=== PATIENT | male | born 1955 | race Caucasian/White ===

== ENCOUNTER 2016-03-07 12:13 | Inpatient (IN) | payer MEDICARE, OTHER, MEDICAID ==
[~2016-03-07] VITALS: Ht 182.9 cm; Wt 67.2 kg
[~2016-03-07 12:13] MED LIST: AMBI10TA PO; ANDR2DIS TOP; ATEN50TA2 PO; AVON1KIT3 IM; BACT400T PO; DRIS50002 PO; LYRI200C PO; METF1000 PO; NAPR500T2 PO; PROV100T4 PO; REGL10TA6 PO; SKEL-29 PO; XANA0.5T PO; ZOLO25TA PO
[2016-03-07 14:07] LABS: BASO # 0.1 K/mm3 (0.0-0.2); BASO % 0.6 % (0.0-1.0); EOS % 0.4 % (0.0-3.0); LARGE UNSTAINED CELL # 0.1 K/mm3 (0.0-0.4); LARGE UNSTAINED CELL % 0.8 % (0.0-4.0); LYMPH # 0.9 K/mm3 (1.5-4.5); LYMPH % 7.3 % (24.0-44.0); MEAN CORPUSCULAR HEMOGLOBIN 27.7 pg (27.0-33.0); MEAN CORPUSCULAR HGB CONC 32.8 g/dl (32.0-36.5); MEAN CORPUSCULAR VOLUME 84.2 fl (80.0-96.0); MONO # 0.5 K/mm3 (0.0-0.8); MONO % 4.2 % (0.0-5.0); NEUTROPHILS % 86.7 % (36.0-66.0); PLATELET COUNT, AUTOMATED 184 k/mm3 (150-450); RED CELL DISTRIBUTION WIDTH 14.6 % (11.5-14.5); WHITE BLOOD COUNT 11.6 K/mm3 (4.0-10.0)
[2016-03-07 14:26] LABS: ALBUMIN 3.6 GM/DL (3.2-5.2); ALBUMIN/GLOBULIN RATIO 0.92 (1.00-1.93); ALKALINE PHOSPHATASE 74 U/L (45-117); ALT/SGPT 41 U/L (12-78); ANION GAP 8 MEQ/L (8-16); AST/SGOT 18 U/L (15-37); BILIRUBIN,DIRECT 0.2 MG/DL (0.0-0.2); BILIRUBIN,TOTAL 0.6 MG/DL (0.2-1.0); BLOOD UREA NITROGEN 16 MG/DL (7-18); CALCIUM LEVEL 8.4 MG/DL (8.5-10.1); CARBON DIOXIDE LEVEL 29 MEQ/L (21-32); CHLORIDE LEVEL 94 MEQ/L (98-107); CREATININE FOR GFR 0.69 MG/DL (0.70-1.30); GLOMERULAR FILTRATION RATE > 60.0 (>56); GLUCOSE, FASTING 159 MG/DL (70-105); POTASSIUM SERUM 4.1 MEQ/L (3.5-5.1); SODIUM LEVEL 131 MEQ/L (136-145); TOTAL PROTEIN 7.5 GM/DL (6.4-8.2)
--- NOTE | 2016-03-07 15:05 | REP ---
CT HEAD WITHOUT CONTRAST: HISTORY: Altered mental status. COMPARISON: 05/31/2005 Areas of decreased attenuation are present in the periventricular and subcortical white matter. This represents small vessel ischemic disease. There is no intraparenchymal hemorrhage, mass or midline shift. The ventricular system and cortical sulci are dilated consistent with minimal volume loss. The degree of ventricular dilatation is out of proportion to that seen in the cortical sulci. There is no extracerebral collection. Mucosal thickening is present in the right maxillary sinus. IMPRESSION: 1. Small vessel ischemic disease. 2. Minimal volume loss. 3. The degree of ventricular dilatation is out of proportion to that seen in the overlying cortical sulci. This can be seen with normal pressure hydrocephalus. Signed by Paulino Trujillo MD 03/07/2016 03:09 P
--- NOTE | 2016-03-07 16:21 | REP ---
Portable chest x-ray: Single view: History: Cough. 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 The lungs are exposed at a low inspiratory level as on prior study 01/18/2016. The aorta is tortuous. Heart size is not felt to be enlarged. The lungs are well inflated and free of infiltrate. Pleural angles are sharp. Impression: No acute disease. Signed by Cesar Berkowitz MD 03/07/2016 04:33 P
[2016-03-07] MEDS ORDERED: ALPRAZolam 0.25 MG TAB As Ordered ONE ×2 (18:11)
--- NOTE | 2016-03-07 18:21 | REP ---
CT ABDOMEN AND PELVIS WITHOUT CONTRAST: CT abdomen and pelvis performed without oral or IV contrast with sagittal and coronal reconstruction images. There is bibasilar fibroatelectatic change. Liver, spleen, adrenals, pancreas and kidneys are grossly unremarkable. No renal, ureteral, or bladder calculus is seen. There is no hydroureteronephrosis. There is no abdominal aortic aneurysm. There is no adenopathy. There is no free air or free fluid. There appear to be central fibrotic changes in the mesentery, stable compared to the prior ct of 12/10/2012 at [facility]. There is no bowel wall thickening. There is no pelvic mass. Urinary bladder is grossly unremarkable. There is a small left inguinal hernia containing fat. There is scoliosis with diffuse degenerative changes of the spine. IMPRESSION: No acute abnormalities as discussed in detail above. Small left inguinal hernia contains fat. No free air or free fluid. No renal or ureteral calculus and no hydroureteronephrosis. Signed by Jason Escamilla MD 03/07/2016 07:59 P
[2016-03-07] MEDS ORDERED: TEST1GEL5 TOP (18:58)
[2016-03-07] MEDS ORDERED: ZOLP12.515 PO (18:58)
[2016-03-07] MEDS ORDERED: LYRI100C10 PO (18:58)
[2016-03-07] MEDS ORDERED: ONDANSETRON 4MG/2ML VIAL (J2405) IV PRN (19:00)
[2016-03-07] MEDS ORDERED: DULO1CAP PO (19:04)
[2016-03-07] MEDS ORDERED: SERT-138 PO (19:05)
[2016-03-07] MEDS ORDERED: KEPP500T6 PO (19:07)
[2016-03-07] MEDS ORDERED: META800T82 PO (19:10)
[2016-03-07] MEDS ORDERED: zolPIDEM CR 6.25MG TABLET (AMBIEN CR) PO PRN (19:15)
[2016-03-07 20:00] VITALS: BP 172/102
[2016-03-07] MEDS ORDERED: GLUCAGON FOR INJ 1 MG VIAL (J1610) SC PRN (20:00)
[2016-03-07] MEDS ORDERED: DEXTROSE 50% 50 ML SYRINGE IV PRN (20:00)
[2016-03-07] MEDS ORDERED: GLUCOSE 4 GM CHEW TABLET PO PRN (20:00)
--- NOTE | 2016-03-07 20:27 | ECGEPIP ---
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
--- NOTE | 2016-03-07 21:11 | HPE ---
DATE OF ADMISSION: 03/07/2016 PRIMARY CARE PROVIDER: [facility] CHIEF COMPLAINT: Bladder spasms and lethargy. HISTORY OF THE PRESENT ILLNESS: The patient is a 60-year-old man who tells me he "does not want to have to deal with this shit." The patient also tells me that he "doesn't want to answer any questions." As such, much of the history is obtained from the emergency room (ER) provider via the patient's sister. The patient reportedly for the last 1 month has had worsening bladder spasms and worsening urinary incontinence associated with increasing lethargy, fatigue. The patient himself admits to worsening bladder spasms and complains of worsening pain. He does not answer questions about orientation or cooperate with much of the exam or further questioning. the patient did have a baclofen pump which had been extruding from his right lower quadrant of his abdomen removed on 01/27/[address] Gray did have concerns following removal that the site of the procedure was infected. The patient did complete a course of Bactrim and was seen in followup by his primary care provider. The patient reportedly refused to have the intrathecal catheter removed and as such, it was capped. The patient has missed numerous appointments with Dr. Gray. The patient's sister, Carmelita, is his family garbage person; phone number [phone]. PAST MEDICAL HISTORY: Multiple sclerosis. Depression. Dyslipidemia. Medication noncompliance. Hypertension. Obstructive sleep apnea. Gastroesophageal reflux disease. HOME MEDICATIONS: - metformin 1 gram twice a day - Interferon Beta/Avonex 30 mcg kit once a week - Testim 1% gel packet topically every 2 days - Testim 1% gel two packs topically every 2 days - Xanax 0.5 mg four times a day as needed muscle spasms and anxiety - atenolol 50 mg daily - duloxetine 20 mg daily - Keppra 500 mg by mouth twice a day - metaxalone 800 mg three times a day as needed spasms - Reglan 10 mg four times a day - modafinil 200 mg twice a day - Lyrica 100 mg three times a day - sertraline 100 mg daily - Ambien 12.5 mg by mouth nightly as needed for insomnia ALLERGIES: BONIVA, VIOXX, MORPHINE, PENICILLIN, CYMBALTA, FOSAMAX, METHADONE. PAST SURGICAL HISTORY: Back surgery. SOCIAL HISTORY: The patient is documented to be a never smoker or illicit substance abuser. FAMILY HISTORY: Noncontributory. REVIEW OF SYSTEMS: Negative other than in the history of the present illness (HPI). PHYSICAL EXAMINATION: Blood pressure 154/76, pulse 98, respiratory rate 20, temperature 99.9, oxygen saturation 93% on room air. In general, he is an obese man laying on the stretcher at a 60-degree angle. He appears irritated but not acutely uncomfortable. HEENT: He has dry mucous membranes. Cranial nerves appear to be intact; however, he does not cooperate with specific nerve testing. CARDIOVASCULAR EXAM: S1, S2. He is not tachycardic on my exam. RESPIRATORY EXAM: Clear. ABDOMINAL EXAM: Benign. Obese. Bowel sounds are present. The abdomen is soft and nontender. He is wearing a diaper which is urine stained. His right lower quadrant infusion pump site appears to be well healed without any erythema, tenderness or swelling. EXTREMITIES: No clubbing, cyanosis or edema. He has contractures of his bilateral lower extremities and his left upper extremity. LABORATORY STUDIES: WBC 11.6, hemoglobin 16.4, hematocrit 50, platelet count 184. Chemistry panel: Sodium 131, potassium 4.1, chloride 94, bicarbonate 29, BUN 16, creatinine 0.6. Lipase is within normal limits. TSH is within normal limits. Toxicology: Keppra level is pending. Urinalysis reveals too numerous to count RBCs as well as 2+ protein. Urine culture is pending. IMAGING: CT scan of the abdomen and pelvis revealed no acute abnormalities. Small left inguinal hernia containing fat. No free air or fluid. No renal or ureteral calculi. No hydronephrosis. The patient also did have a chest x-ray that revealed no acute disease and a CT scan of the head, which revealed small vessel ischemic disease, minimal volume loss and the degree of ventricular dilation is out of proportion to that seen in the overlying cortical sulci, which could be seen with normal pressure hydrocephalus. ASSESSMENT AND PLAN: This is a 60-year-old man with advanced multiple sclerosis who has 24/7 care at home, who was brought in for changes in mentation and worsening bladder spasms. Problems: 1. Change in mentation and worsening bladder spasms. These are concerning symptoms in the setting of CT findings which are suggestive of normal pressure hydrocephalus. Given that there is a concern for normal pressure hydrocephalus, I have ordered the patient to have a lumbar puncture to be completed tomorrow morning. Will hold any deep vein thrombosis (DVT) prophylaxis until this is completed. I have also spoken both with Dr. Gray and Dr. Rubin, both who have agreed to see the patient in consultation. The patient does not appear to be overtly septic, and I do not think that he needs antibiotics at the present time. I will obtain a lumbar puncture and continue to monitor. Should he become febrile or appear to become more septic, would reconsider the need for antibiotics. I will check a lactic acid level as well as erythrocyte sedimentation rate (ESR) and C-reactive protein (CRP). 2. Hyponatremia. The patient does appear to be somewhat dehydrated. I will provide him with gentle normal saline overnight. 3. Multiple sclerosis. Fairly advanced. The patient will be continued on his home medication. A number of these medications could cause him to be more sedated, and as such, I will place hold parameters to be held for sedation on his Xanax, Ambien, pain medication, Skelaxin. The patient will also be continued on his Keppra. 4. Depression. The patient will be continued on Zoloft and Cymbalta. 5. Hypertension. The patient continued on atenolol. 6. Medication non-adherence. The patient is a DO NOT RESUSCITATE/DO NOT INTUBATE (DNR/DNI) with limited medical interventions. At the time of my visiting him, he is not cooperative with much of the physical exam or history taking. This does not appear to be significantly different from his baseline from speaking with his other providers. They wish to outline further with the patient and family their goals of care and how much further workup they do wish to pursue. DISPOSITION: The patient is admitted to the progressive care unit for frequent neurological (neuro) check and will be followed by Dr. Castro on the [facility]. I have spoken to her regarding the patient at this time. COMPA
[2016-03-07] MEDS ORDERED: METOCLOPRAMIDE 10 MG TAB As Ordered ONE (21:21)
[2016-03-07] MEDS ORDERED: levETIRAcetam 250MG TABLET (KEPPRA) As Ordered ONE (21:21)
[2016-03-07] MEDS ORDERED: NORCO, ANEXSIA 5/325MG TABLET (HYDROcodone/ACETAMINOPHEN) As Ordered ONE (21:22)
[2016-03-07] MEDS ORDERED: PREGABALIN 100 MG CAP (LYRICA) As Ordered ONE (21:22)
[2016-03-07] MEDS: NORCO, ANEXSIA 5/325MG TABLET (HYDROcodone/ACETAMINOPHEN) PO PRN (22:03)
[2016-03-07] MEDS: levETIRAcetam 250MG TABLET (KEPPRA) PO SCH (22:04)
[2016-03-07] MEDS: PREGABALIN 100 MG CAP (LYRICA) PO SCH (22:04)
[2016-03-07] MEDS: METOCLOPRAMIDE 10 MG TAB PO SCH (22:04)
[2016-03-07 22:23] VITALS: BP 172/102
[2016-03-07 22:30] VITALS: BP 200/110
[2016-03-07] MEDS ORDERED: hydrALAZINE INJ 20 MG/ML VIAL IV PRN (22:45)
[2016-03-07 23:00] VITALS: BP 157/88
[2016-03-07] MEDS: HumaLOG INSULIN (NovoLOG) PER UNIT SC SCH (23:03)
[2016-03-07] MEDS: NS 1,000 ML IV SCH (23:30)
[2016-03-08] VITALS (8 sets, daily range): BP systolic 135–177; BP diastolic 74–102
[2016-03-08] MEDS ORDERED: ALPRAZolam 0.25 MG TAB As Ordered ONE (00:45)
[2016-03-08] MEDS: ALPRAZolam 0.5 MG TAB PO PRN (00:48)
--- NOTE | 2016-03-08 05:39 | EDDOCDS ---
Nurse's Notes [facility] Name: Alvino Wayne Age: 60 yrs Sex: Male : 1955 Arrival Date: 03/07/2016 Time: 12:13 Bed Admit Hold Private MD: Diagnosis: Altered mental status, unspecified Presentation: 03/07 12:19 Presenting complaint: EMS states: Worsening confusion over the past couple of weeks. ck1 Adult Sepsis Screening: Patient has new or worsening altered mentation (1 point). Patient's respiratory rate is less than 22. Systolic blood pressure is greater than 100. Patient has a qSOFA score of 1- Negative Sepsis Screen. Suicide/Homicide risk assessment- the patient denies having any suicidal and/or homicidal ideations and does not present with any other emotional, behavioral or mental health complaints. Status: Patient is not a social services specialist or dependent. Transition of care: patient was not received from another setting of care. 12:19 Acuity: SHANNAN Level 3 ck1 12:19 Method Of Arrival: Ambulance ck1 Triage Assessment: 12:28 General: Appears in no apparent distress, Behavior is agitated. Pain: Location: right ck1 leg and left leg Pain currently is 9 out of 10 on a pain scale. HIV screening NA for this visit Offered previously. Neurological: Level of Consciousness is awake, alert, obeys commands, Oriented to person, place, time. Cardiovascular: Rhythm is sinus rhythm. Respiratory: Respiratory effort is unlabored, Respiratory pattern is regular, symmetrical. GI: No deficits noted. Derm: Skin is normal. Historical: - Allergies: Boniva; Vioxx; Morphine; PCN; Cymbalta; Fosamax; Methadone; - Home Meds: 1. alprazolam 0.5 mg Oral tab 1 tab 3 times per day 2. metoclopramide HCl 10 mg Oral tab 4 times per day 3. zolpidem 12.5 mg Oral TbMP 1 tab nightly PRN 4. metformin 500 mg Oral tab 1 tab 2 times per day 5. sulfamethoxazole-trimethoprim 800-160 mg Oral tab 1 tab every 12 hours 6. [place] 5-325 mg Oral tab 1 tab every 6 hours PRN 7. duloxetine 20 mg Oral cpDR daily 8. pregabalin 200 mg Oral cap 1 cap 3 times per day 9. Sertraline 100 mg daily 10. levetiracetam 500 mg oral tab 1 tab 2 times per day 11. modafinil 200 mg oral tab 1 tab twice a day 12. fiber 2 caps twice a day 13. bisacodyl 5 mg Oral tab twice a day PRN 14. Drisdol 50,000 unit Oral cap 1 cap once wkly - PMHx: Multiple Sclerosis; Depression; hyperlipidemia; Hypertension; sleep apnea; GERD; - PSHx: back surgery; - Social history: Smoking status: Patient states was never smoker of tobacco. No barriers to communication noted, The patient speaks fluent Kazakh, Speaks appropriately for age. - Family history: Not pertinent. - : The pt / caregiver states he / she is not on anticoagulants. Home medication list is obtained from a discharge med list. - Exposure Risk Screening:: None identified. Screenin:30 Screening information is obtained from prior medical records. Fall risk: At risk due to ck1 gait disturbance, The following interventions are performed due to a positive Fall Risk Screen: Fall Risk is added to Special Handling on the patient Summary Screen. A Fall Risk Bracelet was applied to the patient. Side Rails are placed in the up position. A Call Lynne is given with instruction to call for help when getting out of bed. Fall Alert bracelet is placed on the patient. Assistance ADL's: Requires assistance with meal preparation, this assistance is provided by family members, bathing, assistance is provided by family members, dressing, assistance is provided by family members, toileting, assistance is provided by family members, ambulation, assistance is provided by wheelchair. housework, assistance is provided by family members, medication administration, assistance is provided by family members. Abuse/DV Screen: The patient / caregiver reports he/she is: not in a situation that causes fear, pain or injury. Nutritional screening: No deficits noted. Advance Directives: There is an active DNR order and the pt has a copy here at this time. home support is adequate. Assessment: 12:31 General: see triage note. ck1 13:30 General: Appears in no apparent distress, Behavior is agitated. Pain: Location: right ck1 leg and left leg. Neurological: Level of Consciousness is awake, alert, Oriented to person, place, time. Cardiovascular: Rhythm is regular. Respiratory: Respiratory effort is unlabored, Respiratory pattern is regular, symmetrical. GI: No deficits noted. Derm: Skin is pink, warm & dry. 14:24 Reassessment: Patient appears in no apparent distress at this time. sister at bedside. ck1 Vaseline to lips per patient family request. Family requesting to speak with provider. Will make provider aware. 15:20 General: Appears in no apparent distress, Behavior is agitated. Pain: Noted to be ck1 agitated. Neurological: Level of Consciousness is awake, alert. Cardiovascular: Rhythm is regular. Respiratory: Respiratory effort is unlabored, Respiratory pattern is regular, symmetrical. GI: No deficits noted. Derm: Skin is pink, warm & dry. 16:02 General: Patient and sister informed of need for urine specimen. Patient refusing to ck1 attempt urinal, informed of need for straight cath. Patients sister refusing catheterization at this time. Provider aware. 17:08 General: Appears in no apparent distress, Behavior is agitated, cooperative. Pain: ck1 Location: right leg and left leg Noted to be agitated. Neurological: Level of Consciousness is awake, alert, Oriented to person, place, time. Cardiovascular: Rhythm is regular. Respiratory: Respiratory effort is unlabored, Respiratory pattern is regular, symmetrical. GI: No deficits noted. Derm: Skin is pink, warm & dry. 18:17 General: RN in to reassess patient. Monitor and leads off patient. Patient refusing to ck1 put leads back on, sister at bedside states "that's just a waste of time, he wont keep them on". 20:18 Adult Sepsis Screening: The patient does not have new or worsening altered mentation. cf2 Patient's respiratory rate is less than 22. Systolic blood pressure is greater than 100. Patient has a qSOFA score of 0- Negative Sepsis Screen. General: While attempting the MRI screening, sister states "I was told he can't have an MRI, he had an infusion pump placed 15 years ago. The pump was removed but the catheter is still in there". Called poured concrete wall technician to inquire, per poured concrete wall technician, test should be reschedule until catheter can be investigated. Hospitalist paged. . 20:49 General: Smells of Spoke with Dr Castro, he is aware of MRI and patient can go to [facility] tomorrow after cleared to go. He is also ordering patient. 22:06 General: Report ot admission hold nurse. Patient was moved in to a hospital bed . cf2 Vital Signs: 12:17 BP 154 / 76 (auto/); ck1 12:17 Pulse 98 MON; Pulse Ox 93% ; ck1 12:22 BP 154 / 76; Pulse 97; Resp 20; Temp 99.9(O); Pulse Ox 96% on R/A; Pain 10/10; dem1 12:23 BP 147 / 72 (auto/); ck1 12:23 Pulse 98 MON; Pulse Ox 96% ; ck1 12:38 BP 165 / 70 (auto/); ck1 12:38 Pulse 98 MON; Pulse Ox 93% ; ck1 13:08 BP 148 / 82 (auto/); ck1 13:08 Pulse 100 MON; Pulse Ox 98% ; ck1 13:23 BP 162 / 94 (auto/); ck1 13:23 Pulse 100 MON; Pulse Ox 97% ; ck1 13:38 BP 152 / 98 (auto/); ck1 13:38 Pulse 100 MON; Pulse Ox 97% ; ck1 13:53 BP 170 / 90 (auto/); ck1 13:54 Pulse 104 MON; Pulse Ox 90% ; ck1 14:07 Pulse 102 MON; Pulse Ox 97% ; ck1 14:08 BP 192 / 104 (auto/); ck1 14:21 BP 164 / 97 (auto/); ck1 14:22 Pulse 102 MON; Pulse Ox 97% ; ck1 14:23 BP 155 / 86 (auto/); ck1 14:23 Pulse 100 MON; Pulse Ox 98% ; ck1 14:38 BP 156 / 88 (auto/); ck1 14:38 Pulse 102 MON; Pulse Ox 96% ; ck1 14:53 BP 156 / 95 (auto/); ck1 14:53 Pulse 102 MON; Pulse Ox 96% ; ck1 15:08 BP 164 / 93 (auto/); ck1 15:08 Pulse 100 MON; Pulse Ox 96% ; ck1 15:17 Pulse 100 MON; Pulse Ox 95% ; cf2 15:21 Pulse 102 MON; Pulse Ox 93% ; ck1 15:23 BP 196 / 93 (auto/); ck1 15:38 BP 179 / 76 (auto/); ck1 15:53 BP 168 / 78 (auto/); ck1 15:59 Pulse 104 MON; Pulse Ox 96% ; ck1 16:01 Pulse 104 MON; Pulse Ox 97% ; cf2 16:03 Pulse 104 MON; Pulse Ox 94% ; ck1 16:08 BP 175 / 81 (auto/); ck1 16:18 Pulse 104 MON; ck1 16:23 BP 214 / 100 (auto/); ck1 16:46 BP 118 / 57 (auto/); ck1 16:49 Pulse 104 MON; Pulse Ox 90% ; ck1 16:52 Pulse 102 MON; Pulse Ox 94% ; cf2 17:01 Pulse 102 MON; Pulse Ox 93% ; ck1 17:01 BP 118 / 57 (auto/); ck1 17:02 Pulse 104 MON; Pulse Ox 87% ; cf2 17:05 Pulse 102 MON; Pulse Ox 93% ; cf2 17:07 Resp 18; Temp 98.0(O); ck1 17:13 Pulse 106 MON; Pulse Ox 94% ; cf2 17:15 Pulse 102 MON; Pulse Ox 91% ; cf2 17:16 BP 136 / 59 (auto/); ck1 17:16 Pulse 102 MON; Pulse Ox 93% ; ck1 17:17 Pulse 102 MON; Pulse Ox 92% ; ck1 17:22 Pulse 102 MON; cf2 17:31 BP 132 / 60 (auto/); ck1 19:50 BP 161 / 82; Pulse 96; Resp 18; Temp 98.5; Pulse Ox 97% ; Pain 4/10; cf2 21:56 BP 178 / 105 (auto/); cf2 22:42 BP 183 / 98 (auto/); cf2 22:43 Pulse 102 MON; cf2 Vitals: 12:22 Log In Time N/A - ambulance arrival. [facility] ED Course: 12:19 Patient visited by Cielo Soto. cmb 12:19 Aura Donato,RN is Primary Nurse. cmb 12:19 Patient moved to Waiting cmb 12:19 Patient moved to 13 cmb 12:20 Triage Initiated ck1 12:22 Patient visited by Britta Molina. dem1 12:24 Saima Kim DO is PHCP. jo4 12:24 Cheryl Perez MD is Attending Physician. jo4 12:24 Pt greeted and oriented to ED. Patient advised of names of staff involved in care, dem1 location of call lynne, wait times and NPO status. Patient has correct armband on for positive identification. Placed in gown. Bed in low position. Call light in reach. Side rails up X2. alarm security or surveillance monitor on. Pulse ox on. NIBP on. 12:26 Patient visited by Britta Molina. dem1 12:30 The patient / caregiver is instructed regarding the plan of care and ED course. ck1 12:55 Patient visited by Saima Kim DO. jo4 12:55 Patient visited by Saima Kim DO. jo4 13:32 Patient visited by Aura Donato RN. ck1 13:48 EKG done. (by ED staff). Reviewed by Saima Kim DO. dem1 13:50 Patient visited by Britta Molina. dem1 14:05 Patient visited by Aura Donato RN. ck1 14:05 Inserted saline lock: 20 gauge in right antecubital area and blood collected. The ck1 patient tolerated the procedure well. 14:23 Patient visited by Aura Donato RN. ck1 14:26 Patient visited by Aura Donato RN. ck1 15:07 Patient visited by Aura Donato RN. ck1 15:38 [facility] Payment Agreement was scanned into [employer] and attached to record. jp5 15:39 Patient visited by Aura Donato RN. ck1 15:52 CT Head Without Contrast Returned. EDMS 16:01 Patient visited by Aura Donato RN. ck1 16:01 Keppra (short red top tube): Serum level please Sent. ck1 16:35 Patient visited by Aura Donato RN. ck1 16:35 Urine Culture Sent. ck1 16:35 Urinalysis Sent. ck1 16:44 Chest, 1 View Returned. EDMS 17:07 Patient visited by Aura Donato RN. ck1 17:27 Patient visited by Aura Donato RN. ck1 17:48 Patient visited by Aura Donato RN. ck1 17:53 Teja Mustafa is Hospitalizing Provider. jo4 18:14 Patient moved to Admit Hold tmm1 18:31 CT ABD & PELVIS: No Contrast Returned. EDMS 18:55 Primary Nurse role handed off by Aura Donato,GUI ck1 19:04 Patient visited by Brandon Winchester PCA. kb5 19:05 Asuncion Mendoza,GUI is Primary Nurse. cf2 19:05 Patient visited by Asuncion Mendoza RN. cf2 20:18 Patient visited by Asuncion Mendoza RN. cf2 20:18 No procedures done that require assistance. Wound care to decubitus located on buttocks.cf2 20:45 Patient visited by Asuncion Mendoza RN. cf2 20:45 Patient visited by Asuncion Mendoza RN. cf2 20:46 Patient visited by Asuncion Mendoza RN. cf2 20:46 Patient visited by Asuncion Mendoza RN. cf2 20:49 Patient visited by Asuncion Mendoza RN. cf2 21:17 EKG-ADULT Returned. EDMS 21:46 Patient visited by Asuncion Mendoza RN. cf2 21:46 Patient visited by Asuncion Mendoza RN. cf2 21:47 Patient visited by Asuncion Mendoza RN. cf2 22:04 Patient visited by Asuncion Mendoza RN. cf2 22:06 Patient visited by Asuncion Mendoza RN. cf2 22:10 Patient visited by Asuncion Mendoza RN. cf2 22:31 Patient visited by Asuncion Mendoza RN. cf2 23:27 Patient moved to 13 tmm1 03/08 00:12 Patient moved to Admit Hold sls1 Administered Medications: 03/07 18:17 Drug: ALPRAZolam 0.5 mg [alprazolam 0.25 mg tablet (2 tabs)] Route: PO; ck1 22:09 Follow up: Response: No significant change. cf2 Order Results: Lab Order: CBC with Diff; SPEC'M 03/07/16 13:59 Test: WHITE BLOOD COUNT; Value: 11.6; Range: 4.0-10.0; Abnormal: Above high normal; Units: K/mm3; Status: F Test: RED BLOOD COUNT; Value: 5.93; Range: 4.30-6.10; Units: M/mm3; Status: F Test: HEMOGLOBIN; Value: 16.4; Range: 14.0-18.0; Units: g/dl; Status: F Test: HEMATOCRIT; Value: 50.0; Range: 42.0-52.0; Units: %; Status: F Test: MEAN CORPUSCULAR VOLUME; Value: 84.2; Range: 80.0-96.0; Units: fl; Status: F Test: MEAN CORPUSCULAR HEMOGLOBIN; Value: 27.7; Range: 27.0-33.0; Units: pg; Status: F Test: MEAN CORPUSCULAR HGB CONC; Value: 32.8; Range: 32.0-36.5; Units: g/dl; Status: F Test: RED CELL DISTRIBUTION WIDTH; Value: 14.6; Range: 11.5-14.5; Abnormal: Above high normal; Units: %; Status: F Test: PLATELET COUNT, AUTOMATED; Value: 184; Range: 150-450; Units: k/mm3; Status: F Test: NEUTROPHILS %; Value: 86.7; Range: 36.0-66.0; Abnormal: Above high normal; Units: %; Status: F Test: LYMPH %; Value: 7.3; Range: 24.0-44.0; Abnormal: Below low normal; Units: %; Status: F Test: MONO %; Value: 4.2; Range: 0.0-5.0; Units: %; Status: F Test: EOS %; Value: 0.4; Range: 0.0-3.0; Units: %; Status: F Test: BASO %; Value: 0.6; Range: 0.0-1.0; Units: %; Status: F Test: LARGE UNSTAINED CELL %; Value: 0.8; Range: 0.0-4.0; Units: %; Status: F Test: NEUTROPHILS #; Value: 10.0; Range: 1.8-7.7; Abnormal: Above high normal; Units: K/mm3; Status: F Test: LYMPH #; Value: 0.9; Range: 1.5-4.5; Abnormal: Below low normal; Units: K/mm3; Status: F Test: MONO #; Value: 0.5; Range: 0.0-0.8; Units: K/mm3; Status: F Test: EOS #; Value: 0.0; Range: 0.0-0.50; Units: K/mm3; Status: F Test: BASO #; Value: 0.1; Range: 0.0-0.2; Units: K/mm3; Status: F Test: LARGE UNSTAINED CELL #; Value: 0.1; Range: 0.0-0.4; Units: K/mm3; Status: F Lab Order: Cardiac Injury Profile; SPEC'M 03/07/16 13:59 Test: CPK CREATINE PHOSPHOKINASE; Value: 56; Range: 39-308; Units: U/L; Status: F Test: CK-MB VALUE MASS; Value: 1.0; Range: 0.0-3.6; Units: NG/ML; Status: F Test: MB/CK RELATIVE INDEX; Value: 1.78; Range: < OR =4; Status: F Test Note: ; DIAGNOSIS CRITERIA MMB ng/ml Relative Index (RI) NON-AMI < or = 5 N/A [place]AM[place]A ZONE > 5 < or = 4 AMI > 5 > 4 Lab Order: Liver Profile; SPEC'M 03/07/16 13:59 Test: AST/SGOT; Value: 18; Range: 15-37; Units: U/L; Status: F Test: ALT/SGPT; Value: 41; Range: 12-78; Units: U/L; Status: F Test: ALKALINE PHOSPHATASE; Value: 74; Range: 45-117; Units: U/L; Status: F Test: BILIRUBIN,TOTAL; Value: 0.6; Range: 0.2-1.0; Units: MG/DL; Status: F Test: BILIRUBIN,DIRECT; Value: 0.2; Range: 0.0-0.2; Units: MG/DL; Status: F Test: TOTAL PROTEIN; Value: 7.5; Range: 6.4-8.2; Units: GM/DL; Status: F Test: ALBUMIN; Value: 3.6; Range: 3.2-5.2; Units: GM/DL; Status: F Test: ALBUMIN/GLOBULIN RATIO; Value: 0.92; Range: 1.00-1.93; Abnormal: Below low normal; Status: F Lab Order: MED Profile; 03/07/16 13:59 Test: GLUCOSE, FASTING; Value: 159; Range: 70-105; Abnormal: Above high normal; Units: MG/DL; Status: F Test: BLOOD UREA NITROGEN; Value: 16; Range: 7-18; Units: MG/DL; Status: F Test: CREATININE FOR GFR; Value: 0.69; Range: 0.70-1.30; Abnormal: Below low normal; Units: MG/DL; Status: F Test: GLOMERULAR FILTRATION RATE; Value: > 60.0; Range: >56; Status: F Test: SODIUM LEVEL; Value: 131; Range: 136-145; Abnormal: Below low normal; Units: MEQ/L; Status: F Test: POTASSIUM SERUM; Value: 4.1; Range: 3.5-5.1; Units: MEQ/L; Status: F Test: CHLORIDE LEVEL; Value: 94; Range: 98-107; Abnormal: Below low normal; Units: MEQ/L; Status: F Test: CARBON DIOXIDE LEVEL; Value: 29; Range: 21-32; Units: MEQ/L; Status: F Test: ANION GAP; Value: 8; Range: 8-16; Units: MEQ/L; Status: F Test: CALCIUM LEVEL; Value: 8.4; Range: 8.5-10.1; Abnormal: Below low normal; Units: MG/DL; Status: F Test Note: ; Units are mL/min/1.73 m2 Chronic Kidney Disease Staging per NKF: Stage I & II GFR >=60 Normal to Mildly Decreased Stage III GFR 30-59 Moderately Decreased Stage IV GFR 15-29 Severely Decreased Stage V GFR <15 Very Little GFR Left ESRD GFR <15 on DUST PULLER Lab Order: Thyroid Stimulating Hormone; 03/07/16 13:59 Test: THYROID STIMULATING HORMONE; Value: 1.740; Range: 0.358-3.740; Units: uIU/ML; Status: F Lab Order: Troponin; SPEC03/07/16 13:59 Test: TROPONIN I; Value: < 0.02; Range: < 0.10; Units: NG/ML; Status: F Test Note: ; Troponin I Reference Interval for Siemens [place] LOCI: 99th Percentile= 0.00-0.045 ng/ml Risk Stratification: <= 0.10 ng/ml Decreased Risk for Adverse Clinical Events. 0.10-1.50 ng/ml Increased Risk for Adverse Clinical Events. Evaluation of additional criterion and/or repeat testing in 2-6 hours is suggested to rule out myocardial damage. >= 1.50 ng/ml Indicative of Myocardial Injury. Lab Order: Urinalysis; SPEC'M 03/07/16 16:33 Test: APPEARANCE, URINE; Value: CLOUDY; Range: CLEAR; Abnormal: Above high normal; Status: F Test: COLOR, URINE; Value: YELLOW; Range: YELLOW; Status: F Test: PH,URINE; Value: 6.0; Range: 5.0-9.0; Units: UNITS; Status: F Test: SPECIFIC GRAVITY URINE AUTO; Value: 1.029; Range: 1.002-1.035; Status: F Test: PROTEIN, URINE AUTO; Value: 2+; Range: NEGATIVE; Abnormal: Above high normal; Units: mg/dL; Status: F Test: GLUCOSE, URINE (UA) AUTO; Value: 1+; Range: NEGATIVE; Abnormal: Above high normal; Units: mg/dL; Status: F Test: KETONE, URINE AUTO; Value: 1+; Range: NEGATIVE; Abnormal: Above high normal; Units: mg/dL; Status: F Test: UROBILINOGEN, URINE AUTO; Value: 0.2; Range: 0.0-2.0; Units: mg/dL; Status: F Test: BILIRUBIN, URINE AUTO; Value: NEGATIVE; Range: NEGATIVE; Status: F Test: NITRITE, URINE AUTO; Value: NEGATIVE; Range: NEGATIVE; Status: F Test: LEUKOCYTE ESTERASE, URINE AUTO; Value: NEGATIVE; Range: NEGATIVE; Status: F Test: BLOOD, URINE BLOOD; Value: 3+; Range: NEGATIVE; Abnormal: Above high normal; Status: F Test: WBC, URINE AUTO; Value: 1; Range: 0-3; Units: /HPF; Status: F Test: RBC, URINE AUTO; Value: TNTC; Range: 0-3; Abnormal: Above high normal; Units: /HPF; Status: F Test: BACTERIA, URINE AUTO; Value: NEGATIVE; Range: NEGATIVE; Status: F Test: SQUAMOUS EPITHELIAL CELL UR AU; Value: 0; Range: 0-6; Units: /HPF; Status: F Test: MUCUS, URINE; Value: SMALL; Range: NEGATIVE; Status: F Test: HYALINE CAST, URINE AUTO; Value: 0; Range: 0-1; Units: /LPF; Status: F Lab Order: LIPASE; [facility] 03/07/16 13:59 Test: LIPASE; Value: 152; Range: 73-393; Units: U/L; Status: F Lab Order: LACTIC ACID LEVEL, LACTATE; SPEC 03/07/16 19:23 Test: LACTIC ACID LEVEL, LACTATE; Value: 1.0; Range: 0.4-2.0; Units: MMOL/L; Status: F Lab Order: ERYTHROCYTE SEDIMENTATION RATE; [facility] 03/07/16 19:23 Test: ERYTHROCYTE SEDIMENTATION RATE; Value: 4; Range: 0-20; Units: mm/hr; Status: F Lab Order: C REACTIVE PROTEIN QUANTITATIV; 03/07/16 19:23 Test: C REACTIVE PROTEIN QUANTITATIV; Value: 0.84; Range: 0.00-0.30; Abnormal: Above high normal; Units: MG/DL; Status: F Lab Order: Fingerstick Blood Sugar; [facility] 03/07/16 22:51 Test: BEDSIDE GLUCOSE; Value: 154; Range: 70-105; Abnormal: Above high normal; Units: MG/DL; Status: F Radiology Order: EKG-ADULT Test: EKG-ADULT REASON FOR EXAMINATION: altered mentals tatus; Stationary ECG Study; [facility] - ED; ; Test Date: 2016-03-07; Pat Name: ALVINO WAYNE Department:; Room: -; Gender: M Victim Witness Administrator: dm; : 1955 Requested By: Cheryl Perez; Order Number: [id number] Reading MD: Cheryl Perez; Measurements; Intervals [place]; Rate: 104 P: -2; MA: 117 QRS: -9; QRSD: 86 T: 42; QT: 320; QTc: 422; Interpretive Statements; SINUS TACHYCARDIA WITH SHORT MA INTERVAL; ABNORMAL RHYTHM ECG; NO PRIOR FOR COMPARISON; Electronically Signed On 03-07-2016 20:27:11 EST by Cheryl Perez; Radiology Order: CT Head Without Contrast Test: CT Head Without Contrast REASON FOR EXAMINATION: altered mental status; CT HEAD WITHOUT CONTRAST:; ; HISTORY: Altered mental status.; ; COMPARISON: 05/31/2005; ; Areas of decreased attenuation are present in the periventricular and subcortical; white matter. This represents small vessel ischemic disease. There is no; intraparenchymal hemorrhage, mass or midline shift. The ventricular system and; cortical sulci are dilated consistent with minimal volume loss. The degree of; ventricular dilatation is out of proportion to that seen in the cortical sulci.; There is no extracerebral collection. Mucosal thickening is present in the right; maxillary sinus.; ; IMPRESSION:; ; 1. Small vessel ischemic disease.; ; 2. Minimal volume loss.; ; 3. The degree of ventricular dilatation is out of proportion to that seen in; the overlying cortical sulci. 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 The; lungs are exposed at a low inspiratory level as on prior study 01/18/2016. The; aorta is tortuous. Heart size is not felt to be enlarged. The lungs are well; inflated and free of infiltrate. Pleural angles are sharp.; ; Impression:; ; No acute disease.; ; ; Signed by; Cesar Berkowitz MD 03/07/2016 04:33 P; Radiology Order: CT ABD & PELVIS: No Contrast Test: CT ABD & PELVIS: No Contrast REASON FOR EXAMINATION: back pain; CT ABDOMEN AND PELVIS WITHOUT CONTRAST:; ; CT abdomen and pelvis performed without oral or IV contrast with sagittal and; coronal reconstruction images.; ; There is bibasilar fibroatelectatic change. Liver, spleen, adrenals, pancreas and; kidneys are grossly unremarkable. No renal, ureteral, or bladder calculus is; seen. There is no hydroureteronephrosis. There is no abdominal aortic aneurysm.; There is no adenopathy. There is no free air or free fluid. There appear to be; central fibrotic changes in the mesentery, stable compared to the prior ct of; 12/10/2012 at [facility]. There is no bowel wall thickening.; There is no pelvic mass. Urinary bladder is grossly unremarkable. There is a; small left inguinal hernia containing fat. There is scoliosis with diffuse; degenerative changes of the spine.; ; IMPRESSION:; ; No acute abnormalities as discussed in detail above. Small left inguinal hernia; contains fat. No free air or free fluid. No renal or ureteral calculus and no; hydroureteronephrosis.; ; ; Signed by; Jason Escamilla MD 03/07/2016 07:59 P; Outcome: 14:23 CT Study completed. ck1 15:17 Discharge Assessment: Patient awake, alert and oriented x 3. No cognitive and/or cf2 functional deficits noted. Patient verbalized understanding of disposition instructions. Patient awake, alert, obeys commands, Oriented to person, patient administered narcotics - yes. Patient was admitted to the hospital or transferred to another facility. The following High Risk Discharge criteria are identified: Yes, Admitted Report to ER admission hold nurse, accompanied by nurse. Condition: good Condition: stable. Property :Personal belongings accompany Pt. 17:54 Decision to Hospitalize by Provider. jo4 03/08 05:37 Patient left the ED. [facility] Signatures: Dispatcher [employer] EDMS Aura Donato,RN RN ck1 Brandon Winchester, OB/GYN OB/GYN kb5 Cheryl Camacho RN RN sls1 Britta Molina dem1 Cielo Soto cmb Kenya Quinones, OB/GYN OB/GYN tmm1 Nestor Marin jp5 Saima Kim DO DO jo4 Asuncion Mendoza,GUI RN cf2 Corrections: (The following items were deleted from the chart) 03/07 17:21 17:17 LIPASE+LAB sent. [facility] EDMA MTDD
--- NOTE | 2016-03-08 05:39 | EDDOCDS ---
Physician Documentation [facility] Name: Alvino Vanessa Age: 60 yrs Sex: Male : 1955 Arrival Date: 03/07/2016 Time: 12:13 Bed Admit Hold Private MD: Disposition: 03/07/16 17:54 Hospitalization ordered by Teja Mustafa for Inpatient Admission. Preliminary diagnosis is Altered mental status, unspecified. - Bed requested for M ICU. - Status is Inpatient Admission. sls1 - Condition is Stable. - Problem is new. - Symptoms are unchanged. Historical: - Allergies: Boniva; Vioxx; Morphine; PCN; Cymbalta; Fosamax; Methadone; - Home Meds: 1. alprazolam 0.5 mg Oral tab 1 tab 3 times per day 2. metoclopramide HCl 10 mg Oral tab 4 times per day 3. zolpidem 12.5 mg Oral TbMP 1 tab nightly PRN 4. metformin 500 mg Oral tab 1 tab 2 times per day 5. sulfamethoxazole-trimethoprim 800-160 mg Oral tab 1 tab every 12 hours 6. [place] 5-325 mg Oral tab 1 tab every 6 hours PRN 7. duloxetine 20 mg Oral cpDR daily 8. pregabalin 200 mg Oral cap 1 cap 3 times per day 9. Sertraline 100 mg daily 10. levetiracetam 500 mg oral tab 1 tab 2 times per day 11. modafinil 200 mg oral tab 1 tab twice a day 12. fiber 2 caps twice a day 13. bisacodyl 5 mg Oral tab twice a day PRN 14. Drisdol 50,000 unit Oral cap 1 cap once wkly - PMHx: Multiple Sclerosis; Depression; hyperlipidemia; Hypertension; sleep apnea; GERD; - PSHx: back surgery; - Social history: Smoking status: Patient states was never smoker of tobacco. No barriers to communication noted, The patient speaks fluent Gambian, Speaks appropriately for age. - Family history: Not pertinent. - : The pt / caregiver states he / she is not on anticoagulants. Home medication list is obtained from a discharge med list. - Exposure Risk Screening:: None identified. Vital Signs: 03/07 12:17 BP 154 / 76 (auto/); ck1 12:17 Pulse 98 MON; Pulse Ox 93% ; ck1 12:22 BP 154 / 76; Pulse 97; Resp 20; Temp 99.9(O); Pulse Ox 96% on R/A; Pain 10/10; dem1 12:23 BP 147 / 72 (auto/); ck1 12:23 Pulse 98 MON; Pulse Ox 96% ; ck1 12:38 BP 165 / 70 (auto/); ck1 12:38 Pulse 98 MON; Pulse Ox 93% ; ck1 13:08 BP 148 / 82 (auto/); ck1 13:08 Pulse 100 MON; Pulse Ox 98% ; ck1 13:23 BP 162 / 94 (auto/); ck1 13:23 Pulse 100 MON; Pulse Ox 97% ; ck1 13:38 BP 152 / 98 (auto/); ck1 13:38 Pulse 100 MON; Pulse Ox 97% ; ck1 13:53 BP 170 / 90 (auto/); ck1 13:54 Pulse 104 MON; Pulse Ox 90% ; ck1 14:07 Pulse 102 MON; Pulse Ox 97% ; ck1 14:08 BP 192 / 104 (auto/); ck1 14:21 BP 164 / 97 (auto/); ck1 14:22 Pulse 102 MON; Pulse Ox 97% ; ck1 14:23 BP 155 / 86 (auto/); ck1 14:23 Pulse 100 MON; Pulse Ox 98% ; ck1 14:38 BP 156 / 88 (auto/); ck1 14:38 Pulse 102 MON; Pulse Ox 96% ; ck1 14:53 BP 156 / 95 (auto/); ck1 14:53 Pulse 102 MON; Pulse Ox 96% ; ck1 15:08 BP 164 / 93 (auto/); ck1 15:08 Pulse 100 MON; Pulse Ox 96% ; ck1 15:17 Pulse 100 MON; Pulse Ox 95% ; cf2 15:21 Pulse 102 MON; Pulse Ox 93% ; ck1 15:23 BP 196 / 93 (auto/); ck1 15:38 BP 179 / 76 (auto/); ck1 15:53 BP 168 / 78 (auto/); ck1 15:59 Pulse 104 MON; Pulse Ox 96% ; ck1 16:01 Pulse 104 MON; Pulse Ox 97% ; cf2 16:03 Pulse 104 MON; Pulse Ox 94% ; ck1 16:08 BP 175 / 81 (auto/); ck1 16:18 Pulse 104 MON; ck1 16:23 BP 214 / 100 (auto/); ck1 16:46 BP 118 / 57 (auto/); ck1 16:49 Pulse 104 MON; Pulse Ox 90% ; ck1 16:52 Pulse 102 MON; Pulse Ox 94% ; cf2 17:01 Pulse 102 MON; Pulse Ox 93% ; ck1 17:01 BP 118 / 57 (auto/); ck1 17:02 Pulse 104 MON; Pulse Ox 87% ; cf2 17:05 Pulse 102 MON; Pulse Ox 93% ; cf2 17:07 Resp 18; Temp 98.0(O); ck1 17:13 Pulse 106 MON; Pulse Ox 94% ; cf2 17:15 Pulse 102 MON; Pulse Ox 91% ; cf2 17:16 BP 136 / 59 (auto/); ck1 17:16 Pulse 102 MON; Pulse Ox 93% ; ck1 17:17 Pulse 102 MON; Pulse Ox 92% ; ck1 17:22 Pulse 102 MON; cf2 17:31 BP 132 / 60 (auto/); ck1 19:50 BP 161 / 82; Pulse 96; Resp 18; Temp 98.5; Pulse Ox 97% ; Pain 4/10; cf2 21:56 BP 178 / 105 (auto/); cf2 22:42 BP 183 / 98 (auto/); cf2 22:43 Pulse 102 MON; cf2 MDM: 13:34 Literacy Coordinator/Pulse Ox/q 15 min VS ordered. sd1 13:34 Accucheck ordered. sd1 13:34 IV Saline Lock ordered. sd1 13:34 Oxygen at 4L/Min NC or Home dosage ordered. sd1 13:34 Rhythm Strip to chart ordered. sd1 13:35 CBC with Diff Ordered. EDMS 13:35 Cardiac Injury Profile Ordered. EDMS 13:35 Liver Profile Ordered. EDMS 13:35 MED Profile Ordered. EDMS 13:35 Thyroid Stimulating Hormone Ordered. EDMS 13:35 Troponin Ordered. EDMS 13:35 ECG WITH READING ER PHYS+CARDIAG ordered. EDMS 13:35 CT Head Without Contrast Ordered. EDMS 14:32 CBC with Diff Reviewed. jo4 14:37 Liver Profile Reviewed. sd1 14:37 MED Profile Reviewed. sd1 14:37 Cardiac Injury Profile Reviewed. sd1 14:37 Thyroid Stimulating Hormone Reviewed. sd1 14:37 Troponin Reviewed. sd1 14:39 Urinalysis Ordered. EDMS 14:40 Urine Culture Ordered. EDMS 15:36 Chest, 1 View Ordered. EDMS 15:38 PENDING SALE TO [facility] Payment Agreement was scanned into [employer] and attached to record. jp5 15:38 Financial registration complete. jp5 15:39 Keppra (short red top tube): Serum level please Ordered. EDMS 15:59 CT Head Without Contrast Reviewed. jo4 16:40 CT ABD & PELVIS: No Contrast Ordered. EDMS 17:09 Urinalysis Reviewed. sd1 17:09 Chest, 1 View Reviewed. sd1 17:34 LIPASE Reviewed. jo4 17:54 BED REQUEST+ADM ordered. EDMS 18:02 ALPRAZolam Tablet 0.5 mg PO once ordered. jo4 18:58 CSF CULTURE AND GRAM STAIN Ordered. EDMS 18:58 GRAM STAIN Ordered. EDMS 18:58 VIRAL CULTURE Ordered. EDMS 18:58 MRI Brain without Contrast Ordered. EDMS 18:59 FLUORO GUID FOR NEEDLE PLACEMT Ordered. EDMS 19:00 CELL COUNT/DIFF CSF Ordered. EDMS 19:00 CSF GLUCOSE Ordered. EDMS 19:00 CSF T PROTEIN Ordered. EDMS 19:00 CELL COUNT/DIFF CSF Ordered. EDMS 19:02 Admission / Observation Status ordered. EDMS 19:02 CONSISTENT CARBOHYDRATES ordered. EDMS 19:02 LACTIC ACID LEVEL, LACTATE Ordered. EDMS 19:03 ERYTHROCYTE SEDIMENTATION RATE Ordered. EDMS 19:03 C REACTIVE PROTEIN QUANTITATIV Ordered. EDMS 19:05 FLUORO GUID FOR NEEDLE PLACEMT Ordered. EDMS 23:05 Fingerstick Blood Sugar Ordered. EDMS Administered Medications: 18:17 Drug: ALPRAZolam 0.5 mg [alprazolam 0.25 mg tablet (2 tabs)] Route: PO; ck1 22:09 Follow up: Response: No significant change. cf2 Signatures: Dispatcher [employer] EDMS Cheryl Perez MD MD sd1 Emerita Juan RN RN Aura SmithRN RN ck1 Cheryl Camacho RN RN sls1 Nestor Marin jp5 Saima Kim DO DO jo4 Asuncion Menodza RN cf2 The chart was reviewed and I authenticate all verbal orders and agree with the evaluation and treatment provided.Corrections: (The following items were deleted from the chart) 16: 16:25 Bladder Scan please ordered. jo4 jo4 16: 16:25 Straight cath ordered. jo4 jo4 16:35 15:31 Misc. Nursing Order ordered. sd1 ck1 17:21 17:16 LIPASE+LAB ordered. EDMS EDMS Attachments: 15:38 [facility] [place]p5 MTDD
[2016-03-08] MEDS: HumaLOG INSULIN (NovoLOG) PER UNIT SC SCH ×4 (09:10→21:00)
[2016-03-08] MEDS: SERTRALINE 100 MG TAB PO SCH (09:11)
[2016-03-08] MEDS: DULoxetine 20 MG CAP (CYMBALTA) PO SCH (09:11)
[2016-03-08] MEDS: levETIRAcetam 250MG TABLET (KEPPRA) PO SCH ×2 (09:11→21:07)
[2016-03-08] MEDS: PREGABALIN 100 MG CAP (LYRICA) PO SCH ×3 (09:11→21:07)
[2016-03-08] MEDS: ATENOLOL 50 MG TAB PO SCH (09:11)
[2016-03-08] MEDS: METOCLOPRAMIDE 10 MG TAB PO SCH ×4 (09:11→21:07)
[2016-03-08] MEDS: MODAFINIL 200MG TABLET PO SCH ×2 (09:11→12:00)
[2016-03-08] MEDS: NS 1,000 ML IV SCH (17:53)
[2016-03-09] VITALS (7 sets, daily range): BP systolic 124–142; BP diastolic 73–89
--- NOTE | 2016-03-09 00:32 | IPNPDOC ---
Assessment/Plan Date Seen The patient was seen on 03/08/16. Problems Problems: (1) Altered mental state Status: Acute Problem Text: Patient refused LP and MRI earlier today. There is concern for normal pressure hydrocephalus. When I spoke with him, he wasn't opposed to them , but certainly could not consent for LP, either, secondary to confusion. Will order MRIs (per conversation with Dr. Gray) and discuss LP again in the morning. Patient to remain in the ICU overnight secondary to recurrent confusional state. Likely delirium. MRI to evaluate for ventriculitis or demyelination. (2) Hyponatremia Status: Acute Problem Text: Potentially concerning for ADHESION TESTER infection. Discussed with Dr. Gray, not felt to be low enough to cause patient's AMS. Will continue to monitor. Currently on NS, if hyponatremia fails to correct, will consider medication. (3) Multiple sclerosis Status: Acute Problem Text: Patient is non-ambulatory and with limited use of UE. Dr. Zamora saw the patient in the outpatient setting and recommends consideration of hospital bed, lift, and alternating pressure mattress upon discharge. (4) Decubitus ulcer Status: Chronic Problem Text: Grade 2 or 3, per ICU nurse; wound care nurse involved; will await her recommendations. (5) Hypertension Status: Chronic Problem Text: Continue home medications; will monitor. (6) Depression Status: Chronic Problem Text: Will continue home medications. Plan / VTE VTE Prophylaxis Ordered?: Yes VTE Exclusion Pharmacological: Bleeding Risk Subjective Review of Systems CC/HPI The patient is a 60-year-old male admitted with a reason for visit of Altered Mental State. Events since last encounter When seen in the evening of 03/08, patient is pleasantly confused. Nursing reports that earlier in the day patient was alert, oriented, and refusing all further work up. When seen in the ICU in the evening, patient believed it was 1991 and [facility] was the president. He could follow simple commands. I do not trust his ROS except as it pertains to symptoms he was experiencing immediately. Constitutional: Denies: Fever ENT: Denies: Head Aches Skin: Denies: Rash Pulmonary: Denies: Cough, Dyspnea Cardiovascular: Denies: Chest Pain Gastrointestinal: Denies: Constipation, Diarrhea, Nausea, Vomiting Musculoskeletal: Denies: Back Pain, Neck Pain Objective Physical Examination General Exam: Positive: Alert, Cooperative Chest Exam: Positive: Clear to auscultation, Normal air movement Heart Exam: Positive: Rate Normal, Regular Rhythm Abdomen Exam: Positive: Normal bowel sounds Extremity Exam: Positive: Other (limited use of UE bilat, LE movement limited to toe wiggle) Neuro Exam: Negative: Normal Gait, Normal Tone, Strength at 5/5 X4 ext Psych Exam: Negative: Mental status NL, Oriented x 3 (alert, pleasant, but disoriented) Vital Signs/I&O Vital Signs Date Time Temp Pulse Resp B/P Pulse Ox O2 Delivery O2 Flow Rate FiO2 03/08/16 20:00 99.9 86 18 142/79 94 Room Air 03/08/16 00:00 I&O- Last 24 Hours up to 6 AM 03/09/16 06:00 Intake Total 890 ml Output Total 125 ml Balance 765 ml Laboratory Data Labs 24H Laboratory Tests 2 03/08/16 11:50: Bedside Glucose (Misc Panel) 224H 03/08/16 17:33: Bedside Glucose (Misc Panel) 123H 03/08/16 20:11: Bedside Glucose (Misc Panel) 138H FSBS Laboratory Tests Test 03/08/16 11:50 03/08/16 17:33 03/08/16 20:11 Range/Units Bedside Glucose (Misc Panel) 224 123 138 70-105 MG/DL Microbiology Microbiology 03/08/16 MRSA Screen, Received Pending 03/07/16 Urine Culture - Final, Complete ECHO SALINAS DO Mar 09, 2016 00:32
[2016-03-09] MEDS: HumaLOG INSULIN (NovoLOG) PER UNIT SC SCH ×4 (07:30→20:39)
[2016-03-09] MEDS: ATENOLOL 50 MG TAB PO SCH (08:44)
[2016-03-09] MEDS: METOCLOPRAMIDE 10 MG TAB PO SCH ×4 (08:44→20:43)
[2016-03-09] MEDS: SERTRALINE 100 MG TAB PO SCH (08:45)
[2016-03-09] MEDS: PREGABALIN 100 MG CAP (LYRICA) PO SCH ×3 (08:45→20:43)
[2016-03-09] MEDS: DULoxetine 20 MG CAP (CYMBALTA) PO SCH (08:45)
[2016-03-09] MEDS: levETIRAcetam 250MG TABLET (KEPPRA) PO SCH ×2 (08:45→20:43)
[2016-03-09] MEDS: MODAFINIL 200MG TABLET PO SCH ×2 (08:49→12:39)
--- NOTE | 2016-03-09 09:28 | IPNPDOC ---
Assessment/Plan Date Seen The patient was seen on 03/09/16. Problems Problems: (1) Altered mental state Status: Acute Problem Text: 01/27/2016 baclofen pump extruding from his right lower quadrant of his abdomen removed by Marina 03/08 Patient refused LP and MRI earlier today. There is concern for normal pressure hydrocephalus. When I spoke with him, he wasn't opposed to them, but certainly could not consent for LP, either, secondary to confusion. Will order MRIs (per conversation with Dr. Gray) and discuss LP again in the morning. Patient to remain in the ICU overnight secondary to recurrent confusional state. Likely delirium. MRI to evaluate for ventriculitis or demyelination. 03/09 Pt is more lucid this morning. He is agreeable to having BW done although not pleased with being poked. He is unable to undergo MRI, d/t metal in his spine. Ordered BCX x 2. d/w HCP, Maritza-sister, she refuses LP for workup for infection and/or NPH 03/09 Tmax 99.7, CRP 2.2, (03/07 0.8 c ESR 4), WBC 9.8 (11.8) 03/07 ordered LP to be done by IR 03/07 UCX NG 03/08 MRSA screen - 03/07 CT AP NAD 03/07 CT head ventricular dilatation out of proportion to that seen in the overlying cortical sulci, possible NPH 03/07 CXR NAD (2) Hyponatremia Status: Acute Problem Text: Potentially concerning to be 2 to PONY ROUGHER process baseline Na 133-135 on NS 50 cc/H 02/05 131 03/09 129, favor SIADH 2 infection vs NPH-check workup (3) Multiple sclerosis Status: Acute Problem Text: Patient is non-ambulatory and with limited use of UE. Dr. Zamora saw the patient in the outpatient setting and recommends consideration of hospital bed, lift, and alternating pressure mattress upon discharge. (4) Decubitus ulcer Status: Chronic Problem Text: L buttock 2 x 3 cm c eschar-unstageable, obvious possible source of infection/MS change consult Stillerman to debride (5) Hypertension Status: Chronic Problem Text: Continue home medications; will monitor. (6) Depression Status: Chronic Problem Text: Will continue home medications. Plan / VTE VTE Prophylaxis Ordered?: Yes VTE Exclusion Pharmacological: Bleeding Risk Subjective Review of Systems CC/HPI Pt without new concerns this morning. His sister is at bedside. She would like to be his HCP and he does agree to this this morning. She has numerous questions about the medications he takes at home and the fact that he isn't taking them here. General: Denies: Fatigue Constitutional: Denies: Chills, Fever Pulmonary: Denies: Cough, Dyspnea Cardiovascular: Denies: Chest Pain, Palpitations Gastrointestinal: Denies: Diarrhea, Nausea, Vomiting Psych: Reports: Mood Normal (pt irritable which is baseline for him) Objective Physical Examination General Exam: Positive: Alert, No Acute Distress ENT Exam: Positive: Mucous membr. moist/pink Chest Exam: Positive: Clear to auscultation, Normal air movement Heart Exam: Positive: Rate Normal, Regular Rhythm Abdomen Exam: Positive: Normal bowel sounds, Soft, Negative: Tenderness Extremity Exam: Positive: Other (limited use of UE bilat, LE movement limited to toe wiggle) Neuro Exam: Negative: Normal Gait, Normal Tone, Strength at 5/5 X4 ext Psych Exam: Negative: Mental status NL, Oriented x 3 (alert, pleasant, but disoriented) Vital Signs/I&O Vital Signs Date Time Temp Pulse Resp B/P Pulse Ox O2 Delivery O2 Flow Rate FiO2 03/09/16 08:00 98.3 95 19 139/82 96 Room Air 03/08/16 00:00 I&O- Last 24 Hours up to 6 AM 03/09/16 06:00 Intake Total 1490 ml Output Total 275 ml Balance 1215 ml Laboratory Data Labs 24H Laboratory Tests 2 03/08/16 11:50: Bedside Glucose (Misc Panel) 224H 03/08/16 17:33: Bedside Glucose (Misc Panel) 123H 03/08/16 20:11: Bedside Glucose (Misc Panel) 138H 03/09/16 08:51: Bedside Glucose (Misc Panel) 125H FSBS Laboratory Tests Test 03/08/16 11:50 03/08/16 17:33 03/08/16 20:11 03/09/16 08:51 Range/Units Bedside Glucose (Misc Panel) 224 123 138 125 70-105 MG/DL Microbiology Microbiology 03/08/16 MRSA Screen - Final, Complete 03/07/16 Urine Culture - Final, Complete TYE FERNANDES PA-C Mar 09, 2016 09:28 Angel Sun M.D. Mar 09, 2016 13:16 Angel Sun M.D. Mar 09, 2016 13:16
[2016-03-09 09:59] LABS: BASO % 0.5 % (0.0-1.0); EOS % 0.4 % (0.0-3.0); LARGE UNSTAINED CELL # 0.1 K/mm3 (0.0-0.4); LYMPH % 9.1 % (24.0-44.0); MEAN CORPUSCULAR HEMOGLOBIN 27.9 pg (27.0-33.0); MEAN CORPUSCULAR HGB CONC 33.7 g/dl (32.0-36.5); MEAN CORPUSCULAR VOLUME 82.8 fl (80.0-96.0); MONO # 0.6 K/mm3 (0.0-0.8); MONO % 5.6 % (0.0-5.0); NEUTROPHILS # 8.2 K/mm3 (1.8-7.7); NEUTROPHILS % 83.5 % (36.0-66.0); PLATELET COUNT, AUTOMATED 170 k/mm3 (150-450); RED CELL DISTRIBUTION WIDTH 14.3 % (11.5-14.5); WHITE BLOOD COUNT 9.8 K/mm3 (4.0-10.0)
[2016-03-09 10:35] LABS: ALBUMIN/GLOBULIN RATIO 0.91 (1.00-1.93); ALKALINE PHOSPHATASE 63 U/L (45-117); ALT/SGPT 46 U/L (12-78); ANION GAP 11 MEQ/L (8-16); AST/SGOT 23 U/L (15-37); BILIRUBIN,TOTAL 0.7 MG/DL (0.2-1.0); BLOOD UREA NITROGEN 9 MG/DL (7-18); CALCIUM LEVEL 7.8 MG/DL (8.5-10.1); CARBON DIOXIDE LEVEL 24 MEQ/L (21-32); CHLORIDE LEVEL 94 MEQ/L (98-107); CREATININE FOR GFR 0.39 MG/DL (0.70-1.30); GLOMERULAR FILTRATION RATE > 60.0 (>56); GLUCOSE, FASTING 142 MG/DL (70-105); POTASSIUM SERUM 3.9 MEQ/L (3.5-5.1); SODIUM LEVEL 129 MEQ/L (136-145); TOTAL PROTEIN 6.3 GM/DL (6.4-8.2)
[2016-03-09] MEDS: HEPARIN SOD (PORCINE) 5000 UNITS/ML VIAL SQ SCH ×2 (12:39→20:43)
[2016-03-09] MEDS: NS 1,000 ML IV SCH (12:39)
[2016-03-09] MEDS: METAXALONE 800 MG TABLET PO PRN (13:09)
[2016-03-10 05:29] VITALS: BP 146/82
[2016-03-10] MEDS: ALPRAZolam 0.5 MG TAB PO PRN (05:47)
[2016-03-10] MEDS: NS 1,000 ML IV SCH (05:47)
[2016-03-10 06:18] LABS: BASO # 0.1 K/mm3 (0.0-0.2); BASO % 0.8 % (0.0-1.0); EOS % 0.5 % (0.0-3.0); LARGE UNSTAINED CELL # 0.1 K/mm3 (0.0-0.4); LYMPH # 1.1 K/mm3 (1.5-4.5); LYMPH % 11.6 % (24.0-44.0); MEAN CORPUSCULAR HEMOGLOBIN 28.8 pg (27.0-33.0); MEAN CORPUSCULAR HGB CONC 35.1 g/dl (32.0-36.5); MONO # 0.5 K/mm3 (0.0-0.8); MONO % 5.4 % (0.0-5.0); NEUTROPHILS # 7.3 K/mm3 (1.8-7.7); NEUTROPHILS % 80.8 % (36.0-66.0); PLATELET COUNT, AUTOMATED 152 k/mm3 (150-450); RED CELL DISTRIBUTION WIDTH 14.4 % (11.5-14.5)
[2016-03-10 06:33] LABS: ALBUMIN 2.8 GM/DL (3.2-5.2); ALKALINE PHOSPHATASE 66 U/L (45-117); ALT/SGPT 43 U/L (12-78); ANION GAP 12 MEQ/L (8-16); AST/SGOT 15 U/L (15-37); BILIRUBIN,TOTAL 0.6 MG/DL (0.2-1.0); BLOOD UREA NITROGEN 9 MG/DL (7-18); CALCIUM LEVEL 7.9 MG/DL (8.5-10.1); CARBON DIOXIDE LEVEL 25 MEQ/L (21-32); CHLORIDE LEVEL 97 MEQ/L (98-107); CREATININE FOR GFR 0.44 MG/DL (0.70-1.30); GLOMERULAR FILTRATION RATE > 60.0 (>56); GLUCOSE, FASTING 106 MG/DL (70-105); POTASSIUM SERUM 3.8 MEQ/L (3.5-5.1); SODIUM LEVEL 134 MEQ/L (136-145); TOTAL PROTEIN 5.9 GM/DL (6.4-8.2)
--- NOTE | 2016-03-10 06:40 | EDDOCDS ---
Physician Documentation [facility] Name: Alvino Vanessa Age: 60 yrs Sex: Male : 1955 Arrival Date: 03/07/2016 Time: 12:13 Bed Admit Hold Private MD: Disposition: 03/07/16 17:54 Hospitalization ordered by Teja Mustafa for Inpatient Admission. Preliminary diagnosis is Altered mental status, unspecified. - Bed requested for M ICU. - Status is Inpatient Admission. sls1 - Condition is Stable. - Problem is new. - Symptoms are unchanged. Historical: - Allergies: Boniva; Vioxx; Morphine; PCN; Cymbalta; Fosamax; Methadone; - Home Meds: 1. alprazolam 0.5 mg Oral tab 1 tab 3 times per day 2. metoclopramide HCl 10 mg Oral tab 4 times per day 3. zolpidem 12.5 mg Oral TbMP 1 tab nightly PRN 4. metformin 500 mg Oral tab 1 tab 2 times per day 5. sulfamethoxazole-trimethoprim 800-160 mg Oral tab 1 tab every 12 hours 6. [place] 5-325 mg Oral tab 1 tab every 6 hours PRN 7. duloxetine 20 mg Oral cpDR daily 8. pregabalin 200 mg Oral cap 1 cap 3 times per day 9. Sertraline 100 mg daily 10. levetiracetam 500 mg oral tab 1 tab 2 times per day 11. modafinil 200 mg oral tab 1 tab twice a day 12. fiber 2 caps twice a day 13. bisacodyl 5 mg Oral tab twice a day PRN 14. Drisdol 50,000 unit Oral cap 1 cap once wkly - PMHx: Multiple Sclerosis; Depression; hyperlipidemia; Hypertension; sleep apnea; GERD; - PSHx: back surgery; - Social history: Smoking status: Patient states was never smoker of tobacco. No barriers to communication noted, The patient speaks fluent Danish, Speaks appropriately for age. - Family history: Not pertinent. - : The pt / caregiver states he / she is not on anticoagulants. Home medication list is obtained from a discharge med list. - Exposure Risk Screening:: None identified. Vital Signs: 03/07 12:17 BP 154 / 76 (auto/); ck1 12:17 Pulse 98 MON; Pulse Ox 93% ; ck1 12:22 BP 154 / 76; Pulse 97; Resp 20; Temp 99.9(O); Pulse Ox 96% on R/A; Pain 10/10; dem1 12:23 BP 147 / 72 (auto/); ck1 12:23 Pulse 98 MON; Pulse Ox 96% ; ck1 12:38 BP 165 / 70 (auto/); ck1 12:38 Pulse 98 MON; Pulse Ox 93% ; ck1 13:08 BP 148 / 82 (auto/); ck1 13:08 Pulse 100 MON; Pulse Ox 98% ; ck1 13:23 BP 162 / 94 (auto/); ck1 13:23 Pulse 100 MON; Pulse Ox 97% ; ck1 13:38 BP 152 / 98 (auto/); ck1 13:38 Pulse 100 MON; Pulse Ox 97% ; ck1 13:53 BP 170 / 90 (auto/); ck1 13:54 Pulse 104 MON; Pulse Ox 90% ; ck1 14:07 Pulse 102 MON; Pulse Ox 97% ; ck1 14:08 BP 192 / 104 (auto/); ck1 14:21 BP 164 / 97 (auto/); ck1 14:22 Pulse 102 MON; Pulse Ox 97% ; ck1 14:23 BP 155 / 86 (auto/); ck1 14:23 Pulse 100 MON; Pulse Ox 98% ; ck1 14:38 BP 156 / 88 (auto/); ck1 14:38 Pulse 102 MON; Pulse Ox 96% ; ck1 14:53 BP 156 / 95 (auto/); ck1 14:53 Pulse 102 MON; Pulse Ox 96% ; ck1 15:08 BP 164 / 93 (auto/); ck1 15:08 Pulse 100 MON; Pulse Ox 96% ; ck1 15:17 Pulse 100 MON; Pulse Ox 95% ; cf2 15:21 Pulse 102 MON; Pulse Ox 93% ; ck1 15:23 BP 196 / 93 (auto/); ck1 15:38 BP 179 / 76 (auto/); ck1 15:53 BP 168 / 78 (auto/); ck1 15:59 Pulse 104 MON; Pulse Ox 96% ; ck1 16:01 Pulse 104 MON; Pulse Ox 97% ; cf2 16:03 Pulse 104 MON; Pulse Ox 94% ; ck1 16:08 BP 175 / 81 (auto/); ck1 16:18 Pulse 104 MON; ck1 16:23 BP 214 / 100 (auto/); ck1 16:46 BP 118 / 57 (auto/); ck1 16:49 Pulse 104 MON; Pulse Ox 90% ; ck1 16:52 Pulse 102 MON; Pulse Ox 94% ; cf2 17:01 Pulse 102 MON; Pulse Ox 93% ; ck1 17:01 BP 118 / 57 (auto/); ck1 17:02 Pulse 104 MON; Pulse Ox 87% ; cf2 17:05 Pulse 102 MON; Pulse Ox 93% ; cf2 17:07 Resp 18; Temp 98.0(O); ck1 17:13 Pulse 106 MON; Pulse Ox 94% ; cf2 17:15 Pulse 102 MON; Pulse Ox 91% ; cf2 17:16 BP 136 / 59 (auto/); ck1 17:16 Pulse 102 MON; Pulse Ox 93% ; ck1 17:17 Pulse 102 MON; Pulse Ox 92% ; ck1 17:22 Pulse 102 MON; cf2 17:31 BP 132 / 60 (auto/); ck1 19:50 BP 161 / 82; Pulse 96; Resp 18; Temp 98.5; Pulse Ox 97% ; Pain 4/10; cf2 21:56 BP 178 / 105 (auto/); cf2 22:42 BP 183 / 98 (auto/); cf2 22:43 Pulse 102 MON; cf2 MDM: 13:34 Lamp Shades Supervisor/Pulse Ox/q 15 min VS ordered. sd1 13:34 Accucheck ordered. sd1 13:34 IV Saline Lock ordered. sd1 13:34 Oxygen at 4L/Min NC or Home dosage ordered. sd1 13:34 Rhythm Strip to chart ordered. sd1 13:35 CBC with Diff Ordered. EDMS 13:35 Cardiac Injury Profile Ordered. EDMS 13:35 Liver Profile Ordered. EDMS 13:35 MED Profile Ordered. EDMS 13:35 Thyroid Stimulating Hormone Ordered. EDMS 13:35 Troponin Ordered. EDMS 13:35 ECG WITH READING ER PHYS+CARDIAG ordered. EDMS 13:35 CT Head Without Contrast Ordered. EDMS 14:32 CBC with Diff Reviewed. jo4 14:37 Liver Profile Reviewed. sd1 14:37 MED Profile Reviewed. sd1 14:37 Cardiac Injury Profile Reviewed. sd1 14:37 Thyroid Stimulating Hormone Reviewed. sd1 14:37 Troponin Reviewed. sd1 14:39 Urinalysis Ordered. EDMS 14:40 Urine Culture Ordered. EDMS 15:36 Chest, 1 View Ordered. EDMS 15:38 [facility] Payment Agreement was scanned into [employer] and attached to record. jp5 15:38 Financial registration complete. jp5 15:39 Keppra (short red top tube): Serum level please Ordered. EDMS 15:59 CT Head Without Contrast Reviewed. jo4 16:40 CT ABD & PELVIS: No Contrast Ordered. EDMS 17:09 Urinalysis Reviewed. sd1 17:09 Chest, 1 View Reviewed. sd1 17:34 LIPASE Reviewed. jo4 17:54 BED REQUEST+ADM ordered. EDMS 18:02 ALPRAZolam Tablet 0.5 mg PO once ordered. jo4 18:58 CSF CULTURE AND GRAM STAIN Ordered. EDMS 18:58 GRAM STAIN Ordered. EDMS 18:58 VIRAL CULTURE Ordered. EDMS 18:58 MRI Brain without Contrast Ordered. EDMS 18:59 FLUORO GUID FOR NEEDLE PLACEMT Ordered. EDMS 19:00 CELL COUNT/DIFF CSF Ordered. EDMS 19:00 CSF GLUCOSE Ordered. EDMS 19:00 CSF T PROTEIN Ordered. EDMS 19:00 CELL COUNT/DIFF CSF Ordered. EDMS 19:02 Admission / Observation Status ordered. EDMS 19:02 CONSISTENT CARBOHYDRATES ordered. EDMS 19:02 LACTIC ACID LEVEL, LACTATE Ordered. EDMS 19:03 ERYTHROCYTE SEDIMENTATION RATE Ordered. EDMS 19:03 C REACTIVE PROTEIN QUANTITATIV Ordered. EDMS 19:05 FLUORO GUID FOR NEEDLE PLACEMT Ordered. EDMS 23:05 Fingerstick Blood Sugar Ordered. EDMS 03/08 14:11 T-Sheet-- Draft Copy was scanned into [employer] and attached to record. gb 14:12 Other: MOLST was scanned into [employer] and attached to record. gb Administered Medications: 03/07 18:17 Drug: ALPRAZolam 0.5 mg [alprazolam 0.25 mg tablet (2 tabs)] Route: PO; ck1 22:09 Follow up: Response: No significant change. cf2 Signatures: Dispatcher [employer] EDCheryl Magallanes MD MD sd1 Demian ROSAS, Emerita RN RN daq Jammie Sears, Reg Reg Aura GuzmanRN RN ck1 Cheryl Camacho RN RN sls1 Nestor Marin jp5 Saima Kim DO DO jo4 Asuncion Mendoza RN cf2 The chart was reviewed and I authenticate all verbal orders and agree with the evaluation and treatment provided.Corrections: (The following items were deleted from the chart) 16:31 16:25 Bladder Scan please ordered. jo4 jo4 16: 16:25 Straight cath ordered. jo4 jo4 16:35 15:31 Misc. Nursing Order ordered. sd1 ck1 17:21 17:16 LIPASE+LAB ordered. EDMS EDMS Attachments: 15:38 [facility] Payment Agreement jp5 03/08 14:11 T-Sheet-- Draft Copy gb Chart Complete MTDD
--- NOTE | 2016-03-10 06:40 | EDDOCDS ---
Nurse's Notes [facility] Name: Alvino Wayne Age: 60 yrs Sex: Male : 1955 Arrival Date: 03/07/2016 Time: 12:13 Bed Admit Hold Private MD: Diagnosis: Altered mental status, unspecified Presentation: 03/07 12:19 Presenting complaint: EMS states: Worsening confusion over the past couple of weeks. ck1 Adult Sepsis Screening: Patient has new or worsening altered mentation (1 point). Patient's respiratory rate is less than 22. Systolic blood pressure is greater than 100. Patient has a qSOFA score of 1- Negative Sepsis Screen. Suicide/Homicide risk assessment- the patient denies having any suicidal and/or homicidal ideations and does not present with any other emotional, behavioral or mental health complaints. 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 Transition of care: patient was not received from another setting of care. 12:19 Acuity: SHANNAN Level 3 ck1 12:19 Method Of Arrival: Ambulance ck1 Triage Assessment: 12:28 General: Appears in no apparent distress, Behavior is agitated. Pain: Location: right ck1 leg and left leg Pain currently is 9 out of 10 on a pain scale. HIV screening NA for this visit Offered previously. Neurological: Level of Consciousness is awake, alert, obeys commands, Oriented to person, place, time. Cardiovascular: Rhythm is sinus rhythm. Respiratory: Respiratory effort is unlabored, Respiratory pattern is regular, symmetrical. GI: No deficits noted. Derm: Skin is normal. Historical: - Allergies: Boniva; Vioxx; Morphine; PCN; Cymbalta; Fosamax; Methadone; - Home Meds: 1. alprazolam 0.5 mg Oral tab 1 tab 3 times per day 2. metoclopramide HCl 10 mg Oral tab 4 times per day 3. zolpidem 12.5 mg Oral TbMP 1 tab nightly PRN 4. metformin 500 mg Oral tab 1 tab 2 times per day 5. sulfamethoxazole-trimethoprim 800-160 mg Oral tab 1 tab every 12 hours 6. [place] 5-325 mg Oral tab 1 tab every 6 hours PRN 7. duloxetine 20 mg Oral cpDR daily 8. pregabalin 200 mg Oral cap 1 cap 3 times per day 9. Sertraline 100 mg daily 10. levetiracetam 500 mg oral tab 1 tab 2 times per day 11. modafinil 200 mg oral tab 1 tab twice a day 12. fiber 2 caps twice a day 13. bisacodyl 5 mg Oral tab twice a day PRN 14. Drisdol 50,000 unit Oral cap 1 cap once wkly - PMHx: Multiple Sclerosis; Depression; hyperlipidemia; Hypertension; sleep apnea; GERD; - PSHx: back surgery; - Social history: Smoking status: Patient states was never smoker of tobacco. No barriers to communication noted, The patient speaks fluent Kinyarwanda, Speaks appropriately for age. - Family history: Not pertinent. - : The pt / caregiver states he / she is not on anticoagulants. Home medication list is obtained from a discharge med list. - Exposure Risk Screening:: None identified. Screenin:30 Screening information is obtained from prior medical records. Fall risk: At risk due to ck1 gait disturbance, The following interventions are performed due to a positive Fall Risk Screen: Fall Risk is added to Special Handling on the patient Summary Screen. A Fall Risk Bracelet was applied to the patient. Side Rails are placed in the up position. A Call Lynne is given with instruction to call for help when getting out of bed. Fall Alert bracelet is placed on the patient. Assistance ADL's: Requires assistance with meal preparation, this assistance is provided by family members, bathing, assistance is provided by family members, dressing, assistance is provided by family members, toileting, assistance is provided by family members, ambulation, assistance is provided by wheelchair. housework, assistance is provided by family members, medication administration, assistance is provided by family members. Abuse/DV Screen: The patient / caregiver reports he/she is: not in a situation that causes fear, pain or injury. Nutritional screening: No deficits noted. Advance Directives: There is an active DNR order and the pt has a copy here at this time. home support is adequate. Assessment: 12:31 General: see triage note. ck1 13:30 General: Appears in no apparent distress, Behavior is agitated. Pain: Location: right ck1 leg and left leg. Neurological: Level of Consciousness is awake, alert, Oriented to person, place, time. Cardiovascular: Rhythm is regular. Respiratory: Respiratory effort is unlabored, Respiratory pattern is regular, symmetrical. GI: No deficits noted. Derm: Skin is pink, warm & dry. 14:24 Reassessment: Patient appears in no apparent distress at this time. sister at bedside. ck1 Vaseline to lips per patient family request. Family requesting to speak with provider. Will make provider aware. 15:20 General: Appears in no apparent distress, Behavior is agitated. Pain: Noted to be ck1 agitated. Neurological: Level of Consciousness is awake, alert. Cardiovascular: Rhythm is regular. Respiratory: Respiratory effort is unlabored, Respiratory pattern is regular, symmetrical. GI: No deficits noted. Derm: Skin is pink, warm & dry. 16:02 General: Patient and sister informed of need for urine specimen. Patient refusing to ck1 attempt urinal, informed of need for straight cath. Patients sister refusing catheterization at this time. Provider aware. 17:08 General: Appears in no apparent distress, Behavior is agitated, cooperative. Pain: ck1 Location: right leg and left leg Noted to be agitated. Neurological: Level of Consciousness is awake, alert, Oriented to person, place, time. Cardiovascular: Rhythm is regular. Respiratory: Respiratory effort is unlabored, Respiratory pattern is regular, symmetrical. GI: No deficits noted. Derm: Skin is pink, warm & dry. 18:17 General: RN in to reassess patient. Monitor and leads off patient. Patient refusing to ck1 put leads back on, sister at bedside states "that's just a waste of time, he wont keep them on". 20:18 Adult Sepsis Screening: The patient does not have new or worsening altered mentation. cf2 Patient's respiratory rate is less than 22. Systolic blood pressure is greater than 100. Patient has a qSOFA score of 0- Negative Sepsis Screen. General: While attempting the MRI screening, sister states "I was told he can't have an MRI, he had an infusion pump placed 15 years ago. The pump was removed but the catheter is still in there". Called welding technician to inquire, per welding technician, test should be reschedule until catheter can be investigated. Hospitalist paged. . 20:49 General: Smells of Spoke with Dr Castro, he is aware of MRI and patient can go to [facility] tomorrow after cleared to go. He is also ordering patient. 22:06 General: Report ot admission hold nurse. Patient was moved in to a hospital bed . cf2 Vital Signs: 12:17 BP 154 / 76 (auto/); ck1 12:17 Pulse 98 MON; Pulse Ox 93% ; ck1 12:22 BP 154 / 76; Pulse 97; Resp 20; Temp 99.9(O); Pulse Ox 96% on R/A; Pain 10/10; dem1 12:23 BP 147 / 72 (auto/); ck1 12:23 Pulse 98 MON; Pulse Ox 96% ; ck1 12:38 BP 165 / 70 (auto/); ck1 12:38 Pulse 98 MON; Pulse Ox 93% ; ck1 13:08 BP 148 / 82 (auto/); ck1 13:08 Pulse 100 MON; Pulse Ox 98% ; ck1 13:23 BP 162 / 94 (auto/); ck1 13:23 Pulse 100 MON; Pulse Ox 97% ; ck1 13:38 BP 152 / 98 (auto/); ck1 13:38 Pulse 100 MON; Pulse Ox 97% ; ck1 13:53 BP 170 / 90 (auto/); ck1 13:54 Pulse 104 MON; Pulse Ox 90% ; ck1 14:07 Pulse 102 MON; Pulse Ox 97% ; ck1 14:08 BP 192 / 104 (auto/); ck1 14:21 BP 164 / 97 (auto/); ck1 14:22 Pulse 102 MON; Pulse Ox 97% ; ck1 14:23 BP 155 / 86 (auto/); ck1 14:23 Pulse 100 MON; Pulse Ox 98% ; ck1 14:38 BP 156 / 88 (auto/); ck1 14:38 Pulse 102 MON; Pulse Ox 96% ; ck1 14:53 BP 156 / 95 (auto/); ck1 14:53 Pulse 102 MON; Pulse Ox 96% ; ck1 15:08 BP 164 / 93 (auto/); ck1 15:08 Pulse 100 MON; Pulse Ox 96% ; ck1 15:17 Pulse 100 MON; Pulse Ox 95% ; cf2 15:21 Pulse 102 MON; Pulse Ox 93% ; ck1 15:23 BP 196 / 93 (auto/); ck1 15:38 BP 179 / 76 (auto/); ck1 15:53 BP 168 / 78 (auto/); ck1 15:59 Pulse 104 MON; Pulse Ox 96% ; ck1 16:01 Pulse 104 MON; Pulse Ox 97% ; cf2 16:03 Pulse 104 MON; Pulse Ox 94% ; ck1 16:08 BP 175 / 81 (auto/); ck1 16:18 Pulse 104 MON; ck1 16:23 BP 214 / 100 (auto/); ck1 16:46 BP 118 / 57 (auto/); ck1 16:49 Pulse 104 MON; Pulse Ox 90% ; ck1 16:52 Pulse 102 MON; Pulse Ox 94% ; cf2 17:01 Pulse 102 MON; Pulse Ox 93% ; ck1 17:01 BP 118 / 57 (auto/); ck1 17:02 Pulse 104 MON; Pulse Ox 87% ; cf2 17:05 Pulse 102 MON; Pulse Ox 93% ; cf2 17:07 Resp 18; Temp 98.0(O); ck1 17:13 Pulse 106 MON; Pulse Ox 94% ; cf2 17:15 Pulse 102 MON; Pulse Ox 91% ; cf2 17:16 BP 136 / 59 (auto/); ck1 17:16 Pulse 102 MON; Pulse Ox 93% ; ck1 17:17 Pulse 102 MON; Pulse Ox 92% ; ck1 17:22 Pulse 102 MON; cf2 17:31 BP 132 / 60 (auto/); ck1 19:50 BP 161 / 82; Pulse 96; Resp 18; Temp 98.5; Pulse Ox 97% ; Pain 4/10; cf2 21:56 BP 178 / 105 (auto/); cf2 22:42 BP 183 / 98 (auto/); cf2 22:43 Pulse 102 MON; cf2 Vitals: 12:22 Log In Time N/A - ambulance arrival. [facility] ED Course: 12:19 Patient visited by Cielo Soto. cmb 12:19 Aura Donato,RN is Primary Nurse. cmb 12:19 Patient moved to Waiting cmb 12:19 Patient moved to 13 cmb 12:20 Triage Initiated ck1 12:22 Patient visited by Britta Molina. dem1 12:24 Saima Kim DO is PHCP. jo4 12:24 Cheryl Perez MD is Attending Physician. jo4 12:24 Pt greeted and oriented to ED. Patient advised of names of staff involved in care, dem1 location of call lynne, wait times and NPO status. Patient has correct armband on for positive identification. Placed in gown. Bed in low position. Call light in reach. Side rails up X2. supervisor sewing room on. Pulse ox on. NIBP on. 12:26 Patient visited by Britta Molina. dem1 12:30 The patient / caregiver is instructed regarding the plan of care and ED course. ck1 12:55 Patient visited by Saima Kim DO. jo4 12:55 Patient visited by Saima Kim DO. jo4 13:32 Patient visited by Aura Donato RN. ck1 13:48 EKG done. (by ED staff). Reviewed by Saima Kim DO. dem1 13:50 Patient visited by Britta Molina. dem1 14:05 Patient visited by Aura Donato RN. ck1 14:05 Inserted saline lock: 20 gauge in right antecubital area and blood collected. The ck1 patient tolerated the procedure well. 14:23 Patient visited by Aura Donato RN. ck1 14:26 Patient visited by Aura Donato RN. ck1 15:07 Patient visited by Aura Donato RN. ck1 15:38 [facility] Payment Agreement was scanned into Te[employer] and attached to record. jp5 15:39 Patient visited by Aura Donato RN. ck1 15:52 CT Head Without Contrast Returned. EDMS 16:01 Patient visited by Aura Donato RN. ck1 16:01 Keppra (short red top tube): Serum level please Sent. ck1 16:35 Patient visited by Aura Donato RN. ck1 16:35 Urine Culture Sent. ck1 16:35 Urinalysis Sent. ck1 16:44 Chest, 1 View Returned. EDMS 17:07 Patient visited by Aura Donato RN. ck1 17:27 Patient visited by Aura Donato RN. ck1 17:48 Patient visited by Aura Donato RN. ck1 17:53 Teja Mustafa is Hospitalizing Provider. jo4 18:14 Patient moved to Admit Hold tmm1 18:31 CT ABD & PELVIS: No Contrast Returned. EDMS 18:55 Primary Nurse role handed off by Aura Donato,GUI ck1 19:04 Patient visited by Brandon Winchester PCA. kb5 19:05 Asuncion Mendoza,GUI is Primary Nurse. cf2 19:05 Patient visited by Asuncion Mendoza RN. cf2 20:18 Patient visited by Asuncion Mendoza RN. cf2 20:18 No procedures done that require assistance. Wound care to decubitus located on buttocks.cf2 20:45 Patient visited by Asuncion Mendoaz RN. cf2 20:45 Patient visited by Asuncion Mendoza RN. cf2 20:46 Patient visited by Asuncion Mendoza RN. cf2 20:46 Patient visited by Asuncion Mendoza RN. cf2 20:49 Patient visited by Asuncion Mendoza RN. cf2 21:17 EKG-ADULT Returned. EDMS 21:46 Patient visited by Asuncion Mendoza RN. cf2 21:46 Patient visited by Asuncion Mendoza RN. cf2 21:47 Patient visited by Asuncion Mendoza RN. cf2 22:04 Patient visited by Asuncion Mendoza RN. cf2 22:06 Patient visited by Asuncion Mendoza RN. cf2 22:10 Patient visited by Asuncion Mendoza RN. cf2 22:31 Patient visited by Asuncion Mendoza RN. cf2 23:27 Patient moved to 13 tmm1 03/08 00:12 Patient moved to Admit Hold sls1 14:11 T-Sheet-- Draft Copy was scanned into Tebla and attached to record. gb 14:12 Other: MOLST was scanned into Tebla and attached to record. gb Administered Medications: 03/07 18:17 Drug: ALPRAZolam 0.5 mg [alprazolam 0.25 mg tablet (2 tabs)] Route: PO; ck1 22:09 Follow up: Response: No significant change. cf2 Order Results: Lab Order: CBC with Diff; SPEC'M 03/07/16 13:59 Test: WHITE BLOOD COUNT; Value: 11.6; Range: 4.0-10.0; Abnormal: Above high normal; Units: K/mm3; Status: F Test: RED BLOOD COUNT; Value: 5.93; Range: 4.30-6.10; Units: M/mm3; Status: F Test: HEMOGLOBIN; Value: 16.4; Range: 14.0-18.0; Units: g/dl; Status: F Test: HEMATOCRIT; Value: 50.0; Range: 42.0-52.0; Units: %; Status: F Test: MEAN CORPUSCULAR VOLUME; Value: 84.2; Range: 80.0-96.0; Units: fl; Status: F Test: MEAN CORPUSCULAR HEMOGLOBIN; Value: 27.7; Range: 27.0-33.0; Units: pg; Status: F Test: MEAN CORPUSCULAR HGB CONC; Value: 32.8; Range: 32.0-36.5; Units: g/dl; Status: F Test: RED CELL DISTRIBUTION WIDTH; Value: 14.6; Range: 11.5-14.5; Abnormal: Above high normal; Units: %; Status: F Test: PLATELET COUNT, AUTOMATED; Value: 184; Range: 150-450; Units: k/mm3; Status: F Test: NEUTROPHILS %; Value: 86.7; Range: 36.0-66.0; Abnormal: Above high normal; Units: %; Status: F Test: LYMPH %; Value: 7.3; Range: 24.0-44.0; Abnormal: Below low normal; Units: %; Status: F Test: MONO %; Value: 4.2; Range: 0.0-5.0; Units: %; Status: F Test: EOS %; Value: 0.4; Range: 0.0-3.0; Units: %; Status: F Test: BASO %; Value: 0.6; Range: 0.0-1.0; Units: %; Status: F Test: LARGE UNSTAINED CELL %; Value: 0.8; Range: 0.0-4.0; Units: %; Status: F Test: NEUTROPHILS #; Value: 10.0; Range: 1.8-7.7; Abnormal: Above high normal; Units: K/mm3; Status: F Test: LYMPH #; Value: 0.9; Range: 1.5-4.5; Abnormal: Below low normal; Units: K/mm3; Status: F Test: MONO #; Value: 0.5; Range: 0.0-0.8; Units: K/mm3; Status: F Test: EOS #; Value: 0.0; Range: 0.0-0.50; Units: K/mm3; Status: F Test: BASO #; Value: 0.1; Range: 0.0-0.2; Units: K/mm3; Status: F Test: LARGE UNSTAINED CELL #; Value: 0.1; Range: 0.0-0.4; Units: K/mm3; Status: F Lab Order: Cardiac Injury Profile; SPEC'M 03/07/16 13:59 Test: CPK CREATINE PHOSPHOKINASE; Value: 56; Range: 39-308; Units: U/L; Status: F Test: CK-MB VALUE MASS; Value: 1.0; Range: 0.0-3.6; Units: NG/ML; Status: F Test: MB/CK RELATIVE INDEX; Value: 1.78; Range: < OR =4; Status: F Test Note: ; DIAGNOSIS CRITERIA MMB ng/ml Relative Index (RI) NON-AMI < or = 5 N/A [place] ZONE > 5 < or = 4 AMI > 5 > 4 Lab Order: Liver Profile; SPEC'M 03/07/16 13:59 Test: AST/SGOT; Value: 18; Range: 15-37; Units: U/L; Status: F Test: ALT/SGPT; Value: 41; Range: 12-78; Units: U/L; Status: F Test: ALKALINE PHOSPHATASE; Value: 74; Range: 45-117; Units: U/L; Status: F Test: BILIRUBIN,TOTAL; Value: 0.6; Range: 0.2-1.0; Units: MG/DL; Status: F Test: BILIRUBIN,DIRECT; Value: 0.2; Range: 0.0-0.2; Units: MG/DL; Status: F Test: TOTAL PROTEIN; Value: 7.5; Range: 6.4-8.2; Units: GM/DL; Status: F Test: ALBUMIN; Value: 3.6; Range: 3.2-5.2; Units: GM/DL; Status: F Test: ALBUMIN/GLOBULIN RATIO; Value: 0.92; Range: 1.00-1.93; Abnormal: Below low normal; Status: F Lab Order: MED Profile; SPEC'03/07/16 13:59 Test: GLUCOSE, FASTING; Value: 159; Range: 70-105; Abnormal: Above high normal; Units: MG/DL; Status: F Test: BLOOD UREA NITROGEN; Value: 16; Range: 7-18; Units: MG/DL; Status: F Test: CREATININE FOR GFR; Value: 0.69; Range: 0.70-1.30; Abnormal: Below low normal; Units: MG/DL; Status: F Test: GLOMERULAR FILTRATION RATE; Value: > 60.0; Range: >56; Status: F Test: SODIUM LEVEL; Value: 131; Range: 136-145; Abnormal: Below low normal; Units: MEQ/L; Status: F Test: POTASSIUM SERUM; Value: 4.1; Range: 3.5-5.1; Units: MEQ/L; Status: F Test: CHLORIDE LEVEL; Value: 94; Range: 98-107; Abnormal: Below low normal; Units: MEQ/L; Status: F Test: CARBON DIOXIDE LEVEL; Value: 29; Range: 21-32; Units: MEQ/L; Status: F Test: ANION GAP; Value: 8; Range: 8-16; Units: MEQ/L; Status: F Test: CALCIUM LEVEL; Value: 8.4; Range: 8.5-10.1; Abnormal: Below low normal; Units: MG/DL; Status: F Test Note: ; Units are mL/min/1.73 m2 Chronic Kidney Disease Staging per NKF: Stage I & II GFR >=60 Normal to Mildly Decreased Stage III GFR 30-59 Moderately Decreased Stage IV GFR 15-29 Severely Decreased Stage V GFR <15 Very Little GFR Left ESRD GFR <15 on SPECIAL WARFARE OPERATOR Lab Order: Thyroid Stimulating Hormone; SPEC'03/07/16 13:59 Test: THYROID STIMULATING HORMONE; Value: 1.740; Range: 0.358-3.740; Units: uIU/ML; Status: F Lab Order: Troponin; SPEC'M 03/07/16 13:59 Test: TROPONIN I; Value: < 0.02; Range: < 0.10; Units: NG/ML; Status: F Test Note: ; Troponin I Reference Interval for Siemens [place] LOCI: 99th Percentile= 0.00-0.045 ng/ml Risk Stratification: <= 0.10 ng/ml Decreased Risk for Adverse Clinical Events. 0.10-1.50 ng/ml Increased Risk for Adverse Clinical Events. Evaluation of additional criterion and/or repeat testing in 2-6 hours is suggested to rule out myocardial damage. >= 1.50 ng/ml Indicative of Myocardial Injury. Lab Order: Urinalysis; SPEC'M 03/07/16 16:33 Test: APPEARANCE, URINE; Value: CLOUDY; Range: CLEAR; Abnormal: Above high normal; Status: F Test: COLOR, URINE; Value: YELLOW; Range: YELLOW; Status: F Test: PH,URINE; Value: 6.0; Range: 5.0-9.0; Units: UNITS; Status: F Test: SPECIFIC GRAVITY URINE AUTO; Value: 1.029; Range: 1.002-1.035; Status: F Test: PROTEIN, URINE AUTO; Value: 2+; Range: NEGATIVE; Abnormal: Above high normal; Units: mg/dL; Status: F Test: GLUCOSE, URINE (UA) AUTO; Value: 1+; Range: NEGATIVE; Abnormal: Above high normal; Units: mg/dL; Status: F Test: KETONE, URINE AUTO; Value: 1+; Range: NEGATIVE; Abnormal: Above high normal; Units: mg/dL; Status: F Test: UROBILINOGEN, URINE AUTO; Value: 0.2; Range: 0.0-2.0; Units: mg/dL; Status: F Test: BILIRUBIN, URINE AUTO; Value: NEGATIVE; Range: NEGATIVE; Status: F Test: NITRITE, URINE AUTO; Value: NEGATIVE; Range: NEGATIVE; Status: F Test: LEUKOCYTE ESTERASE, URINE AUTO; Value: NEGATIVE; Range: NEGATIVE; Status: F Test: BLOOD, URINE BLOOD; Value: 3+; Range: NEGATIVE; Abnormal: Above high normal; Status: F Test: WBC, URINE AUTO; Value: 1; Range: 0-3; Units: /HPF; Status: F Test: RBC, URINE AUTO; Value: TNTC; Range: 0-3; Abnormal: Above high normal; Units: /HPF; Status: F Test: BACTERIA, URINE AUTO; Value: NEGATIVE; Range: NEGATIVE; Status: F Test: SQUAMOUS EPITHELIAL CELL UR AU; Value: 0; Range: 0-6; Units: /HPF; Status: F Test: MUCUS, URINE; Value: SMALL; Range: NEGATIVE; Status: F Test: HYALINE CAST, URINE AUTO; Value: 0; Range: 0-1; Units: /LPF; Status: F Lab Order: LIPASE; SPEC' 03/07/16 13:59 Test: LIPASE; Value: 152; Range: 73-393; Units: U/L; Status: F Lab Order: LACTIC ACID LEVEL, LACTATE; [facility] 03/07/16 19:23 Test: LACTIC ACID LEVEL, LACTATE; Value: 1.0; Range: 0.4-2.0; Units: MMOL/L; Status: F Lab Order: ERYTHROCYTE SEDIMENTATION RATE; SPEC 03/07/16 19:23 Test: ERYTHROCYTE SEDIMENTATION RATE; Value: 4; Range: 0-20; Units: mm/hr; Status: F Lab Order: C REACTIVE PROTEIN QUANTITATIV; SPEC' 03/07/16 19:23 Test: C REACTIVE PROTEIN QUANTITATIV; Value: 0.84; Range: 0.00-0.30; Abnormal: Above high normal; Units: MG/DL; Status: F Lab Order: Fingerstick Blood Sugar; [facility] 03/07/16 22:51 Test: BEDSIDE GLUCOSE; Value: 154; Range: 70-105; Abnormal: Above high normal; Units: MG/DL; Status: F Radiology Order: EKG-ADULT Test: EKG-ADULT REASON FOR EXAMINATION: altered mentals tatus; Stationary ECG Study; 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; : 1955 Requested By: Cheryl Perez; Order Number: [id number] Reading MD: Cheryl Perez; Measurements; Intervals [place]; Rate: 104 P: -2; TX: 117 QRS: -9; QRSD: 86 T: 42; QT: 320; QTc: 422; Interpretive Statements; SINUS TACHYCARDIA WITH SHORT TX INTERVAL; ABNORMAL RHYTHM ECG; NO PRIOR FOR COMPARISON; Electronically Signed On 03-07-2016 20:27:11 EST by Cheryl Perez; Radiology Order: CT Head Without Contrast Test: CT Head Without Contrast REASON FOR EXAMINATION: altered mental status; CT HEAD WITHOUT CONTRAST:; ; HISTORY: Altered mental status.; ; COMPARISON: 05/31/2005; ; Areas of decreased attenuation are present in the periventricular and subcortical; white matter. This represents small vessel ischemic disease. There is no; intraparenchymal hemorrhage, mass or midline shift. The ventricular system and; cortical sulci are dilated consistent with minimal volume loss. The degree of; ventricular dilatation is out of proportion to that seen in the cortical sulci.; There is no extracerebral collection. Mucosal thickening is present in the right; maxillary sinus.; ; IMPRESSION:; ; 1. Small vessel ischemic disease.; ; 2. Minimal volume loss.; ; 3. The degree of ventricular dilatation is out of proportion to that seen in; the overlying cortical sulci. 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 The; lungs are exposed at a low inspiratory level as on prior study 01/18/2016. The; aorta is tortuous. Heart size is not felt to be enlarged. The lungs are well; inflated and free of infiltrate. Pleural angles are sharp.; ; Impression:; ; No acute disease.; ; ; Signed by; Cesar Berkowitz MD 03/07/2016 04:33 P; Radiology Order: CT ABD & PELVIS: No Contrast Test: CT ABD & PELVIS: No Contrast REASON FOR EXAMINATION: back pain; CT ABDOMEN AND PELVIS WITHOUT CONTRAST:; ; CT abdomen and pelvis performed without oral or IV contrast with sagittal and; coronal reconstruction images.; ; There is bibasilar fibroatelectatic change. Liver, spleen, adrenals, pancreas and; kidneys are grossly unremarkable. No renal, ureteral, or bladder calculus is; seen. There is no hydroureteronephrosis. There is no abdominal aortic aneurysm.; There is no adenopathy. There is no free air or free fluid. There appear to be; central fibrotic changes in the mesentery, stable compared to the prior ct of; 12/10/2012 at [facility]. There is no bowel wall thickening.; There is no pelvic mass. Urinary bladder is grossly unremarkable. There is a; small left inguinal hernia containing fat. There is scoliosis with diffuse; degenerative changes of the spine.; ; IMPRESSION:; ; No acute abnormalities as discussed in detail above. Small left inguinal hernia; contains fat. No free air or free fluid. No renal or ureteral calculus and no; hydroureteronephrosis.; ; ; Signed by; Jason Escamilla MD 03/07/2016 07:59 P; Outcome: 14:23 CT Study completed. ck1 15:17 Discharge Assessment: Patient awake, alert and oriented x 3. No cognitive and/or cf2 functional deficits noted. Patient verbalized understanding of disposition instructions. Patient awake, alert, obeys commands, Oriented to person, patient administered narcotics - yes. Patient was admitted to the hospital or transferred to another facility. The following High Risk Discharge criteria are identified: Yes, Admitted Report to ER admission hold nurse, accompanied by nurse. Condition: good Condition: stable. Property :Personal belongings accompany Pt. 17:54 Decision to Hospitalize by Provider. jo4 03/08 05:37 Patient [facility] ED. [facility] Signatures: Dispatcher [employer] EDMS Jammie Sears, Reg Reg gb Aura Donato,RN RN ck1 Brandon Winchester, QUALITY CONTROL EXPERT QUALITY CONTROL EXPERT kb5 Cheryl Camacho RN RN sls1 Britta Molina1 Cielo Soto cmb Kenya Quinones, QUALITY CONTROL EXPERT QUALITY CONTROL EXPERT tmm1 Nesotr Marin jp5 Saima Kim DO DO jo4 Asuncion Mendoza,RN RN cf2 Corrections: (The following items were deleted from the chart) 03/07 17:21 17:17 LIPASE+LAB sent. [facility] EDMS Chart Complete MTDD
--- NOTE | 2016-03-10 06:40 | EDDOCDS ---
Physician Documentation [facility] Name: Alvino Vanessa Age: 60 yrs Sex: Male : 1955 Arrival Date: 03/07/2016 Time: 12:13 Bed Admit Hold Private MD: Disposition: 03/07/16 17:54 Hospitalization ordered by Teja Mustafa for Inpatient Admission. Preliminary diagnosis is Altered mental status, unspecified. - Bed requested for M ICU. - Status is Inpatient Admission. sls1 - Condition is Stable. - Problem is new. - Symptoms are unchanged. Historical: - Allergies: Boniva; Vioxx; Morphine; PCN; Cymbalta; Fosamax; Methadone; - Home Meds: 1. alprazolam 0.5 mg Oral tab 1 tab 3 times per day 2. metoclopramide HCl 10 mg Oral tab 4 times per day 3. zolpidem 12.5 mg Oral TbMP 1 tab nightly PRN 4. metformin 500 mg Oral tab 1 tab 2 times per day 5. sulfamethoxazole-trimethoprim 800-160 mg Oral tab 1 tab every 12 hours 6. [place] 5-325 mg Oral tab 1 tab every 6 hours PRN 7. duloxetine 20 mg Oral cpDR daily 8. pregabalin 200 mg Oral cap 1 cap 3 times per day 9. Sertraline 100 mg daily 10. levetiracetam 500 mg oral tab 1 tab 2 times per day 11. modafinil 200 mg oral tab 1 tab twice a day 12. fiber 2 caps twice a day 13. bisacodyl 5 mg Oral tab twice a day PRN 14. Drisdol 50,000 unit Oral cap 1 cap once wkly - PMHx: Multiple Sclerosis; Depression; hyperlipidemia; Hypertension; sleep apnea; GERD; - PSHx: back surgery; - Social history: Smoking status: Patient states was never smoker of tobacco. No barriers to communication noted, The patient speaks fluent Polish, Speaks appropriately for age. - Family history: Not pertinent. - : The pt / caregiver states he / she is not on anticoagulants. Home medication list is obtained from a discharge med list. - Exposure Risk Screening:: None identified. Vital Signs: 03/07 12:17 BP 154 / 76 (auto/); ck1 12:17 Pulse 98 MON; Pulse Ox 93% ; ck1 12:22 BP 154 / 76; Pulse 97; Resp 20; Temp 99.9(O); Pulse Ox 96% on R/A; Pain 10/10; dem1 12:23 BP 147 / 72 (auto/); ck1 12:23 Pulse 98 MON; Pulse Ox 96% ; ck1 12:38 BP 165 / 70 (auto/); ck1 12:38 Pulse 98 MON; Pulse Ox 93% ; ck1 13:08 BP 148 / 82 (auto/); ck1 13:08 Pulse 100 MON; Pulse Ox 98% ; ck1 13:23 BP 162 / 94 (auto/); ck1 13:23 Pulse 100 MON; Pulse Ox 97% ; ck1 13:38 BP 152 / 98 (auto/); ck1 13:38 Pulse 100 MON; Pulse Ox 97% ; ck1 13:53 BP 170 / 90 (auto/); ck1 13:54 Pulse 104 MON; Pulse Ox 90% ; ck1 14:07 Pulse 102 MON; Pulse Ox 97% ; ck1 14:08 BP 192 / 104 (auto/); ck1 14:21 BP 164 / 97 (auto/); ck1 14:22 Pulse 102 MON; Pulse Ox 97% ; ck1 14:23 BP 155 / 86 (auto/); ck1 14:23 Pulse 100 MON; Pulse Ox 98% ; ck1 14:38 BP 156 / 88 (auto/); ck1 14:38 Pulse 102 MON; Pulse Ox 96% ; ck1 14:53 BP 156 / 95 (auto/); ck1 14:53 Pulse 102 MON; Pulse Ox 96% ; ck1 15:08 BP 164 / 93 (auto/); ck1 15:08 Pulse 100 MON; Pulse Ox 96% ; ck1 15:17 Pulse 100 MON; Pulse Ox 95% ; cf2 15:21 Pulse 102 MON; Pulse Ox 93% ; ck1 15:23 BP 196 / 93 (auto/); ck1 15:38 BP 179 / 76 (auto/); ck1 15:53 BP 168 / 78 (auto/); ck1 15:59 Pulse 104 MON; Pulse Ox 96% ; ck1 16:01 Pulse 104 MON; Pulse Ox 97% ; cf2 16:03 Pulse 104 MON; Pulse Ox 94% ; ck1 16:08 BP 175 / 81 (auto/); ck1 16:18 Pulse 104 MON; ck1 16:23 BP 214 / 100 (auto/); ck1 16:46 BP 118 / 57 (auto/); ck1 16:49 Pulse 104 MON; Pulse Ox 90% ; ck1 16:52 Pulse 102 MON; Pulse Ox 94% ; cf2 17:01 Pulse 102 MON; Pulse Ox 93% ; ck1 17:01 BP 118 / 57 (auto/); ck1 17:02 Pulse 104 MON; Pulse Ox 87% ; cf2 17:05 Pulse 102 MON; Pulse Ox 93% ; cf2 17:07 Resp 18; Temp 98.0(O); ck1 17:13 Pulse 106 MON; Pulse Ox 94% ; cf2 17:15 Pulse 102 MON; Pulse Ox 91% ; cf2 17:16 BP 136 / 59 (auto/); ck1 17:16 Pulse 102 MON; Pulse Ox 93% ; ck1 17:17 Pulse 102 MON; Pulse Ox 92% ; ck1 17:22 Pulse 102 MON; cf2 17:31 BP 132 / 60 (auto/); ck1 19:50 BP 161 / 82; Pulse 96; Resp 18; Temp 98.5; Pulse Ox 97% ; Pain 4/10; cf2 21:56 BP 178 / 105 (auto/); cf2 22:42 BP 183 / 98 (auto/); cf2 22:43 Pulse 102 MON; cf2 MDM: 13:34 Utility Sales And Service Manager/Pulse Ox/q 15 min VS ordered. sd1 13:34 Accucheck ordered. sd1 13:34 IV Saline Lock ordered. sd1 13:34 Oxygen at 4L/Min NC or Home dosage ordered. sd1 13:34 Rhythm Strip to chart ordered. sd1 13:35 CBC with Diff Ordered. EDMS 13:35 Cardiac Injury Profile Ordered. EDMS 13:35 Liver Profile Ordered. EDMS 13:35 MED Profile Ordered. EDMS 13:35 Thyroid Stimulating Hormone Ordered. EDMS 13:35 Troponin Ordered. EDMS 13:35 ECG WITH READING ER PHYS+CARDIAG ordered. EDMS 13:35 CT Head Without Contrast Ordered. EDMS 14:32 CBC with Diff Reviewed. jo4 14:37 Liver Profile Reviewed. sd1 14:37 MED Profile Reviewed. sd1 14:37 Cardiac Injury Profile Reviewed. sd1 14:37 Thyroid Stimulating Hormone Reviewed. sd1 14:37 Troponin Reviewed. sd1 14:39 Urinalysis Ordered. EDMS 14:40 Urine Culture Ordered. EDMS 15:36 Chest, 1 View Ordered. EDMS 15:38 [facility] Payment Agreement was scanned into [employer] and attached to record. jp5 15:38 Financial registration complete. jp5 15:39 Keppra (short red top tube): Serum level please Ordered. EDMS 15:59 CT Head Without Contrast Reviewed. jo4 16:40 CT ABD & PELVIS: No Contrast Ordered. EDMS 17:09 Urinalysis Reviewed. sd1 17:09 Chest, 1 View Reviewed. sd1 17:34 LIPASE Reviewed. jo4 17:54 BED REQUEST+ADM ordered. EDMS 18:02 ALPRAZolam Tablet 0.5 mg PO once ordered. jo4 18:58 CSF CULTURE AND GRAM STAIN Ordered. EDMS 18:58 GRAM STAIN Ordered. EDMS 18:58 VIRAL CULTURE Ordered. EDMS 18:58 MRI Brain without Contrast Ordered. EDMS 18:59 FLUORO GUID FOR NEEDLE PLACEMT Ordered. EDMS 19:00 CELL COUNT/DIFF CSF Ordered. EDMS 19:00 CSF GLUCOSE Ordered. EDMS 19:00 CSF T PROTEIN Ordered. EDMS 19:00 CELL COUNT/DIFF CSF Ordered. EDMS 19:02 Admission / Observation Status ordered. EDMS 19:02 CONSISTENT CARBOHYDRATES ordered. EDMS 19:02 LACTIC ACID LEVEL, LACTATE Ordered. EDMS 19:03 ERYTHROCYTE SEDIMENTATION RATE Ordered. EDMS 19:03 C REACTIVE PROTEIN QUANTITATIV Ordered. EDMS 19:05 FLUORO GUID FOR NEEDLE PLACEMT Ordered. EDMS 23:05 Fingerstick Blood Sugar Ordered. EDMS 03/08 14:11 T-Sheet-- Draft Copy was scanned into [employer] and attached to record. gb 14:12 Other: MOLST was scanned into [employer] and attached to record. gb Administered Medications: 03/07 18:17 Drug: ALPRAZolam 0.5 mg [alprazolam 0.25 mg tablet (2 tabs)] Route: PO; ck1 22:09 Follow up: Response: No significant change. cf2 Signatures: Dispatcher [employer] EDCheryl Magallanes MD MD sd1 Demian ROSAS, Emerita RN RN daq Jammie Sears, Reg Reg Aura GuzmanRN RN ck1 Cheryl Camacho RN RN sls1 Nestor Marin jp5 Saima Kim DO DO jo4 Asuncion Mendoza RN cf2 The chart was reviewed and I authenticate all verbal orders and agree with the evaluation and treatment provided.Corrections: (The following items were deleted from the chart) 16:31 16:25 Bladder Scan please ordered. jo4 jo4 16: 16:25 Straight cath ordered. jo4 jo4 16:35 15:31 Misc. Nursing Order ordered. sd1 ck1 17:21 17:16 LIPASE+LAB ordered. EDMS EDMS Attachments: 15:38 [facility] Payment Agreement jp5 03/08 14:11 T-Sheet-- Draft Copy gb Chart Complete MTDD
[2016-03-10] MEDS: HumaLOG INSULIN (NovoLOG) PER UNIT SC SCH ×4 (07:30→21:13)
[2016-03-10] MEDS: METOCLOPRAMIDE 10 MG TAB PO SCH ×4 (07:49→20:42)
[2016-03-10] MEDS: MODAFINIL 200MG TABLET PO SCH ×2 (07:49→12:40)
[2016-03-10] MEDS: SERTRALINE 100 MG TAB PO SCH (07:49)
[2016-03-10] MEDS: DULoxetine 20 MG CAP (CYMBALTA) PO SCH (07:50)
[2016-03-10] MEDS: PREGABALIN 100 MG CAP (LYRICA) PO SCH ×3 (07:50→20:42)
[2016-03-10] MEDS: levETIRAcetam 250MG TABLET (KEPPRA) PO SCH ×2 (07:50→20:42)
[2016-03-10] MEDS: ATENOLOL 50 MG TAB PO SCH (07:50)
[2016-03-10] MEDS: HEPARIN SOD (PORCINE) 5000 UNITS/ML VIAL SQ SCH ×2 (07:56→20:42)
[2016-03-10 08:00] VITALS: BP 125/68
[2016-03-10 08:45] LABS: ERYTHROCYTE SEDIMENTATION RATE 35 mm/hr (0-20)
--- NOTE | 2016-03-10 09:00 | IPNPDOC ---
Assessment/Plan Date Seen The patient was seen on 03/10/16. Problems Problems: (1) Altered mental state Status: Acute Problem Text: 01/27/2016 baclofen pump extruding from his right lower quadrant of his abdomen removed by Marina 03/10 -Pt confused this morning-now agrees to CT and MRI if possible-will do CT and clarify re MRI-only baclofen pump tubing remains-Marina states imaging can be done 03/09 Pt is more lucid this morning. He is agreeable to having BW done although not pleased with being poked. He is unable to undergo MRI, d/t metal in his spine. Ordered BCX x 2. d/w HCP, Maritza-sister, she refuses LP for workup for infection and/or NPH 03/09 Tmax 99.7, CRP 2.2, (03/07 0.8 c ESR 4), WBC 9.8 (11.8) 03/08 Patient refused LP and MRI earlier today. There is concern for normal pressure hydrocephalus. When I spoke with him, he wasn't opposed to them, but certainly could not consent for LP, either, secondary to confusion. Will order MRIs (per conversation with Dr. Gray) and discuss LP again in the morning. Patient to remain in the ICU overnight secondary to recurrent confusional state. Likely delirium. MRI to evaluate for ventriculitis or demyelination. 03/07 ordered LP to be done by IR 03/09 BCX x 2 NG 03/07 UCX NG 03/08 MRSA screen - 03/07 CT AP NAD 03/07 CT head ventricular dilatation out of proportion to that seen in the overlying cortical sulci, possible NPH 03/07 CXR NAD (2) Hyponatremia Status: Acute Problem Text: Potentially concerning to be 2 to SUPERVISOR FIREARMS process baseline Na 133-135 on NS 50 cc/H 02/05 131 refused urine Na/osm-more c/w dehydration given correction c IVF 03/09 129, ? SIADH 2 infection vs NPH-check workup (3) Multiple sclerosis Status: Acute Problem Text: Patient is non-ambulatory and with limited use of UE. Dr. Zamora saw the patient in the outpatient setting and recommends consideration of hospital bed, lift, and alternating pressure mattress upon discharge. (4) Decubitus ulcer Status: Chronic Problem Text: L buttock 2 x 3 cm c eschar-unstageable, obvious possible source of infection/MS change 03/10 consulted Vero pradhan-plan for 03/13 (5) Hypertension Status: Chronic Problem Text: Continue home medications; will monitor. (6) Depression Status: Chronic Problem Text: Will continue home medications. Plan / VTE VTE Prophylaxis Ordered?: Yes VTE Exclusion Pharmacological: Bleeding Risk Plan / Urinary Catheter Reason for insertion/continuin: Acute obstruct/retention Subjective Review of Systems CC/HPI Pt is confused this morning, he is refusing CT. General: Reports: ROS Unobtainable Objective Physical Examination General Exam: Positive: Alert (oriented only to person. ), No Acute Distress ENT Exam: Positive: Mucous membr. moist/pink Chest Exam: Positive: Clear to auscultation, Normal air movement Heart Exam: Positive: Rate Normal, Regular Rhythm Abdomen Exam: Positive: Normal bowel sounds, Soft, Negative: Tenderness Extremity Exam: Positive: Other (limited use of UE bilat, LE movement limited to toe wiggle) Neuro Exam: Negative: Normal Gait, Normal Tone, Strength at 5/5 X4 ext Psych Exam: Negative: Mental status NL, Oriented x 3 (oriented only to person, agitated) Vital Signs/I&O Vital Signs Date Time Temp Pulse Resp B/P Pulse Ox O2 Delivery O2 Flow Rate FiO2 03/10/16 07:50 103 125/68 03/10/16 05:29 97.1 18 95 Room Air 03/08/16 00:00 I&O- Last 24 Hours up to 6 AM 03/10/16 06:00 Intake Total 1560 ml Output Total 1200 ml Balance 360 ml Laboratory Data Labs 24H Laboratory Tests 2 03/09/16 09:37: Blood Urea Nitrogen 9, Creatinine 0.39L, Sodium Level 129L, Potassium Level 3.9 , Chloride Level 94L, Carbon Dioxide Level 24, Calcium Level 7.8L, Aspartate Amino Transf (AST/SGOT) 23, Alanine Aminotransferase (ALT/SGPT) 46, Alkaline Phosphatase 63, Total Bilirubin 0.7, Total Protein 6.3L, Albumin 3.0L, Albumin/ Globulin Ratio 0.91L, Anion Gap 11, White Blood Count 9.8, Red Blood Count 5.02 , Hemoglobin 14.0#, Hematocrit 41.6L, Mean Corpuscular Volume 82.8, Mean Corpuscular Hemoglobin 27.9, Mean Corpuscular Hemoglobin Concent 33.7, Red Cell Distribution Width 14.3, Platelet Count 170, Neutrophils (%) (Auto) 83.5H, Lymphocytes (%) (Auto) 9.1L, Monocytes (%) (Auto) 5.6H, Eosinophils (%) (Auto) 0.4, Basophils (%) (Auto) 0.5, Neutrophils # (Auto) 8.2H, Lymphocytes # (Auto) 1.0L, Monocytes # (Auto) 0.6, Eosinophils # (Auto) 0.0, Basophils # (Auto) 0.0, C-Reactive Protein, Quantitative 2.22H, Glomerular Filtration Rate > 60.0, Large Unclassified Cells # 0.1, Large Unclassified Cells % 1.0 03/09/16 12:26: Bedside Glucose (Misc Panel) 139H 03/09/16 16:45: Bedside Glucose (Misc Panel) 118H 03/09/16 20:37: Bedside Glucose (Misc Panel) 138H 03/10/16 05:22: Blood Urea Nitrogen 9, Creatinine 0.44L, Sodium Level 134L, Potassium Level 3.8 , Chloride Level 97L, Carbon Dioxide Level 25, Calcium Level 7.9L, Aspartate Amino Transf (AST/SGOT) 15, Alanine Aminotransferase (ALT/SGPT) 43, Alkaline Phosphatase 66, Total Bilirubin 0.6, Total Protein 5.9L, Albumin 2.8L, Albumin/ Globulin Ratio 0.90L, Anion Gap 12, White Blood Count 9.0, Red Blood Count 4.89 , Hemoglobin 14.1, Hematocrit 40.1L, Mean Corpuscular Volume 82.0, Mean Corpuscular Hemoglobin 28.8, Mean Corpuscular Hemoglobin Concent 35.1, Red Cell Distribution Width 14.4, Platelet Count 152, Neutrophils (%) (Auto) 80.8H, Lymphocytes (%) (Auto) 11.6L, Monocytes (%) (Auto) 5.4H, Eosinophils (%) (Auto) 0.5, Basophils (%) (Auto) 0.8, Neutrophils # (Auto) 7.3, Lymphocytes # (Auto) 1.1L, Monocytes # (Auto) 0.5, Eosinophils # (Auto) 0.0, Basophils # (Auto) 0.1, C-Reactive Protein, Quantitative 1.96H, Erythrocyte Sedimentation Rate 35H, Glomerular Filtration Rate > 60.0, Large Unclassified Cells # 0.1, Large Unclassified Cells % 1.0, Osmolality 270L CBC/BMP Laboratory Tests 03/09/16 09:37 Calcium Level 7.8 L, Aspartate Amino Transf (AST/SGOT) 23, Alanine Aminotransferase (ALT/SGPT) 46, Alkaline Phosphatase 63, Total Bilirubin 0.7, Total Protein 6.3 L, Albumin 3.0 L, Red Blood Count 5.02, Mean Corpuscular Volume 82.8, Mean Corpuscular Hemoglobin 27.9, Mean Corpuscular Hemoglobin Concent 33.7, Red Cell Distribution Width 14.3, Neutrophils (%) (Auto) 83.5 H, Lymphocytes (%) (Auto) 9.1 L, Monocytes (%) (Auto) 5.6 H, Eosinophils (%) (Auto ) 0.4, Basophils (%) (Auto) 0.5, Neutrophils # (Auto) 8.2 H, Lymphocytes # (Auto ) 1.0 L, Monocytes # (Auto) 0.6, Eosinophils # (Auto) 0.0, Basophils # (Auto) 0.0 03/10/16 05:22 Calcium Level 7.9 L, Aspartate Amino Transf (AST/SGOT) 15, Alanine Aminotransferase (ALT/SGPT) 43, Alkaline Phosphatase 66, Total Bilirubin 0.6, Total Protein 5.9 L, Albumin 2.8 L, Red Blood Count 4.89, Mean Corpuscular Volume 82.0, Mean Corpuscular Hemoglobin 28.8, Mean Corpuscular Hemoglobin Concent 35.1, Red Cell Distribution Width 14.4, Neutrophils (%) (Auto) 80.8 H, Lymphocytes (%) (Auto) 11.6 L, Monocytes (%) (Auto) 5.4 H, Eosinophils (%) (Auto ) 0.5, Basophils (%) (Auto) 0.8, Neutrophils # (Auto) 7.3, Lymphocytes # (Auto) 1.1 L, Monocytes # (Auto) 0.5, Eosinophils # (Auto) 0.0, Basophils # (Auto) 0.1 FSBS Laboratory Tests Test 03/09/16 12:26 03/09/16 16:45 03/09/16 20:37 Range/Units Bedside Glucose (Misc Panel) 139 118 138 70-105 MG/DL Microbiology Microbiology 03/09/16 Blood Culture, Received Pending 03/09/16 Blood Culture, Received Pending 03/08/16 MRSA Screen - Final, Complete 03/07/16 Urine Culture - Final, Complete TYE FERNANDES PA-C Mar 10, 2016 09:00 Angel Sun M.D. Mar 10, 2016 14:41
[2016-03-10 12:00] VITALS: BP 139/79
[2016-03-10] MEDS ORDERED: ISOVUE-370 76% 100ML VIAL (Q9967) As Ordered ONE (15:33)
[2016-03-10 16:00] VITALS: BP 154/74
[2016-03-10 16:27] LABS: OSMOLALITY URINE 406 MOSM/KG (500-800)
--- NOTE | 2016-03-10 16:49 | REP ---
CT study of the brain without and with IV contrast: History: Multiple sclerosis. Question normal pressure hydrocephalus. Question infectious source. Comparison head CT study 03/07/2016. CT contrast dose: Digital assistant brand manager radiograph is unremarkable. Bone window settings show no bony destructive lesion. Visualized paranasal sinuses are clear. There is moderate vascular calcification in the distal carotid arteries bilaterally. The lateral and third ventricles are dilated unchanged from the recent prior study of 03/07/2016. This is disproportionate to the degree of sulcal prominence and is compatible with normal pressure hydrocephalus. There is periventricular low density about the lateral ventricles bilaterally. This is more prominent in the right frontal horn but is unchanged from the recent prior study. Post contrast study shows enhancement of normal vasculature. No abnormal enhancement is appreciated. Impression: Findings consistent with hydrocephalus involving the lateral and third ventricles question NPH. Periventricular low density may reflect some transependymal resorption or small vessel changes. No mass or abnormal contrast enhancement is appreciated. No extra-axial fluid collection seen. Signed by Cesar Berkowitz MD 03/10/2016 04:59 P
[2016-03-10 20:00] VITALS: BP 148/81
[2016-03-11] VITALS (7 sets, daily range): BP systolic 133–148; BP diastolic 70–81
[2016-03-11] MEDS: NS 1,000 ML IV SCH (02:57)
[2016-03-11 05:25] LABS: MEAN CORPUSCULAR HEMOGLOBIN 28.3 pg (27.0-33.0); MEAN CORPUSCULAR VOLUME 83.5 fl (80.0-96.0); RED CELL DISTRIBUTION WIDTH 13.4 % (11.5-14.5)
[2016-03-11 05:50] LABS: ANION GAP 13 MEQ/L (8-16); BLOOD UREA NITROGEN 8 MG/DL (7-18); CARBON DIOXIDE LEVEL 24 MEQ/L (21-32); CHLORIDE LEVEL 94 MEQ/L (98-107); CREATININE FOR GFR 0.43 MG/DL (0.70-1.30); GLOMERULAR FILTRATION RATE > 60.0 (>56); GLUCOSE, FASTING 126 MG/DL (70-105); POTASSIUM SERUM 3.5 MEQ/L (3.5-5.1); SODIUM LEVEL 131 MEQ/L (136-145)
[2016-03-11] MEDS: METOCLOPRAMIDE 10 MG TAB PO SCH ×4 (07:30→21:49)
[2016-03-11] MEDS: HumaLOG INSULIN (NovoLOG) PER UNIT SC SCH ×4 (07:30→21:00)
--- NOTE | 2016-03-11 09:09 | IPNPDOC ---
Assessment/Plan Date Seen The patient was seen on 03/11/16. Family Medicine Attending Note: I saw and examined Mr. Vanessa, discussed with KIMMY Valerio. Agree with their note as documented. Mr. Vanessa remained difficult to communicate with. I do believe we should get neurology involved before making a decision regarding steroids. I will defer to them on the importance of an MRI at this point in time as well. 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 - Pt confused this morning. There remains some concern from Radiology per nursing with proceeding with MRI, currently there is no MRI order. Per Dr Sun - Dr Rubin believes his symptoms are all related to his MS, and that Solumedrol 1 gm x 3 days could be given - this potentially cld make his confusion worse. I will address with Dr Tian today before proceeding. 03/10 -Pt confused this morning-now agrees to CT and MRI if possible-will do CT and clarify re MRI-only baclofen pump tubing remains-Marina states imaging can be done 03/09 Pt is more lucid this morning. He is agreeable to having BW done although not pleased with being poked. He is unable to undergo MRI, d/t metal in his spine. Ordered BCX x 2. d/w HCP, Maritza-sister, she refuses LP for workup for infection and/or NPH 03/09 Tmax 99.7, CRP 2.2, (03/07 0.8 c ESR 4), WBC 9.8 (11.8) 03/08 Patient refused LP and MRI earlier today. There is concern for normal pressure hydrocephalus. When I spoke with him, he wasn't opposed to them, but certainly could not consent for LP, either, secondary to confusion. Will order MRIs (per conversation with Dr. Gray) and discuss LP again in the morning. Patient to remain in the ICU overnight secondary to recurrent confusional state. Likely delirium. MRI to evaluate for ventriculitis or demyelination. 03/07 ordered LP to be done by IR 03/09 BCX x 2 NG 03/07 UCX NG 03/08 MRSA screen - 03/07 CT AP NAD 03/07 CT head ventricular dilatation out of proportion to that seen in the overlying cortical sulci, possible NPH 03/07 CXR NAD (2) Hyponatremia Status: Acute Response to Treatment: Stable Problem Text: Potentially concerning to be 2 to OCC MED PHYSICIAN process baseline Na 133-135 on NS 50 cc/H 02/05 131 refused urine Na/osm-more c/w dehydration given correction c IVF 03/09 129, ? SIADH 2 infection vs NPH-check workup (3) Encephalopathy Status: Acute Problem Text: etiology unclear, related to MS vs NPH. (4) Multiple sclerosis Status: Acute Problem Specific Plan: Consult Specialist Problem Text: Patient is non-ambulatory and with limited use of UE. Dr. Zamora saw the patient in the outpatient setting and recommends consideration of hospital bed, lift, and alternating pressure mattress upon discharge. (5) Decubitus ulcer Status: Chronic Problem Text: L buttock 2 x 3 cm c eschar-unstageable, obvious possible source of infection/MS change -present on admission. 03/10 consulted Vero to debride-plan for 03/13 (6) Hypertension Status: Chronic Problem Text: Continue home medications; will monitor. (7) Depression Status: Chronic Problem Text: Will continue home medications. Plan / VTE VTE Prophylaxis Ordered?: Yes VTE Exclusion Pharmacological: Bleeding Risk Plan / Urinary Catheter Reason for insertion/continuin: Acute obstruct/retention Subjective Review of Systems CC/HPI Pt confused this morning. He believes it is 1996 and that he is at home. I spoke with his nurse Filippo, he states that the tubing for the Baclofen pump per Dr Gray it plastic and that the pt is safe for MRI. Filippo spoke with Radiology yesterday who remained yesterday to proceed with MRI without further investigation. General: Reports: ROS Unobtainable Objective Physical Examination General Exam: Positive: Alert (oriented only to person. ), No Acute Distress ENT Exam: Positive: Mucous membr. moist/pink Chest Exam: Positive: Clear to auscultation, Normal air movement Heart Exam: Positive: Rate Normal, Regular Rhythm Abdomen Exam: Positive: Normal bowel sounds, Soft, Negative: Tenderness Extremity Exam: Positive: Other (limited use of UE bilat, LE movement limited to toe wiggle) Neuro Exam: Negative: Normal Gait, Normal Tone, Strength at 5/5 X4 ext Psych Exam: Negative: Mental status NL, Oriented x 3 (oriented only to person, agitated) Vital Signs/I&O Vital Signs Date Time Temp Pulse Resp B/P Pulse Ox O2 Delivery O2 Flow Rate FiO2 03/11/16 08:00 98.0 100 22 133/77 93 Room Air 03/08/16 00:00 I&O- Last 24 Hours up to 6 AM 03/11/16 06:00 Intake Total 745 ml Output Total 1975 ml Balance -1230 ml Laboratory Data Labs 24H Laboratory Tests 2 03/10/16 11:58: Bedside Glucose (Misc Panel) 137H 03/10/16 16:10: Urine Random Osmolality 406L, Urine Random Sodium 106 03/10/16 16:58: Bedside Glucose (Misc Panel) 123H 03/10/16 20:37: Bedside Glucose (Misc Panel) 126H 03/11/16 05:04: Anion Gap 13, Blood Urea Nitrogen 8, Creatinine 0.43L, Sodium Level 131L, Potassium Level 3.5, Chloride Level 94L, Carbon Dioxide Level 24, Calcium Level 8.0L, Glomerular Filtration Rate > 60.0 CBC/BMP Laboratory Tests 03/11/16 05:04 Calcium Level 8.0 L, Red Blood Count 5.09, Mean Corpuscular Volume 83.5, Mean Corpuscular Hemoglobin 28.3, Mean Corpuscular Hemoglobin Concent 34.0, Red Cell Distribution Width 13.4 FSBS Laboratory Tests Test 03/10/16 11:58 03/10/16 16:58 03/10/16 20:37 Range/Units Bedside Glucose (Misc Panel) 137 123 126 70-105 MG/DL Microbiology Microbiology 03/09/16 Blood Culture - Preliminary, Resulted No growth after 24 hours . All specim... 03/09/16 Blood Culture - Preliminary, Resulted No growth after 24 hours . All specim... 03/08/16 MRSA Screen - Final, Complete 03/07/16 Urine Culture - Final, Complete TYE FERNANDES PA-C Mar 11, 2016 09:09 Kenyon Tian MD Mar 11, 2016 22:27
[2016-03-11] MEDS: DULoxetine 20 MG CAP (CYMBALTA) PO SCH (09:59)
[2016-03-11] MEDS: MODAFINIL 200MG TABLET PO SCH ×2 (09:59→13:28)
[2016-03-11] MEDS: levETIRAcetam 250MG TABLET (KEPPRA) PO SCH ×2 (09:59→21:49)
[2016-03-11] MEDS: PREGABALIN 100 MG CAP (LYRICA) PO SCH ×3 (09:59→21:49)
[2016-03-11] MEDS: NORCO, ANEXSIA 5/325MG TABLET (HYDROcodone/ACETAMINOPHEN) PO PRN (09:59)
[2016-03-11] MEDS: ATENOLOL 50 MG TAB PO SCH (10:00)
[2016-03-11] MEDS: HEPARIN SOD (PORCINE) 5000 UNITS/ML VIAL SQ SCH ×2 (10:00→21:50)
[2016-03-11] MEDS: SERTRALINE 100 MG TAB PO SCH (10:00)
[2016-03-12] MEDS: NS 1,000 ML IV SCH ×2 (00:09→19:51)
[2016-03-12 06:00] VITALS: BP 138/83
[2016-03-12 06:22] LABS: MEAN CORPUSCULAR HEMOGLOBIN 28.1 pg (27.0-33.0); MEAN CORPUSCULAR HGB CONC 34.4 g/dl (32.0-36.5); MEAN CORPUSCULAR VOLUME 81.5 fl (80.0-96.0); RED CELL DISTRIBUTION WIDTH 14.5 % (11.5-14.5); WHITE BLOOD COUNT 10.5 K/mm3 (4.0-10.0)
[2016-03-12 06:39] LABS: ALBUMIN 2.9 GM/DL (3.2-5.2); ALBUMIN/GLOBULIN RATIO 0.88 (1.00-1.93); ALKALINE PHOSPHATASE 70 U/L (45-117); ALT/SGPT 41 U/L (12-78); ANION GAP 12 MEQ/L (8-16); AST/SGOT 21 U/L (15-37); BILIRUBIN,TOTAL 0.6 MG/DL (0.2-1.0); BLOOD UREA NITROGEN 11 MG/DL (7-18); CARBON DIOXIDE LEVEL 24 MEQ/L (21-32); CHLORIDE LEVEL 95 MEQ/L (98-107); CREATININE FOR GFR 0.47 MG/DL (0.70-1.30); GLOMERULAR FILTRATION RATE > 60.0 (>56); GLUCOSE, FASTING 121 MG/DL (70-105); POTASSIUM SERUM 3.8 MEQ/L (3.5-5.1); SODIUM LEVEL 131 MEQ/L (136-145); TOTAL PROTEIN 6.2 GM/DL (6.4-8.2)
[2016-03-12] MEDS: HumaLOG INSULIN (NovoLOG) PER UNIT SC SCH ×4 (08:59→21:00)
[2016-03-12] MEDS: DULoxetine 20 MG CAP (CYMBALTA) PO SCH (08:59)
[2016-03-12] MEDS: PREGABALIN 100 MG CAP (LYRICA) PO SCH ×3 (09:00→21:46)
[2016-03-12] MEDS: SERTRALINE 100 MG TAB PO SCH (09:00)
[2016-03-12] MEDS: ATENOLOL 50 MG TAB PO SCH (09:00)
[2016-03-12] MEDS: levETIRAcetam 250MG TABLET (KEPPRA) PO SCH ×2 (09:00→21:45)
[2016-03-12] MEDS: METOCLOPRAMIDE 10 MG TAB PO SCH ×4 (09:00→21:45)
[2016-03-12] MEDS: MODAFINIL 200MG TABLET PO SCH ×2 (09:00→12:30)
[2016-03-12] MEDS: HEPARIN SOD (PORCINE) 5000 UNITS/ML VIAL SQ SCH ×2 (09:01→21:48)
--- NOTE | 2016-03-12 10:26 | IPNPDOC ---
Assessment/Plan Date Seen The patient was seen on 03/12/16. Family Medicine Attending Note: I saw and examined Mr. Vanessa, discussed with KIMMY Valerio. Agree with their note as documented. I had a lengthy discussion with Dr. Jerson Rubin today. He feels quite strongly that the brain is the innocent bystander in this particular situation. 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 It is neither a multiple sclerosis exacerbation nor anything to do with NPH. He encourages us to find the source of the metabolic derangement if we wish to help clear his sensorium. I reviewed the workup that has been done. I will add an ammonia level, B12 level , ESR, CRP, repeat urinalysis and chest x-ray to the morning labs. His estranged was in this afternoon and reminded us that he has retained plastic tubing from his baclofen pump leading into his spine. She believes at one point it was infected. This certainly could be the source of his metabolic derangement that we are looking for. 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 We are evaluating for non-neurologic etiologies of the AMS. 03/11 - Pt confused this morning. There remains some concern from Radiology per nursing with proceeding with MRI, currently there is no MRI order. Per Dr Sun - Dr Rubin believes his symptoms are all related to his MS, and that Solumedrol 1 gm x 3 days could be given - this potentially cld make his confusion worse. I will address with Dr Tian today before proceeding. 03/10 -Pt confused this morning-now agrees to CT and MRI if possible-will do CT and clarify re MRI-only baclofen pump tubing remains-Marina states imaging can be done 03/09 Pt is more lucid this morning. He is agreeable to having BW done although not pleased with being poked. He is unable to undergo MRI, d/t metal in his spine. Ordered BCX x 2. d/w HCP, Maritza-sister, she refuses LP for workup for infection and/or NPH 03/09 Tmax 99.7, CRP 2.2, (03/07 0.8 c ESR 4), WBC 9.8 (11.8) 03/08 Patient refused LP and MRI earlier today. There is concern for normal pressure hydrocephalus. When I spoke with him, he wasn't opposed to them, but certainly could not consent for LP, either, secondary to confusion. Will order MRIs (per conversation with Dr. Gray) and discuss LP again in the morning. Patient to remain in the ICU overnight secondary to recurrent confusional state. Likely delirium. MRI to evaluate for ventriculitis or demyelination. 03/07 ordered LP to be done by IR 03/09 BCX x 2 NG 03/07 UCX NG 03/08 MRSA screen - 03/07 CT AP NAD 03/07 CT head ventricular dilatation out of proportion to that seen in the overlying cortical sulci, possible NPH 03/07 CXR NAD 01/27/2016 baclofen pump extruding from his right lower quadrant of his abdomen removed by Marina (2) Hyponatremia Status: Acute Response to Treatment: Stable Problem Text: Potentially concerning to be 2 to TAX INTERN process baseline Na 133-135 on NS 50 cc/H 02/05 131 refused urine Na/osm-more c/w dehydration given correction c IVF 03/09 129, ? SIADH 2 infection vs NPH-check workup (3) Multiple sclerosis Status: Chronic Problem Specific Plan: Consult Specialist Problem Text: Patient is non-ambulatory and with limited use of UE. Dr. Zamora saw the patient in the outpatient setting and recommends consideration of hospital bed, lift, and alternating pressure mattress upon discharge. (4) Decubitus ulcer Status: Chronic Problem Text: L buttock 2 x 3 cm c eschar-unstageable, obvious possible source of infection/MS change -present on admission. 03/10 consulted Vero pradhan-plan for 03/13 (5) Hypertension Status: Chronic Problem Text: Continue home medications; will monitor. (6) Depression Status: Chronic Problem Text: Will continue home medications. Plan / VTE VTE Prophylaxis Ordered?: Yes VTE Exclusion Pharmacological: Bleeding Risk Plan / Urinary Catheter Reason for insertion/continuin: Acute obstruct/retention Subjective Review of Systems CC/HPI Pt without new concerns. General: Denies: Fatigue ENT: Denies: Head Aches Pulmonary: Denies: Cough, Dyspnea Cardiovascular: Denies: Chest Pain, Palpitations Gastrointestinal: Denies: Diarrhea, Nausea, Vomiting Objective Physical Examination General Exam: Positive: Alert (oriented only to person. ), No Acute Distress ENT Exam: Positive: Mucous membr. moist/pink Chest Exam: Positive: Clear to auscultation, Normal air movement Heart Exam: Positive: Rate Normal, Regular Rhythm Abdomen Exam: Positive: Normal bowel sounds, Soft, Negative: Tenderness Extremity Exam: Positive: Other (limited use of UE bilat, LE movement limited to toe wiggle) Neuro Exam: Negative: Normal Gait, Normal Tone, Strength at 5/5 X4 ext Psych Exam: Negative: Mental status NL, Oriented x 3 (oriented only to person, agitated) Vital Signs/I&O Vital Signs Date Time Temp Pulse Resp B/P Pulse Ox O2 Delivery O2 Flow Rate FiO2 03/12/16 09:00 96 138/83 03/12/16 06:00 99.2 18 93 Room Air 03/08/16 00:00 I&O- Last 24 Hours up to 6 AM 03/12/16 06:00 Intake Total 710 ml Output Total 1075 ml Balance -365 ml Laboratory Data Labs 24H Laboratory Tests 2 03/11/16 12:11: Bedside Glucose (Misc Panel) 164H 03/11/16 17:05: Bedside Glucose (Misc Panel) 137H 03/11/16 20:37: Bedside Glucose (Misc Panel) 187H 03/12/16 05:24: Blood Urea Nitrogen 11, Creatinine 0.47L, Sodium Level 131L, Potassium Level 3.8 , Chloride Level 95L, Carbon Dioxide Level 24, Calcium Level 8.0L, Aspartate Amino Transf (AST/SGOT) 21, Alanine Aminotransferase (ALT/SGPT) 41, Alkaline Phosphatase 70, Total Bilirubin 0.6, Total Protein 6.2L, Albumin 2.9L, Albumin/ Globulin Ratio 0.88L, Anion Gap 12, Glomerular Filtration Rate > 60.0 CBC/BMP Laboratory Tests 03/12/16 05:24 Calcium Level 8.0 L, Aspartate Amino Transf (AST/SGOT) 21, Alanine Aminotransferase (ALT/SGPT) 41, Alkaline Phosphatase 70, Total Bilirubin 0.6, Total Protein 6.2 L, Albumin 2.9 L, Red Blood Count 4.91, Mean Corpuscular Volume 81.5, Mean Corpuscular Hemoglobin 28.1, Mean Corpuscular Hemoglobin Concent 34.4, Red Cell Distribution Width 14.5 FSBS Laboratory Tests Test 03/11/16 12:11 03/11/16 17:05 03/11/16 20:37 Range/Units Bedside Glucose (Misc Panel) 164 137 187 70-105 MG/DL Microbiology Microbiology 03/09/16 Blood Culture - Preliminary, Resulted No Growth after 48 hours. All Specime... 03/09/16 Blood Culture - Preliminary, Resulted No Growth after 48 hours. All Specime... 03/08/16 MRSA Screen - Final, Complete 03/07/16 Urine Culture - Final, Complete TYE FERNANDES PA-C Mar 12, 2016 10:26 Kenyon Tian MD Mar 12, 2016 21:22
[2016-03-12 14:00] VITALS: BP 139/74
[2016-03-12] MEDS: NORCO, ANEXSIA 5/325MG TABLET (HYDROcodone/ACETAMINOPHEN) PO PRN (15:43)
[2016-03-12] MEDS: MIRALAX *UNIT DOSE* 17GM PACKET PO SCH (21:45)
[2016-03-12] MEDS: DOCUSATE SODIUM 100 MG CAP PO SCH (21:45)
[2016-03-12 22:00] VITALS: BP 152/86
[2016-03-13 06:00] VITALS: BP 160/82
[2016-03-13 06:16] LABS: BASO # 0.1 K/mm3 (0.0-0.2); EOS # 0.1 K/mm3 (0.0-0.50); LARGE UNSTAINED CELL # 0.2 K/mm3 (0.0-0.4); LARGE UNSTAINED CELL % 1.2 % (0.0-4.0); LYMPH # 1.2 K/mm3 (1.5-4.5); LYMPH % 8.1 % (24.0-44.0); MEAN CORPUSCULAR HEMOGLOBIN 28.6 pg (27.0-33.0); MEAN CORPUSCULAR VOLUME 81.7 fl (80.0-96.0); MONO # 0.6 K/mm3 (0.0-0.8); MONO % 4.4 % (0.0-5.0); NEUTROPHILS # 10.6 K/mm3 (1.8-7.7); NEUTROPHILS % 84.3 % (36.0-66.0); PLATELET COUNT, AUTOMATED 165 k/mm3 (150-450); RED CELL DISTRIBUTION WIDTH 14.6 % (11.5-14.5); WHITE BLOOD COUNT 12.6 K/mm3 (4.0-10.0)
[2016-03-13 06:34] LABS: ALBUMIN 2.8 GM/DL (3.2-5.2); ALBUMIN/GLOBULIN RATIO 0.85 (1.00-1.93); ALKALINE PHOSPHATASE 78 U/L (45-117); ALT/SGPT 42 U/L (12-78); ANION GAP 11 MEQ/L (8-16); AST/SGOT 27 U/L (15-37); BILIRUBIN,TOTAL 0.6 MG/DL (0.2-1.0); BLOOD UREA NITROGEN 9 MG/DL (7-18); CALCIUM LEVEL 7.8 MG/DL (8.5-10.1); CARBON DIOXIDE LEVEL 24 MEQ/L (21-32); CHLORIDE LEVEL 96 MEQ/L (98-107); CREATININE FOR GFR 0.39 MG/DL (0.70-1.30); GLOMERULAR FILTRATION RATE > 60.0 (>56); GLUCOSE, FASTING 121 MG/DL (70-105); SODIUM LEVEL 131 MEQ/L (136-145); TOTAL PROTEIN 6.1 GM/DL (6.4-8.2)
[2016-03-13 07:10] LABS: ERYTHROCYTE SEDIMENTATION RATE 44 mm/hr (0-20)
[2016-03-13] MEDS: HumaLOG INSULIN (NovoLOG) PER UNIT SC SCH ×4 (07:30→20:55)
[2016-03-13] MEDS: HEPARIN SOD (PORCINE) 5000 UNITS/ML VIAL SQ SCH ×3 (09:00→20:46)
[2016-03-13] MEDS: MIRALAX *UNIT DOSE* 17GM PACKET PO SCH (09:00)
[2016-03-13] MEDS: PREGABALIN 100 MG CAP (LYRICA) PO SCH ×3 (09:05→20:47)
[2016-03-13] MEDS: METOCLOPRAMIDE 10 MG TAB PO SCH ×4 (09:05→20:44)
[2016-03-13] MEDS: DULoxetine 20 MG CAP (CYMBALTA) PO SCH (09:05)
[2016-03-13] MEDS: SERTRALINE 100 MG TAB PO SCH (09:06)
[2016-03-13] MEDS: MODAFINIL 200MG TABLET PO SCH ×2 (09:06→12:26)
[2016-03-13] MEDS: DOCUSATE SODIUM 100 MG CAP PO SCH ×2 (09:06→20:45)
[2016-03-13] MEDS: levETIRAcetam 250MG TABLET (KEPPRA) PO SCH ×2 (09:06→20:45)
[2016-03-13] MEDS: ATENOLOL 50 MG TAB PO SCH (09:10)
[2016-03-13 10:20] LABS: VITAMIN B12 LEVEL 707 PG/ML (247-911)
--- NOTE | 2016-03-13 10:48 | IPNPDOC ---
Assessment/Plan Date Seen The patient was seen on 03/13/16. Family Medicine Attending Note: I saw and examined the patient this morning; he remains confused and is only oriented to person and place. He is not oriented to date, month, or year and falls asleep in the middle of our conversation. At this point, I believe he is unable to understand questions posed to him and is unable to make medical decisions for himself. At this point, all workup for a source of infection has been negative but patient's WBCs, ESR, and CRP continue to rise. I think that most likely he has an infection of retained tubing from baclofen pump in his spinal canal. I discussed his case with Dr. Moy, who recommends LP, which patient's sister has refused in the past - Dr. Moy states she is unable to make recommendations without an LP, as we would not know what we are treating, or whether infection is bacterial, viral, or fungal. I discussed this with the patient's sister, who is is POA, and she states that he has repeatedly refused LPs in the past and would not want and LP now, and so she feels she must refuse an LP. I explained to her that without an LP, our recommendation would be for hospice care. She states she will consider this. I discussed the case with Ankit Serna to determine whether and Ethics Committee referral is appropriate - he will review the chart tomorrow morning. ( KES) Problems Problems: (1) Altered mental state Status: Acute Problem Specific Plan: Consult Specialist Problem Text: 03/13 - Pt. still somewhat confused. WBC trending up to 12.6 today. Afebrile. According to Dr Tian's note from yesterday, he had a discussion with Dr. Rubin, who feels that this is a toxic metabolic encephalopathy from some other etiology, and is neither a multiple sclerosis exacerbation nor anything to do with NPH, and encourages us to find the source of the metabolic derangement if we wish to help clear his sensorium. The pt has retained plastic tubing from his baclofen pump leading into his spine, which at one point may have been infected. This certainly could be the source of his metabolic derangement. 03/12 - Remains confused, Dr Tian spoke with Neuro today. We are evaluating for non-neurologic etiologies of the AMS. 03/11 - Pt confused this morning. There remains some concern from Radiology per nursing with proceeding with MRI, currently there is no MRI order. Per Dr Sun - Dr Rubin believes his symptoms are all related to his MS, and that Solumedrol 1 gm x 3 days could be given - this potentially cld make his confusion worse. I will address with Dr Tian today before proceeding. 03/10 -Pt confused this morning-now agrees to CT and MRI if possible-will do CT and clarify re MRI-only baclofen pump tubing remains-Marina states imaging can be done 03/09 Pt is more lucid this morning. He is agreeable to having BW done although not pleased with being poked. He is unable to undergo MRI, d/t metal in his spine. Ordered BCX x 2. d/w HCP, Maritza-sister, she refuses LP for workup for infection and/or NPH 03/09 Tmax 99.7, CRP 2.2, (03/07 0.8 c ESR 4), WBC 9.8 (11.8) 03/08 Patient refused LP and MRI earlier today. There is concern for normal pressure hydrocephalus. When I spoke with him, he wasn't opposed to them, but certainly could not consent for LP, either, secondary to confusion. Will order MRIs (per conversation with Dr. Gray) and discuss LP again in the morning. Patient to remain in the ICU overnight secondary to recurrent confusional state. Likely delirium. MRI to evaluate for ventriculitis or demyelination. 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 SIADH 2 infection vs NPH-check workup (3) Multiple sclerosis Status: Chronic Problem Specific Plan: Consult Specialist Problem Text: Patient is non-ambulatory and with limited use of UE. Dr. Zamora saw the patient in the outpatient setting and recommends consideration of hospital bed, lift, and alternating pressure mattress upon discharge. (4) Decubitus ulcer Status: Chronic Problem Text: L buttock 2 x 3 cm c eschar-unstageable, obvious possible source of infection/MS change -present on admission. 03/10 consulted Vero cruze-plan for 03/13 (5) Hypertension Status: Chronic Problem Text: Continue home medications; will monitor. (6) Depression Status: Chronic Problem Text: Will continue home medications. Plan / VTE VTE Prophylaxis Ordered?: Yes VTE Exclusion Pharmacological: Bleeding Risk Plan / Urinary Catheter Reason for insertion/continuin: Acute obstruct/retention Subjective Review of Systems CC/HPI The patient is a 60-year-old male admitted with a reason for visit of Altered Mental State. Events since last encounter Pt somewhate confused. He knows he is in [facility] but thought it was 2015 and misidentified the President. He denies CP, SOB. Constitutional: Denies: Chills, Fever Pulmonary: Denies: Dyspnea Cardiovascular: Denies: Chest Pain Gastrointestinal: Denies: Abdominal Pain, Nausea, Vomiting Objective Physical Examination General Exam: Positive: Alert (oriented to person and place, but misidentified the year and the President. ), No Acute Distress ENT Exam: Positive: Mucous membr. moist/pink Chest Exam: Positive: Clear to auscultation, Normal air movement Heart Exam: Positive: Rate Normal, Regular Rhythm Abdomen Exam: Positive: Normal bowel sounds, Soft, Negative: Tenderness Extremity Exam: Positive: Other (limited use of UE bilat, LE movement limited to toe wiggle) Neuro Exam: Negative: Normal Gait, Normal Tone, Strength at 5/5 X4 ext Psych Exam: Negative: Mental status NL, Oriented x 3 (oriented only to person, agitated) Vital Signs/I&O Vital Signs Date Time Temp Pulse Resp B/P Pulse Ox O2 Delivery O2 Flow Rate FiO2 03/13/16 09:10 96 175/98 03/13/16 06:00 96.8 19 94 Room Air 03/08/16 00:00 I&O- Last 24 Hours up to 6 AM 03/13/16 06:00 Intake Total 240 ml Output Total 1150 ml Balance -910 ml Laboratory Data Labs 24H Laboratory Tests 2 03/12/16 12:03: Bedside Glucose (Misc Panel) 130H 03/12/16 16:35: Bedside Glucose (Misc Panel) 132H 03/12/16 20:44: Bedside Glucose (Misc Panel) 186H, Urine Amorphous Sediment , Urine Appearance HAZY, Urine Color YELLOW, Urine pH 6.0, Urine Specific Arroyo 1.017, Urine Protein 2+H, Urine Glucose (UA) 3+H, Urine Ketones TRACEH, Urine Urobilinogen 4.0H, Urine Bilirubin NEGATIVE, Urine Leukocyte Esterase NEGATIVE, Urine Bacteria (Auto) 1+H, Urine Blood 3+H, Urine Calcium Carbonate Cryst(Auto) , Urine Calcium Oxalate Cryst (Auto) , Urine Calcium Phosphate Fannie (Auto) , Urine Cellular Casts , Urine Cystine Crystals , Urine Granular Casts (Auto) , Urine Hyaline Casts (Auto) 0, Urine Leucine Crystals , Urine Mucus (Auto) SMALL , Urine Nitrite NEGATIVE, Urine Oval Fat Bodies (Auto) , Urine RBC (Auto) TNTCH , Urine Renal Epithelial Cells , Urine Sperm (Auto) , Urine Squamous Epithelial Cells 0, Urine Transitional Epithelial Cells , Urine Trichomonas (Auto) , Urine Triple Phosphate Cryst (Auto) , Urine Tyrosine Crystals , Urine Uric Acid Crystals (Auto) , Urine WBC (Auto) 4H, Urine Waxy Casts (Auto) , Urine Yeast- Like Cells (Auto) 03/13/16 05:39: Blood Urea Nitrogen 9, Creatinine 0.39L, Sodium Level 131L, Potassium Level 4.0 , Chloride Level 96L, Carbon Dioxide Level 24, Calcium Level 7.8L, Aspartate Amino Transf (AST/SGOT) 27, Alanine Aminotransferase (ALT/SGPT) 42, Alkaline Phosphatase 78, Total Bilirubin 0.6, Total Protein 6.1L, Albumin 2.8L, Albumin/ Globulin Ratio 0.85L, Ammonia 25, Anion Gap 11, White Blood Count 12.6H, Red Blood Count 5.01, Hemoglobin 14.4, Hematocrit 41.0L, Mean Corpuscular Volume 81.7, Mean Corpuscular Hemoglobin 28.6, Mean Corpuscular Hemoglobin Concent 35.0 , Red Cell Distribution Width 14.6H, Platelet Count 165, Neutrophils (%) (Auto) 84.3H, Lymphocytes (%) (Auto) 8.1L, Monocytes (%) (Auto) 4.4, Eosinophils (%) ( Auto) 1.0, Basophils (%) (Auto) 1.0, Neutrophils # (Auto) 10.6H, Lymphocytes # ( Auto) 1.2L, Monocytes # (Auto) 0.6, Eosinophils # (Auto) 0.1, Basophils # (Auto ) 0.1, C-Reactive Protein, Quantitative 4.72H, Erythrocyte Sedimentation Rate 44H, Glomerular Filtration Rate > 60.0, Large Unclassified Cells # 0.2, Large Unclassified Cells % 1.2, Vitamin B12 Level 707 CBC/BMP Laboratory Tests 03/13/16 05:39 Calcium Level 7.8 L, Aspartate Amino Transf (AST/SGOT) 27, Alanine Aminotransferase (ALT/SGPT) 42, Alkaline Phosphatase 78, Total Bilirubin 0.6, Total Protein 6.1 L, Albumin 2.8 L, Red Blood Count 5.01, Mean Corpuscular Volume 81.7, Mean Corpuscular Hemoglobin 28.6, Mean Corpuscular Hemoglobin Concent 35.0, Red Cell Distribution Width 14.6 H, Neutrophils (%) (Auto) 84.3 H , Lymphocytes (%) (Auto) 8.1 L, Monocytes (%) (Auto) 4.4, Eosinophils (%) (Auto ) 1.0, Basophils (%) (Auto) 1.0, Neutrophils # (Auto) 10.6 H, Lymphocytes # ( Auto) 1.2 L, Monocytes # (Auto) 0.6, Eosinophils # (Auto) 0.1, Basophils # (Auto ) 0.1 FSBS Laboratory Tests Test 03/12/16 12:03 03/12/16 16:35 03/12/16 20:44 Range/Units Bedside Glucose (Misc Panel) 130 132 186 70-105 MG/DL Microbiology Microbiology 03/09/16 Blood Culture - Preliminary, Resulted No Growth after 72 hours. All specime... 03/09/16 Blood Culture - Preliminary, Resulted No Growth after 72 hours. All specime... 03/08/16 MRSA Screen - Final, Complete 03/12/16 Urine Culture, Received Pending 03/07/16 Urine Culture - Final, Complete Trever Anglin Mar 13, 2016 10:48 HOLLY ZAMORA MD Mar 13, 2016 14:25
--- NOTE | 2016-03-13 12:05 | REP ---
CHEST X-RAY: AP and lateral views. HISTORY: Altered mental status. COMPARISON STUDY: March 07, 2016. FINDINGS: The lungs are exposed at a low level of inspiration. Cardiomediastinal silhouette is unremarkable and unchanged. Pulmonary vasculature is not increased. No infiltrate is seen. No pleural effusion noted. IMPRESSION: Poor level of inspiration. Otherwise no acute disease. Signed by Cesar Berkowitz MD 03/13/2016 12:18 P
[2016-03-13] MEDS: NS 1,000 ML IV SCH (16:24)
--- NOTE | 2016-03-13 17:13 | CR ---
DATE OF CONSULTATION: 03/10/2016 CONSULTATION REPORT FOR: Dr. Angel Sun REASON FOR CONSULTATION: Regarding decubitus ulcer. HISTORY OF PRESENT ILLNESS: Mr. Vanessa is a 60-year-old gentleman with a longstanding history of multiple sclerosis, admitted to the hospital for change in mentation and currently being worked up for sepsis, normal pressure hydrocephalus or worsening of his multiple sclerosis. He is being concurrently seen by his primary care doctor, likewise the neurology service. I was contacted in particular about a small patch of necrotic skin, roughly about 3 x 3 cm on his left sacrum. Pertinent question is whether this is infected or that this is contributing to his change of mental status. Most of the history was retrieved from his medical records. The patient is currently confused and barely verbal, but at the time that I saw him, he had family members on the floor with him. PAST MEDICAL HISTORY: Includes: 1. Multiple sclerosis. 2. Depression. 3. Dyslipidemia. 4. Noncompliance. 5. Hypertension. 6. Obstructive sleep apnea. 7. Gastroesophageal reflux disease. HOME MEDICATIONS: Include: 1. Metformin 2. Avonex. 3. Testim. 4. Xanax. 5. Atenolol. 6. Duloxetine. 7. Keppra. 8. Metaxalone, 9. Reglan. 10. Modafinil. 11. Lyrica. 12. Sertraline. 13. Ambien ALLERGIES: Include: 1. BONIVA. 2. VIOXX. 3. MORPHINE. 4. PENICILLIN. 5. CYMBALTA. 6. FOSAMAX. 7. METHADONE. PAST SURGICAL HISTORY: Back surgery. SOCIAL HISTORY: Nonsmoking. No alcohol use. No recreational drug use. FAMILY HISTORY: Noncontributory. REVIEW OF SYSTEMS: Not able to do due to the patient's condition. PHYSICAL EXAMINATION: The patient is seen. He spontaneously opens his eyes but not on command nor on verbal cues. Skin is warm and moist. Normocephalic, atraumatic. Mildly pale palpebral conjunctivae. Anicteric sclerae. LUNGS: Clear to auscultation bilaterally. No wheezing appreciated. HEART: Rate and rhythm are regular with no murmurs. ABDOMEN: Soft, benign appearing. The patient was turned towards his right side. There is a patch of necrotic skin roughly about 3 x 3 cm at the left sacrum. There is some slight sloughing of the skin surrounding it with some mild erythema but no gross cellulitis. There is some faint foul smell within it consistent with necrosis. There is no purulent drainage. There is no undermining. The rest of the skin examination is fairly normal. IMPRESSION: 1. Multiple sclerosis. 2. Change in mentation. 4. Decubitus ulcer. PLAN: Currently in the hospital, the patient's being turned every two hours. Certainly offloading will help prevent worsening of this. Currently, decubitus ulcer is unstable, most likely about stage III. He certainly would need sharp debridement to allow for local wound care. I do not think it is infected and most likely not a septic source. This most likely needs to be done in the operating room and given his change in mentation, I will hold off on the surgery until the source is found and his mentation is corrected because giving him anesthesia will certainly worsen mentation. I will concurrently follow him and see when we can time this surgery. In the meantime, continue with offloading with frequent turnings. The area may be covered with an Optifoam pad and changed as needed. I do not think this needs antibiotics for the meantime.
[2016-03-13 22:00] VITALS: BP 156/90
[2016-03-14 06:00] VITALS: BP 139/85
[2016-03-14 06:21] LABS: ALBUMIN 2.7 GM/DL (3.2-5.2); ALBUMIN/GLOBULIN RATIO 0.71 (1.00-1.93); ALKALINE PHOSPHATASE 79 U/L (45-117); ALT/SGPT 39 U/L (12-78); ANION GAP 9 MEQ/L (8-16); AST/SGOT 22 U/L (15-37); BILIRUBIN,TOTAL 0.6 MG/DL (0.2-1.0); BLOOD UREA NITROGEN 7 MG/DL (7-18); CALCIUM LEVEL 8.3 MG/DL (8.5-10.1); CARBON DIOXIDE LEVEL 26 MEQ/L (21-32); CHLORIDE LEVEL 95 MEQ/L (98-107); CREATININE FOR GFR 0.42 MG/DL (0.70-1.30); GLOMERULAR FILTRATION RATE > 60.0 (>56); GLUCOSE, FASTING 134 MG/DL (70-105); POTASSIUM SERUM 4.1 MEQ/L (3.5-5.1); SODIUM LEVEL 130 MEQ/L (136-145); TOTAL PROTEIN 6.5 GM/DL (6.4-8.2)
[2016-03-14 07:09] LABS: BASO % 0.2 % (0.0-1.0); EOS # 0.1 K/mm3 (0.0-0.50); EOS % 1.2 % (0.0-3.0); LARGE UNSTAINED CELL # 0.1 K/mm3 (0.0-0.4); LARGE UNSTAINED CELL % 1.3 % (0.0-4.0); LYMPH # 0.9 K/mm3 (1.5-4.5); LYMPH % 9.3 % (24.0-44.0); MEAN CORPUSCULAR HEMOGLOBIN 28.4 pg (27.0-33.0); MEAN CORPUSCULAR HGB CONC 34.1 g/dl (32.0-36.5); MEAN CORPUSCULAR VOLUME 83.2 fl (80.0-96.0); MONO # 0.4 K/mm3 (0.0-0.8); MONO % 4.4 % (0.0-5.0); NEUTROPHILS # 8.1 K/mm3 (1.8-7.7); NEUTROPHILS % 83.5 % (36.0-66.0); PLATELET COUNT, AUTOMATED 187 k/mm3 (150-450); RED CELL DISTRIBUTION WIDTH 13.4 % (11.5-14.5); WHITE BLOOD COUNT 9.7 K/mm3 (4.0-10.0)
[2016-03-14] MEDS: MIRALAX *UNIT DOSE* 17GM PACKET PO SCH (09:00)
[2016-03-14] MEDS: HEPARIN SOD (PORCINE) 5000 UNITS/ML VIAL SQ SCH ×2 (09:27→20:42)
[2016-03-14] MEDS: SERTRALINE 100 MG TAB PO SCH (09:27)
[2016-03-14] MEDS: ATENOLOL 50 MG TAB PO SCH (09:27)
[2016-03-14] MEDS: DULoxetine 20 MG CAP (CYMBALTA) PO SCH (09:28)
[2016-03-14] MEDS: METOCLOPRAMIDE 10 MG TAB PO SCH ×4 (09:28→20:44)
[2016-03-14] MEDS: DOCUSATE SODIUM 100 MG CAP PO SCH ×2 (09:28→20:42)
[2016-03-14] MEDS: levETIRAcetam 250MG TABLET (KEPPRA) PO SCH ×2 (09:28→20:42)
[2016-03-14] MEDS: MODAFINIL 200MG TABLET PO SCH ×2 (09:28→12:48)
[2016-03-14] MEDS: PREGABALIN 100 MG CAP (LYRICA) PO SCH ×2 (09:28→16:33)
[2016-03-14] MEDS: HumaLOG INSULIN (NovoLOG) PER UNIT SC SCH ×4 (09:29→21:00)
[2016-03-14] MEDS: NS 1,000 ML IV SCH ×2 (12:07→18:00)
--- NOTE | 2016-03-14 14:08 | IPNPDOC ---
Assessment/Plan Date Seen The patient was seen on 03/14/16. Problems Problems: (1) Altered mental state Status: Resolved Problem Specific Plan: Consult Specialist Problem Text: AMS resolved. Discussed LP for eval for NPH or smoldering infection. Pt declines and is in his normal state of mind as noted from previous clinical encounters. Elevated WBC resolved, no fevers, stable vitals. Pt wishes to pursue possible hospice placement. - PFS consulted - hospice consult ordered (2) Hyponatremia Status: Acute Response to Treatment: Stable Problem Text: Discussed with pt regarding possibility of NPH or other process. CT c/w NPH. He does not wish to pursue further evaluation. baseline Na 133-135. On NS @50. Will increase to 75. Pt asymptomatic at this point. May need to discuss with renal regarding PO management if pt wishes to D/c on hospice. 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 Dr. Zamora saw the patient in the outpatient setting and recommends consideration of hospital bed, lift, and alternating pressure mattress upon discharge. (4) Decubitus ulcer Status: Chronic Problem Text: L buttock 2 x 3 cm c eschar-unstageable, obvious possible source of infection/MS change -present on admission. 03/10 consulted Vero pradhan-plan for 03/13 (5) Hypertension Status: Chronic Problem Text: Continue home medications; will monitor. (6) Depression Status: Chronic Problem Text: Will continue home medications. Plan / VTE VTE Prophylaxis Ordered?: Yes VTE Exclusion Pharmacological: Bleeding Risk Plan / Urinary Catheter Reason for insertion/continuin: Acute obstruct/retention Subjective Review of Systems CC/HPI The patient is a 60-year-old male admitted with a reason for visit of Altered Mental State. Events since last encounter Pt awake and alert today. Discussed with pt and family. Pt does not wish to have LP to r/o NPH or infection. Wishes to pursue options for hospice care, as he does not wish to have further medical interventions or hospitalizations. PFS working on options. Constitutional: Denies: Chills, Fever ENT: Denies: Head Aches Skin: Denies: Rash Pulmonary: Denies: Cough, Dyspnea Cardiovascular: Denies: Chest Pain, Palpitations Gastrointestinal: Denies: Abdominal Pain, Constipation, Diarrhea, Nausea, Vomiting Psych: Reports: Mood Normal Other systems 10-pt ROS otherwise negative Objective Physical Examination General Exam: Positive: Alert, Cooperative, No Acute Distress Eye Exam: Positive: Conjunctiva & lids normal, PERRLA ENT Exam: Positive: Mucous membr. moist/pink Neck Exam: Positive: Supple, Negative: JVD Chest Exam: Positive: Clear to auscultation, Normal air movement, Negative: Rales, Rhonchi, Wheezing Heart Exam: Positive: Normal S1, Normal S2, Rate Normal, Regular Rhythm Abdomen Exam: Positive: Normal bowel sounds, Soft, Negative: Tenderness Extremity Exam: Negative: Cyanosis, Edema Skin Exam: Positive: Nl turgor and temperature, Negative: Breakdown, Rash Neuro Exam: Positive: Normal Speech Psych Exam: Positive: Mental status NL, Mood NL, Oriented x 3 Vital Signs/I&O Vital Signs Date Time Temp Pulse Resp B/P Pulse Ox O2 Delivery O2 Flow Rate FiO2 03/14/16 09:27 99 139/85 03/14/16 06:00 96.2 20 95 Room Air 03/08/16 00:00 I&O- Last 24 Hours up to 6 AM 03/14/16 05:59 Intake Total 540 ml Output Total 525 ml Balance 15 ml Laboratory Data Labs 24H Laboratory Tests 2 03/13/16 17:00: Bedside Glucose (Misc Panel) 130H 03/13/16 20:37: Bedside Glucose (Misc Panel) 133H 03/14/16 05:44: Blood Urea Nitrogen 7, Creatinine 0.42L, Sodium Level 130L, Potassium Level 4.1 , Chloride Level 95L, Carbon Dioxide Level 26, Calcium Level 8.3L, Aspartate Amino Transf (AST/SGOT) 22, Alanine Aminotransferase (ALT/SGPT) 39, Alkaline Phosphatase 79, Total Bilirubin 0.6, Total Protein 6.5, Albumin 2.7L, Albumin/ Globulin Ratio 0.71L, Anion Gap 9, White Blood Count 9.7, Red Blood Count 5.19, Hemoglobin 14.7, Hematocrit 43.2, Mean Corpuscular Volume 83.2, Mean Corpuscular Hemoglobin 28.4, Mean Corpuscular Hemoglobin Concent 34.1, Red Cell Distribution Width 13.4, Platelet Count 187, Neutrophils (%) (Auto) 83.5H, Lymphocytes (%) (Auto) 9.3L, Monocytes (%) (Auto) 4.4, Eosinophils (%) (Auto) 1.2, Basophils (%) (Auto) 0.2, Neutrophils # (Auto) 8.1H, Lymphocytes # (Auto) 0.9L, Monocytes # (Auto) 0.4, Eosinophils # (Auto) 0.1, Basophils # (Auto) 0.0, Glomerular Filtration Rate > 60.0, Large Unclassified Cells # 0.1, Large Unclassified Cells % 1.3 03/14/16 12:28: Bedside Glucose (Misc Panel) 213H CBC/BMP Laboratory Tests 03/14/16 05:44 Calcium Level 8.3 L, Aspartate Amino Transf (AST/SGOT) 22, Alanine Aminotransferase (ALT/SGPT) 39, Alkaline Phosphatase 79, Total Bilirubin 0.6, Total Protein 6.5, Albumin 2.7 L, Red Blood Count 5.19, Mean Corpuscular Volume 83.2, Mean Corpuscular Hemoglobin 28.4, Mean Corpuscular Hemoglobin Concent 34.1 , Red Cell Distribution Width 13.4, Neutrophils (%) (Auto) 83.5 H, Lymphocytes ( %) (Auto) 9.3 L, Monocytes (%) (Auto) 4.4, Eosinophils (%) (Auto) 1.2, Basophils (%) (Auto) 0.2, Neutrophils # (Auto) 8.1 H, Lymphocytes # (Auto) 0.9 L , Monocytes # (Auto) 0.4, Eosinophils # (Auto) 0.1, Basophils # (Auto) 0.0 FSBS Laboratory Tests Test 03/13/16 17:00 03/13/16 20:37 03/14/16 12:28 Range/Units Bedside Glucose (Misc Panel) 130 133 213 70-105 MG/DL Microbiology Microbiology 03/09/16 Blood Culture - Final, Complete NO GROWTH AFTER 5 DAYS 03/09/16 Blood Culture - Final, Complete NO GROWTH AFTER 5 DAYS 03/08/16 MRSA Screen - Final, Complete 03/12/16 Urine Culture - Final, Complete 03/07/16 Urine Culture - Final, Complete NGA GOLDMAN MD Mar 14, 2016 14:08 83.2, Mean Corpuscular Hemoglobin 28.4, Mean Corpuscular Hemoglobin Concent 34.1 , Red Cell Distribution Width 13.4, Neutrophils (%) (Auto) 83.5 H, Lymphocytes ( %) (Auto) 9.3 L, Monocytes (%) (Auto) 4.4, Eosinophils (%) (Auto) 1.2, Basophils (%) (Auto) 0.2, Neutrophils # (Auto) 8.1 H, Lymphocytes # (Auto) 0.9 L , Monocytes # (Auto) 0.4, Eosinophils # (Auto) 0.1, Basophils # (Auto) 0.0 FSBS Laboratory Tests Test 03/13/16 17:00 03/13/16 20:37 03/14/16 12:28 Range/Units Bedside Glucose (Misc Panel) 130 133 213 70-105 MG/DL Microbiology Microbiology 03/09/16 Blood Culture - Final, Complete NO GROWTH AFTER 5 DAYS 03/09/16 Blood Culture - Final, Complete NO GROWTH AFTER 5 DAYS 03/08/16 MRSA Screen - Final, Complete 03/12/16 Urine Culture - Final, Complete 03/07/16 Urine Culture - Final, Complete NGA GOLDMAN MD Mar 14, 2016 14:08
[2016-03-14 22:00] VITALS: BP 128/80
[2016-03-15] MEDS: NS 1,000 ML IV SCH (03:24)
[2016-03-15 06:00] VITALS: BP 132/75
[2016-03-15 08:00] VITALS: BP 160/85
[2016-03-15] MEDS: MODAFINIL 200MG TABLET PO SCH ×2 (08:07→12:29)
[2016-03-15] MEDS: HumaLOG INSULIN (NovoLOG) PER UNIT SC SCH ×4 (08:07→21:00)
[2016-03-15] MEDS: METOCLOPRAMIDE 10 MG TAB PO SCH ×4 (08:07→20:16)
[2016-03-15] MEDS: MIRALAX *UNIT DOSE* 17GM PACKET PO SCH (09:38)
[2016-03-15] MEDS: DOCUSATE SODIUM 100 MG CAP PO SCH (09:38)
[2016-03-15] MEDS: DULoxetine 20 MG CAP (CYMBALTA) PO SCH (09:39)
[2016-03-15] MEDS: SERTRALINE 100 MG TAB PO SCH (09:39)
[2016-03-15] MEDS: ATENOLOL 50 MG TAB PO SCH (09:39)
[2016-03-15] MEDS: levETIRAcetam 250MG TABLET (KEPPRA) PO SCH ×2 (09:40→20:17)
[2016-03-15] MEDS: HEPARIN SOD (PORCINE) 5000 UNITS/ML VIAL SQ SCH ×2 (09:40→20:17)
[2016-03-15 14:00] VITALS: BP 128/77
[2016-03-15] MEDS ORDERED: zolPIDEM CR 6.25MG TABLET (AMBIEN CR) PO PRN (14:00)
--- NOTE | 2016-03-15 14:21 | IPNPDOC ---
Assessment/Plan Date Seen The patient was seen on 03/15/16. Problems Problems: (1) Altered mental state Status: Resolved Problem Specific Plan: Consult Specialist Problem Text: AMS resolved. Patient seems sleepy today but is oriented and able to answer questions appropriately. He continues to decline LP or further evaluation for cause of AMS. Pt wishes to pursue possible hospice placement. I discussed STOCK CRANE OPERATOR with him, and he adamantly refused antibiotics, IVF, feeding tube, or further hospitalization. His sister (who is his healthcare proxy) is at bedside and wishes to discuss these things further with him prior to changing his orders. We had an extensive discussion about what STOCK CRANE OPERATOR means and how we would focus care from here on out. At present, his MOLST indicates that he is DNR/DNI and that he does not want a feeding tube. We will plan to meet again tomorrow to update MOLST according to patient's wishes. - PFS is following and helping to arrange placement as patient is unable to go home without 24 hour care - hospice consult ordered and pending (2) Hyponatremia Status: Acute Response to Treatment: Stable Problem Text: Discussed with pt regarding possibility of NPH or other process. CT c/w NPH, and he could have SIADH related to this. He does not wish to pursue further evaluation. baseline Na 133-135. - His IV infiltrated today; he did not have labs this morning - will recheck BMP now and consider either restarting IVF or PO salt tablets. - May need to discuss with renal regarding PO management if pt wishes to D/c on hospice. - serum osmolality low (3) Multiple sclerosis Status: Chronic Problem Specific Plan: Consult Specialist Problem Text: Patient is non-ambulatory and with limited use of UE. Dr. Zamora saw the patient in the outpatient setting and recommends consideration of hospital bed, lift, and alternating pressure mattress upon discharge. (4) Decubitus ulcer Status: Chronic Problem Text: L buttock 2 x 3 cm c eschar-unstageable, obvious possible source of infection/MS change -present on admission. 03/10 consulted Vero stuart debride-plan for 03/13 (5) Hypertension Status: Chronic Problem Text: Continue home medications; will monitor. (6) Depression Status: Chronic Problem Text: Will continue home medications. Plan / VTE VTE Prophylaxis Ordered?: Yes VTE Exclusion Pharmacological: Bleeding Risk Plan / Urinary Catheter Reason for insertion/continuin: Acute obstruct/retention Subjective Review of Systems CC/HPI The patient is a 60-year-old male admitted with a reason for visit of Altered Mental State. Constitutional: Denies: Chills, Fever Pulmonary: Reports: Cough, Denies: Dyspnea Cardiovascular: Denies: Chest Pain Gastrointestinal: Reports: Abdominal Pain, Constipation (patient has cramping - feels he needs to have a bowel movement) Musculoskeletal: Reports: Back Pain (chronic), Spasms (chronic in legs) Neurological: Denies: Confusion Objective Physical Examination General Exam: Positive: Alert, Cooperative, No Acute Distress ENT Exam: Positive: Mucous membr. moist/pink Neck Exam: Positive: Supple, Negative: JVD Chest Exam: Positive: Clear to auscultation, Normal air movement, Negative: Rales, Rhonchi, Wheezing Heart Exam: Positive: Normal S1, Normal S2, Rate Normal, Regular Rhythm Abdomen Exam: Positive: Normal bowel sounds, Soft, Negative: Tenderness Extremity Exam: Negative: Cyanosis, Edema Skin Exam: Positive: Nl turgor and temperature Neuro Exam: Positive: Normal Speech, Strength at 5/5 X4 ext (Chronic spasticity in legs and arms; has minimal use of right hand) Psych Exam: Positive: Mental status NL, Mood NL, Oriented x 3 Vital Signs/I&O Vital Signs Date Time Temp Pulse Resp B/P Pulse Ox O2 Delivery O2 Flow Rate FiO2 03/15/16 09:39 95 160/85 03/15/16 08:00 98.0 18 96 Room Air I&O- Last 24 Hours up to 6 AM 03/15/16 06:00 Intake Total 1060 ml Output Total 2550 ml Balance -1490 ml Laboratory Data Labs 24H Laboratory Tests 2 03/14/16 16:33: Bedside Glucose (Misc Panel) 110H 03/14/16 20:52: Bedside Glucose (Misc Panel) 111H 03/15/16 05:53: Bedside Glucose (Misc Panel) 117H 03/15/16 11:42: Bedside Glucose (Misc Panel) 134H FSBS Laboratory Tests Test 03/14/16 16:33 03/14/16 20:52 03/15/16 05:53 03/15/16 11:42 Range/Units Bedside Glucose (Misc Panel) 110 111 117 134 70-105 MG/DL Microbiology Microbiology 03/09/16 Blood Culture - Final, Complete NO GROWTH AFTER 5 DAYS 03/09/16 Blood Culture - Final, Complete NO GROWTH AFTER 5 DAYS 03/08/16 MRSA Screen - Final, Complete 03/12/16 Urine Culture - Final, Complete 03/07/16 Urine Culture - Final, Complete HOLLY ZAMORA MD Mar 15, 2016 14:21
[2016-03-15 15:12] LABS: ANION GAP 8 MEQ/L (8-16); BLOOD UREA NITROGEN 9 MG/DL (7-18); CALCIUM LEVEL 8.6 MG/DL (8.5-10.1); CARBON DIOXIDE LEVEL 28 MEQ/L (21-32); CHLORIDE LEVEL 97 MEQ/L (98-107); CREATININE FOR GFR 0.47 MG/DL (0.70-1.30); GLOMERULAR FILTRATION RATE > 60.0 (>56); GLUCOSE, FASTING 147 MG/DL (70-105); SODIUM LEVEL 133 MEQ/L (136-145)
[2016-03-15] MEDS: PREGABALIN 100 MG CAP (LYRICA) PO SCH ×2 (16:36→20:17)
[2016-03-15] MEDS: DOCUSATE SOD LIQ 100MG/10ML UDC PO SCH (20:17)
[2016-03-15 22:00] VITALS: BP 138/79
[2016-03-16 06:00] VITALS: BP 143/87
[2016-03-16 06:16] LABS: ANION GAP 11 MEQ/L (8-16); BLOOD UREA NITROGEN 8 MG/DL (7-18); CALCIUM LEVEL 8.5 MG/DL (8.5-10.1); CARBON DIOXIDE LEVEL 25 MEQ/L (21-32); CHLORIDE LEVEL 97 MEQ/L (98-107); GLOMERULAR FILTRATION RATE > 60.0 (>56); GLUCOSE, FASTING 115 MG/DL (70-105); SODIUM LEVEL 133 MEQ/L (136-145)
[2016-03-16] MEDS: DOCUSATE SOD LIQ 100MG/10ML UDC PO SCH ×2 (08:22→20:04)
[2016-03-16] MEDS: MODAFINIL 200MG TABLET PO SCH ×2 (08:22→12:57)
[2016-03-16] MEDS: PREGABALIN 100 MG CAP (LYRICA) PO SCH ×3 (08:22→20:04)
[2016-03-16] MEDS: HumaLOG INSULIN (NovoLOG) PER UNIT SC SCH ×4 (08:22→20:54)
[2016-03-16] MEDS: SERTRALINE 100 MG TAB PO SCH (08:23)
[2016-03-16] MEDS: HEPARIN SOD (PORCINE) 5000 UNITS/ML VIAL SQ SCH ×2 (08:23→20:04)
[2016-03-16] MEDS: MIRALAX *UNIT DOSE* 17GM PACKET PO SCH (08:23)
[2016-03-16] MEDS: DULoxetine 20 MG CAP (CYMBALTA) PO SCH (08:23)
[2016-03-16] MEDS: METOCLOPRAMIDE 10 MG TAB PO SCH ×4 (08:23→20:04)
[2016-03-16] MEDS: levETIRAcetam 250MG TABLET (KEPPRA) PO SCH ×2 (08:23→20:04)
[2016-03-16] MEDS: ATENOLOL 50 MG TAB PO SCH (08:24)
[2016-03-16 14:00] VITALS: BP 133/74
--- NOTE | 2016-03-16 16:59 | IPNPDOC ---
Assessment/Plan Date Seen The patient was seen on 03/16/16. Problems Problems: (1) Altered mental state Status: Resolved Problem Specific Plan: Consult Specialist Problem Text: Mental status is waxing and waning throughout the day. He continues to decline LP or further evaluation for cause of AMS. Patient and family are still deciding whether to pursue hospice or NH with QUALITY SPECIALIST. I discussed QUALITY SPECIALIST with him on 03/15/16 when he was alert and oriented, and he adamantly refused antibiotics, IVF, feeding tube, or further hospitalization. I discussed this again today with his sister (who is his healthcare proxy) and his brother at bedside and they are still deciding on the appropriate direction of care - they are not entirely committed to comfort care at this point. I provided further education on hospice care as well as the patient's underlying conditions and what procedures would be necessary if they wanted to pursue aggressive life-prolonging care. - PFS is following and helping to arrange placement as patient is unable to go home without 24 hour care, and after talking with the sister, I do not think that it is financially feasible for him have 24 hour care at home - hospice consulted (2) Hyponatremia Status: Acute Response to Treatment: Stable Problem Text: Chronic - may be related to NPH or other cause. CT c/w NPH, and he could have SIADH related to this. He does not wish to pursue further evaluation. Baseline Na 133-135, and his Na has been stable at 133 off of IVF. (3) Multiple sclerosis Status: Chronic Problem Specific Plan: Consult Specialist Problem Text: Patient is non-ambulatory and with limited use of UE. He was previously on Interferon Beta-1a for MS, which was a weekly injection. His sister is questioning whether we should restart this. Although I do not think the patient has capacity to make this decision today, he said "no" when asked about whether he wanted to continue this injection. The patient's family states that they did not feel this medication helped him, and in fact he was very weak for 2-3 days after he received it every week. At this point, they decided to not restart Interferon Beta-1a. (4) Decubitus ulcer Status: Chronic Problem Text: L buttock 2 x 3 cm c eschar-unstageable, present on admission. Dr. Pham evaluated the patient on 03/13/16 and stated that this ulcer is not infected, and thus is not likely to be a cause of his AMS. Debridement was planned on 130, but the patient's sister asked for this to be put on hold as we determine goals of care for the patient. (5) Hypertension Status: Chronic Problem Text: Continue home medications; will monitor. (6) Depression Status: Chronic Problem Text: Will continue home medications. Plan / VTE VTE Prophylaxis Ordered?: Yes VTE Exclusion Pharmacological: Bleeding Risk Plan / Urinary Catheter Reason for insertion/continuin: Acute obstruct/retention Subjective Review of Systems CC/HPI The patient is a 60-year-old male admitted with a reason for visit of Altered Mental State. Events since last encounter The patient's family is at bedside and they feel that the patient is "more clear " today, however he still has some difficulty answering questions regarding his wishes for care. General: Denies: Chills Constitutional: Denies: Fever ENT: Denies: Head Aches Pulmonary: Denies: Cough, Dyspnea Cardiovascular: Denies: Chest Pain Gastrointestinal: Denies: Abdominal Pain Objective Physical Examination General Exam: Positive: Alert, Cooperative, No Acute Distress ENT Exam: Positive: Mucous membr. moist/pink Chest Exam: Positive: Clear to auscultation, Normal air movement, Negative: Rales, Rhonchi, Wheezing Heart Exam: Positive: Normal S1, Normal S2, Rate Normal, Regular Rhythm Abdomen Exam: Positive: Normal bowel sounds, Soft, Negative: Tenderness Extremity Exam: Negative: Cyanosis, Edema Neuro Exam: Positive: Normal Speech, Strength at 5/5 X4 ext (Chronic spasticity in legs and arms; has minimal use of right hand) Psych Exam: Positive: Mental status NL (mental status waxes and wanes - patient sometimes responds to questions readily and other times falls asleep in the middle of conversation), Mood NL Vital Signs/I&O Vital Signs Date Time Temp Pulse Resp B/P Pulse Ox O2 Delivery O2 Flow Rate FiO2 03/16/16 14:00 97.4 85 18 133/74 96 Room Air I&O- Last 24 Hours up to 6 AM 03/16/16 06:00 Intake Total 1585 ml Output Total 1600 ml Balance -15 ml Laboratory Data Labs 24H Laboratory Tests 2 03/15/16 21:11: Bedside Glucose (Misc Panel) 121H 03/16/16 05:46: Anion Gap 11, Blood Urea Nitrogen 8, Creatinine 0.40L, Sodium Level 133L, Potassium Level 4.0, Chloride Level 97L, Carbon Dioxide Level 25, Calcium Level 8.5, Glomerular Filtration Rate > 60.0 03/16/16 11:39: Bedside Glucose (Misc Panel) 150H CBC/BMP Laboratory Tests 03/16/16 05:46 Calcium Level 8.5 FSBS Laboratory Tests Test 03/15/16 21:11 03/16/16 11:39 Range/Units Bedside Glucose (Misc Panel) 121 150 70-105 MG/DL Microbiology Microbiology 03/09/16 Blood Culture - Final, Complete NO GROWTH AFTER 5 DAYS 03/09/16 Blood Culture - Final, Complete NO GROWTH AFTER 5 DAYS 03/08/16 MRSA Screen - Final, Complete 03/12/16 Urine Culture - Final, Complete 03/07/16 Urine Culture - Final, Complete HOLLY CAMPOS MD Mar 16, 2016 16:59
[2016-03-16 22:00] VITALS: BP 137/78
[2016-03-17 06:00] VITALS: BP 128/65
[2016-03-17 06:15] LABS: MEAN CORPUSCULAR HEMOGLOBIN 28.1 pg (27.0-33.0); MEAN CORPUSCULAR HGB CONC 34.1 g/dl (32.0-36.5); MEAN CORPUSCULAR VOLUME 82.5 fl (80.0-96.0); RED CELL DISTRIBUTION WIDTH 13.7 % (11.5-14.5); WHITE BLOOD COUNT 9.5 K/mm3 (4.0-10.0)
[2016-03-17 06:28] LABS: ANION GAP 13 MEQ/L (8-16); BLOOD UREA NITROGEN 9 MG/DL (7-18); CALCIUM LEVEL 8.5 MG/DL (8.5-10.1); CARBON DIOXIDE LEVEL 24 MEQ/L (21-32); CHLORIDE LEVEL 95 MEQ/L (98-107); CREATININE FOR GFR 0.44 MG/DL (0.70-1.30); GLOMERULAR FILTRATION RATE > 60.0 (>56); GLUCOSE, FASTING 128 MG/DL (70-105); SODIUM LEVEL 132 MEQ/L (136-145)
[2016-03-17] MEDS: MIRALAX *UNIT DOSE* 17GM PACKET PO SCH (08:12)
[2016-03-17] MEDS: HumaLOG INSULIN (NovoLOG) PER UNIT SC SCH ×4 (08:12→21:41)
[2016-03-17] MEDS: DOCUSATE SOD LIQ 100MG/10ML UDC PO SCH ×2 (08:12→21:52)
[2016-03-17] MEDS: HEPARIN SOD (PORCINE) 5000 UNITS/ML VIAL SQ SCH ×2 (08:13→21:53)
[2016-03-17] MEDS: levETIRAcetam 250MG TABLET (KEPPRA) PO SCH ×2 (08:13→21:53)
[2016-03-17] MEDS: ATENOLOL 50 MG TAB PO SCH (08:14)
[2016-03-17] MEDS: PREGABALIN 100 MG CAP (LYRICA) PO SCH ×3 (08:15→21:53)
[2016-03-17] MEDS: METOCLOPRAMIDE 10 MG TAB PO SCH ×4 (08:15→21:53)
[2016-03-17] MEDS: MODAFINIL 200MG TABLET PO SCH ×2 (08:15→11:58)
[2016-03-17] MEDS: DULoxetine 20 MG CAP (CYMBALTA) PO SCH (08:15)
[2016-03-17] MEDS: SERTRALINE 100 MG TAB PO SCH (08:15)
[2016-03-17 14:00] VITALS: BP 134/73
--- NOTE | 2016-03-17 15:09 | IPNPDOC ---
Assessment/Plan Date Seen The patient was seen on 03/17/16. Problems Problems: (1) Altered mental state Status: Resolved Problem Specific Plan: Consult Specialist Problem Text: Mental status continues to wax and wane throughout the day. He continues to decline LP or further evaluation for cause of AMS. Patient and family are still deciding whether to pursue hospice or NH with CLAIM CLINICIAN. I discussed CLAIM CLINICIAN with him on 03/15/16 when he was alert and oriented, and he adamantly refused antibiotics, IVF, feeding tube, or further hospitalization. I discussed this again 03/16/16 with his sister (who is his healthcare proxy) and his brother at bedside and they are still deciding on the appropriate direction of care - they are not entirely committed to comfort care at this point. I provided further education on hospice care as well as the patient's underlying conditions and what procedures would be necessary if they wanted to pursue aggressive life-prolonging care. - PFS is following and helping to arrange placement as patient is unable to go home without 24 hour care, and after talking with the sister, I do not think that it is financially feasible for him have 24 hour care at home - hospice consulted (2) Hyponatremia Status: Acute Response to Treatment: Stable Problem Text: Chronic - may be related to NPH or other cause. CT c/w NPH, and he could have SIADH related to this. He does not wish to pursue further evaluation. Baseline Na 133-135, and his Na has been stable at 132-133 off of IVF. (3) Multiple sclerosis Status: Chronic Problem Specific Plan: Consult Specialist Problem Text: Patient is non-ambulatory and with limited use of UE. 2: He was previously on Interferon Beta-1a for MS, which was a weekly injection. His sister is questioning whether we should restart this. Although I do not think the patient has capacity to make this decision today, he said "no " when asked about whether he wanted to continue this injection. The patient's family states that they did not feel this medication helped him, and in fact he was very weak for 2-3 days after he received it every week. At this point, they decided to not restart Interferon Beta-1a. 03/17: MS is stable (4) Decubitus ulcer Status: Chronic Problem Text: L buttock 2 x 3 cm c eschar-unstageable, present on admission. Dr. Pham evaluated the patient on 03/13/16 and stated that this ulcer is not infected, and thus is not likely to be a cause of his AMS. Debridement was planned on , but the patient's sister asked for this to be put on hold as we determine goals of care for the patient. (5) Hypertension Status: Chronic Problem Text: Continue home medications; will monitor. (6) Depression Status: Chronic Problem Text: Will continue home medications. Plan / VTE VTE Prophylaxis Ordered?: Yes VTE Exclusion Pharmacological: Bleeding Risk Plan / Urinary Catheter Reason for insertion/continuin: Acute obstruct/retention Subjective Review of Systems CC/HPI The patient is a 60-year-old male admitted with a reason for visit of Altered Mental State. Events since last encounter Patient is stable - no change today per patient and family. Constitutional: Denies: Chills, Fever ENT: Denies: Head Aches Pulmonary: Denies: Cough, Dyspnea Cardiovascular: Denies: Chest Pain, Lt Headedness Gastrointestinal: Denies: Abdominal Pain, Nausea, Vomiting Neurological: Denies: Change in speech, Confusion, Numbness, Weakness Objective Physical Examination General Exam: Positive: Alert, Cooperative, No Acute Distress ENT Exam: Positive: Mucous membr. moist/pink Chest Exam: Positive: Clear to auscultation, Normal air movement, Negative: Rales, Rhonchi, Wheezing Heart Exam: Positive: Normal S1, Normal S2, Rate Normal, Regular Rhythm Abdomen Exam: Positive: Normal bowel sounds, Soft, Negative: Tenderness Extremity Exam: Negative: Cyanosis, Edema Neuro Exam: Positive: Normal Speech, Strength at 5/5 X4 ext (Chronic spasticity in legs and arms; has minimal use of right hand) Psych Exam: Positive: Mental status NL (Thinking is more clear today - answers are logical but are slow to come; patient is less sleepy today), Mood NL Vital Signs/I&O Vital Signs Date Time Temp Pulse Resp B/P Pulse Ox O2 Delivery O2 Flow Rate FiO2 03/17/16 14:00 96.8 75 17 134/73 95 Room Air I&O- Last 24 Hours up to 6 AM 03/17/16 06:00 Intake Total 600 ml Output Total 2300 ml Balance -1700 ml Laboratory Data Labs 24H Laboratory Tests 2 03/16/16 16:38: Bedside Glucose (Misc Panel) 132H 03/16/16 20:52: Bedside Glucose (Misc Panel) 134H 03/17/16 05:52: Anion Gap 13, Blood Urea Nitrogen 9, Creatinine 0.44L, Sodium Level 132L, Potassium Level 4.0, Chloride Level 95L, Carbon Dioxide Level 24, Calcium Level 8.5, Glomerular Filtration Rate > 60.0 03/17/16 06:29: Bedside Glucose (Misc Panel) 128H 03/17/16 11:51: Bedside Glucose (Misc Panel) 119H CBC/BMP Laboratory Tests 03/17/16 05:52 Calcium Level 8.5, Red Blood Count 4.98, Mean Corpuscular Volume 82.5, Mean Corpuscular Hemoglobin 28.1, Mean Corpuscular Hemoglobin Concent 34.1, Red Cell Distribution Width 13.7 FSBS Laboratory Tests Test 03/16/16 16:38 03/16/16 20:52 03/17/16 06:29 03/17/16 11:51 Range/Units Bedside Glucose (Misc Panel) 132 134 128 119 70-105 MG/DL Microbiology Microbiology 03/09/16 Blood Culture - Final, Complete NO GROWTH AFTER 5 DAYS 03/09/16 Blood Culture - Final, Complete NO GROWTH AFTER 5 DAYS 03/08/16 MRSA Screen - Final, Complete 03/12/16 Urine Culture - Final, Complete 03/07/16 Urine Culture - Final, Complete HOLLY CAMPOS MD Mar 17, 2016 15:09
[2016-03-17 22:00] VITALS: BP 147/77
[2016-03-18 06:00] VITALS: BP 138/85
[2016-03-18] MEDS: MODAFINIL 200MG TABLET PO SCH ×2 (08:27→12:10)
[2016-03-18] MEDS: DOCUSATE SOD LIQ 100MG/10ML UDC PO SCH ×2 (08:27→20:13)
[2016-03-18] MEDS: METOCLOPRAMIDE 10 MG TAB PO SCH ×4 (08:27→20:13)
[2016-03-18] MEDS: HEPARIN SOD (PORCINE) 5000 UNITS/ML VIAL SQ SCH ×2 (08:27→20:14)
[2016-03-18] MEDS: ATENOLOL 50 MG TAB PO SCH (08:28)
[2016-03-18] MEDS: SERTRALINE 100 MG TAB PO SCH (08:28)
[2016-03-18] MEDS: PREGABALIN 100 MG CAP (LYRICA) PO SCH ×3 (08:28→20:13)
[2016-03-18] MEDS: levETIRAcetam 250MG TABLET (KEPPRA) PO SCH ×2 (08:28→20:13)
[2016-03-18] MEDS: DULoxetine 20 MG CAP (CYMBALTA) PO SCH (08:28)
[2016-03-18] MEDS: MIRALAX *UNIT DOSE* 17GM PACKET PO SCH (08:29)
[2016-03-18] MEDS: HumaLOG INSULIN (NovoLOG) PER UNIT SC SCH (08:29)
--- NOTE | 2016-03-18 11:16 | IPN ---
DATE: 03/18/2016 Dileep [facility]. I reviewed his hospitalization. This is the first I have seen him during this hospitalization. He has declined dramatically from last I saw him in the office. Apparently, he is going to hospice once a bed opens up there. He is not however currently comfort measures only (RELAY TECHNICIAN) status. PHYSICAL EXAM: 130/85. Pulse 100. Respiratory rate 16. 95% on oxygen saturation. He is alert and conversant. He expresses a willingness to go to hospice house. He is deferring decision on his RELAY TECHNICIAN status to his family. Lungs clear. Heart regular rhythm. Abdomen soft, nontender. Neurologic exam unchanged. LABS: No labs done today. PLAN: For discharge to hospice house once a bed becomes available. I have asked nursing staff to contact me when the family comes in. I think it would be appropriate to initiate RELAY TECHNICIAN status while he is here. In the meantime, I am stopping his finger stick blood sugars as tight control of his diabetes does not have a lot to offer for him at this point. I would like to transition him to RELAY TECHNICIAN status if his family agrees.
[2016-03-18 14:00] VITALS: BP 133/88
[2016-03-18 22:00] VITALS: BP 134/81
[2016-03-19 06:00] VITALS: BP 136/85
[2016-03-19] MEDS: MIRALAX *UNIT DOSE* 17GM PACKET PO SCH (08:05)
[2016-03-19] MEDS: DOCUSATE SOD LIQ 100MG/10ML UDC PO SCH ×2 (08:05→20:25)
[2016-03-19] MEDS: PREGABALIN 100 MG CAP (LYRICA) PO SCH ×3 (08:05→20:25)
[2016-03-19] MEDS: METOCLOPRAMIDE 10 MG TAB PO SCH ×4 (08:06→20:25)
[2016-03-19] MEDS: MODAFINIL 200MG TABLET PO SCH ×2 (08:06→11:58)
[2016-03-19] MEDS: ATENOLOL 50 MG TAB PO SCH (08:06)
[2016-03-19] MEDS: DULoxetine 20 MG CAP (CYMBALTA) PO SCH (08:06)
[2016-03-19] MEDS: levETIRAcetam 250MG TABLET (KEPPRA) PO SCH ×2 (08:06→20:25)
[2016-03-19] MEDS: HEPARIN SOD (PORCINE) 5000 UNITS/ML VIAL SQ SCH ×2 (08:07→20:25)
[2016-03-19] MEDS: SERTRALINE 100 MG TAB PO SCH (08:07)
--- NOTE | 2016-03-19 13:46 | IPN ---
DATE: 03/19/2016 Dileep was seen in [address] [place] [address]. I met at length with Dileep and his sister who is his health care decision maker. Other family members were present too. The family has the feeling that they have not had a chance to meet with social work professor or a halfway credit resolution representative. I do know that they met with [facility] ([facility]) as recently as 03/17/2016. At this point, Dileep's mental status still is not sufficient for him to make his own decisions. He knows where he is, but does not know the months, season or who the President is, which could be to his advantage. He is less short of breath. Cognitively, he seems to be getting a little better and his pulmonary function seems to be getting better. On physical exam, vital signs as listed. No fever. Lungs scattered rhonchi, improved aeration. Heart regular rate and rhythm. Abdomen soft, nontender. Neurologic exam is unchanged. Mental status exam as above. IMPRESSION: At this point, there still is no decision made about Dileep's disposition. The family seems to not fully comprehend the choices before them, so I spent a lot of time breaking this down. I think the choices are #1) end of life care at the hospice residence - this would involve discontinuing all active treatment, including his medicines for multiple sclerosis and only treating him for symptoms such as pain, #2) halfway placement under [facility] status. This will be the same as above, but not in a hospice residence, 3#) halfway placement with active care. He certainly needs 24/7 care and will need halfway placement. Their decision has to be whether they want end of life care or continuous current MS medicines and other treatments. They have not made that decision yet. I asked them to give strong consideration to each of these three choices and make a decision by tomorrow because when PFS comes in we really should be moving towards a disposition. I am hoping that today's discussion clarifies his options.
[2016-03-19 22:00] VITALS: BP 139/80
[2016-03-20 06:00] VITALS: BP 130/71
[2016-03-20] MEDS: HEPARIN SOD (PORCINE) 5000 UNITS/ML VIAL SQ SCH ×2 (08:31→20:29)
[2016-03-20] MEDS: PREGABALIN 100 MG CAP (LYRICA) PO SCH ×3 (08:31→20:28)
[2016-03-20] MEDS: levETIRAcetam 250MG TABLET (KEPPRA) PO SCH ×2 (08:31→20:28)
[2016-03-20] MEDS: DOCUSATE SOD LIQ 100MG/10ML UDC PO SCH ×2 (08:31→20:28)
[2016-03-20] MEDS: MODAFINIL 200MG TABLET PO SCH ×2 (08:31→12:40)
[2016-03-20] MEDS: METOCLOPRAMIDE 10 MG TAB PO SCH ×4 (08:31→20:28)
[2016-03-20] MEDS: DULoxetine 20 MG CAP (CYMBALTA) PO SCH (08:32)
[2016-03-20] MEDS: MIRALAX *UNIT DOSE* 17GM PACKET PO SCH (08:32)
[2016-03-20] MEDS: SERTRALINE 100 MG TAB PO SCH (08:32)
[2016-03-20] MEDS: ATENOLOL 50 MG TAB PO SCH (08:32)
--- NOTE | 2016-03-20 09:46 | IPNPDOC ---
Assessment/Plan Date Seen The patient was seen on 03/20/16. Problems Problems: (1) Altered mental state Status: Resolved Problem Specific Plan: Consult Specialist Problem Text: 03/20 - Dr Lieberman spoke to pt's family at length yesterday about his disposition including Hospice, prison with [employer], and prison with active care. (See Dr Lieberman's note form 03/19/16.) Family is discussing options. Case d/w Johnathon Scott-patient felt he was "not ready" for hospice at consult on 03/17/16; therefore, given ambivalence of patient who is at times competent, favor half-way care, but not [employer] WORK[employer]. Mental status continues to wax and wane throughout the day. He continues to decline LP or further evaluation for cause of AMS. Patient and family are still deciding whether to pursue hospice or NH with [employer] AS[employer] LINE WORKER. I discussed WE[employer] AS[employer] LINE WORKER with him on 03/15/16 when he was alert and oriented, and he adamantly refused antibiotics, IVF, feeding tube, or further hospitalization. I discussed this again 03/16/16 with his sister (who is his healthcare proxy) and his brother at bedside and they are still deciding on the appropriate direction of care - they are not entirely committed to comfort care at this point. I provided further education on hospice care as well as the patient's underlying conditions and what procedures would be necessary if they wanted to pursue aggressive life-prolonging care. - PFS is following and helping to arrange placement as patient is unable to go home without 24 hour care, and after talking with the sister, I do not think that it is financially feasible for him have 24 hour care at home (2) Hyponatremia Status: Acute Response to Treatment: Stable Problem Text: Chronic - may be related to NPH or other cause. CT c/w NPH, and he could have SIADH related to this. He does not wish to pursue further evaluation. Baseline Na 133-135, and his Na has been stable at 132-133 off of IVF. (3) Multiple sclerosis Status: Chronic Problem Specific Plan: Consult Specialist Problem Text: Patient is non-ambulatory and with limited use of UE. 03/16: He was previously on Interferon Beta-1a for MS, which was a weekly injection. His sister is questioning whether we should restart this. Although I do not think the patient has capacity to make this decision today, he said "no " when asked about whether he wanted to continue this injection. The patient's family states that they did not feel this medication helped him, and in fact he was very weak for 2-3 days after he received it every week. At this point, they decided to not restart Interferon Beta-1a. 03/17: MS is stable (4) Decubitus ulcer Status: Chronic Problem Text: L buttock 2 x 3 cm c eschar-unstageable, present on admission. Dr. Pham evaluated the patient on 03/13/16 and stated that this ulcer is not infected, and thus is not likely to be a cause of his AMS. Debridement was planned on , but the patient's sister asked for this to be put on hold as we determine goals of care for the patient. (5) Hypertension Status: Chronic Problem Text: Continue home medications; will monitor. (6) Depression Status: Chronic Problem Text: Will continue home medications. Plan / VTE VTE Prophylaxis Ordered?: Yes VTE Exclusion Pharmacological: Bleeding Risk Plan / Urinary Catheter Reason for insertion/continuin: Acute obstruct/retention Subjective Review of Systems CC/HPI The patient is a 60-year-old male admitted with a reason for visit of Altered Mental State. Events since last encounter Pt denies any pain. Still somewhat confused. Knows he is at [facility] but does not know the year. Constitutional: Denies: Chills, Fever Pulmonary: Denies: Dyspnea Cardiovascular: Denies: Chest Pain Gastrointestinal: Denies: Abdominal Pain Objective Physical Examination General Exam: Positive: Alert, Cooperative, No Acute Distress ENT Exam: Positive: Mucous membr. moist/pink Chest Exam: Positive: Clear to auscultation, Normal air movement, Negative: Rales, Rhonchi, Wheezing Heart Exam: Positive: Normal S1, Normal S2, Rate Normal, Regular Rhythm Abdomen Exam: Positive: Normal bowel sounds, Soft, Negative: Tenderness Extremity Exam: Negative: Cyanosis, Edema Neuro Exam: Positive: Normal Speech, Strength at 5/5 X4 ext (Chronic spasticity in legs and arms; has minimal use of right hand) Psych Exam: Positive: Mental status NL (Pt knows he is in [facility], but does not know the year), Mood NL Vital Signs/I&O Vital Signs Date Time Temp Pulse Resp B/P Pulse Ox O2 Delivery O2 Flow Rate FiO2 03/20/16 06:00 97.7 96 18 130/71 93 Room Air I&O- Last 24 Hours up to 6 AM 03/20/16 06:00 Intake Total 1560 ml Output Total 1050 ml Balance 510 ml Laboratory Data Microbiology Microbiology 03/12/16 Urine Culture - Final, Complete Trever Anglin Mar 20, 2016 09:46 Angel Sun M.D. Mar 20, 2016 15:38
[2016-03-20 14:00] VITALS: BP 107/66
[2016-03-20 22:00] VITALS: BP 123/74
[2016-03-21 06:00] VITALS: BP 127/89
[2016-03-21] MEDS: METOCLOPRAMIDE 10 MG TAB PO SCH ×4 (08:02→20:57)
[2016-03-21] MEDS: DULoxetine 20 MG CAP (CYMBALTA) PO SCH (08:02)
[2016-03-21] MEDS: DOCUSATE SOD LIQ 100MG/10ML UDC PO SCH ×2 (08:02→20:57)
[2016-03-21] MEDS: MIRALAX *UNIT DOSE* 17GM PACKET PO SCH (08:03)
[2016-03-21] MEDS: SERTRALINE 100 MG TAB PO SCH (08:03)
[2016-03-21] MEDS: MODAFINIL 200MG TABLET PO SCH ×2 (08:03→11:34)
[2016-03-21] MEDS: ATENOLOL 50 MG TAB PO SCH (08:03)
[2016-03-21] MEDS: levETIRAcetam 250MG TABLET (KEPPRA) PO SCH ×2 (08:03→20:57)
[2016-03-21] MEDS: PREGABALIN 100 MG CAP (LYRICA) PO SCH ×3 (08:03→20:57)
[2016-03-21] MEDS: HEPARIN SOD (PORCINE) 5000 UNITS/ML VIAL SQ SCH ×2 (08:04→20:57)
--- NOTE | 2016-03-21 08:48 | IPNPDOC ---
Assessment/Plan Date Seen The patient was seen on 03/21/16. Problems Problems: (1) Altered mental state Status: Chronic Response to Treatment: Stable, Improving Problem Specific Plan: Consult Specialist Problem Text: 03/20 - Dr Lieberman spoke to pt's family at length 03/19/16 about his disposition including Hospice, [facility] with [facility]ON MAN, and [facility] with active care. (See Dr Lieberman's note form 03/19/16.) Family is discussing options. Case d/w Johnathon Scott-patient felt he was "not ready" for hospice at consult on ; therefore, given ambivalence of patient who is at times competent, favor terminal operator care, but not APRON MAN. Mental status continues to wax and wane throughout the day. He has repeatedly declined LP or further evaluation for cause of AMS. - PFS is following and helping to arrange placement. (2) Hyponatremia Status: Acute Response to Treatment: Stable Problem Text: Chronic - may be related to NPH or other cause. CT c/w NPH, and he could have SIADH related to this. He does not wish to pursue further evaluation. Baseline Na 133-135, and his Na has been stable at 132-133 off of IVF. (3) Multiple sclerosis Status: Chronic Problem Specific Plan: Consult Specialist Problem Text: Patient is non-ambulatory and with limited use of UE. 03/16: He was previously on Interferon Beta-1a for MS, which was a weekly injection. His sister is questioning whether we should restart this. Although I do not think the patient has capacity to make this decision today, he said "no " when asked about whether he wanted to continue this injection. The patient's family states that they did not feel this medication helped him, and in fact he was very weak for 2-3 days after he received it every week. At this point, they decided to not restart Interferon Beta-1a. 03/21: MS is stable (4) Decubitus ulcer Status: Chronic Problem Text: L buttock 2 x 3 cm c eschar-unstageable, present on admission. Dr. Pham evaluated the patient on 03/13/16 and stated that this ulcer is not infected, and thus is not likely to be a cause of his AMS. Debridement was planned on , but the patient's sister asked for this to be put on hold as we determine goals of care for the patient. 03/21/16: D/W patient and family and patient is agreeable to move forward with debridement. Dr. Pham contacted and plans to see, probably tomorrow. (5) Hypertension Status: Chronic Problem Text: Continue home medications; will monitor. (6) Depression Status: Chronic Problem Text: Will continue home medications. Plan / VTE VTE Prophylaxis Ordered?: Yes VTE Exclusion Pharmacological: Bleeding Risk Plan / Urinary Catheter Reason for insertion/continuin: Acute obstruct/retention Subjective Review of Systems CC/HPI The patient is a 60-year-old male admitted with a reason for visit of Altered Mental State. Events since last encounter Seen and evaluated on 4 PAV. His mental status continues to wax/wane. He does not know where he is at the time of the interview, nor can he relay the year. He is oriented only to person. Family is still deciding on post-hospital goals. General: Reports: ROS Unobtainable GME ATTESTATION My preceptor for this patient encounter was physically present in the building during the encounter and was fully available. As needed, all aspects of the patient interview, examination, medical decision making process, and medical care plan development were reviewed and approved by the preceptor. Preceptor is aware and concurs with the plan as stated in the body of this note and will attest to such by his/her cosignature. Objective Physical Examination General Exam: Positive: Alert, Cooperative, No Acute Distress, Other (Oriented only to person.) ENT Exam: Positive: Mucous membr. moist/pink Chest Exam: Positive: Clear to auscultation, Normal air movement, Negative: Rales, Rhonchi, Wheezing Heart Exam: Positive: Normal S1, Normal S2, Rate Normal, Regular Rhythm Abdomen Exam: Positive: Normal bowel sounds, Soft, Negative: Tenderness Extremity Exam: Positive: Other (contracture LUE), Negative: Cyanosis, Edema Neuro Exam: Positive: Normal Speech, Strength at 5/5 X4 ext (Chronic spasticity in legs and arms; has minimal use of right hand) Psych Exam: Positive: Mental status NL (Pt knows he is in [facility], but does not know the year), Mood NL Vital Signs/I&O Vital Signs Date Time Temp Pulse Resp B/P Pulse Ox O2 Delivery O2 Flow Rate FiO2 03/21/16 08:03 104 2/7/17 06:00 98.0 20 127/89 96 03/20/16 14:00 Room Air I&O- Last 24 Hours up to 6 AM 03/21/16 06:00 Intake Total 780 ml Output Total 950 ml Balance -170 ml Laboratory Data Microbiology Microbiology 03/12/16 Urine Culture - Final, Complete GME ATTESTATION GME ATTESTATION My preceptor for this patient encounter was physically present in the building during the encounter and was fully available. As needed, all aspects of the patient interview, examination, medical decision making process, and medical care plan development were reviewed and approved by the preceptor. Preceptor is aware and concurs with the plan as stated in the body of this note and will attest to such by his/her cosignature. LUX HUDSON DO Mar 21, 2016 08:48 Rei Gonzalez MD Mar 21, 2016 13:28
[2016-03-21 14:00] VITALS: BP 131/82
[2016-03-21 22:00] VITALS: BP 137/82
[2016-03-22 06:00] VITALS: BP 153/81
[2016-03-22] MEDS ORDERED: LIDOCAINE 1% MDV 20ML VIAL SC ONE (08:15)
[2016-03-22] MEDS: DOCUSATE SOD LIQ 100MG/10ML UDC PO SCH ×2 (08:19→21:19)
[2016-03-22] MEDS: MIRALAX *UNIT DOSE* 17GM PACKET PO SCH (08:19)
[2016-03-22] MEDS: DULoxetine 20 MG CAP (CYMBALTA) PO SCH (08:20)
[2016-03-22] MEDS: MODAFINIL 200MG TABLET PO SCH ×2 (08:20→12:10)
[2016-03-22] MEDS: PREGABALIN 100 MG CAP (LYRICA) PO SCH ×3 (08:20→21:19)
[2016-03-22] MEDS: SERTRALINE 100 MG TAB PO SCH (08:20)
[2016-03-22] MEDS: METOCLOPRAMIDE 10 MG TAB PO SCH ×4 (08:20→21:19)
[2016-03-22] MEDS: HEPARIN SOD (PORCINE) 5000 UNITS/ML VIAL SQ SCH ×2 (08:20→21:19)
[2016-03-22] MEDS: ATENOLOL 50 MG TAB PO SCH (08:20)
[2016-03-22] MEDS: levETIRAcetam 250MG TABLET (KEPPRA) PO SCH ×2 (08:21→21:19)
[2016-03-22 14:00] VITALS: BP 120/74
[2016-03-22 22:00] VITALS: BP 130/80
[2016-03-23 06:00] VITALS: BP 114/68
[2016-03-23] MEDS: levETIRAcetam 250MG TABLET (KEPPRA) PO SCH ×2 (07:46→20:23)
[2016-03-23] MEDS: METOCLOPRAMIDE 10 MG TAB PO SCH ×4 (07:46→20:22)
[2016-03-23] MEDS: PREGABALIN 100 MG CAP (LYRICA) PO SCH ×3 (07:46→20:23)
[2016-03-23] MEDS: DULoxetine 20 MG CAP (CYMBALTA) PO SCH (07:46)
[2016-03-23] MEDS: ATENOLOL 50 MG TAB PO SCH (07:46)
[2016-03-23] MEDS: MIRALAX *UNIT DOSE* 17GM PACKET PO SCH (07:47)
[2016-03-23] MEDS: HEPARIN SOD (PORCINE) 5000 UNITS/ML VIAL SQ SCH ×2 (07:47→20:23)
[2016-03-23] MEDS: MODAFINIL 200MG TABLET PO SCH ×2 (07:47→12:41)
[2016-03-23] MEDS: DOCUSATE SOD LIQ 100MG/10ML UDC PO SCH ×2 (07:47→17:08)
[2016-03-23] MEDS: SERTRALINE 100 MG TAB PO SCH (07:47)
[2016-03-23] MEDS: ALPRAZolam 0.5 MG TAB PO PRN (12:47)
[2016-03-23 14:00] VITALS: BP 113/69
--- NOTE | 2016-03-23 15:07 | IPNPDOC ---
Subjective General Date Seen The patient was seen on 03/23/16. Subjective Chief Complaint/HPI The patient is a 60-year-old male admitted with a reason for visit of Altered Mental State. General: Reports: Normal Appetite, Denies: Chills, Malaise ENT: Denies: Dysphagia, Head Aches Cardiovascular: Denies: Chest Pain, Orthopnea, Palpitations Gastrointestinal: Denies: Abdominal Pain, Diarrhea, Vomiting Objective Physical Examination General Exam: Positive: Alert, Cooperative, No Acute Distress, Other (Oriented only to person.) ENT Exam: Positive: Mucous membr. moist/pink Chest Exam: Positive: Clear to auscultation, Normal air movement, Negative: Rales, Rhonchi, Wheezing Heart Exam: Positive: Normal S1, Normal S2, Rate Normal, Regular Rhythm Abdomen Exam: Positive: Normal bowel sounds, Soft, Negative: Tenderness Extremity Exam: Positive: Other (contracture LUE), Negative: Cyanosis, Edema Neuro Exam: Positive: Normal Speech, Strength at 5/5 X4 ext (Chronic spasticity in legs and arms; has minimal use of right hand) Psych Exam: Positive: Mental status NL (Pt knows he is in [facility], but does not know the year), Mood NL Assessment /Plan Problems Problems: (1) Altered mental state Status: Chronic Response to Treatment: Stable, Improving Problem Specific Plan: Consult Specialist Problem Text: 03/20 - Dr Lieberman spoke to pt's family at length 03/19/16 about his disposition including Hospice, penitentiary with [facility], and penitentiary with active care. (See Dr Lieberman's note form 03/19/16.) Family is discussing options. Case d/w Johnathon Scott-patient felt he was "not ready" for hospice at consult on ; therefore, given ambivalence of patient who is at times competent, favor retirement care, but not SILK OP[employer]. Mental status continues to wax and wane throughout the day. He has repeatedly declined LP or further evaluation for cause of AMS. - PFS is following and helping to arrange placement. (2) Hyponatremia Status: Acute Response to Treatment: Stable Problem Text: Chronic - may be related to NPH or other cause. CT c/w NPH, and he could have SIADH related to this. He does not wish to pursue further evaluation. Baseline Na 133-135, and his Na has been stable at 132-133 off of IVF. (3) Multiple sclerosis Status: Chronic Problem Specific Plan: Consult Specialist Problem Text: Patient is non-ambulatory and with limited use of UE. 03/16: He was previously on Interferon Beta-1a for MS, which was a weekly injection. His sister is questioning whether we should restart this. Although I do not think the patient has capacity to make this decision today, he said "no " when asked about whether he wanted to continue this injection. The patient's family states that they did not feel this medication helped him, and in fact he was very weak for 2-3 days after he received it every week. At this point, they decided to not restart Interferon Beta-1a. 03/21: MS is stable (4) Decubitus ulcer Status: Chronic Problem Text: L buttock 2 x 3 cm c eschar-unstageable, present on admission. Dr. Pham evaluated the patient on 03/13/16 and stated that this ulcer is not infected, and thus is not likely to be a cause of his AMS. Debridement was planned on , but the patient's sister asked for this to be put on hold as we determine goals of care for the patient. 03/21/16: D/W patient and family and patient is agreeable to move forward with debridement. Dr. Pham contacted and plans to see, probably tomorrow. 03/23/16: wound has been debrided. alternating pressure mattress requested. (5) Hypertension Status: Chronic Problem Text: Continue home medications; will monitor. (6) Depression Status: Chronic Problem Text: Will continue home medications. Plan/VTE VTE Prophylaxis Ordered?: Yes VTE Exclusion Pharmacological: Bleeding Risk Plan/Urinary Catheter Reason for insertion/continuin: Acute obstruct/retention VS, I&O, 24H, Fishbone Vital Signs/I&O Vital Signs Date Time Temp Pulse Resp B/P Pulse Ox O2 Delivery O2 Flow Rate FiO2 03/23/16 14:00 96.8 89 18 113/69 94 Room Air I&O- Last 24 Hours up to 6 AM 03/23/16 06:00 Intake Total 620 ml Output Total 600 ml Balance 20 ml Rei Gonzalez MD Mar 23, 2016 15:07
--- NOTE | 2016-03-23 15:18 | IPN ---
DATE: 03/22/2016 SUBJECTIVE: The patient seems to be in reasonably good spirits. He is making jokes. I discussed plan of care with the patient and his sister who is with him today. I also on a separate encounter discussed plan of care with the social services manager. He has no new complaints. He feels generally well. Pressure sore examined and clearly needs debridement. Call was placed to Dr. Pham who will see the patient for debridement of the wound. PHYSICAL EXAMINATION: Shows a pressure wound with significant debris and in need of debridement. No surrounding erythema. ASSESSMENT: Advanced multiple sclerosis (MS) with a stage III pressure sore on his back, stage II pressure sore inferior and more rectally, oriented and small, small as in a primary lesion which is approximately 3 x 3.5 cm. Plan of care will include placement problems which are currently a significant issue for him. He needs increased care at home to prevent pressure sore development and an alternating pressure mattress may be partially successful but maybe not optimal. He really should have 24-hour care present, frequent turning. This may be more care than can be effectively managed in the home environment. He is not totally rejecting the option of residential placement, which I think would be the optimal arrangement. He is not interested in extending his life expanse so he would like to pursue with comfort measure option. Potentially, if he does find himself agreeing to be placed in a residential, the prospect of hospice care was opened and considered but his length of life expectancy is probably long enough that he is not an acceptable candidate for that service.
[2016-03-23 22:00] VITALS: BP 144/85
[2016-03-24 06:00] VITALS: BP 117/75
[2016-03-24] MEDS: NORCO, ANEXSIA 5/325MG TABLET (HYDROcodone/ACETAMINOPHEN) PO PRN ×2 (06:41→14:40)
[2016-03-24] MEDS: DOCUSATE SOD LIQ 100MG/10ML UDC PO SCH ×2 (07:54→20:37)
[2016-03-24] MEDS: MIRALAX *UNIT DOSE* 17GM PACKET PO SCH (07:54)
[2016-03-24] MEDS: METOCLOPRAMIDE 10 MG TAB PO SCH ×4 (08:17→20:36)
[2016-03-24] MEDS: PREGABALIN 100 MG CAP (LYRICA) PO SCH ×3 (08:17→20:36)
[2016-03-24] MEDS: MODAFINIL 200MG TABLET PO SCH ×2 (08:17→12:30)
[2016-03-24] MEDS: DULoxetine 20 MG CAP (CYMBALTA) PO SCH (08:17)
[2016-03-24] MEDS: SERTRALINE 100 MG TAB PO SCH (08:17)
[2016-03-24] MEDS: levETIRAcetam 250MG TABLET (KEPPRA) PO SCH ×2 (08:17→20:36)
[2016-03-24] MEDS: ATENOLOL 50 MG TAB PO SCH (08:19)
[2016-03-24] MEDS: HEPARIN SOD (PORCINE) 5000 UNITS/ML VIAL SQ SCH ×2 (08:20→20:37)
[2016-03-24 14:00] VITALS: BP 121/78
[2016-03-24] MEDS: ALPRAZolam 0.5 MG TAB PO PRN ×2 (14:39→20:49)
--- NOTE | 2016-03-24 17:14 | DSES ---
DATE OF ADMISSION: 03/07/2016 DATE OF TRANSFER: PRIMARY CARE PROVIDER: Alvino Lieberman MD ATTENDING PHYSICIAN: Dr. Rei Gonzalez 60-year-old male who presented to the emergency room with worsening bladder spasm, urinary incontinence, increased lethargy and fatigue, and a site infection where his baclofen pump had been removed in January. ADMITTING DIAGNOSES: Included: 1. Change in mentation. 2. Worsening bladder spasms. 3. CT obtained showed some concerns of normal pressure hydrocephalus. 4. Hyponatremia. 5. Multiple sclerosis. 6. Depression. 7. Hypertension. HOSPITAL COURSE: The patient was admitted to the intensive care unit (ICU) due to question of normal pressure hydrocephalus and monitoring. Neurosurgery evaluated the patient and advised MRI, spinal tap and cerebrospinal fluid, which he patient refused. The patient has remained intermittently confused throughout the hospitalization. Dr. Pham was consulted for decubitus ulcer. Advised surgical debridement at that time; however, given the patient's mental status, surgical debridement remained on hold. Multiple discussions had been had with patient as far as comfort measures versus group home placement. Hospice was consulted on the patient and advised he is not appropriate that they feel that his demise is more chronic than imminent. Per nursing services, the patient has opted for placement at [facility] and to continue current measures, including wound debridement and current medications. He declines any further intervention. He has signed a Medical Orders for Life Sustaining Treatment (MOLST) form, which indicated that he is a DO NOT RESUSCITATE and DO NOT INTUBATE. PHYSICAL EXAMINATION: Today, vital signs are stable. The patient is afebrile. Laboratories are stable with a white blood cell count of 9000, hemoglobin and hematocrit of 14 and 41. Basic metabolic panel (BMP) showed a sodium of 132, which appears to be the patient's baseline. Creatinine stable at 0.44. CARDIOVASCULAR: Heart rhythm is regular. PULMONARY: Lungs are clear to auscultation bilaterally. NECK: Supple without lymphadenopathy or jugular venous distention (JVD). EXTREMITIES: Bilateral lower extremities without edema. NEUROLOGIC: The patient is alert and oriented times three yet sleepy during examination. ASSESSMENT: 1. Mental status changes with normal pressure hydrocephalus, which is not confirmed secondary to the patient's decline in further testing. 2. Progressive multiple sclerosis. 3. Stage III decubitus. 4. Hyponatremia. 5. Depression. 6. Hypertension. 7. History of obstructive sleep apnea. 8. Gastroesophageal reflux disease (GERD). PLAN: The patient is awaiting bed availability for group home placement. Patient and family services (PFS) have been consulted and are in the process of assisting patient.
[2016-03-24 22:00] VITALS: BP 120/71
[2016-03-25 06:00] VITALS: BP 130/79
[2016-03-25] MEDS: MIRALAX *UNIT DOSE* 17GM PACKET PO SCH (08:05)
[2016-03-25] MEDS: DOCUSATE SOD LIQ 100MG/10ML UDC PO SCH ×2 (08:05→21:56)
[2016-03-25] MEDS: MODAFINIL 200MG TABLET PO SCH ×2 (08:18→12:03)
[2016-03-25] MEDS: METOCLOPRAMIDE 10 MG TAB PO SCH ×4 (08:18→21:57)
[2016-03-25] MEDS: SERTRALINE 100 MG TAB PO SCH (08:18)
[2016-03-25] MEDS: DULoxetine 20 MG CAP (CYMBALTA) PO SCH (08:19)
[2016-03-25] MEDS: PREGABALIN 100 MG CAP (LYRICA) PO SCH ×3 (08:19→21:57)
[2016-03-25] MEDS: levETIRAcetam 250MG TABLET (KEPPRA) PO SCH ×2 (08:19→21:57)
[2016-03-25] MEDS: HEPARIN SOD (PORCINE) 5000 UNITS/ML VIAL SQ SCH ×2 (08:19→21:57)
[2016-03-25] MEDS: ATENOLOL 50 MG TAB PO SCH (08:19)
[2016-03-25] MEDS: METAXALONE 800 MG TABLET PO PRN ×2 (12:02→21:57)
[2016-03-26 06:00] VITALS: BP 143/86
[2016-03-26] MEDS: levETIRAcetam 250MG TABLET (KEPPRA) PO SCH ×2 (08:18→20:38)
[2016-03-26] MEDS: DOCUSATE SOD LIQ 100MG/10ML UDC PO SCH ×2 (08:18→20:38)
[2016-03-26] MEDS: MODAFINIL 200MG TABLET PO SCH ×2 (08:19→12:24)
[2016-03-26] MEDS: ATENOLOL 50 MG TAB PO SCH (08:19)
[2016-03-26] MEDS: DULoxetine 20 MG CAP (CYMBALTA) PO SCH (08:19)
[2016-03-26] MEDS: PREGABALIN 100 MG CAP (LYRICA) PO SCH ×3 (08:19→20:38)
[2016-03-26] MEDS: METOCLOPRAMIDE 10 MG TAB PO SCH ×4 (08:19→20:39)
[2016-03-26] MEDS: SERTRALINE 100 MG TAB PO SCH (08:19)
[2016-03-26] MEDS: HEPARIN SOD (PORCINE) 5000 UNITS/ML VIAL SQ SCH ×2 (08:20→20:39)
[2016-03-26] MEDS: METAXALONE 800 MG TABLET PO PRN ×2 (08:20→16:32)
[2016-03-26] MEDS: MIRALAX *UNIT DOSE* 17GM PACKET PO SCH (08:22)
[2016-03-26] MEDS: ALPRAZolam 0.5 MG TAB PO PRN ×2 (13:39→20:38)
[2016-03-27 06:00] VITALS: BP 137/74
[2016-03-27] MEDS: METOCLOPRAMIDE 10 MG TAB PO SCH ×4 (06:54→20:11)
[2016-03-27] MEDS: DOCUSATE SOD LIQ 100MG/10ML UDC PO SCH ×2 (09:14→20:11)
[2016-03-27] MEDS: SERTRALINE 100 MG TAB PO SCH (09:14)
[2016-03-27] MEDS: MIRALAX *UNIT DOSE* 17GM PACKET PO SCH (09:14)
[2016-03-27] MEDS: levETIRAcetam 250MG TABLET (KEPPRA) PO SCH ×2 (09:14→20:11)
[2016-03-27] MEDS: DULoxetine 20 MG CAP (CYMBALTA) PO SCH (09:16)
[2016-03-27] MEDS: PREGABALIN 100 MG CAP (LYRICA) PO SCH ×3 (09:16→20:11)
[2016-03-27] MEDS: ATENOLOL 50 MG TAB PO SCH (09:16)
[2016-03-27] MEDS: HEPARIN SOD (PORCINE) 5000 UNITS/ML VIAL SQ SCH ×2 (10:23→20:12)
[2016-03-27] MEDS: MODAFINIL 200MG TABLET PO SCH ×2 (10:23→13:26)
[2016-03-27] MEDS: METAXALONE 800 MG TABLET PO PRN (10:23)
[2016-03-27] MEDS: NORCO, ANEXSIA 5/325MG TABLET (HYDROcodone/ACETAMINOPHEN) PO PRN (20:11)
[2016-03-28 06:00] VITALS: BP 131/82
[2016-03-28] MEDS: SERTRALINE 100 MG TAB PO SCH (08:01)
[2016-03-28] MEDS: METOCLOPRAMIDE 10 MG TAB PO SCH ×4 (08:01→20:17)
[2016-03-28] MEDS: DULoxetine 20 MG CAP (CYMBALTA) PO SCH (08:01)
[2016-03-28] MEDS: PREGABALIN 100 MG CAP (LYRICA) PO SCH ×3 (08:01→20:17)
[2016-03-28] MEDS: DOCUSATE SOD LIQ 100MG/10ML UDC PO SCH ×2 (08:01→20:16)
[2016-03-28] MEDS: levETIRAcetam 250MG TABLET (KEPPRA) PO SCH ×2 (08:01→20:17)
[2016-03-28] MEDS: ATENOLOL 50 MG TAB PO SCH (08:01)
[2016-03-28] MEDS: MIRALAX *UNIT DOSE* 17GM PACKET PO SCH (08:02)
[2016-03-28] MEDS: HEPARIN SOD (PORCINE) 5000 UNITS/ML VIAL SQ SCH ×2 (08:02→20:17)
[2016-03-28] MEDS: MODAFINIL 200MG TABLET PO SCH ×2 (08:02→12:26)
[2016-03-28] MEDS: NORCO, ANEXSIA 5/325MG TABLET (HYDROcodone/ACETAMINOPHEN) PO PRN (12:27)
[2016-03-29 06:00] VITALS: BP 127/78
[2016-03-29] MEDS: MIRALAX *UNIT DOSE* 17GM PACKET PO SCH (09:16)
[2016-03-29] MEDS: DOCUSATE SOD LIQ 100MG/10ML UDC PO SCH ×2 (09:16→21:34)
[2016-03-29] MEDS: DULoxetine 20 MG CAP (CYMBALTA) PO SCH (09:17)
[2016-03-29] MEDS: MODAFINIL 200MG TABLET PO SCH ×2 (09:17→12:35)
[2016-03-29] MEDS: METOCLOPRAMIDE 10 MG TAB PO SCH ×4 (09:17→21:35)
[2016-03-29] MEDS: SERTRALINE 100 MG TAB PO SCH (09:17)
[2016-03-29] MEDS: PREGABALIN 100 MG CAP (LYRICA) PO SCH ×3 (09:17→21:34)
[2016-03-29] MEDS: levETIRAcetam 250MG TABLET (KEPPRA) PO SCH ×2 (09:17→21:35)
[2016-03-29] MEDS: ATENOLOL 50 MG TAB PO SCH (09:20)
[2016-03-29] MEDS: HEPARIN SOD (PORCINE) 5000 UNITS/ML VIAL SQ SCH ×2 (09:20→21:34)
[2016-03-29] MEDS: NORCO, ANEXSIA 5/325MG TABLET (HYDROcodone/ACETAMINOPHEN) PO PRN (11:41)
[2016-03-30 06:00] VITALS: BP 116/72
[2016-03-30] MEDS: METOCLOPRAMIDE 10 MG TAB PO SCH ×4 (07:49→20:50)
[2016-03-30] MEDS: MODAFINIL 200MG TABLET PO SCH ×2 (07:49→13:09)
[2016-03-30 08:35] VITALS: BP 125/73
[2016-03-30] MEDS: DOCUSATE SOD LIQ 100MG/10ML UDC PO SCH ×2 (09:11→20:50)
[2016-03-30] MEDS: levETIRAcetam 250MG TABLET (KEPPRA) PO SCH ×2 (09:12→20:50)
[2016-03-30] MEDS: MIRALAX *UNIT DOSE* 17GM PACKET PO SCH (09:12)
[2016-03-30] MEDS: HEPARIN SOD (PORCINE) 5000 UNITS/ML VIAL SQ SCH ×2 (09:12→20:50)
[2016-03-30] MEDS: PREGABALIN 100 MG CAP (LYRICA) PO SCH ×3 (09:12→20:50)
[2016-03-30] MEDS: DULoxetine 20 MG CAP (CYMBALTA) PO SCH (09:12)
[2016-03-30] MEDS: SERTRALINE 100 MG TAB PO SCH (09:12)
[2016-03-30] MEDS: ATENOLOL 50 MG TAB PO SCH (09:13)
--- NOTE | 2016-03-30 11:12 | IPNPDOC ---
Subjective Date Seen The patient was seen on 03/30/16. Subjective Chief Complaint/HPI The patient is a 60-year-old male admitted with a reason for visit of Altered Mental State. Events since last encounter Called by nursing staff for increased drainage from sacral wound. No fevers, no chills. patient denies c/o. Objective Physical Examination General Exam: Positive: Alert, Cooperative, No Acute Distress, Other (Oriented only to person.) ENT Exam: Positive: Mucous membr. moist/pink Chest Exam: Positive: Clear to auscultation, Normal air movement, Negative: Rales, Rhonchi, Wheezing Heart Exam: Positive: Normal S1, Normal S2, Rate Normal, Regular Rhythm Abdomen Exam: Positive: Normal bowel sounds, Soft, Negative: Tenderness Extremity Exam: Positive: Other (contracture LUE), Negative: Cyanosis, Edema Skin Exam: Positive: Other skin issue (dressing removed. serous drainage, no fould odor. wound bed clean without odor, blood drainage appreciated. ) Neuro Exam: Positive: Normal Speech, Strength at 5/5 X4 ext (Chronic spasticity in legs and arms; has minimal use of right hand) Psych Exam: Positive: Mental status NL (Pt knows he is in [facility], but does not know the year), Mood NL Assessment /Plan Problems (1) Altered mental state Status: Chronic Response to Treatment: Stable, Improving Problem Specific Plan: Consult Specialist Problem Text: 03/20 - Dr Lieberman spoke to pt's family at length 03/19/16 about his disposition [place], [place] [facility] [facility]. (See Dr Lieberman's note form 03/19/16.) Family is discussing options. Case d/w Johnathon Scott-patient felt he was "not ready" for hospice at consult on ; therefore, given ambivalence of patient who is at times competent, favor ferry terminal agent care, but not [facility]. Mental status continues to wax and wane throughout the day. He has repeatedly declined LP or further evaluation for cause of AMS. - [facility] is following and helping to arrange placement. (2) Hyponatremia Status: Acute Response to Treatment: Stable Problem Text: Chronic - may be related to NPH or other cause. CT c/w NPH, and he could have SIADH related to this. He does not wish to pursue further evaluation. Baseline Na 133-135, and his Na has been stable at 132-133 off of IVF. (3) Multiple sclerosis Status: Chronic Problem Specific Plan: Consult Specialist Problem Text: Patient is non-ambulatory and with limited use of UE. 03/16: He was previously on Interferon Beta-1a for MS, which was a weekly injection. His sister is questioning whether we should restart this. Although I do not think the patient has capacity to make this decision today, he said "no " when asked about whether he wanted to continue this injection. The patient's family states that they did not feel this medication helped him, and in fact he was very weak for 2-3 days after he received it every week. At this point, they decided to not restart Interferon Beta-1a. 03/21: MS is stable (4) Decubitus ulcer Status: Chronic Problem Text: 03/30/16: repack wound as directed. Nursing to contact Garrett about wound changes. L buttock 2 x 3 cm c eschar-unstageable, present on admission. Dr. Pham evaluated the patient on 03/13/16 and stated that this ulcer is not infected, and thus is not likely to be a cause of his AMS. Debridement was planned on , but the patient's sister asked for this to be put on hold as we determine goals of care for the patient. 03/21/16: D/W patient and family and patient is agreeable to move forward with debridement. Dr. Pham contacted and plans to see, probably tomorrow. 03/23/16: wound has been debrided. alternating pressure mattress requested. (5) Hypertension Status: Chronic Problem Text: Continue home medications; will monitor. (6) Depression Status: Chronic Problem Text: Will continue home medications. Plan/VTE VTE Prophylaxis Ordered?: Yes VTE Exclusion Pharmacological: Bleeding Risk Plan/Urinary Catheter Reason for insertion/continuin: Acute obstruct/retention VS, I&O, 24H, Fishbone Vital Signs/I&O Vital Signs Date Time Temp Pulse Resp B/P Pulse Ox O2 Delivery O2 Flow Rate FiO2 03/30/16 09:13 111 125/73 03/30/16 08:35 96.2 20 92 Room Air I&O- Last 24 Hours up to 6 AM 03/30/16 06:00 Intake Total 650 ml Output Total 0 ml Balance 650 ml Iram Eckert [employer] Mar 30, 2016 11:12
[2016-03-31 06:00] VITALS: BP 109/75
[2016-03-31] MEDS: levETIRAcetam 250MG TABLET (KEPPRA) PO SCH ×2 (08:52→20:18)
[2016-03-31] MEDS: SERTRALINE 100 MG TAB PO SCH (08:52)
[2016-03-31] MEDS: METOCLOPRAMIDE 10 MG TAB PO SCH ×4 (08:52→20:18)
[2016-03-31] MEDS: PREGABALIN 100 MG CAP (LYRICA) PO SCH ×3 (08:52→20:18)
[2016-03-31] MEDS: DULoxetine 20 MG CAP (CYMBALTA) PO SCH (08:52)
[2016-03-31] MEDS: MODAFINIL 200MG TABLET PO SCH ×2 (08:52→13:31)
[2016-03-31] MEDS: MIRALAX *UNIT DOSE* 17GM PACKET PO SCH (08:52)
[2016-03-31] MEDS: ATENOLOL 50 MG TAB PO SCH (08:53)
[2016-03-31] MEDS: HEPARIN SOD (PORCINE) 5000 UNITS/ML VIAL SQ SCH ×2 (08:53→20:18)
[2016-03-31] MEDS: DOCUSATE SOD LIQ 100MG/10ML UDC PO SCH ×2 (08:53→20:18)
[2016-03-31] MEDS: ALPRAZolam 0.5 MG TAB PO PRN (13:35)
[2016-03-31] MEDS: NORCO, ANEXSIA 5/325MG TABLET (HYDROcodone/ACETAMINOPHEN) PO PRN (20:18)
[2016-04-01 06:00] VITALS: BP 139/82
[2016-04-01] MEDS: HEPARIN SOD (PORCINE) 5000 UNITS/ML VIAL SQ SCH ×3 (09:00→20:09)
[2016-04-01] MEDS: levETIRAcetam 250MG TABLET (KEPPRA) PO SCH ×2 (09:40→20:09)
[2016-04-01] MEDS: ATENOLOL 50 MG TAB PO SCH (09:41)
[2016-04-01] MEDS: MIRALAX *UNIT DOSE* 17GM PACKET PO SCH (09:42)
[2016-04-01] MEDS: MODAFINIL 200MG TABLET PO SCH ×2 (09:42→12:28)
[2016-04-01] MEDS: SERTRALINE 100 MG TAB PO SCH (09:42)
[2016-04-01] MEDS: DOCUSATE SOD LIQ 100MG/10ML UDC PO SCH ×2 (09:42→20:08)
[2016-04-01] MEDS: DULoxetine 20 MG CAP (CYMBALTA) PO SCH (09:42)
[2016-04-01] MEDS: PREGABALIN 100 MG CAP (LYRICA) PO SCH ×3 (09:42→20:08)
[2016-04-01] MEDS: METOCLOPRAMIDE 10 MG TAB PO SCH ×4 (09:43→20:08)
[2016-04-01] MEDS: ALPRAZolam 0.5 MG TAB PO PRN (20:08)
[2016-04-01] MEDS: NORCO, ANEXSIA 5/325MG TABLET (HYDROcodone/ACETAMINOPHEN) PO PRN (20:10)
[2016-04-02 06:00] VITALS: BP 142/86
[2016-04-02] MEDS: MIRALAX *UNIT DOSE* 17GM PACKET PO SCH (08:22)
[2016-04-02] MEDS: MODAFINIL 200MG TABLET PO SCH ×2 (08:22→12:58)
[2016-04-02] MEDS: HEPARIN SOD (PORCINE) 5000 UNITS/ML VIAL SQ SCH ×2 (08:22→21:08)
[2016-04-02] MEDS: SERTRALINE 100 MG TAB PO SCH (08:23)
[2016-04-02] MEDS: METOCLOPRAMIDE 10 MG TAB PO SCH ×4 (08:23→21:07)
[2016-04-02] MEDS: levETIRAcetam 250MG TABLET (KEPPRA) PO SCH ×2 (08:23→21:10)
[2016-04-02] MEDS: DULoxetine 20 MG CAP (CYMBALTA) PO SCH (08:23)
[2016-04-02] MEDS: DOCUSATE SOD LIQ 100MG/10ML UDC PO SCH ×2 (08:23→21:07)
[2016-04-02] MEDS: PREGABALIN 100 MG CAP (LYRICA) PO SCH ×3 (08:23→21:07)
[2016-04-02] MEDS: ATENOLOL 50 MG TAB PO SCH (08:24)
[2016-04-02] MEDS: NORCO, ANEXSIA 5/325MG TABLET (HYDROcodone/ACETAMINOPHEN) PO PRN ×2 (12:59→21:08)
[2016-04-02] MEDS: ALPRAZolam 0.5 MG TAB PO PRN (21:07)
[2016-04-03 06:00] VITALS: BP 144/82
[2016-04-03] MEDS: DOCUSATE SOD LIQ 100MG/10ML UDC PO SCH ×2 (08:20→20:49)
[2016-04-03] MEDS: MIRALAX *UNIT DOSE* 17GM PACKET PO SCH (08:20)
[2016-04-03] MEDS: HEPARIN SOD (PORCINE) 5000 UNITS/ML VIAL SQ SCH ×2 (08:20→20:49)
[2016-04-03] MEDS: DULoxetine 20 MG CAP (CYMBALTA) PO SCH (08:21)
[2016-04-03] MEDS: PREGABALIN 100 MG CAP (LYRICA) PO SCH ×3 (08:21→20:50)
[2016-04-03] MEDS: levETIRAcetam 250MG TABLET (KEPPRA) PO SCH ×2 (08:21→20:50)
[2016-04-03] MEDS: MODAFINIL 200MG TABLET PO SCH ×2 (08:21→13:12)
[2016-04-03] MEDS: SERTRALINE 100 MG TAB PO SCH (08:21)
[2016-04-03] MEDS: METOCLOPRAMIDE 10 MG TAB PO SCH ×4 (08:21→20:50)
[2016-04-03] MEDS: ATENOLOL 50 MG TAB PO SCH (08:21)
[2016-04-04 06:00] VITALS: BP 130/78
[2016-04-04] MEDS: DULoxetine 20 MG CAP (CYMBALTA) PO SCH (08:37)
[2016-04-04] MEDS: DOCUSATE SOD LIQ 100MG/10ML UDC PO SCH ×2 (08:37→22:09)
[2016-04-04] MEDS: METOCLOPRAMIDE 10 MG TAB PO SCH ×4 (08:38→22:08)
[2016-04-04] MEDS: PREGABALIN 100 MG CAP (LYRICA) PO SCH ×3 (08:38→22:08)
[2016-04-04] MEDS: MODAFINIL 200MG TABLET PO SCH ×2 (08:38→12:55)
[2016-04-04] MEDS: levETIRAcetam 250MG TABLET (KEPPRA) PO SCH ×2 (08:38→22:08)
[2016-04-04] MEDS: HEPARIN SOD (PORCINE) 5000 UNITS/ML VIAL SQ SCH ×2 (08:39→22:09)
[2016-04-04] MEDS: SERTRALINE 100 MG TAB PO SCH (08:39)
[2016-04-04] MEDS: ATENOLOL 50 MG TAB PO SCH (08:39)
[2016-04-04] MEDS: MIRALAX *UNIT DOSE* 17GM PACKET PO SCH (08:39)
[2016-04-05 06:00] VITALS: BP 112/74
[2016-04-05] MEDS: DOCUSATE SOD LIQ 100MG/10ML UDC PO SCH (10:33)
[2016-04-05] MEDS: PREGABALIN 100 MG CAP (LYRICA) PO SCH (10:33)
[2016-04-05] MEDS: HEPARIN SOD (PORCINE) 5000 UNITS/ML VIAL SQ SCH (10:33)
[2016-04-05] MEDS: MIRALAX *UNIT DOSE* 17GM PACKET PO SCH (10:33)
[2016-04-05] MEDS: DULoxetine 20 MG CAP (CYMBALTA) PO SCH (10:33)
[2016-04-05 10:34] VITALS: BP 112/74
[2016-04-05] MEDS: levETIRAcetam 250MG TABLET (KEPPRA) PO SCH (10:34)
[2016-04-05] MEDS: ATENOLOL 50 MG TAB PO SCH (10:34)
[2016-04-05] MEDS: SERTRALINE 100 MG TAB PO SCH (10:34)
[2016-04-05] MEDS: MODAFINIL 200MG TABLET PO SCH (10:34)
[2016-04-05] MEDS: METOCLOPRAMIDE 10 MG TAB PO SCH (10:34)
--- NOTE | 2016-04-05 16:59 | DSES ---
DATE OF ADMISSION: 03/07/2016 DATE OF DISCHARGE: 04/05/2016 INTERVAL HOSPITAL COURSE: There were no changes to the patient's treatment between the time of the initial discharge summary dictation and the time of discharge. On the day of discharg, he will be discharged to [facility]. His medications at discharge are as follows - Xanax 0.5 mg daily four times a day as needed for anxiety - atenolol 50 mg by mouth daily - Cymbalta 20 mg by mouth daily - Keppra 500 mg by mouth twice a day - metaxalone 800 mg by mouth three times a day as needed for spasms - metformin 1000 mg by mouth twice a day - Reglan 10 mg by mouth four times a day - Provigil 200 mg by mouth twice a day - Lyrica 100 mg by mouth three times a day - Zoloft 100 mg by mouth daily - Testim 1% gel one packet topically every second day, alternate with two packets - zolpidem tartrate 12.5 mg every evening as needed for sleep DISCHARGE INSTRUCTIONS: The patient is discharged to [facility] to followup with primary care provider within one week. Diet and activity as previously tolerated. Symptoms and signs that would prompt reevaluation in the emergency room were discussed and the patient did demonstrate understanding. My preceptor for this patient encounter was Dr. Boubacar Noriega. The preceptor was physically present in the building during the encounter and was fully available as needed. All aspects of the patient interview, examination, medical decision making process, and medical care plan development were reviewed and approved by the preceptor. The preceptor is aware and concurs with the plan as stated in the body of this note and will attest to such by his/her co-signature. Attending attestation: I saw and evaluated the patient on the day of discharge, and I agree with the discharge plan of care as discussed and documented by the resident. MD COMPA Rogel
== END 2016-04-05 12:05 | DRG 56 ==
LOC: M ED 12:13 → M ED INP 18:57 → M ICU 03-08 05:28 → M PCU 03-09 15:21 → M MSPAV 03-11 23:07
PROVIDERS: ADMIT Internal Medicine; ATTEND Family Medicine
DX: G91.2 (Idiopathic) normal pressure hydrocephalus (principal); L89.153 Pressure ulcer of sacral region, stage 3; E87.1 Hypo-osmolality and hyponatremia; G82.20 Paraplegia, unspecified; R41.82 Altered mental status, unspecified; G35 Multiple sclerosis; Z66 Do not resuscitate; N32.89 Other specified disorders of bladder; Z79.899 Other long term (current) drug therapy; K21.9 Gastro-esophageal reflux disease without esophagitis; Z91.19 Patient's noncompliance with other medical treatment and regimen; G47.33 Obstructive sleep apnea (adult) (pediatric); I10 Essential (primary) hypertension; E78.5 Hyperlipidemia, unspecified; F32.9 Major depressive disorder, single episode, unspecified; Z88.0 Allergy status to penicillin; Z88.8 Allergy status to other drugs, medicaments and biological substances; Z88.5 Allergy status to narcotic agent

== ENCOUNTER 2016-04-28 15:37 | Emergency (ER) | payer MEDICARE, MEDICAID ==
[~2016-04-28] VITALS: Ht 188 cm; Wt 69.9 kg
[~2016-04-28 15:37] MED LIST changes: +DULO1CAP PO; +KEPP500T6 PO; +LYRI100C10 PO; +META800T82 PO; +SERT-138 PO; +TEST1GEL5 TOP; +ZOLP12.515 PO
[2016-04-28] MEDS ORDERED: JUVEPOW8 PO (15:53)
[2016-04-28 17:15] VITALS: BP 111/68
== END 2016-04-28 17:16 | disposition home or self-care (01) ==
LOC: EDBD → M ED 16:53
DX: L98.419 Non-pressure chronic ulcer of buttock with unspecified severity (principal)

== ENCOUNTER 2016-04-30 19:14 | Inpatient (IN) | payer MEDICARE, MEDICAID ==
[~2016-04-30] VITALS: Ht 157.5 cm; Wt 67.0 kg
[~2016-04-30 19:14] MED LIST changes: +JUVEPOW8 PO
[2016-04-30] MEDS ORDERED: MULT1TAB10 PO (19:37)
--- NOTE | 2016-04-30 20:42 | ECGEPIP ---
Stationary ECG Study [facility] - ED Test Date: 2016-04-30 Pat Name: MARZENA WAYNE Department: Room: - Gender: M Glost Kiln Placer: FaganB: 1955 Requested By: Niles Arthur Order Number: [id number] Reading MD: Cheryl Perez Measurements Intervals Burr Rate: 89 P: 58 HI: 148 QRS: 10 QRSD: 96 T: 52 QT: 349 QTc: 427 Interpretive Statements SINUS RHYTHM DECREASED RATE 03/07/16 Electronically Signed On 04-30-2016 20:42:30 EDT by Cheryl Perez
[2016-04-30 21:14] LABS: BASO % 0.3 % (0.0-1.0); EOS # 0.1 K/mm3 (0.0-0.50); EOS % 0.8 % (0.0-3.0); LARGE UNSTAINED CELL # 0.2 K/mm3 (0.0-0.4); LARGE UNSTAINED CELL % 1.3 % (0.0-4.0); LYMPH # 1.7 K/mm3 (1.5-4.5); LYMPH % 15.3 % (24.0-44.0); MEAN CORPUSCULAR HEMOGLOBIN 29.3 pg (27.0-33.0); MEAN CORPUSCULAR HGB CONC 32.5 g/dl (32.0-36.5); MEAN CORPUSCULAR VOLUME 90.1 fl (80.0-96.0); MONO # 0.5 K/mm3 (0.0-0.8); MONO % 4.4 % (0.0-5.0); NEUTROPHILS # 8.8 K/mm3 (1.8-7.7); PLATELET COUNT, AUTOMATED 245 k/mm3 (150-450); RED CELL DISTRIBUTION WIDTH 14.7 % (11.5-14.5); WHITE BLOOD COUNT 11.2 K/mm3 (4.0-10.0)
[2016-04-30 21:59] LABS: ANION GAP 7 MEQ/L (8-16); BLOOD UREA NITROGEN 12 MG/DL (7-18); CALCIUM LEVEL 8.4 MG/DL (8.8-10.2); CARBON DIOXIDE LEVEL 32 MEQ/L (21-32); CHLORIDE LEVEL 98 MEQ/L (98-107); CREATININE FOR GFR 0.49 MG/DL (0.70-1.30); GLOMERULAR FILTRATION RATE > 60.0 (>49); GLUCOSE, FASTING 109 MG/DL (80-110); POTASSIUM SERUM 4.3 MEQ/L (3.5-5.1); SODIUM LEVEL 137 MEQ/L (136-145)
[2016-04-30] MEDS ORDERED: NS 1,000 ML IV SCH (22:13)
[2016-04-30] MEDS ORDERED: LEVE15SO PO (22:21)
[2016-04-30] MEDS ORDERED: JUVEPOW PO (22:21)
[2016-04-30] MEDS ORDERED: META1TAB23 PO (22:29)
[2016-04-30] MEDS ORDERED: DULC10SU2 PR (22:29)
[2016-04-30] MEDS ORDERED: VITMTA PO (22:29)
[2016-04-30] MEDS ORDERED: FLEEENE4 PR (22:29)
[2016-04-30] MEDS ORDERED: MILKSUS PO (22:29)
[2016-04-30] MEDS ORDERED: TYLE325T5 PO (22:29)
[2016-04-30] MEDS ORDERED: ACET65SU PR (22:29)
[2016-04-30] MEDS ORDERED: GLUCAGON FOR INJ 1 MG VIAL (J1610) SC PRN (22:30)
[2016-04-30] MEDS ORDERED: GLUCOSE 4 GM CHEW TABLET PO PRN (22:30)
[2016-04-30] MEDS ORDERED: DEXTROSE 50% 50 ML SYRINGE IV PRN (22:30)
[2016-04-30 22:38] LABS: ALBUMIN/GLOBULIN RATIO 0.91 (1.00-1.93); ALKALINE PHOSPHATASE 97 U/L (45-117); ALT/SGPT 19 U/L (12-78); AST/SGOT 11 U/L (15-37); BILIRUBIN,TOTAL 0.3 MG/DL (0.2-1.0); TOTAL PROTEIN 6.3 GM/DL (6.4-8.2)
[2016-04-30] MEDS ORDERED: LIDOCAINE 1% SDV INJ 30 ML VIAL As Ordered ONE (23:23)
[2016-04-30] MEDS ORDERED: MEROPENEM INJ 2 GM in NS 100 ML IV ONE (23:30)
--- NOTE | 2016-04-30 23:58 | HPEPDOC ---
General Date of Admission Apr 30, 2016 at 22:13 Chief Complaint The patient is a 61-year-old male Presented to the ER at the direction of neurosurgeon because of a protruding intrathecal catheter. History of Present Illness Patient is a 61 year old male with a PMHx of DM2, Seizure disorder, HTN, Depression, GERD, AYLA no on CPAP, Hyponatremia (chronic) and multiple sclerosis who presented to the ER because of a protruding intrathecal catheter. Patient is a poor historian, appears to have some baseline dementia and is unable to answer any questions. His sister is present in the room to provide details. She reports that he has been confused for a long time. She noted that the patient had a intrathecal baclofen pump placed around 20 years ago and they stopped using around 15 years ago because it failed to provide any help for his MS. The pump began to protrude from the skin on October and was removed by Dr. Gray. The intrathecal catheter was left in place. Since then he has not had any issues. He was hospitalized on 03/07 for confusion and was found to have suspected normal pressure hydrocephalus. At that time the family had decided not to pursue any aggressive treatment, he was made DNR / DNI and transferred to [facility]. On Sunday (04/28) patient had a protrusion of his intrathecal catheter. Patient denied any fevers, nausea, vomiting, abdominal pain, constipation, diarrhea or urinary symptoms. Home Medications Scheduled (Testim) 1 % Gel 1 PKT TOP Q2D (Reported) ALTERNATE WITH 2 PACKETS (Testim) 1 % Gel 2 PKT TOP Q2D (Reported) ALTERNATE WITH 1 PACKET (Tony) 1 Pow Pow 1 POW PO BID (Reported) Atenolol (Atenolol) 50 Mg Tab 50 MG PO DAILY (Reported) Duloxetine Hcl (Duloxetine HCl) 20 Mg Cap 20 MG PO DAILY (Reported) Levetiracetam (Levetiracetam) 500 Mg/5 Ml Linda 500 MG PO BID (Reported) Metformin Hydrochloride (Metformin HCl) 1,000 Mg Tab 1,000 MG PO BID (Reported ) Metoclopramide HCl (Reglan) 10 Mg Tab 5 MG PO QID (Reported) Modafinil (Provigil) 100 Mg Tab 200 MG PO BID (Reported) MORNING AND NOONTIME Multivitamins *[facility] STOCKED* (Thera M Plus *[facility] STOCKED*) 1 Tab Tab 1 TAB PO DAILY (Reported) Pregabalin (Lyrica) 100 Mg Cap 100 MG PO TID (Reported) Sertraline HCl (Sertraline HCl) 100 Mg Tab 100 MG PO DAILY (Reported) Scheduled PRN (Metaxall) 800 Mg Tab 800 MG PO TID PRN PRN MUSCLE SPASMS (Reported) Acetaminophen (Acetaminophen) 650 Mg Supp 650 MG AL Q4H PRN PRN PAIN / FEVER ( Reported) Acetaminophen (Tylenol) 325 Mg Tab 650 MG PO Q4H PRN PRN PAIN / FEVER (Reported ) Alprazolam (Xanax) 0.5 Mg Tab 0.5 MG PO QID PRN PRN MUSCLE SPASMS / ANXIETY ( Reported) Bisacodyl (Dulcolax) 10 Mg Sup 10 MG AL DAILY PRN PRN CONSTIPATION (Reported) Milk Of Magnesia (Milk of Magnesia) 1,200 Mg/15 Ml Corinne 30 ML PO DAILY PRN PRN CONSTIPATION (Reported) Sodium Phosphate/Biphosphate (Fleet Enema 7-19 gm/118Ml) 1 Symone Symone 1 EA AL DAILY PRN PRN CONSTIPATION (Reported) Zolpidem Tartrate (Zolpidem Tartrate ER) 12.5 Mg Tab 12.5 MG PO QHS PRN PRN SLEEP (Reported) Allergies Coded Allergies: Alendronate (Unverified Allergy, Unknown, unknown, 01/26/16) Ibandronic Acid (Unverified Allergy, Unknown, unknown, 01/26/16) Penicillins (Verified Allergy, Unknown, 01/26/16) Rofecoxib (Unverified Allergy, Unknown, unknown, 01/26/16) Morphine (Unverified Adverse Reaction, Mild, nausea, headaches, 03/07/16) Past Medical History Medical History DM2, Seizure disorder, HTN, Depression, GERD, Hyponatremia (chronic) and multiple sclerosis Surgical History Intrathecal pump insertion and pump removal Appendectomy Family History - Non-contributory Social History - Denies the use of alcohol, tobacco or illicit drugs - Lives at [facility] Review of Symptoms Other systems Unable to obtain as patient is not completely oriented Vital Signs - Vitals: BP 137/79, HR 88, RR 18, Sat 98%RA, Temp 98.2F - General: Lying in bed, No acute distress, Speaking in full sentences, AAOx3 - HEENT: NC, AT, PERRLA, EOMI - CVS: RRR, +S1S2, - Murmurs / rubs / gallops - Lungs: Fair air entry bilaterally, Clear to auscultation, No wheezing / rales / rhonchi - Abdomen: Soft, Non-distended, Non-tender, + Bowel sounds x 4 - Back: Area at lumbar spine midline with protruding catheter, no erythema / drainage noted, L pelvis / SI joint with decubitus ulcer packing in place - Extremities: + PPx4, No lower extremity edema, No calf tenderness - Neuro: Unable to move lower extremities - Skin: No visible rashes Laboratory Data Labs 24H Laboratory Tests 2 04/30/16 20:40: Activated Partial Thromboplast Time 33.3, White Blood Count 11.2H, Red Blood Count 5.04, Hemoglobin 14.7, Hematocrit 45.4, Mean Corpuscular Volume 90.1, Mean Corpuscular Hemoglobin 29.3, Mean Corpuscular Hemoglobin Concent 32.5, Red Cell Distribution Width 14.7H, Platelet Count 245, Neutrophils (%) (Auto) 78.0H , Lymphocytes (%) (Auto) 15.3L, Monocytes (%) (Auto) 4.4, Eosinophils (%) (Auto ) 0.8, Basophils (%) (Auto) 0.3, Neutrophils # (Auto) 8.8H, Lymphocytes # (Auto ) 1.7, Monocytes # (Auto) 0.5, Eosinophils # (Auto) 0.1, Basophils # (Auto) 0.0 , Large Unclassified Cells # 0.2, Large Unclassified Cells % 1.3, Prothromb Time International Ratio 1.00, Prothrombin Time 13.3 04/30/16 21:28: Blood Urea Nitrogen 12, Creatinine 0.49L, Sodium Level 137, Potassium Level 4.3 , Chloride Level 98, Carbon Dioxide Level 32, Calcium Level 8.4L, Aspartate Amino Transf (AST/SGOT) 11L, Alanine Aminotransferase (ALT/SGPT) 19, Alkaline Phosphatase 97, Total Bilirubin 0.3, Total Protein 6.3L, Albumin 3.0L, Albumin/ Globulin Ratio 0.91L, Anion Gap 7L, Glomerular Filtration Rate > 60.0 CBC/BMP Laboratory Tests 04/30/16 20:40 Red Blood Count 5.04, Mean Corpuscular Volume 90.1, Mean Corpuscular Hemoglobin 29.3, Mean Corpuscular Hemoglobin Concent 32.5, Red Cell Distribution Width 14.7 H, Neutrophils (%) (Auto) 78.0 H, Lymphocytes (%) (Auto) 15.3 L, Monocytes (%) (Auto) 4.4, Eosinophils (%) (Auto) 0.8, Basophils (%) (Auto) 0.3, Neutrophils # (Auto) 8.8 H, Lymphocytes # (Auto) 1.7, Monocytes # (Auto) 0.5, Eosinophils # (Auto) 0.1, Basophils # (Auto) 0.0 04/30/16 21:28 Calcium Level 8.4 L, Aspartate Amino Transf (AST/SGOT) 11 L, Alanine Aminotransferase (ALT/SGPT) 19, Alkaline Phosphatase 97, Total Bilirubin 0.3, Total Protein 6.3 L, Albumin 3.0 L Microbiology Microbiology 04/30/16 Blood Culture, Received Pending Plan / VTE VTE Prophylaxis Ordered?: Yes Plan / Urinary Catheter Reason for insertion/continuin: Assist wound healing Plan Plan Protruding intrathecal catheter possibly infected - Protrusion occurred on Sunday (04/28), no reported fevers - Physical reveals decubitus ulcers and catheter - No fevers reported at group home or in the ER - Mild elevation in WBC - Cultures from 04/28 reveal Serratia Marcescens - Will check ESR, CRP, Lactic acid - Will check blood cultures and repeat cultures in OR - Case was discussed with Dr. Moy recommended Meropenem and Vancomycin - Patient will be taken to OR tonight for removal of intrathecal catheter DM2 - will hold metformin - start insulin sliding scale Seizure disorder - c/w keppra HTN - c/w atenolol with holding paramters Depression - c/w sertraline and duloxetine Hyponatremia (chronic) AYLA not on CPAP Multiple sclerosis - c/w metaxalone, DVT prophylaxis - Will start SCDs GIANNI WELCH MD Apr 30, 2016 23:58
[2016-05-01] VITALS (10 sets, daily range): BP systolic 111–158; BP diastolic 62–98
[2016-05-01] MEDS ORDERED: BISACODYL 10 MG SUPP PR PRN
[2016-05-01] MEDS ORDERED: METAXALONE 400 MG 1/2 TAB PO PRN
[2016-05-01] MEDS ORDERED: FLEET ENEMA PR PRN
[2016-05-01] MEDS ORDERED: MOM 30ML SUSPENSION UDC PO PRN
[2016-05-01] MEDS ORDERED: ALPRAZolam 0.5 MG TAB PO PRN
[2016-05-01] MEDS ORDERED: fentaNYL 100 MCG/2 ML INJECTION (J3010) As Ordered ONE (00:09)
[2016-05-01] MEDS ORDERED: BACITRACIN PWD 50,000 UNITS VIAL As Ordered ONE (00:36)
--- NOTE | 2016-05-01 02:09 | PHACANCOPD ---
PHARMACY VANCOMYCIN DOSING Pt Demographics Demographics Patient Age:61 , Weight: , Gender: male Adjusted Body Weight Date: 05/01/16, Adjusted Body Weight: [60.8] Kg Events Past 24 Hours Events Past 24 Hours: NO: Change in CrCl, Dialysis, Diuretic Therapy, Elevation in WBC, Fever, Other, Pending Diagnostics, Pending Procedures Vancomycin Vancomycin Target Ranges: 15-20 mcg/ml Vancomycin Load Y/N: Yes Load Dose Date Time Vancomycin Load Dose: 1250mg Date: 05-01 Time: 0300 Vancomycin Dose Date: 05/01/16. Current Vancomycin Dose: [1000mg q12h] Intermittent Dosing?: No Labs Labs Item Value Date Time White Blood Count 11.2 K/mm3 H 04/30/16 2040 Creatinine 0.49 MG/DL L 04/30/16 2128 Vital Signs Label Value Date Time Patient Temperature 96.0 degrees F 05/01/16 0140 Temperature Source Oral 05/01/16 0140 Micro Microbiology 04/30/16 Blood Culture, Received Pending Creatinine Clearance Date:05/01/16. Creatinine Clearance: [Scr not accurate for CrCl est. ]. Pending Labs Trough 05-02 @0200 Assessment and Plan Maintaining Current Dose?: Yes Reason for dose change: No Dose Change Pharmacist Note Pharmacist Note Date: 05/01/16. Pharmacist note:Patients Scr not accurate marker of renal function as pt is immobile with MS. Dosed patient at 1000mg q12h witha trough scheduled for 05-02 @0200. Will continue to monitor and make adjustments as needed. CRISELDA GOODRICH PHARMACY May 01, 2016 02:09
[2016-05-01] MEDS: HumaLOG INSULIN (NovoLOG) PER UNIT SC SCH ×5 (02:20→21:00)
[2016-05-01] MEDS: PREGABALIN 100 MG CAP (LYRICA) PO SCH ×4 (02:32→21:16)
[2016-05-01] MEDS ORDERED: VANCOMYCIN HCL 750 MG, VIAL MATE ADAPTER 1 EACH in D5W 250 ML IV ONE (03:00)
[2016-05-01] MEDS: levETIRAcetam ORAL SOLUTION 500 MG/5 ML UDC PO SCH ×3 (03:01→21:16)
[2016-05-01] MEDS ORDERED: VANCOMYCIN HCL 500 MG in D5W MINI-BAG PLUS 100 ML IV ONE (04:00)
[2016-05-01] MEDS: ACETAMINOPHEN TAB 650MG DOSE (2X325MG) PO PRN ×2 (06:02→22:20)
[2016-05-01 06:41] LABS: BASO % 0.3 % (0.0-1.0); EOS # 0.1 K/mm3 (0.0-0.50); EOS % 0.7 % (0.0-3.0); LARGE UNSTAINED CELL # 0.1 K/mm3 (0.0-0.4); LYMPH # 1.2 K/mm3 (1.5-4.5); LYMPH % 11.1 % (24.0-44.0); MEAN CORPUSCULAR HEMOGLOBIN 29.4 pg (27.0-33.0); MEAN CORPUSCULAR HGB CONC 33.4 g/dl (32.0-36.5); MONO # 0.5 K/mm3 (0.0-0.8); MONO % 4.9 % (0.0-5.0); NEUTROPHILS # 8.9 K/mm3 (1.8-7.7); PLATELET COUNT, AUTOMATED 221 k/mm3 (150-450); RED CELL DISTRIBUTION WIDTH 14.6 % (11.5-14.5); WHITE BLOOD COUNT 10.8 K/mm3 (4.0-10.0)
[2016-05-01] MEDS ORDERED: NORCO, ANEXSIA 5/325MG TABLET (HYDROcodone/ACETAMINOPHEN) PO PRN (06:45)
[2016-05-01 07:02] LABS: ALBUMIN 2.9 GM/DL (3.2-5.2); ALBUMIN/GLOBULIN RATIO 0.73 (1.00-1.93); ALKALINE PHOSPHATASE 93 U/L (45-117); ALT/SGPT 16 U/L (12-78); ANION GAP 8 MEQ/L (8-16); AST/SGOT 9 U/L (15-37); BILIRUBIN,TOTAL 0.5 MG/DL (0.2-1.0); BLOOD UREA NITROGEN 7 MG/DL (7-18); CALCIUM LEVEL 8.5 MG/DL (8.8-10.2); CARBON DIOXIDE LEVEL 32 MEQ/L (21-32); CHLORIDE LEVEL 95 MEQ/L (98-107); CREATININE FOR GFR 0.51 MG/DL (0.70-1.30); GLOMERULAR FILTRATION RATE > 60.0 (>49); GLUCOSE, FASTING 116 MG/DL (80-110); MAGNESIUM LEVEL 1.9 MG/DL (1.8-2.4); POTASSIUM SERUM 3.7 MEQ/L (3.5-5.1); SODIUM LEVEL 135 MEQ/L (136-145); TOTAL PROTEIN 6.9 GM/DL (6.4-8.2)
--- NOTE | 2016-05-01 07:47 | REP ---
Clinical: Preoperative assessment . Comparison: 03/12/2016 . Findings: The mediastinum and cardiac silhouette are stable and within normal limits for portable technique. The lung grijalva demonstrate chronic change without acute consolidation, effusion, or pneumothorax. Skeletal structures are intact. Impression: Chronic stable changes. No acute cardiopulmonary process identified. Signed by Gerson Rowan MD 05/01/2016 07:39 A
[2016-05-01] MEDS ORDERED: MEROPENEM INJ 2 GM in NS 100 ML IV SCH (08:00)
[2016-05-01] MEDS ORDERED: MODAFINIL 100 MG TAB PO SCH (09:00)
[2016-05-01] MEDS: MODAFINIL 200MG TABLET PO SCH ×2 (09:40→12:39)
[2016-05-01] MEDS: METOCLOPRAMIDE 10 MG TAB PO SCH ×4 (09:40→21:16)
[2016-05-01] MEDS: DULoxetine 20 MG CAP (CYMBALTA) PO SCH (09:40)
[2016-05-01] MEDS: PANTOPRAZOLE 40MG TAB (PROTONIX) PO SCH (09:40)
[2016-05-01] MEDS: MULTIVITAMINS/MINERALS THERAP 1 TAB PO SCH (09:41)
[2016-05-01] MEDS: ATENOLOL 50 MG TAB PO SCH (09:41)
[2016-05-01] MEDS: SERTRALINE 100 MG TAB PO SCH (09:41)
[2016-05-01] MEDS ORDERED: METAXALONE 800 MG TABLET PO PRN (10:00)
--- NOTE | 2016-05-01 10:10 | RO ---
DATE OF PROCEDURE: 05/01/2016 PREPROCEDURE DIAGNOSIS: Exteriorized intrathecal catheter with abscess around the intrathecal catheter tract. POSTPROCEDURE DIAGNOSIS: Exteriorized intrathecal catheter with abscess around the catheter tract extending into the anterior abdominal wall PROCEDURE: Removal of exteriorized intrathecal catheter. Incision and drainage of abscess along the catheter tract into the abdominal wall. SURGEON: Dr. Dwight Gray. TANK BUILDER SUPERVISOR: ANESTHESIA: Local with MAC. ESTIMATED BLOOD LOSS: FINDINGS: Please see my previous admit note and ER note for details. Patient had an intrathecal morphine pump placed about 20 years ago at [place] and last fall, his pump exteriorized with massive infection around the pump site. He was advised to have the entire system removed, he declined to have the catheter removed which was kept and the pump removed. The staff from [facility] called on Sunday, a few days ago, stating that his shunt catheter is popping out of the bed sore over his incision in his lumbar region and it is draining alicia pus out of it. He was asked to come to the emergency room where the wound was cultured by the ED physician, Patient and his sister were aware of all options, risks, scope, expected outcome and sequel and complication of the proposed procedure and after all matters pertaining to surgery and followup care discussed again, patient's sister and patient decided to proceed with surgery. Patient, however, was confused oriented times one, but still he did recognize me by my name, though more than one occasion, he would not recognize his sister. Apparently this fluctuating level and content of consciousness has been going on for the past couple of days. After his sister's and his request, he was taken to the operating room. The area of surgery was prepped and draped in the usual sterile fashion after position in lateral position, there was free pus flowing across the his lumbar incision where the intrathecal catheter was exteriorized. At this time, part of his left anterior abdominal wall incision was opened and pus was removed and the wound was debrided. The proximal end of the catheter and the reservoir were expressed out of the wound. It was, however, then excised with a small piece of the intrathecal catheter which was ligated with #2-0 silk. The other wire was filled with yellowish fluid. The other wire along with its content was sent for culture. Attention was now pain to the lumbar incision where it appeared that there was a break in continuity of the catheter system just near the lumbar dorsal fascia. The wound was debrided and pus was removed from around the catheter site. The catheter was dissected free of scarring and the intrathecal catheter was gently expressed out of the wound and sent for pathology examination. After debridement, the wound was held with just one stitch. Similarly a couple of stitches were placed in the left abdominal wound. No residual infection or purulence was observed. Optifoam dressing was applied. Blood loss was negligible. Patient tolerated the procedure well and was sent to the recovery room in stable condition. Operative findings were discussed with patient's sister in the waiting room. COMPA
[2016-05-01] MEDS: MEROPENEM INJ 2 GM in NS 100 ML IV SCH ×2 (11:49→19:43)
[2016-05-01] MEDS: VANCOMYCIN HCL 1,000 MG, VIAL MATE ADAPTER 1 EACH in D5W 250 ML IV SCH (14:54)
[2016-05-02 02:00] VITALS: BP 118/77
--- NOTE | 2016-05-02 02:38 | IPNPDOC ---
Subjective Date Seen The patient was seen on 05/02/16. Subjective Chief Complaint/HPI The patient is a 61-year-old male admitted with a reason for visit of protruding old Intrathecal Pump. Events since last encounter Taken for removal of intrathecal catheter. He opens his eyes but does not clearly respond to questions, and I note that upon admission he was not a reliable historian. General: Reports: ROS Unobtainable Objective Physical Examination General Exam: Positive: Cooperative Eye Exam: Positive: Conjunctiva & lids normal Chest Exam: Positive: Clear to auscultation, Normal air movement Heart Exam: Positive: Rate Normal, Regular Rhythm Abdomen Exam: Positive: Normal bowel sounds, Soft, Negative: Tenderness Assessment /Plan Problems (1) Intrathecal pump infection Status: Acute Problem Text: Abscess reported along the tract of the intrathecal pump. Catheter was protruding from back, and removed surgically. Antibiotics per ID. (2) Seizure disorder Status: Chronic Problem Text: Keppra continued (3) Depression Status: Chronic Problem Text: On sertraline (4) Hypertension Status: Chronic Problem Text: On atenolol. Plan/VTE VTE Prophylaxis Ordered?: Yes Plan/Urinary Catheter Reason for insertion/continuin: Assist wound healing VS, I&O, 24H, Fishbone Vital Signs/I&O Vital Signs Date Time Temp Pulse Resp B/P Pulse Ox O2 Delivery O2 Flow Rate FiO2 05/01/16 22:00 100.0 93 19 143/79 62 Room Air I&O- Last 24 Hours up to 6 AM 05/02/16 06:00 Intake Total 1090 ml Output Total 0 ml Balance 1090 ml Laboratory Data 24H LABS Laboratory Tests 2 05/01/16 06:31: Blood Urea Nitrogen 7, Creatinine 0.51L, Sodium Level 135L, Potassium Level 3.7 , Chloride Level 95L, Carbon Dioxide Level 32, Calcium Level 8.5L, Aspartate Amino Transf (AST/SGOT) 9L, Alanine Aminotransferase (ALT/SGPT) 16, Alkaline Phosphatase 93, Total Bilirubin 0.5#, Total Protein 6.9, Albumin 2.9L, Albumin/ Globulin Ratio 0.73L, Anion Gap 8, White Blood Count 10.8H, Red Blood Count 4.77 , Hemoglobin 14.0, Hematocrit 42.0, Mean Corpuscular Volume 88.0, Mean Corpuscular Hemoglobin 29.4, Mean Corpuscular Hemoglobin Concent 33.4, Red Cell Distribution Width 14.6H, Platelet Count 221, Neutrophils (%) (Auto) 82.0H, Lymphocytes (%) (Auto) 11.1L, Monocytes (%) (Auto) 4.9, Eosinophils (%) (Auto) 0.7, Basophils (%) (Auto) 0.3, Neutrophils # (Auto) 8.9H, Lymphocytes # (Auto) 1.2L, Monocytes # (Auto) 0.5, Eosinophils # (Auto) 0.1, Basophils # (Auto) 0.0, Glomerular Filtration Rate > 60.0, Large Unclassified Cells # 0.1, Large Unclassified Cells % 1.0, Magnesium Level 1.9 05/01/16 11:23: Bedside Glucose (Misc Panel) 110 05/01/16 16:37: Bedside Glucose (Misc Panel) 164H 05/01/16 20:42: Bedside Glucose (Misc Panel) 89 05/02/16 01:57: CBC/BMP Laboratory Tests 05/01/16 06:31 Calcium Level 8.5 L, Aspartate Amino Transf (AST/SGOT) 9 L, Alanine Aminotransferase (ALT/SGPT) 16, Alkaline Phosphatase 93, Total Bilirubin 0.5 #, Total Protein 6.9, Albumin 2.9 L, Red Blood Count 4.77, Mean Corpuscular Volume 88.0, Mean Corpuscular Hemoglobin 29.4, Mean Corpuscular Hemoglobin Concent 33.4 , Red Cell Distribution Width 14.6 H, Neutrophils (%) (Auto) 82.0 H, Lymphocytes (%) (Auto) 11.1 L, Monocytes (%) (Auto) 4.9, Eosinophils (%) (Auto) 0.7, Basophils (%) (Auto) 0.3, Neutrophils # (Auto) 8.9 H, Lymphocytes # (Auto) 1.2 L, Monocytes # (Auto) 0.5, Eosinophils # (Auto) 0.1, Basophils # (Auto) 0.0 Microbiology Microbiology 04/30/16 Blood Culture - Preliminary, Resulted No growth after 24 hours . All specim... 04/30/16 Blood Culture, Received Pending 05/01/16 Anaerobic Culture, Received Pending 05/01/16 Gram Stain - Final, Resulted 05/01/16 Bacterial Culture, Resulted Pending ECHO SALINAS DO May 02, 2016 02:37
[2016-05-02] MEDS: MEROPENEM INJ 2 GM in NS 100 ML IV SCH ×3 (03:06→18:17)
[2016-05-02] MEDS: VANCOMYCIN HCL 1,000 MG, VIAL MATE ADAPTER 1 EACH in D5W 250 ML IV SCH (03:46)
--- NOTE | 2016-05-02 05:19 | PHACANCOPD ---
PHARMACY VANCOMYCIN DOSING Pt Demographics Demographics Patient Age:61 , Weight:67.400 , Gender: male Adjusted Body Weight Date: 05/01/16, Adjusted Body Weight: [60.8] Kg Vancomycin Vancomycin Target Ranges: 15-20 mcg/ml Vancomycin Load Y/N: Yes Load Dose Date Time Vancomycin Load Dose: 1250mg Date: 05-01 Time: 0300 Vancomycin Dose Date: 05/01/16. Current Vancomycin Dose: [1000mg q12h] Intermittent Dosing?: No Labs Micro Microbiology 04/30/16 Blood Culture - Preliminary, Resulted No growth after 24 hours . All specim... 04/30/16 Blood Culture - Preliminary, Resulted No growth after 24 hours . All specim... 05/01/16 Anaerobic Culture, Received Pending 05/01/16 Gram Stain - Final, Resulted 05/01/16 Bacterial Culture, Resulted Pending Creatinine Clearance Date:05/01/16. Creatinine Clearance: [Scr not accurate for CrCl est. ]. Assessment and Plan Maintaining Current Dose?: No Reason for dose change: Trough too low Pharmacist Note Pharmacist Note Date: 05/02/16. Pharmacist note:vANCOMYCIN TROUGH DRAWN THIS AM @0157 reported as 9.5(target=15-20)Will adjust Vancomycin regimen to 750mg iV Q8H beginning at 12noon today-SCR not yet posted: will continue to follow Date: 05/01/16. Pharmacist note:Patients Scr not accurate marker of renal function as pt is immobile with MS. Dosed patient at 1000mg q12h witha trough scheduled for 05-02 @0200. Will continue to monitor and make adjustments as needed. JOELLE WHITMORE PHARMACY May 02, 2016 05:19
[2016-05-02 06:00] VITALS: BP 138/82
[2016-05-02 06:40] LABS: BASO % 0.4 % (0.0-1.0); EOS # 0.1 K/mm3 (0.0-0.50); EOS % 0.8 % (0.0-3.0); LARGE UNSTAINED CELL # 0.1 K/mm3 (0.0-0.4); LARGE UNSTAINED CELL % 1.4 % (0.0-4.0); LYMPH # 1.4 K/mm3 (1.5-4.5); LYMPH % 14.9 % (24.0-44.0); MEAN CORPUSCULAR HEMOGLOBIN 29.4 pg (27.0-33.0); MEAN CORPUSCULAR HGB CONC 33.1 g/dl (32.0-36.5); MEAN CORPUSCULAR VOLUME 88.9 fl (80.0-96.0); MONO # 0.5 K/mm3 (0.0-0.8); MONO % 6.5 % (0.0-5.0); NEUTROPHILS # 6.3 K/mm3 (1.8-7.7); PLATELET COUNT, AUTOMATED 197 k/mm3 (150-450); RED CELL DISTRIBUTION WIDTH 14.5 % (11.5-14.5); WHITE BLOOD COUNT 8.2 K/mm3 (4.0-10.0)
[2016-05-02 06:53] LABS: ALBUMIN 2.7 GM/DL (3.2-5.2); ALBUMIN/GLOBULIN RATIO 0.64 (1.00-1.93); ALKALINE PHOSPHATASE 86 U/L (45-117); ALT/SGPT 16 U/L (12-78); ANION GAP 8 MEQ/L (8-16); AST/SGOT 17 U/L (15-37); BILIRUBIN,TOTAL 0.5 MG/DL (0.2-1.0); BLOOD UREA NITROGEN 5 MG/DL (7-18); CALCIUM LEVEL 8.4 MG/DL (8.8-10.2); CARBON DIOXIDE LEVEL 29 MEQ/L (21-32); CHLORIDE LEVEL 97 MEQ/L (98-107); CREATININE FOR GFR 0.52 MG/DL (0.70-1.30); GLOMERULAR FILTRATION RATE > 60.0 (>49); GLUCOSE, FASTING 105 MG/DL (80-110); MAGNESIUM LEVEL 2.2 MG/DL (1.8-2.4); POTASSIUM SERUM 4.1 MEQ/L (3.5-5.1); SODIUM LEVEL 134 MEQ/L (136-145); TOTAL PROTEIN 6.9 GM/DL (6.4-8.2)
[2016-05-02] MEDS: HumaLOG INSULIN (NovoLOG) PER UNIT SC SCH (07:30)
[2016-05-02] MEDS: levETIRAcetam ORAL SOLUTION 500 MG/5 ML UDC PO SCH ×2 (09:27→20:44)
[2016-05-02] MEDS: PREGABALIN 100 MG CAP (LYRICA) PO SCH ×3 (09:28→20:45)
[2016-05-02] MEDS: MULTIVITAMINS/MINERALS THERAP 1 TAB PO SCH (09:28)
[2016-05-02] MEDS: SERTRALINE 100 MG TAB PO SCH (09:28)
[2016-05-02] MEDS: PANTOPRAZOLE 40MG TAB (PROTONIX) PO SCH (09:28)
[2016-05-02] MEDS: MODAFINIL 200MG TABLET PO SCH ×2 (09:28→11:36)
[2016-05-02] MEDS: METOCLOPRAMIDE 10 MG TAB PO SCH ×4 (09:28→20:45)
[2016-05-02] MEDS: DULoxetine 20 MG CAP (CYMBALTA) PO SCH (09:28)
[2016-05-02] MEDS: ATENOLOL 50 MG TAB PO SCH (09:29)
[2016-05-02 10:00] VITALS: BP 118/68
--- NOTE | 2016-05-02 11:18 | IPNPDOC ---
Subjective Date Seen The patient was seen on 05/02/16. Subjective Chief Complaint/HPI The patient is a 61-year-old male admitted with a reason for visit of Ulcer Of Back, Decubitus Ulcer, Intrathecal Pump. Events since last encounter No new issues or concerns Constitutional: Denies: Chills, Fever Pulmonary: Denies: Cough, Dyspnea Cardiovascular: Denies: Chest Pain, Palpitations Gastrointestinal: Denies: Abdominal Pain, Constipation, Diarrhea, Nausea, Vomiting Objective Physical Examination General Exam: Positive: Alert, Cooperative, No Acute Distress Eye Exam: Positive: Conjunctiva & lids normal Chest Exam: Positive: Clear to auscultation, Normal air movement Heart Exam: Positive: Rate Normal, Regular Rhythm Abdomen Exam: Positive: Normal bowel sounds, Soft, Negative: Tenderness Skin Exam: Positive: Other skin issue (left posterior flank bandage C/D/I wihtout surrounding erythema or swelling) Assessment /Plan Problems (1) Intrathecal pump infection Status: Acute Problem Text: Abscess reported along the tract of the intrathecal pump. Catheter was protruding from back, and removed surgically. Antibiotics per ID. 05/02 - intrathecal catheter removed - continue current abx for abscess. ( Cultured Serratia as outpatient so started on Meropenem & Vanco here per ID recommendations - f/u cultures pending) (2) Multiple sclerosis Status: Chronic Response to Treatment: Stable Problem Text: Baclofen intrathecal pump removed so MS less well controlled now as would be expected continue Skelaxin po (3) Seizure disorder Status: Chronic Problem Text: Keppra continued (4) Depression Status: Chronic Problem Text: On sertraline (5) Hypertension Status: Chronic Problem Text: On atenolol. Plan/VTE VTE Prophylaxis Ordered?: Yes (Start Lovenox) Plan/Urinary Catheter Reason for insertion/continuin: Assist wound healing Plan Attending attestation: I saw and evaluated the patient, and I agree with the plan of care as discussed and documented by Maeve Tellez. Nga Goldman MD VS, I&O, [facility] Vital Signs/I&O Vital Signs Date Time Temp Pulse Resp B/P Pulse Ox O2 Delivery O2 Flow Rate FiO2 05/02/16 10:00 97.9 71 16 118/68 94 Room Air I&O- Last 24 Hours up to 6 AM 05/02/16 06:00 Intake Total 1700 ml Output Total 0 ml Balance 1700 ml Laboratory Data 24H LABS Laboratory Tests 2 05/01/16 11:23: Bedside Glucose (Misc Panel) 110 05/01/16 16:37: Bedside Glucose (Misc Panel) 164H 05/01/16 20:42: Bedside Glucose (Misc Panel) 89 05/02/16 01:57: Vancomycin Level Trough 9.5L 05/02/16 06:23: Blood Urea Nitrogen 5L, Creatinine 0.52L, Sodium Level 134L, Potassium Level 4.1 , Chloride Level 97L, Carbon Dioxide Level 29, Calcium Level 8.4L, Aspartate Amino Transf (AST/SGOT) 17, Alanine Aminotransferase (ALT/SGPT) 16, Alkaline Phosphatase 86, Total Bilirubin 0.5, Total Protein 6.9, Albumin 2.7L, Albumin/ Globulin Ratio 0.64L, Anion Gap 8, White Blood Count 8.2, Red Blood Count 4.68, Hemoglobin 13.8L, Hematocrit 41.6L, Mean Corpuscular Volume 88.9, Mean Corpuscular Hemoglobin 29.4, Mean Corpuscular Hemoglobin Concent 33.1, Red Cell Distribution Width 14.5, Platelet Count 197, Neutrophils (%) (Auto) 76.0H, Lymphocytes (%) (Auto) 14.9L, Monocytes (%) (Auto) 6.5H, Eosinophils (%) (Auto) 0.8, Basophils (%) (Auto) 0.4, Neutrophils # (Auto) 6.3, Lymphocytes # (Auto) 1.4L, Monocytes # (Auto) 0.5, Eosinophils # (Auto) 0.1, Basophils # (Auto) 0.0, Glomerular Filtration Rate > 60.0, Large Unclassified Cells # 0.1, Large Unclassified Cells % 1.4, Magnesium Level 2.2 CBC/BMP Laboratory Tests 05/02/16 06:23 Calcium Level 8.4 L, Aspartate Amino Transf (AST/SGOT) 17, Alanine Aminotransferase (ALT/SGPT) 16, Alkaline Phosphatase 86, Total Bilirubin 0.5, Total Protein 6.9, Albumin 2.7 L, Red Blood Count 4.68, Mean Corpuscular Volume 88.9, Mean Corpuscular Hemoglobin 29.4, Mean Corpuscular Hemoglobin Concent 33.1 , Red Cell Distribution Width 14.5, Neutrophils (%) (Auto) 76.0 H, Lymphocytes ( %) (Auto) 14.9 L, Monocytes (%) (Auto) 6.5 H, Eosinophils (%) (Auto) 0.8, Basophils (%) (Auto) 0.4, Neutrophils # (Auto) 6.3, Lymphocytes # (Auto) 1.4 L, Monocytes # (Auto) 0.5, Eosinophils # (Auto) 0.1, Basophils # (Auto) 0.0 Microbiology Microbiology 04/30/16 Blood Culture - Preliminary, Resulted No growth after 24 hours . All specim... 04/30/16 Blood Culture - Preliminary, Resulted No growth after 24 hours . All specim... 05/01/16 Anaerobic Culture, Received Pending 05/01/16 Gram Stain - Final, Resulted 05/01/16 Bacterial Culture, Resulted Pending MAEEV TELLEZ PA-C May 02, 2016 11:18 NGA GOLDMAN MD May 02, 2016 19:18
[2016-05-02] MEDS: ENOXAPARIN 40 MG/0.4 ML SYRINGE (J1650) SC SCH (11:37)
[2016-05-02] MEDS: VANCOMYCIN HCL 750 MG, VIAL MATE ADAPTER 1 EACH in D5W 250 ML IV SCH ×2 (12:25→20:44)
[2016-05-02 14:00] VITALS: BP 145/76
[2016-05-02 18:00] VITALS: BP 144/74
[2016-05-02 22:00] VITALS: BP 121/69
[2016-05-03 02:00] VITALS: BP 110/65
[2016-05-03] MEDS: MEROPENEM INJ 2 GM in NS 100 ML IV SCH ×3 (02:18→18:18)
[2016-05-03] MEDS: VANCOMYCIN HCL 750 MG, VIAL MATE ADAPTER 1 EACH in D5W 250 ML IV SCH ×2 (03:30→12:31)
[2016-05-03 06:00] VITALS: BP 113/68
[2016-05-03 07:24] LABS: BASO % 0.3 % (0.0-1.0); EOS # 0.1 K/mm3 (0.0-0.50); EOS % 1.1 % (0.0-3.0); LARGE UNSTAINED CELL # 0.1 K/mm3 (0.0-0.4); LARGE UNSTAINED CELL % 1.6 % (0.0-4.0); LYMPH # 1.3 K/mm3 (1.5-4.5); LYMPH % 16.5 % (24.0-44.0); MEAN CORPUSCULAR HGB CONC 32.8 g/dl (32.0-36.5); MEAN CORPUSCULAR VOLUME 88.5 fl (80.0-96.0); MONO # 0.6 K/mm3 (0.0-0.8); MONO % 7.7 % (0.0-5.0); NEUTROPHILS # 5.9 K/mm3 (1.8-7.7); NEUTROPHILS % 72.9 % (36.0-66.0); PLATELET COUNT, AUTOMATED 202 k/mm3 (150-450); RED CELL DISTRIBUTION WIDTH 14.4 % (11.5-14.5)
[2016-05-03 08:11] LABS: ALBUMIN 2.7 GM/DL (3.2-5.2); ALBUMIN/GLOBULIN RATIO 0.79 (1.00-1.93); ALKALINE PHOSPHATASE 86 U/L (45-117); ALT/SGPT 20 U/L (12-78); ANION GAP 10 MEQ/L (8-16); AST/SGOT 8 U/L (15-37); BILIRUBIN,TOTAL 0.3 MG/DL (0.2-1.0); BLOOD UREA NITROGEN 5 MG/DL (7-18); CALCIUM LEVEL 8.4 MG/DL (8.8-10.2); CARBON DIOXIDE LEVEL 30 MEQ/L (21-32); CHLORIDE LEVEL 97 MEQ/L (98-107); CREATININE FOR GFR 0.43 MG/DL (0.70-1.30); GLOMERULAR FILTRATION RATE > 60.0 (>49); GLUCOSE, FASTING 106 MG/DL (80-110); MAGNESIUM LEVEL 2.3 MG/DL (1.8-2.4); POTASSIUM SERUM 3.7 MEQ/L (3.5-5.1); SODIUM LEVEL 137 MEQ/L (136-145); TOTAL PROTEIN 6.1 GM/DL (6.4-8.2)
[2016-05-03] MEDS: levETIRAcetam ORAL SOLUTION 500 MG/5 ML UDC PO SCH ×2 (09:43→20:24)
[2016-05-03] MEDS: METOCLOPRAMIDE 10 MG TAB PO SCH ×4 (09:43→20:23)
[2016-05-03] MEDS: MODAFINIL 200MG TABLET PO SCH ×2 (09:43→12:31)
[2016-05-03] MEDS: ENOXAPARIN 40 MG/0.4 ML SYRINGE (J1650) SC SCH (09:43)
[2016-05-03] MEDS: PREGABALIN 100 MG CAP (LYRICA) PO SCH ×3 (09:43→20:24)
[2016-05-03] MEDS: MULTIVITAMINS/MINERALS THERAP 1 TAB PO SCH (09:43)
[2016-05-03] MEDS: PANTOPRAZOLE 40MG TAB (PROTONIX) PO SCH (09:43)
[2016-05-03] MEDS: DULoxetine 20 MG CAP (CYMBALTA) PO SCH (09:43)
[2016-05-03] MEDS: SERTRALINE 100 MG TAB PO SCH (09:44)
[2016-05-03] MEDS: ATENOLOL 50 MG TAB PO SCH (09:44)
[2016-05-03 10:00] VITALS: BP 119/62
--- NOTE | 2016-05-03 11:26 | IPNPDOC ---
Subjective Date Seen The patient was seen on 05/03/16. Subjective Chief Complaint/HPI The patient is a 61-year-old male admitted with a reason for visit of Ulcer Of Back, Decubitus Ulcer, Intrathecal Pump. Events since last encounter c/o pain at site of wound on back and left side Constitutional: Reports: Fever (low grade overnight), Denies: Chills Skin: Reports: Rash (left forearm to elbow with papular raised erythematous rash with slight swellign at elbow. Warm c/w right arm. Non-tender. Not itchy) Pulmonary: Denies: Cough, Dyspnea Gastrointestinal: Denies: Abdominal Pain, Constipation, Diarrhea, Nausea, Vomiting Musculoskeletal: Reports: Other Symptoms (chronic MS pain) Objective Physical Examination General Exam: Positive: Alert, Cooperative, No Acute Distress Eye Exam: Positive: Conjunctiva & lids normal Chest Exam: Positive: Clear to auscultation, Normal air movement Heart Exam: Positive: Rate Normal, Regular Rhythm Abdomen Exam: Positive: Normal bowel sounds, Soft, Negative: Tenderness Skin Exam: Positive: Other skin issue (wound on center of back dime sized - no surrounding erythema or swelling. scant blood tinged drainage., left lateral flank wound edges dry, withtou surrounding erythema, drianage is small amount serosanguenous.), Rash (left forearm with erythematous papular area extending to elbow with minimal swelling at elbow. ) Assessment /Plan Problems (1) Intrathecal pump infection Status: Acute Problem Text: Abscess reported along the tract of the intrathecal pump. Catheter was protruding from back, and removed surgically. Antibiotics per ID. 05/02 - intrathecal catheter removed - continue current abx for abscess. ( Cultured Serratia as outpatient so started on Meropenem & Vanco here per ID recommendations - f/u cultures pending) 05/03 - Wound culture again grew Serratia. I tried to call Dr. Moy for input regarding switch to po abx (No answer) ?switch to Levaquin. Still with pain at wounds, Tmax = 99, WBC normalized. (2) Rash and nonspecific skin eruption Status: Acute Problem Text: left arm with ? contact dermatitis. apply Eucerin cream and consider Hydrocortisone (3) Multiple sclerosis Status: Chronic Response to Treatment: Stable Problem Text: Baclofen intrathecal pump removed so MS less well controlled now as would be expected continue Skelaxin po (4) Seizure disorder Status: Chronic Problem Text: Keppra continued (5) Depression Status: Chronic Problem Text: On sertraline (6) Hypertension Status: Chronic Problem Text: On atenolol. Plan/VTE VTE Prophylaxis Ordered?: Yes (Lovanox started yesterday) Plan/Urinary Catheter Reason for insertion/continuin: Assist wound healing Disposition Back to [facility] tomorrow if stable VS, I&O, 24H, Fishbone Vital Signs/I&O Vital Signs Date Time Temp Pulse Resp B/P Pulse Ox O2 Delivery O2 Flow Rate FiO2 05/03/16 09:44 92 119/62 05/03/16 06:00 97.0 18 97 Room Air I&O- Last 24 Hours up to 6 AM 05/03/16 06:00 Intake Total 1000 ml Output Total 0 ml Balance 1000 ml Laboratory Data 24H LABS Laboratory Tests 2 05/03/16 06:45: Blood Urea Nitrogen 5L, Creatinine 0.43L, Sodium Level 137, Potassium Level 3.7 , Chloride Level 97L, Carbon Dioxide Level 30, Calcium Level 8.4L, Aspartate Amino Transf (AST/SGOT) 8L, Alanine Aminotransferase (ALT/SGPT) 20, Alkaline Phosphatase 86, Total Bilirubin 0.3, Total Protein 6.1L, Albumin 2.7L, Albumin/ Globulin Ratio 0.79L, Anion Gap 10, White Blood Count 8.0, Red Blood Count 4.68 , Hemoglobin 13.6L, Hematocrit 41.4L, Mean Corpuscular Volume 88.5, Mean Corpuscular Hemoglobin 29.0, Mean Corpuscular Hemoglobin Concent 32.8, Red Cell Distribution Width 14.4, Platelet Count 202, Neutrophils (%) (Auto) 72.9H, Lymphocytes (%) (Auto) 16.5L, Monocytes (%) (Auto) 7.7H, Eosinophils (%) (Auto) 1.1, Basophils (%) (Auto) 0.3, Neutrophils # (Auto) 5.9, Lymphocytes # (Auto) 1.3L, Monocytes # (Auto) 0.6, Eosinophils # (Auto) 0.1, Basophils # (Auto) 0.0, Glomerular Filtration Rate > 60.0, Large Unclassified Cells # 0.1, Large Unclassified Cells % 1.6, Magnesium Level 2.3 CBC/BMP Laboratory Tests 05/03/16 06:45 Calcium Level 8.4 L, Aspartate Amino Transf (AST/SGOT) 8 L, Alanine Aminotransferase (ALT/SGPT) 20, Alkaline Phosphatase 86, Total Bilirubin 0.3, Total Protein 6.1 L, Albumin 2.7 L, Red Blood Count 4.68, Mean Corpuscular Volume 88.5, Mean Corpuscular Hemoglobin 29.0, Mean Corpuscular Hemoglobin Concent 32.8, Red Cell Distribution Width 14.4, Neutrophils (%) (Auto) 72.9 H, Lymphocytes (%) (Auto) 16.5 L, Monocytes (%) (Auto) 7.7 H, Eosinophils (%) (Auto ) 1.1, Basophils (%) (Auto) 0.3, Neutrophils # (Auto) 5.9, Lymphocytes # (Auto) 1.3 L, Monocytes # (Auto) 0.6, Eosinophils # (Auto) 0.1, Basophils # (Auto) 0.0 Microbiology Microbiology 04/30/16 Blood Culture - Preliminary, Resulted No Growth after 48 hours. All Specime... 04/30/16 Blood Culture - Preliminary, Resulted No Growth after 48 hours. All Specime... 05/01/16 Anaerobic Culture, Received Pending 05/01/16 Gram Stain - Final, Complete 05/01/16 Bacterial Culture - Final, Complete Serratia MarcesMAEVE Barillas PA-C May 03, 2016 11:26
[2016-05-03 14:00] VITALS: BP 110/52
[2016-05-03 18:00] VITALS: BP 122/70
[2016-05-03 22:00] VITALS: BP 104/63
[2016-05-04] MEDS: MEROPENEM INJ 2 GM in NS 100 ML IV SCH ×2 (02:36→11:38)
[2016-05-04 06:00] VITALS: BP 145/87
[2016-05-04 07:37] LABS: BASO % 0.4 % (0.0-1.0); EOS # 0.1 K/mm3 (0.0-0.50); EOS % 1.2 % (0.0-3.0); LARGE UNSTAINED CELL # 0.1 K/mm3 (0.0-0.4); LARGE UNSTAINED CELL % 1.7 % (0.0-4.0); LYMPH # 1.3 K/mm3 (1.5-4.5); LYMPH % 17.3 % (24.0-44.0); MEAN CORPUSCULAR HEMOGLOBIN 28.8 pg (27.0-33.0); MEAN CORPUSCULAR HGB CONC 32.6 g/dl (32.0-36.5); MEAN CORPUSCULAR VOLUME 88.4 fl (80.0-96.0); MONO # 0.5 K/mm3 (0.0-0.8); MONO % 5.9 % (0.0-5.0); NEUTROPHILS # 5.7 K/mm3 (1.8-7.7); NEUTROPHILS % 73.5 % (36.0-66.0); PLATELET COUNT, AUTOMATED 229 k/mm3 (150-450); RED CELL DISTRIBUTION WIDTH 14.5 % (11.5-14.5); WHITE BLOOD COUNT 7.7 K/mm3 (4.0-10.0)
[2016-05-04 08:07] LABS: ALBUMIN 2.5 GM/DL (3.2-5.2); ALBUMIN/GLOBULIN RATIO 0.64 (1.00-1.93); ALKALINE PHOSPHATASE 78 U/L (45-117); ALT/SGPT 18 U/L (12-78); ANION GAP 7 MEQ/L (8-16); AST/SGOT 8 U/L (15-37); BILIRUBIN,TOTAL 0.3 MG/DL (0.2-1.0); BLOOD UREA NITROGEN 6 MG/DL (7-18); CALCIUM LEVEL 8.2 MG/DL (8.8-10.2); CARBON DIOXIDE LEVEL 30 MEQ/L (21-32); CHLORIDE LEVEL 100 MEQ/L (98-107); CREATININE FOR GFR 0.44 MG/DL (0.70-1.30); GLOMERULAR FILTRATION RATE > 60.0 (>49); GLUCOSE, FASTING 103 MG/DL (80-110); MAGNESIUM LEVEL 2.3 MG/DL (1.8-2.4); POTASSIUM SERUM 3.4 MEQ/L (3.5-5.1); SODIUM LEVEL 137 MEQ/L (136-145); TOTAL PROTEIN 6.4 GM/DL (6.4-8.2)
[2016-05-04] MEDS: levETIRAcetam ORAL SOLUTION 500 MG/5 ML UDC PO SCH ×2 (08:59→20:07)
[2016-05-04] MEDS: SERTRALINE 100 MG TAB PO SCH (08:59)
[2016-05-04] MEDS: DULoxetine 20 MG CAP (CYMBALTA) PO SCH (08:59)
[2016-05-04] MEDS: ENOXAPARIN 40 MG/0.4 ML SYRINGE (J1650) SC SCH (08:59)
[2016-05-04] MEDS: PANTOPRAZOLE 40MG TAB (PROTONIX) PO SCH (09:00)
[2016-05-04] MEDS: PREGABALIN 100 MG CAP (LYRICA) PO SCH ×3 (09:00→20:07)
[2016-05-04] MEDS: MODAFINIL 200MG TABLET PO SCH ×2 (09:00→11:38)
[2016-05-04] MEDS: ATENOLOL 50 MG TAB PO SCH (09:00)
[2016-05-04] MEDS: MULTIVITAMINS/MINERALS THERAP 1 TAB PO SCH (09:00)
[2016-05-04] MEDS: METOCLOPRAMIDE 10 MG TAB PO SCH ×4 (09:01→20:07)
[2016-05-04 09:25] VITALS: BP 110/56
--- NOTE | 2016-05-04 10:16 | IPNPDOC ---
Subjective Date Seen The patient was seen on 05/04/16. Subjective Chief Complaint/HPI The patient is a 61-year-old male admitted with a reason for visit of Ulcer Of Back, Decubitus Ulcer, Intrathecal Pump. Events since last encounter Feels better today - less pain at site of wounds Constitutional: Denies: Chills, Fever Pulmonary: Denies: Cough, Dyspnea Cardiovascular: Denies: Chest Pain, Palpitations Gastrointestinal: Denies: Abdominal Pain, Constipation, Diarrhea, Nausea, Vomiting Objective Physical Examination General Exam: Positive: Alert, Cooperative, No Acute Distress Eye Exam: Positive: Conjunctiva & lids normal Chest Exam: Positive: Clear to auscultation, Normal air movement Heart Exam: Positive: Rate Normal, Regular Rhythm Abdomen Exam: Positive: Normal bowel sounds, Soft, Negative: Tenderness Skin Exam: Positive: Other skin issue (wound on center of back dime sized - no surrounding erythema or swelling. scant blood tinged drainage., left lateral flank wound edges dry, withtou surrounding erythema, drianage is small amount serosanguenous.), Rash (left forearm with erythematous papular area extending to elbow with minimal swelling at elbow - less prominant today c/w 05/03) Assessment /Plan Problems (1) Intrathecal pump infection Status: Acute Problem Text: Abscess reported along the tract of the intrathecal pump. Catheter was protruding from back, and removed surgically. Antibiotics per ID. 05/02 - intrathecal catheter removed - continue current abx for abscess. ( Cultured Serratia as outpatient so started on Meropenem & Vanco here per ID recommendations - f/u cultures pending) 05/03 - Wound culture again grew Serratia. I tried to call Dr. Moy for input regarding switch to po abx (No answer) ?switch to Levaquin. Still with pain at wounds, Tmax = 99, WBC normalized. 05/04 - I spoke with Dr. Moy and have officially consulted her for an opinion regarding antibiotics. He is day # 4 Meropenem and Vanco May be able to switch to Levaquin - Await Dr. Moy's input on this Continue wound care (2) Rash and nonspecific skin eruption Status: Acute Problem Text: left arm with ? contact dermatitis. apply Eucerin cream and consider Hydrocortisone (3) Multiple sclerosis Status: Chronic Response to Treatment: Stable Problem Text: Baclofen intrathecal pump removed so MS less well controlled now as would be expected continue Skelaxin po (4) Seizure disorder Status: Chronic Problem Text: Keppra continued (5) Depression Status: Chronic Problem Text: On sertraline (6) Hypertension Status: Chronic Problem Text: On atenolol. Plan/VTE VTE Prophylaxis Ordered?: Yes (Lovanox started yesterday) Plan/Urinary Catheter Reason for insertion/continuin: Assist wound healing VS, I&O, 24H, Fishbone Vital Signs/I&O Vital Signs Date Time Temp Pulse Resp B/P Pulse Ox O2 Delivery O2 Flow Rate FiO2 05/04/16 09:25 97.6 77 19 110/56 95 Room Air I&O- Last 24 Hours up to 6 AM 05/04/16 06:00 Intake Total 940 ml Output Total 0 ml Balance 940 ml Laboratory Data 24H LABS Laboratory Tests 2 05/04/16 07:00: Blood Urea Nitrogen 6L, Creatinine 0.44L, Sodium Level 137, Potassium Level 3.4L , Chloride Level 100, Carbon Dioxide Level 30, Calcium Level 8.2L, Aspartate Amino Transf (AST/SGOT) 8L, Alanine Aminotransferase (ALT/SGPT) 18, Alkaline Phosphatase 78, Total Bilirubin 0.3, Total Protein 6.4, Albumin 2.5L, Albumin/ Globulin Ratio 0.64L, Anion Gap 7L, White Blood Count 7.7, Red Blood Count 4.71 , Hemoglobin 13.6L, Hematocrit 41.7L, Mean Corpuscular Volume 88.4, Mean Corpuscular Hemoglobin 28.8, Mean Corpuscular Hemoglobin Concent 32.6, Red Cell Distribution Width 14.5, Platelet Count 229, Neutrophils (%) (Auto) 73.5H, Lymphocytes (%) (Auto) 17.3L, Monocytes (%) (Auto) 5.9H, Eosinophils (%) (Auto) 1.2, Basophils (%) (Auto) 0.4, Neutrophils # (Auto) 5.7, Lymphocytes # (Auto) 1.3L, Monocytes # (Auto) 0.5, Eosinophils # (Auto) 0.1, Basophils # (Auto) 0.0, Glomerular Filtration Rate > 60.0, Large Unclassified Cells # 0.1, Large Unclassified Cells % 1.7, Magnesium Level 2.3 CBC/BMP Laboratory Tests 05/04/16 07:00 Calcium Level 8.2 L, Aspartate Amino Transf (AST/SGOT) 8 L, Alanine Aminotransferase (ALT/SGPT) 18, Alkaline Phosphatase 78, Total Bilirubin 0.3, Total Protein 6.4, Albumin 2.5 L, Red Blood Count 4.71, Mean Corpuscular Volume 88.4, Mean Corpuscular Hemoglobin 28.8, Mean Corpuscular Hemoglobin Concent 32.6 , Red Cell Distribution Width 14.5, Neutrophils (%) (Auto) 73.5 H, Lymphocytes ( %) (Auto) 17.3 L, Monocytes (%) (Auto) 5.9 H, Eosinophils (%) (Auto) 1.2, Basophils (%) (Auto) 0.4, Neutrophils # (Auto) 5.7, Lymphocytes # (Auto) 1.3 L, Monocytes # (Auto) 0.5, Eosinophils # (Auto) 0.1, Basophils # (Auto) 0.0 Microbiology Microbiology 04/30/16 Blood Culture - Preliminary, Resulted No Growth after 72 hours. All specime... 04/30/16 Blood Culture - Preliminary, Resulted No Growth after 72 hours. All specime... 05/01/16 Anaerobic Culture - Final, Complete 05/01/16 Gram Stain - Final, Complete 05/01/16 Bacterial Culture - Final, Complete Serratia Marcescens MAEVE TELLEZ PA-C May 04, 2016 10:15
[2016-05-04 13:34] VITALS: BP 130/66
[2016-05-04 18:28] VITALS: BP 112/68
[2016-05-04] MEDS ORDERED: POTASSIUM CHLORIDE 10 MEQ SR TABLET PO ONE (19:30)
[2016-05-04] MEDS: LevoFLOXacin 500 MG TABLET PO SCH (20:06)
[2016-05-04 20:55] VITALS: BP 119/75
[2016-05-05 02:00] VITALS: BP 113/59
[2016-05-05 06:00] VITALS: BP 157/85
[2016-05-05 06:55] LABS: BASO % 0.2 % (0.0-1.0); EOS # 0.1 K/mm3 (0.0-0.50); EOS % 1.5 % (0.0-3.0); LARGE UNSTAINED CELL # 0.1 K/mm3 (0.0-0.4); LARGE UNSTAINED CELL % 1.2 % (0.0-4.0); LYMPH # 1.4 K/mm3 (1.5-4.5); LYMPH % 18.4 % (24.0-44.0); MEAN CORPUSCULAR HEMOGLOBIN 29.5 pg (27.0-33.0); MEAN CORPUSCULAR VOLUME 89.4 fl (80.0-96.0); MONO # 0.4 K/mm3 (0.0-0.8); MONO % 5.9 % (0.0-5.0); NEUTROPHILS # 5.3 K/mm3 (1.8-7.7); NEUTROPHILS % 72.9 % (36.0-66.0); PLATELET COUNT, AUTOMATED 199 k/mm3 (150-450); RED CELL DISTRIBUTION WIDTH 14.6 % (11.5-14.5); WHITE BLOOD COUNT 7.2 K/mm3 (4.0-10.0)
[2016-05-05 07:14] LABS: ALBUMIN 2.6 GM/DL (3.2-5.2); ALBUMIN/GLOBULIN RATIO 0.67 (1.00-1.93); ALKALINE PHOSPHATASE 88 U/L (45-117); ALT/SGPT 19 U/L (12-78); ANION GAP 7 MEQ/L (8-16); AST/SGOT 11 U/L (15-37); BILIRUBIN,TOTAL 0.2 MG/DL (0.2-1.0); BLOOD UREA NITROGEN 7 MG/DL (7-18); CALCIUM LEVEL 8.1 MG/DL (8.8-10.2); CARBON DIOXIDE LEVEL 27 MEQ/L (21-32); CHLORIDE LEVEL 103 MEQ/L (98-107); CREATININE FOR GFR 0.36 MG/DL (0.70-1.30); GLOMERULAR FILTRATION RATE > 60.0 (>49); GLUCOSE, FASTING 111 MG/DL (80-110); MAGNESIUM LEVEL 2.6 MG/DL (1.8-2.4); SODIUM LEVEL 137 MEQ/L (136-145); TOTAL PROTEIN 6.5 GM/DL (6.4-8.2)
[2016-05-05] MEDS: METOCLOPRAMIDE 10 MG TAB PO SCH ×2 (09:00→12:50)
[2016-05-05] MEDS: PANTOPRAZOLE 40MG TAB (PROTONIX) PO SCH (09:43)
[2016-05-05] MEDS: LevoFLOXacin 500 MG TABLET PO SCH (09:43)
[2016-05-05] MEDS: MODAFINIL 200MG TABLET PO SCH ×2 (09:43→12:50)
[2016-05-05] MEDS: SERTRALINE 100 MG TAB PO SCH (09:44)
[2016-05-05] MEDS: PREGABALIN 100 MG CAP (LYRICA) PO SCH (09:44)
[2016-05-05 09:45] VITALS: BP 112/78
[2016-05-05] MEDS: DULoxetine 20 MG CAP (CYMBALTA) PO SCH (09:45)
[2016-05-05] MEDS: ATENOLOL 50 MG TAB PO SCH (09:45)
[2016-05-05] MEDS: levETIRAcetam ORAL SOLUTION 500 MG/5 ML UDC PO SCH (09:45)
[2016-05-05] MEDS: ENOXAPARIN 40 MG/0.4 ML SYRINGE (J1650) SC SCH (09:49)
[2016-05-05] MEDS ORDERED: LEVA500T PO (10:56)
[2016-05-05 10:58] VITALS: BP 124/70
--- NOTE | 2016-05-05 17:24 | DSES ---
DATE OF ADMISSION: 04/30/2016 DATE OF DISCHARGE: 05/05/2016 BRIEF HISTORY AND PHYSICAL: The patient is a 61-year-old the patient with multiple sclerosis (MS) who resides at [facility], who presented to the emergency room with protruding intrathecal catheter. He had been recently hospitalized in February for confusion, thought to have normal pressure hydrocephalus and the family decided not to pursue aggressive treatment. His baclofen pump was removed by Dr. Gray in the fall because it was protruding from the skin and did not really seem to be helping his MS. His intrathecal catheter was left in place. However, he presented to the emergency room on this visit with a protruding intrathecal catheter. PAST MEDICAL HISTORY: Significant for seizure disorder, diabetes mellitus type 2, hypertension, depression, gastroesophageal reflux disease, obstructive sleep apnea not on continuous positive airway pressure (CPAP), chronic hyponatremia, multiple sclerosis. PERTINENT LABORATORIES ON ADMISSION: White count 11.2, hemoglobin 14.7, platelets 245,000. Sodium 137, potassium 4.3, BUN 12, creatinine 0.49, glucose 109. IMAGING: Chest x-ray showed chronic changes. HOSPITAL COURSE: 1. The patient was admitted for infected intrathecal catheter and Dr. Gray was consulted. He exteriorized the intrathecal catheter on 05/01/2016, and was found to have an abscess around it extending into the anterior abdominal wall around the catheter tract. He was initiated on meropenem and vancomycin on admission for Serratia which had previously grown in cultures from when the baclofen pump was removed to the past. Repeat cultures of the intrathecal catheter grew few Serratia marcescens again. Anaerobic cultures were negative. Dr. Moy saw the patient in consultation and based on sensitivities and etiology of the abscess infection, felt it was reasonable to switch him over to Levaquin. However, the dosing for appropriate management in this circumstance is 500 mg twice a day. He has gotten four days of meropenem so he will get 17 days of Levaquin 500 mg twice a day for a total of 21 days of antibiotics. The wound sites at this point have been evaluated and are clean. There is no surrounding erythema. They are draining some serosanguineous drainage and are somewhat tender but not flocculent, and without any purulent drainage both at the lateral flank region where the baclofen pump has been removed and also back where the intrathecal catheter was removed. He is getting foam dressings applied daily. 2. Decubitus ulcer. He has a decubitus ulcer in his upper and lower back region that he is getting wet-to-dry dressings twice a day. I would recommend further wound care. I believe he has been seeing Dr. Cleveland in the past but would recommend perhaps him revisiting him for this. The site looks clean on the day of discharge. The edges are dry and there is no drainage from the wound and there is no surrounding erythema or swelling. 3. Sacral decubitus. This is a grade 1 at this point without any ulceration per se and is getting foam dressings as needed. 4. Multiple sclerosis (MS). He is on his usual muscle relaxants. The baclofen pump, of course, has been removed. DISPOSITION: The patient is stable for discharge back to [facility]. Wound care has been ordered for the above-mentioned wounds. MEDICATIONS: - Levaquin 500 mg twice a day for 17 days - acetaminophen 650 mg every four hours as needed for pain or fever - Xanax 0.5 mg four times daily as needed for muscle spasms or anxiety - atenolol 50 mg daily - Dulcolax 10 mg per rectum daily - duloxetine 20 mg daily - Tony twice a day - levetiracetam 500 mg twice a day - metaxalone 800 mg three times a day as needed for muscle spasms - metformin 1000 mg twice a day - metoclopramide 5 mg four times a day - Provigil 200 mg twice a day - Lyrica 100 mg three times a day - sertraline 100 mg daily - Ambien 12.5 mg as needed for sleep Milk of magnesia and multivitamin were discontinued due to some hypermagnesemia on the date of discharge DISCHARGE DIAGNOSES 1. Intrathecal catheter infection secondary to Serratia. 2. Decubitus ulcer. 3. Wounds at the sites of the baclofen pump removal and intrathecal catheter removal. 4. Sacral decubitus. 5. Multiple sclerosis with muscle spasms. 6. Hypermagnesemia.
== END 2016-05-05 13:05 | DRG 981 ==
LOC: EDBD 19:14 → M ED 19:44 → M ED INP 22:13 → INTOOBSV 22:13 → M MSPAV 23:05 → M ED INP 23:19 → M MSPAV 05-01 01:42 → OBSVTOIN 05-03 11:26
PROVIDERS: ADMIT Internal Medicine; ATTEND Family Medicine
PROC: 0W9F0ZZ Drainage of Abdominal Wall, Open Approach (ICD-10-PCS; principal; 2016-05-03)
PROC: 0WP Anatomical Regions, General, Removal (ICD-10-PCS; 2016-05-03)
DX: T85.735A Infection and inflammatory reaction due to cranial or spinal infusion catheter, initial encounter (principal); L89.153 Pressure ulcer of sacral region, stage 3; E87.0 Hyperosmolality and hypernatremia; L03.311 Cellulitis of abdominal wall; G35 Multiple sclerosis; G40.909 Epilepsy, unspecified, not intractable, without status epilepticus; E11.9 Type 2 diabetes mellitus without complications; I10 Essential (primary) hypertension; K21.9 Gastro-esophageal reflux disease without esophagitis; F32.9 Major depressive disorder, single episode, unspecified; G47.33 Obstructive sleep apnea (adult) (pediatric); Z79.899 Other long term (current) drug therapy; E83.41 Hypermagnesemia; T85.690A Other mechanical complication of cranial or spinal infusion catheter, initial encounter; Z88.0 Allergy status to penicillin; Z88.5 Allergy status to narcotic agent; Z88.8 Allergy status to other drugs, medicaments and biological substances; L25.9 Unspecified contact dermatitis, unspecified cause

== ENCOUNTER → 2016-06-26 | Outpatient (REF) ==
[~2016-06-26] MED LIST changes: +ACET65SU PR; +DULC10SU2 PR; +FLEEENE4 PR; +JUVEPOW PO; +LEVA500T PO; +LEVE15SO PO; +META1TAB23 PO; +MILKSUS PO; +MULT1TAB10 PO; +TYLE325T5 PO; +VITMTA PO
[2016-06-26 09:00] LABS: BASO # 0.1 K/mm3 (0.0-0.2); BASO % 0.8 % (0.0-1.0); EOS # 0.2 K/mm3 (0.0-0.50); EOS % 3.4 % (0.0-3.0); LARGE UNSTAINED CELL # 0.2 K/mm3 (0.0-0.4); LARGE UNSTAINED CELL % 2.3 % (0.0-4.0); LYMPH # 1.8 K/mm3 (1.5-4.5); LYMPH % 22.4 % (24.0-44.0); MEAN CORPUSCULAR HEMOGLOBIN 28.7 pg (27.0-33.0); MEAN CORPUSCULAR HGB CONC 32.3 g/dl (32.0-36.5); MEAN CORPUSCULAR VOLUME 88.7 fl (80.0-96.0); MONO # 0.5 K/mm3 (0.0-0.8); MONO % 7.2 % (0.0-5.0); NEUTROPHILS # 4.8 K/mm3 (1.8-7.7); PLATELET COUNT, AUTOMATED 201 k/mm3 (150-450); RED CELL DISTRIBUTION WIDTH 13.3 % (11.5-14.5); WHITE BLOOD COUNT 7.4 K/mm3 (4.0-10.0)
[2016-06-26 09:22] LABS: ALBUMIN 3.1 GM/DL (3.2-5.2); ALBUMIN/GLOBULIN RATIO 0.94 (1.00-1.93); ALKALINE PHOSPHATASE 75 U/L (45-117); ALT/SGPT 18 U/L (12-78); ANION GAP 9 MEQ/L (8-16); AST/SGOT 10 U/L (15-37); BILIRUBIN,TOTAL 0.2 MG/DL (0.2-1.0); BLOOD UREA NITROGEN 14 MG/DL (7-18); CALCIUM LEVEL 8.6 MG/DL (8.8-10.2); CARBON DIOXIDE LEVEL 27 MEQ/L (21-32); CHLORIDE LEVEL 104 MEQ/L (98-107); CHOLESTEROL LEVEL 201 MG/DL (<200); CREATININE FOR GFR 0.38 MG/DL (0.70-1.30); GLOMERULAR FILTRATION RATE > 60.0 (>49); GLUCOSE, FASTING 93 MG/DL (80-110); POTASSIUM SERUM 4.3 MEQ/L (3.5-5.1); SODIUM LEVEL 140 MEQ/L (136-145); TOTAL PROTEIN 6.4 GM/DL (6.4-8.2); TRIGLYCERIDES LEVEL 200 MG/DL (<150)
== END ==
LOC: SKLAB3 08:00
PROVIDERS: ATTEND Family Medicine
DX: G35 Multiple sclerosis (principal); I10 Essential (primary) hypertension; E87.1 Hypo-osmolality and hyponatremia

== ENCOUNTER → 2016-08-07 | Outpatient (REF) | payer MEDICARE, MEDICAID ==
[~2016-08-07] MED LIST changes: +KEPP1TAB PO; -KEPP500T6 PO; +LEVA1TAB2 PO; -LEVA500T PO; -LYRI100C10 PO; +META1TAB22 PO; -META800T82 PO; -METF1000 PO; +METF10004 PO; -NAPR500T2 PO; +NAPR500T3 PO; +PREG100CA PO; +PROV100T25 PO; -PROV100T4 PO; -SKEL-29 PO; +SKEL800T97 PO
== END ==
LOC: SKLAB3 07:00
PROVIDERS: ATTEND Family Medicine
DX: I10 Essential (primary) hypertension (principal); E11.9 Type 2 diabetes mellitus without complications; E29.1 Testicular hypofunction

== ENCOUNTER → 2016-10-02 | Outpatient (REF) | payer MEDICARE, MEDICAID ==
[2016-10-02 08:21] LABS: BASO % 0.9 % (0.0-1.0); EOS # 0.2 K/mm3 (0.0-0.50); LARGE UNSTAINED CELL # 0.2 K/mm3 (0.0-0.4); LARGE UNSTAINED CELL % 2.4 % (0.0-4.0); LYMPH # 1.7 K/mm3 (1.5-4.5); LYMPH % 25.1 % (24.0-44.0); MEAN CORPUSCULAR HEMOGLOBIN 28.9 pg (27.0-33.0); MEAN CORPUSCULAR HGB CONC 32.5 g/dl (32.0-36.5); MEAN CORPUSCULAR VOLUME 89.2 fl (80.0-96.0); MONO # 0.5 K/mm3 (0.0-0.8); MONO % 8.8 % (0.0-5.0); NEUTROPHILS # 3.6 K/mm3 (1.8-7.7); NEUTROPHILS % 58.8 % (36.0-66.0); PLATELET COUNT, AUTOMATED 151 k/mm3 (150-450); RED CELL DISTRIBUTION WIDTH 13.4 % (11.5-14.5); WHITE BLOOD COUNT 6.2 K/mm3 (4.0-10.0)
[2016-10-02 08:43] LABS: ALBUMIN 3.2 GM/DL (3.2-5.2); ALKALINE PHOSPHATASE 58 U/L (45-117); ALT/SGPT 19 U/L (12-78); ANION GAP 8 MEQ/L (8-16); AST/SGOT 10 U/L (15-37); BILIRUBIN,TOTAL 0.2 MG/DL (0.2-1.0); BLOOD UREA NITROGEN 19 MG/DL (7-18); CALCIUM LEVEL 8.4 MG/DL (8.8-10.2); CARBON DIOXIDE LEVEL 30 MEQ/L (21-32); CHLORIDE LEVEL 108 MEQ/L (98-107); CREATININE FOR GFR 0.62 MG/DL (0.70-1.30); GLOMERULAR FILTRATION RATE > 60.0 (>49); GLUCOSE, FASTING 92 MG/DL (80-110); POTASSIUM SERUM 4.7 MEQ/L (3.5-5.1); SODIUM LEVEL 146 MEQ/L (136-145); TOTAL PROTEIN 6.4 GM/DL (6.4-8.2)
== END ==
LOC: SKLAB3 12:47
PROVIDERS: ATTEND Family Medicine
DX: I10 Essential (primary) hypertension (principal); E11.9 Type 2 diabetes mellitus without complications; G35 Multiple sclerosis

== ENCOUNTER → 2017-03-22 | Outpatient (REF) | payer MEDICARE, MEDICAID ==
[2017-03-22 16:16] LABS: ALBUMIN 3.3 GM/DL (3.2-5.2); ANION GAP 7 MEQ/L (8-16); BLOOD UREA NITROGEN 13 MG/DL (7-18); CALCIUM LEVEL 8.5 MG/DL (8.8-10.2); CARBON DIOXIDE LEVEL 30 MEQ/L (21-32); CHLORIDE LEVEL 102 MEQ/L (98-107); GLOMERULAR FILTRATION RATE > 60.0 (>49); GLUCOSE, FASTING 186 MG/DL (70-100); NT-PRO BNP 26 PG/ML (<125); POTASSIUM SERUM 4.2 MEQ/L (3.5-5.1); SODIUM LEVEL 139 MEQ/L (136-145)
== END ==
LOC: M SFHCPLAZ 15:23
DX: R06.02 Shortness of breath (principal); R60.0 Localized edema
CPT/HCPCS: 82040

== ENCOUNTER → 2017-03-26 | Outpatient (REF) | payer MEDICARE, MEDICAID ==
[2017-03-26 17:52] LABS: ESTIMATED AVERAGE GLUCOSE 174 MG/DL (60-110); HEMOGLOBIN A1c 7.7 %
== END ==
LOC: M SFHCPLAZ 13:10
DX: E11.65 Type 2 diabetes mellitus with hyperglycemia (principal)
CPT/HCPCS: 83036

== ENCOUNTER → 2017-08-22 | Outpatient (REF) | payer MEDICARE, MEDICAID | LOC: M SFHCPLAZ 14:47 | DX: E11.65 Type 2 diabetes mellitus with hyperglycemia (principal); Z53.8 Procedure and treatment not carried out for other reasons ==

== ENCOUNTER → 2017-11-27 | Outpatient (REF) | payer MEDICARE, MEDICAID ==
[2017-11-27 17:39] LABS: BASO # 0.1 10^3/uL (0.0-0.2); BASO % 0.5 % (0.0-1.0); EOS # 0.1 10^3/uL (0.0-0.50); EOS % 0.8 % (0.0-3.0); HEMATOCRIT 51.3 % (42.0-52.0); HEMOGLOBIN 16.7 g/dl (13.5-17.5); IMMATURE GRANULOCYTE % 0.9 % (0-3.0); LYMPH % 16.8 % (24.0-44.0); MEAN CORPUSCULAR HEMOGLOBIN 28.4 pg (27.0-33.0); MEAN CORPUSCULAR HGB CONC 32.6 g/dl (32.0-36.5); MEAN CORPUSCULAR VOLUME 87.4 fl (80.0-96.0); MONO % 8.1 % (0.0-5.0); NEUTROPHILS # 8.6 10^3/uL (1.8-7.7); NEUTROPHILS % 72.9 % (36.0-66.0); PLATELET COUNT, AUTOMATED 211 10^3/uL (150-450); RED BLOOD COUNT 5.87 10^6/uL (4.30-6.10); RED CELL DISTRIBUTION WIDTH 13.8 % (11.5-14.5); WHITE BLOOD COUNT 11.8 10^3/uL (4.0-10.0)
[2017-11-27 18:16] LABS: ALBUMIN 3.6 GM/DL (3.2-5.2); ALBUMIN/GLOBULIN RATIO 0.92 (1.00-1.93); ALKALINE PHOSPHATASE 102 U/L (45-117); ALT/SGPT 56 U/L (12-78); ANION GAP 10 MEQ/L (8-16); AST/SGOT 24 U/L (7-37); BILIRUBIN,TOTAL 0.3 MG/DL (0.2-1.0); BLOOD UREA NITROGEN 18 MG/DL (7-18); CALCIUM LEVEL 8.4 MG/DL (8.8-10.2); CARBON DIOXIDE LEVEL 28 MEQ/L (21-32); CHLORIDE LEVEL 99 MEQ/L (98-107); CREATININE FOR GFR 0.76 MG/DL (0.70-1.30); GLOMERULAR FILTRATION RATE > 60.0 (>49); GLUCOSE, FASTING 245 MG/DL (70-100); POTASSIUM SERUM 4.2 MEQ/L (3.5-5.1); SODIUM LEVEL 137 MEQ/L (136-145); TOTAL PROTEIN 7.5 GM/DL (6.4-8.2)
[2017-11-27 18:19] LABS: TOTAL 25(OH) VITAMIN D 20.9 NG/ML (30.0-100.0)
== END ==
LOC: M LABNEURO 17:02
DX: G35 Multiple sclerosis (principal); Z79.899 Other long term (current) drug therapy
CPT/HCPCS: 82746

== ENCOUNTER → 2018-06-25 | Outpatient (REF) | payer MEDICARE, MEDICAID ==
[~2018-06-25] MED LIST changes: -DRIS50002 PO; +DRIS50003 PO; -LEVE15SO PO; +LEVE15SO2 PO; +MILK120011 PO; -MILKSUS PO; +NAPR-885 PO; -NAPR500T3 PO
[2018-06-25 16:15] LABS: FOLATE 16.9 NG/ML
== END ==
LOC: M SFHCPLAZ 14:07
PROVIDERS: ATTEND Family Medicine
DX: Q38.2 Macroglossia (principal)
CPT/HCPCS: 36415; 82607; 82746; G0463

== ENCOUNTER → 2018-07-04 | Outpatient (CLI) | payer MEDICARE, MEDICAID ==
[2018-07-04 18:34] LABS: BLOOD UREA NITROGEN 15 MG/DL (7-18); CALCIUM LEVEL 9.1 MG/DL (8.8-10.2); CARBON DIOXIDE LEVEL 34 MEQ/L (21-32); CHLORIDE LEVEL 98 MEQ/L (98-107); CREATININE FOR GFR 0.71 MG/DL (0.70-1.30); GLOMERULAR FILTRATION RATE > 60.0 (>49); GLUCOSE, FASTING 142 MG/DL (70-100); POTASSIUM SERUM 4.8 MEQ/L (3.5-5.1); SODIUM LEVEL 138 MEQ/L (136-145)
== END ==
LOC: M SMT 15:15
PROVIDERS: ATTEND Nurse Practitioner Women's Health
DX: G35 Multiple sclerosis (principal); R33.9 Retention of urine, unspecified
CPT/HCPCS: 36415; 51798; 80048; G0463

== ENCOUNTER 2018-07-10 13:31 | Outpatient (RCR) | payer MEDICARE, MEDICAID | END 2018-07-12 | disposition home or self-care (01) | LOC: M PT 13:31 | PROVIDERS: ATTEND Family Medicine | DX: R26.89 Other abnormalities of gait and mobility (principal); G35 Multiple sclerosis ==

== ENCOUNTER → 2018-07-12 | Outpatient (CLI) | payer MEDICARE, MEDICAID ==
--- NOTE | 2018-07-12 15:05 | REP ---
Clinical: Incontinence. Technique: Real time willingham scale ultrasound examination using curved array transducer. Findings: Right kidney is normal in reniform shape and parenchymal echogenicity measuring 10.7 x 7.4 x 7.2 cm with moderate hydronephrosis and proximal hydroureter. No obvious nephrolithiasis, cystic or renal mass lesion appreciated. Left kidney is normal in contour, size, echogenicity and reniform shape without hydronephrosis, nephrolithiasis, cystic or renal mass lesion. Left kidney measures 11.3 x 6.8 x 6.0 cm. Bladder appears normal and without wall thickening. Prevoid bladder measures 12.6 x 9.1 x 7.4 cm (554 ml). Postvoid bladder measures 11.0 x 8.2 x 6.3 cm (371 ml). Postvoid residual equals 67%. Impression: 1. Moderate right hydronephrosis. 2. Irregular increased postvoid residual volume noted. Electronically Signed by Gerson Rowan MD 07/12/2018 02:56 P
== END ==
LOC: M RAD 13:29
PROVIDERS: ATTEND Nurse Practitioner Women's Health
DX: G35 Multiple sclerosis (principal); N13.30 Unspecified hydronephrosis

== ENCOUNTER → 2018-07-23 | Outpatient (REF) | payer MEDICARE, MEDICAID | LOC: M SMT 13:15 | PROVIDERS: ATTEND Urology | DX: N30.00 Acute cystitis without hematuria (principal) | CPT/HCPCS: 51701; 51798; 87088; G0463 ==

== ENCOUNTER → 2018-09-04 | Outpatient (REF) | payer MEDICARE, MEDICAID ==
[~2018-09-04] MED LIST changes: +ALPR0.5T3 PO; +AMLO5TAB6 PO; +ASPI81TA26 PO; +CEFD1CAP8 PO; +CEFE1INJ2 IV; +COLA100C5 PO; +CYMB60CA3 PO; +DOCU100C16 PO; -DULO1CAP PO; +DULO1CAP4 PO; +ERTA1INJ3 IV; +FLEEENE12 PR; +HUMA100I5 SC; +JUVEPOW4 PO; +LANTINJ4 SC; +LEVE500T5 PO; +MEDI1GEL5 TOP; +MODA200T15 PO; +OXYB10TA23 PO; +OXYB5TAB10 PO; +PREG100C PO; +TEST1GEL6 TD; +TESTIM 1% TOP; +TRUL0.5I SC; +ZYVO1TAB PO; +[UNRECOGNIZED DRUG - CODE] PO
== END ==
LOC: M SMT 17:23
PROVIDERS: ATTEND Nurse Practitioner Women's Health
DX: R33.9 Retention of urine, unspecified (principal)

== ENCOUNTER → 2018-09-27 | Outpatient (CLI) | payer MEDICARE, MEDICAID ==
[~2018-09-27] MED LIST changes: -ALPR0.5T3 PO; -AMLO5TAB6 PO; -ASPI81TA26 PO; -CEFD1CAP8 PO; -CEFE1INJ2 IV; -COLA100C5 PO; -CYMB60CA3 PO; -DOCU100C16 PO; -ERTA1INJ3 IV; -FLEEENE12 PR; -HUMA100I5 SC; -JUVEPOW4 PO; -LANTINJ4 SC; -LEVE500T5 PO; -MEDI1GEL5 TOP; -MODA200T15 PO; -OXYB10TA23 PO; -OXYB5TAB10 PO; -PREG100C PO; -TEST1GEL6 TD; -TESTIM 1% TOP; -TRUL0.5I SC; -ZYVO1TAB PO; -[UNRECOGNIZED DRUG - CODE] PO
[2018-09-27 17:13] LABS: BASO # 0.1 10^3/uL (0.0-0.2); BASO % 1.1 % (0.0-1.0); EOS # 0.2 10^3/uL (0.0-0.50); EOS % 2.1 % (0.0-3.0); HEMOGLOBIN 15.1 g/dl (13.5-17.5); LYMPH # 1.9 10^3/uL (1.5-4.5); LYMPH % 25.3 % (24.0-44.0); MEAN CORPUSCULAR HEMOGLOBIN 28.9 pg (27.0-33.0); MEAN CORPUSCULAR HGB CONC 32.8 g/dl (32.0-36.5); MONO # 0.6 10^3/uL (0.0-0.8); MONO % 7.5 % (0.0-5.0); NEUTROPHILS # 4.7 10^3/uL (1.8-7.7); NEUTROPHILS % 63.5 % (36.0-66.0); PLATELET COUNT, AUTOMATED 176 10^3/uL (150-450); RED BLOOD COUNT 5.23 10^6/uL (4.30-6.10); WHITE BLOOD COUNT 7.5 10^3/uL (4.0-10.0)
[2018-09-27 17:24] LABS: ALBUMIN 3.2 GM/DL (3.2-5.2); ALT/SGPT 44 U/L (12-78); BILIRUBIN,DIRECT < 0.1 MG/DL (0.0-0.2); BILIRUBIN,TOTAL 0.2 MG/DL (0.2-1.0); BLOOD UREA NITROGEN 12 MG/DL (7-18); CALCIUM LEVEL 9.1 MG/DL (8.8-10.2); CARBON DIOXIDE LEVEL 33 MEQ/L (21-32); CHLORIDE LEVEL 98 MEQ/L (98-107); CREATININE FOR GFR 0.95 MG/DL (0.70-1.30); GLOMERULAR FILTRATION RATE > 60.0 (>49); GLUCOSE, FASTING 333 MG/DL (70-100); POTASSIUM SERUM 4.1 MEQ/L (3.5-5.1); SODIUM LEVEL 137 MEQ/L (136-145); TOTAL 25(OH) VITAMIN D 33.8 NG/ML (30.0-100.0); TOTAL PROTEIN 7.5 GM/DL (6.4-8.2)
[2018-09-27 18:00] LABS: HIV 1&2 SCREEN CENTAUR NEGATIVE (NEGATIVE)
[2018-09-30 11:23] LABS: HEPATITIS B SURFACE ANTIBODY NEGATIVE (POSITIVE)
[2018-09-30 11:33] LABS: HEPATITIS B SURFACE ANTIGEN NEGATIVE (NEGATIVE)
[2018-09-30 12:00] LABS: HEPATITIS B CORE ANTIBODY IGM NEGATIVE (NEGATIVE); HEPATITIS C VIRUS ABY INDEX 0.4 INDEX (<0.8)
[2018-09-30 12:03] LABS: HEPATITIS A ANTIBODY IGM NEGATIVE (NEGATIVE)
[2018-10-02 00:06] LABS: ANGIOTENSIN 1 CONVERTING ENZYM 36 U/L (14-82); ANTINUCLEAR ANTIBODIES DIRECT Negative (Negative); HERPES ZOSTER, VARICELLA IgG 696 index (Immune >165); HERPES ZOSTER, VARICELLA IgM <0.91 index (0.00-0.90); HTLV 1/2 ANTIBODIES QUAL Negative (Negative); Lyme Disease IgG/IgM Antibodie <0.91 ISR (0.00-0.90); Lyme Disease IgM Ab Quantitati <0.80 index (0.00-0.79); TESTOSTERONE FREE (DIRECT) 3.4 pg/mL (6.6-18.1)
== END ==
LOC: M WUC 14:33
PROVIDERS: ATTEND Psychiatry & Neurology Neurology
DX: G35 Multiple sclerosis (principal); E11.22 Type 2 diabetes mellitus with diabetic chronic kidney disease; R11.0 Nausea; E55.9 Vitamin D deficiency, unspecified; N18.9 Chronic kidney disease, unspecified; Z79.899 Other long term (current) drug therapy

== ENCOUNTER → 2018-10-17 | Outpatient (REF) | payer MEDICARE, MEDICAID | LOC: M SMT 13:18 | PROVIDERS: ATTEND Urology | DX: R33.9 Retention of urine, unspecified (principal) ==

== ENCOUNTER → 2018-10-25 | Outpatient (CLI) | payer MEDICARE, MEDICAID ==
[~2018-10-25] MED LIST changes: +PROHANCE 279.3MG/ML 15ML VIAL (A9576) As Ordered ONE; +PROHANCE 279.3MG/ML 5ML VIAL (A9576) As Ordered ONE
--- NOTE | 2018-10-25 13:43 | REP ---
MRI of the cervical spine without and with contrast Indication: Multiple sclerosis. Comparison: None Technique: MRI of the cervical spine was performed without and with contrast utilizing MS protocol. A total of 18 ml of ProHance was administered intravenously. Findings: There is leftward curvature of the cervical spine. There is normal alignment. Vertebral body heights are maintained. There are degenerative changes of the cervical spine including loss of disc height and fatty marrow endplate degenerative changes, most notably at C6-C7. There is uncovertebral joint hypertrophy on the right at C5-C6 with right neural foraminal narrowing. There is no significant spinal canal stenosis. There are T2 hyperintense lesions within the spinal cord including a left posterolateral lesion at C5-C6 which measures 2 cm in cranial caudal length (STIR image 7). There are other patchy ill-defined T2 hyperintense spinal cord lesions at the C2 and C3-C4. There is no abnormal enhancement. There is no evidence of spinal cord atrophy. The paraspinal soft tissues are within normal limits. Impression: Patchy ill-defined cervical cord lesions including a lesion at C5-C6 which measures 2 cm in cranial caudal length suggestive of demyelinating plaques in this patient with multiple sclerosis. No enhancing lesion. No gross cervical cord atrophy. Cervical spondylosis most notably at C5-C6 with right neural foraminal narrowing. No significant spinal canal stenosis. Electronically Signed by Kevin Contreras MD 10/25/2018 01:35 P
--- NOTE | 2018-10-25 13:54 | REP ---
MRI of the brain without and with contrast Indication: Multiple sclerosis. Comparison: None Technique: Multiplanar multisequence MRI of the brain was performed without and with contrast utilizing MS protocol. A total of 18 ml of ProHance was administered intravenously. Findings: There are scattered T2 FLAIR hyperintensities within the periventricular subcortical white matter of both cerebral hemispheres. A few periventricular/pericallosal hyperintensities oriented perpendicular to the corpus callosum have associated restricted diffusion and are thought to represent demyelinating plaques in this patient with history of multiple sclerosis. There is no enhancing lesion. There is no restricted diffusion to suggest acute ischemia or infarction in a territorial distribution. The ventricles and sulci are symmetric. There is no extra-axial fluid collection. There is no mass effect. There is no midline shift or basal cistern effacement. The visualized flow voids are preserved. There is mucous retention cysts or polypoid mucosal thickening of the maxillary sinuses. The visualized mastoid air cells are clear. Impression: Scattered periventricular subcortical white matter changes, some of which have associated restricted diffusion, are thought to represent demyelinating plaques in this patient with given history of multiple sclerosis and less likely scattered acute lacunar infarcts. No territorial infarct. No enhancing lesion. Mucosal thickening of the maxillary sinuses. Electronically Signed by Kevin Contreras MD 10/25/2018 01:46 P
--- NOTE | 2018-10-25 13:57 | REP ---
MRI of the thoracic spine without and with contrast Clinical indication: Multiple sclerosis. Comparison: None Technique: MRI of the thoracic spine was performed utilizing an sagittal T1, T2 and STIR and axial T1 and T2 weighted imaging without contrast. Following the uneventful intravenous administration of 18 mL of ProHance, axial and sagittal T1 SPIR imaging was performed with contrast. Findings: There is significant motion artifact which degrades image quality and decreases the sensitivity for detection of small lesions, particularly on the axial and postcontrast images. Within this limitation, there is no abnormal enhancement. There is questionable signal abnormality within the cord centrally at the level of T7 on axial T2 weighted image 51 without gross lesion. No definite enhancement within the cord. There is s-shaped curvature of the cervical thoracic lumbar spine. There is normal alignment of the thoracic spine. Vertebral body heights and intervertebral dic heights are maintained. There is a rounded T1 and T2 hyperintensity within the T7 and T10 vertebral bodies, likely representing hemangiomas. There is mild endplate degenerative edema at T 78 and T8-T9. There is Schmorl's node deformity and T10-T11. There is no significant spinal canal stenosis or neuroforaminal compromise. There is partial fatty atrophy of the posterior paraspinal muscles. Impression: Significant motion artifact which degrades image quality and decreases the sensitivity for detection of small lesions. Within this limitation, there is questionable signal abnormality within the cord centrally at the level of T7 which may represent artifact. No gross lesions or abnormal enhancement. Electronically Signed by Kevin Contreras MD 10/25/2018 01:49 P
== END ==
LOC: M RAD 09:45
PROVIDERS: ATTEND Psychiatry & Neurology Neurology
DX: G35 Multiple sclerosis (principal)
CPT/HCPCS: 70553; 72156; 72157; A9576

== ENCOUNTER → 2018-11-04 | Outpatient (REF) | payer MEDICARE, MEDICAID ==
[~2018-11-04] MED LIST changes: +DOCU100C16 PO; +FLEEENE12 PR; +HUMA100I5 SUBQ; +JUVEPOW4 PO; +LANTINJ4 SUBQ; +LEVE500T5 PO; +MODA200T15 PO; +PREG100C PO; -PROHANCE 279.3MG/ML 15ML VIAL (A9576) As Ordered ONE; -PROHANCE 279.3MG/ML 5ML VIAL (A9576) As Ordered ONE; +TESTIM 1% TOP; +TRUL0.5I SUBQ; +[UNRECOGNIZED DRUG - CODE] PO
== END ==
LOC: M SMT 13:02
PROVIDERS: ATTEND Nurse Practitioner Family
DX: N39.0 Urinary tract infection, site not specified (principal)

== ENCOUNTER → 2018-11-08 | Outpatient (CLI) | payer MEDICARE, MEDICAID ==
[~2018-11-08] MED LIST changes: +ALPR0.5T3 PO; +AMLO5TAB6 PO; +CEFD1CAP8 PO; +COLA100C5 PO; +CYMB60CA3 PO; +ERTA1INJ3 IV; +HUMA100I5 SC; -HUMA100I5 SUBQ; +LANTINJ4 SC; -LANTINJ4 SUBQ; +MEDI1GEL5 TOP; +OXYB10TA2 PO; +OXYB5TAB10 PO; +TEST1GEL6 TD; +TRUL0.5I SC; -TRUL0.5I SUBQ
[2018-11-08 18:50] LABS: BASO # 0.1 10^3/uL (0.0-0.2); BASO % 0.6 % (0.0-1.0); EOS # 0.1 10^3/uL (0.0-0.5); HEMATOCRIT 42.9 % (42.0-52.0); HEMOGLOBIN 13.4 g/dl (13.5-17.5); LYMPH # 1.1 10^3/uL (1.5-5.0); LYMPH % 10.2 % (24.0-44.0); MEAN CORPUSCULAR HEMOGLOBIN 27.7 pg (27.0-33.0); MEAN CORPUSCULAR HGB CONC 31.2 g/dl (32.0-36.5); MEAN CORPUSCULAR VOLUME 88.8 fl (80.0-96.0); MONO # 1.1 10^3/uL (0.0-0.8); NEUTROPHILS # 8.2 10^3/uL (1.5-8.5); NEUTROPHILS % 77.4 % (36.0-66.0); PLATELET COUNT, AUTOMATED 270 10^3/uL (150-450); RED BLOOD COUNT 4.83 10^6/uL (4.30-6.10); WHITE BLOOD COUNT 10.6 10^3/uL (4.0-10.0)
[2018-11-08 19:13] LABS: ALBUMIN 2.4 GM/DL (3.2-5.2); ALT/SGPT 44 U/L (12-78); BILIRUBIN,TOTAL 0.3 MG/DL (0.2-1.0); BLOOD UREA NITROGEN 20 MG/DL (7-18); CALCIUM LEVEL 8.5 MG/DL (8.8-10.2); CARBON DIOXIDE LEVEL 28 MEQ/L (21-32); CHLORIDE LEVEL 94 MEQ/L (98-107); GLOMERULAR FILTRATION RATE > 60.0 (>49); GLUCOSE, FASTING 318 MG/DL (70-100); POTASSIUM SERUM 4.4 MEQ/L (3.5-5.1); SODIUM LEVEL 131 MEQ/L (136-145); TOTAL PROTEIN 7.3 GM/DL (6.4-8.2)
== END ==
LOC: M WUC 14:49
PROVIDERS: ATTEND Physician Assistant
DX: R30.0 Dysuria (principal)

== ENCOUNTER 2018-11-09 10:50 | Inpatient (IN) | payer MEDICARE, MEDICAID ==
[~2018-11-09] VITALS: Ht 188 cm; Wt 85.0 kg
[~2018-11-09 10:50] MED LIST changes: -ALPR0.5T3 PO; -AMLO5TAB6 PO; -CEFD1CAP8 PO; -COLA100C5 PO; -CYMB60CA3 PO; -ERTA1INJ3 IV; -MEDI1GEL5 TOP; -OXYB10TA2 PO; -OXYB5TAB10 PO; -TEST1GEL6 TD
[2018-11-09] MEDS ORDERED: CEFD1CAP8 PO (11:43)
[2018-11-09] MEDS ORDERED: [UNRECOGNIZED DRUG - CODE] PO (11:43)
[2018-11-09] MEDS ORDERED: OXYB5TAB10 PO (11:43)
[2018-11-09] MEDS ORDERED: CYMB60CA3 PO (11:43)
[2018-11-09 12:24] LABS: BASO # 0.1 10^3/uL (0.0-0.2); BASO % 0.5 % (0.0-1.0); EOS # 0.1 10^3/uL (0.0-0.5); EOS % 0.8 % (0.0-3.0); HEMOGLOBIN 13.1 g/dl (13.5-17.5); LYMPH # 1.1 10^3/uL (1.5-5.0); LYMPH % 10.6 % (24.0-44.0); MEAN CORPUSCULAR HEMOGLOBIN 27.1 pg (27.0-33.0); MEAN CORPUSCULAR HGB CONC 31.2 g/dl (32.0-36.5); MONO # 0.9 10^3/uL (0.0-0.8); MONO % 8.4 % (0.0-5.0); NEUTROPHILS # 8.4 10^3/uL (1.5-8.5); NEUTROPHILS % 79.2 % (36.0-66.0); PLATELET COUNT, AUTOMATED 295 10^3/uL (150-450); RED BLOOD COUNT 4.83 10^6/uL (4.30-6.10); WHITE BLOOD COUNT 10.6 10^3/uL (4.0-10.0)
[2018-11-09 12:36] LABS: INR 1.18; PROTHROMBIN TIME 14.7 SECONDS (11.8-14.0)
[2018-11-09 12:37] LABS: PARTIAL THROMBOPLASTIN TIME 35.8 SECONDS (25.0-38.4)
[2018-11-09 12:50] LABS: ALBUMIN 2.4 GM/DL (3.2-5.2); BILIRUBIN,DIRECT 0.1 MG/DL (0.0-0.2); BILIRUBIN,TOTAL 0.2 MG/DL (0.2-1.0); TOTAL PROTEIN 7.4 GM/DL (6.4-8.2)
[2018-11-09] MEDS ORDERED: MEROPENEM INJ 500 MG in IV 1 EA IV ONE ×2 (13:30→13:45)
[2018-11-09] MEDS ORDERED: NS 1,000 ML IV ONE (13:30)
--- NOTE | 2018-11-09 14:03 | REP ---
AP PORTABLE CHEST: 11/09/2018. Comparison: 03/22/2017, 04/30/2016. Clinical history: Abdominal pain. Findings: Lungs are hypoinflated with some subsegmental atelectatic change along the left diaphragm. No gross effusion or dense consolidation. The stomach bubble, filled with slight elevation of the diaphragm on the left. Heart size magnified by portable technique and low level of inflation. Likewise the mediastinal width magnified. No pulmonary edema, definite effusion or infiltrate. Dextrorotatory scoliosis thoracolumbar spine. Degenerative changes in the AC, glenohumeral joints. Impression: 1. Hypoinflated chest with basilar atelectatic change, left greater than right with a dextrorotatory thoracolumbar scoliosis. 2. The heart size magnified by low level of inflation and portable technique, but no gross cardiomegaly or alicia edema. Electronically Signed by Adin Gleason MD 11/09/2018 07:41 P
[2018-11-09] MEDS ORDERED: MODA200T15 PO (14:12)
[2018-11-09] MEDS ORDERED: COLA100C5 PO (14:12)
[2018-11-09] MEDS ORDERED: OXYB10TA2 PO (14:12)
[2018-11-09] MEDS ORDERED: HUMA100I5 SC (14:12)
[2018-11-09] MEDS ORDERED: ALPR0.5T3 PO (14:12)
[2018-11-09] MEDS ORDERED: MEDI1GEL5 TOP (14:12)
[2018-11-09] MEDS ORDERED: GLUCAGON FOR INJ 1 MG VIAL (J1610) SC PRN (14:15)
[2018-11-09] MEDS ORDERED: GLUCOSE 4 GM CHEW TABLET PO PRN (14:15)
[2018-11-09] MEDS ORDERED: DEXTROSE 50% 50 ML SYRINGE IV PRN (14:15)
[2018-11-09] MEDS ORDERED: ACETAMINOPHEN TAB 650MG DOSE (2X325MG) PO PRN (14:15)
[2018-11-09] MEDS ORDERED: TEST1GEL6 TD (14:16)
[2018-11-09] MEDS: NS 1,000 ML IV SCH (14:17)
[2018-11-09] MEDS ORDERED: DOCUSATE SODIUM 100 MG CAP PO PRN (14:30)
--- NOTE | 2018-11-09 14:35 | HPEPDOC ---
General Date of Admission Nov 09, 2018 at 14:11 Date of Service: Nov 09, 2018 Chief Complaint The patient is a 63-year-old male Who presented to the emergency room after he was advised his urine culture from 11/03/2018 was positive for Pseudomonas History of Present Illness Patient is a 63-year-old male with a PMHx of Multiple sclerosis (w/ severe muscle spasms), IDDM2, AYLA on BIPAP, Depression, Hx of Hyponatremia, Hx of recurrent UTI (Follows with Dr. Mccormick of Urology) who presented to the ER after he was advised he had a positive urine culture for Pseudomonas on . Patient reports that over last 4 weeks he can feeling tired and weak. About 8-10 weeks ago. Patient has been following with urology, Dr. Mccormick for recurrent urinary tract infections. Patient had a Guerrero catheter placed approximately 8 weeks ago that required several adjustments. Patient maintained full. Therefore proximally 4 weeks, however, had complications including Guerrero slipping out as well as leakage around the Guerrero. Guerrero was ultimately removed 4 weeks ago. Since that point, patient has been experiencing discomfort with urination, lower abdominal discomfort chills and subjective fevers. Patient has reported that he has been on 3-4 different types of antibiotics over last 4 weeks prescribed by urology. Despite this he has continued to experience his symptoms. Patient ultimately had a urine culture collected at urgent care on 11/03/2018. That resulted today, positive for Pseudomonas. Patient denies chest pain, shortness of breath, palpitations, vomiting or diarrhea. Patient does report mild constipation. He does report nausea. Patient reports that hes had a poor appetite but denies any significant change in his weight. Home Medications Scheduled Cefdinir (Cefdinir) 300 Mg Capsule, 300 MG PO BID, (Reported) STARTED 11/06 Dulaglutide (Trulicity) 1.5 Mg/0.5 Ml Pen.injctr, 1.5 MG SC 1XWK, (Reported) Sunday Duloxetine Hcl (Cymbalta) 60 Mg Capsule.dr, 60 MG PO QHS, (Reported) Honey (Medihoney) 15 Ml Gel..ml., 1 GEL TOP DAILY, (Reported) APPLY TO SORES Insulin Glargine,Hum.rec.anlog (Lantus Solostar) 100 Unit/1 Ml Insuln.pen, 60 UNITS SC QAM, (Reported) Insulin Lispro (Humalog Kwikpen U-100) 100 Unit/1 Ml Insuln.pen, 14 UNITS SC BID, (Reported) BREAKFAST,LUNCH Insulin Lispro (Humalog Kwikpen U-100) 100 Unit/1 Ml Insuln.pen, 16 UNITS SC QPM, (Reported) DINNER Modafinil (Modafinil) 200 Mg Tablet, 400 MG PO QAM, (Reported) Oxybutynin Chloride (Oxybutynin Chloride ER) 10 Mg Tab.er.24, 10 MG PO DAILY, (Reported) Pregabalin (Pregabalin) 100 Mg Capsule, 100 MG PO TID, (Reported) Psyllium Husk (Reguloid) 0.4 Gm Capsule, 2 CAP PO TID, (Reported) TAKE WITH 8OZ OF LIQUID Testosterone (Testosterone) 5 Gm Gel..gram., 1 DOSE TD DAILY, (Reported) APPLY TO CHEST AND SHOULDERS levETIRAcetam (levETIRAcetam) 500 Mg Tablet, 500 MG PO BID, (Reported) Scheduled PRN Alprazolam (Alprazolam) 0.5 Mg Tablet, 0.5 MG PO QID PRN for MUSCLE SPASMS, (Reported) Docusate Sodium (Colace) 100 Mg Capsule, 100 MG PO BID PRN for CONSTIPATION, (Reported) Allergies Coded Allergies: Penicillins (Verified Allergy, Unknown, 11/07/18) alendronate sodium (Verified Allergy, Unknown, 11/07/18) ibandronate sodium (Verified Allergy, Unknown, unknown, 11/07/18) methadone (Verified Allergy, Unknown, NAUSEA AND VOMITING, 11/07/18) rofecoxib (Verified Allergy, Unknown, 11/07/18) morphine (Verified Adverse Reaction, Unknown, nausea,vomiting, 11/07/18) Past Medical History Medical History Multiple sclerosis (w/ severe muscle spasms), IDDM2, AYLA on BIPAP, Depression, Hx of Hyponatremia, Hx of recurrent UTI (Follows with Dr. 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 Review of Systems Other systems 10 point review of systems complete, all negative otherwise stated in HPI Vital Signs - Vitals: BP 159/83, HR 108, RR 24, Sat 98%RA, Temp 108 - General: Lying in bed, No acute distress, Speaking in full sentences, AAOx3 - HEENT: NC, AT, PERRLA, EOMI - CVS: Tachycardia, +S1S2 - Lungs: Fair air entry bilaterally, No appreciable wheezing / rales / rhonchi - Abdomen: Soft, Non-distended, mild suprapubic tenderness - Extremities: Trace LE edema, No calf tenderness, left upper extremity with contractions noted - Neuro: No focal motor or sensory deficit - Skin: No visible rashes Laboratory Data Labs 24H Laboratory Tests 2 11/09/18 12:02: Immature Granulocyte % (Auto) 0.5, White Blood Count 10.6H, Red Blood Count 4.83, Hemoglobin 13.1L, Hematocrit 42.0, Mean Corpuscular Volume 87.0, Mean Corpuscular Hemoglobin 27.1, Mean Corpuscular Hemoglobin Concent 31.2L, Red Cell Distribution Width 13.4, Platelet Count 295, Neutrophils (%) (Auto) 79.2H, Lymphocytes (%) (Auto) 10.6L, Monocytes (%) (Auto) 8.4H, Eosinophils (%) (Auto) 0.8, Basophils (%) (Auto) 0.5, Neutrophils # (Auto) 8.4, Lymphocytes # (Auto) 1.1L, Monocytes # (Auto) 0.9H, Eosinophils # (Auto) 0.1, Basophils # (Auto) 0.1, Nucleated Red Blood Cells % (auto) 0.0, Prothrombin Time 14.7H, Prothromb Time International Ratio 1.18, Activated Partial Thromboplast Time 35.8, Lactic Acid Level 1.6, Aspartate Amino Transf (AST/SGOT) 30, Alanine Aminotransferase (ALT/SGPT) 42, Alkaline Phosphatase 194H, Total Bilirubin 0.2, Direct Bilirubin 0.1, Total Protein 7.4, Albumin 2.4L, Albumin/Globulin Ratio 0.48L, Lipase 90 11/09/18 12:03: POC Glucose (Misc Panel) 312H, POC Sodium (Misc Panel) 135L, POC Potassium (Misc Panel) 3.9, POC Chloride (Misc Panel) 95L, POC Total CO2 (Misc Panel) 30.0H, POC Blood Urea Nitrogen (Misc Panel 22, POC Ionized Calcium (Misc Panel) 4.4L, POC Creatinine (Misc Panel) 1.1, POC Hematocrit (Misc Panel) 43.0 11/09/18 12:07: Urine Color YELLOW, Urine Appearance TURBIDH, Urine pH 6.0, Urine Specific [place] 1.006, Urine Protein 2+H, Urine Glucose (UA) 1+H, Urine Ketones NEGATIVE, Urine Blood 2+H, Urine Nitrite POSITIVEH, Urine Bilirubin NEGATIVE, Urine Urobilinogen 0.2, Urine Leukocyte Esterase 3+H, Urine WBC (Auto) TNTCH, Urine RBC (Auto) TNTCH, Urine Hyaline Casts (Auto) 0, Urine Bacteria (Auto) 3+H, Urine Squamous Epithelial Cells 3, Urine Amorphous Sediment SMALLH, Urine Sperm (Auto) CBC/BMP Laboratory Tests 11/09/18 12:02 Red Blood Count 4.83, Mean Corpuscular Volume 87.0, Mean Corpuscular Hemoglobin 27.1, Mean Corpuscular Hemoglobin Concent 31.2 L, Red Cell Distribution Width 13.4, Neutrophils (%) (Auto) 79.2 H, Lymphocytes (%) (Auto) 10.6 L, Monocytes (%) (Auto) 8.4 H, Eosinophils (%) (Auto) 0.8, Basophils (%) (Auto) 0.5, Neutrophils # (Auto) 8.4, Lymphocytes # (Auto) 1.1 L, Monocytes # (Auto) 0.9 H, Eosinophils # (Auto) 0.1, Basophils # (Auto) 0.1 Microbiology Microbiology 11/09/18 Urine Culture, Received Pending 11/09/18 Blood Culture, Received Pending 11/09/18 Blood Culture, Received Pending Plan / VTE VTE Prophylaxis Ordered?: Yes Plan Plan Positive urine culture from UTI - 2/2 Pseudomonas - Patient presented to the emergency room after having a positive urine culture from 11/03/2018 - Hx of recurrent UTI (Follows with Dr. Mccormick of Urology - Patient has reported 4 weeks of weakness and dysuria - Patient appears slightly tachycardic but hemodynamically stable and afebrile - Lab work indicates leukocytosis, no lactic acidosis - Repeat blood cultures and urine cultures are acquired and pending - Urine culture as an outpatient from 11/03/2018 were positive for Pseudomonas aeruginosa - Will start patient on meropenem (re: extensive allergy profile, limitations on susceptibilities) Multiple sclerosis - Patient has a history of severe muscle spasms - c/w Pregabalin and Modafinil Possible seizure disorder - Patient has denied any prior history of seizures, however, has indicated that he experiences severe muscle spasms from his MS - c/w Keppra IDDM2 - Will start ISS - Will continue adjusted dose of long acting insulin AYLA on BIPAP - May allow home BIPAP use while inpatient Depression / Anxiety - c/w Alprazolam, Duloxetine Hx of Hyponatremia - Currently sodium is 135 - Will continue to monitor DVT prophylaxis - Will start Heparin GIANNI WELCH MD Nov 09, 2018 14:35
[2018-11-09 15:02] VITALS: BP 170/94
[2018-11-09] MEDS: PREGABALIN 100 MG CAP (LYRICA) PO SCH ×2 (16:00→20:58)
[2018-11-09] MEDS: HumaLOG INSULIN (NovoLOG) PER UNIT SC SCH ×2 (17:44→21:00)
[2018-11-09 18:56] VITALS: BP 148/80
--- NOTE | 2018-11-09 19:25 | ECGEPIP ---
[facility] - ED Test Date: 2018-11-09 Pat Name: MARZENA WAYNE Department: Room: - Gender: Male Supervisor Char House: montse : [id number] Requested By: Sarah Alves Order Number: [id number] Reading MD: Sarah Alves Measurements Intervals [place] Rate: 106 P: 32 FL: 136 QRS: 21 QRSD: 88 T: 55 QT: 316 QTc: 421 Interpretive Statements SINUS TACHYCARDIA ABNORMAL RHYTHM ECG NONSPECIFIC ST T WAVE CHANGES 04/30/[address] T WAVE CHANGES Electronically Signed on 11-09-2018 19:25:39 EDT by Sarah Alves
[2018-11-09] MEDS: METAMUCIL (PSYLLIUM) PACKET PO SCH (20:56)
[2018-11-09] MEDS: levETIRAcetam 250MG TABLET (KEPPRA) PO SCH (20:56)
[2018-11-09] MEDS: DULoxetine 30 MG CAP (CYMBALTA) PO SCH (20:57)
[2018-11-09] MEDS: ALPRAZolam 0.5 MG TAB PO PRN (20:58)
[2018-11-09] MEDS: HEPARIN SOD (PORCINE) 5000 UNITS/ML VIAL SQ SCH (21:47)
[2018-11-09] MEDS: MEROPENEM INJ 1 GM in IV 1 EA IV SCH (21:48)
[2018-11-10] VITALS: BP 128/64
[2018-11-10 04:00] VITALS: BP 142/72
[2018-11-10 05:33] LABS: BASO # 0.1 10^3/uL (0.0-0.2); BASO % 0.7 % (0.0-1.0); EOS # 0.1 10^3/uL (0.0-0.5); EOS % 1.4 % (0.0-3.0); HEMATOCRIT 37.7 % (42.0-52.0); HEMOGLOBIN 12.1 g/dl (13.5-17.5); LYMPH # 1.1 10^3/uL (1.5-5.0); LYMPH % 13.8 % (24.0-44.0); MEAN CORPUSCULAR HEMOGLOBIN 27.8 pg (27.0-33.0); MEAN CORPUSCULAR HGB CONC 32.1 g/dl (32.0-36.5); MEAN CORPUSCULAR VOLUME 86.5 fl (80.0-96.0); MONO # 0.8 10^3/uL (0.0-0.8); MONO % 10.1 % (0.0-5.0); NEUTROPHILS % 73.5 % (36.0-66.0); PLATELET COUNT, AUTOMATED 253 10^3/uL (150-450); RED BLOOD COUNT 4.36 10^6/uL (4.30-6.10); WHITE BLOOD COUNT 8.1 10^3/uL (4.0-10.0)
[2018-11-10 05:56] LABS: BLOOD UREA NITROGEN 22 MG/DL (7-18); CALCIUM LEVEL 8.8 MG/DL (8.8-10.2); CARBON DIOXIDE LEVEL 31 MEQ/L (21-32); CHLORIDE LEVEL 104 MEQ/L (98-107); CREATININE FOR GFR 1.01 MG/DL (0.70-1.30); GLOMERULAR FILTRATION RATE > 60.0 (>49); GLUCOSE, FASTING 112 MG/DL (70-100); MAGNESIUM LEVEL 2.4 MG/DL (1.8-2.4); POTASSIUM SERUM 3.6 MEQ/L (3.5-5.1); SODIUM LEVEL 141 MEQ/L (136-145)
[2018-11-10] MEDS: MEROPENEM INJ 1 GM in IV 1 EA IV SCH ×3 (06:37→21:24)
[2018-11-10] MEDS: NS 1,000 ML IV SCH ×2 (06:37→15:15)
[2018-11-10] MEDS: HEPARIN SOD (PORCINE) 5000 UNITS/ML VIAL SQ SCH ×3 (06:38→21:24)
[2018-11-10 08:00] VITALS: BP 135/86
[2018-11-10] MEDS: METAMUCIL (PSYLLIUM) PACKET PO SCH ×2 (08:21→21:00)
[2018-11-10] MEDS: PREGABALIN 100 MG CAP (LYRICA) PO SCH ×3 (08:21→21:23)
[2018-11-10] MEDS: levETIRAcetam 250MG TABLET (KEPPRA) PO SCH ×2 (08:21→21:23)
[2018-11-10] MEDS: HumaLOG INSULIN (NovoLOG) PER UNIT SC SCH ×4 (08:22→21:00)
[2018-11-10] MEDS: LEVEMIR (INSULIN DETEMIR) 1 UNITS/0.01ML SC SCH (08:22)
[2018-11-10] MEDS: MODAFINIL 100 MG TABLET PO SCH (08:26)
[2018-11-10 08:29] VITALS: BP 135/86
--- NOTE | 2018-11-10 10:46 | IPNPDOC ---
Text Note Date of Service The patient was seen on 11/10/18. NOTE Subjective: Patient is a 63-year-old male with a PMHx of Multiple sclerosis (w/ severe muscle spasms), IDDM2, AYLA on BIPAP, Depression, Hx of Hyponatremia, Hx of recurrent UTI (Follows with Dr. Mccormick of Urology) who presented to the ER after he was advised he had a positive urine culture for Pseudomonas on . Patient reports that over last 4 weeks he can feeling tired and weak. About 8-10 weeks ago. Patient has been following with urology, Dr. Mccormick for recurrent urinary tract infections. Patient had a Guerrero catheter placed approximately 8 weeks ago that required several adjustments. Patient maintained full. Therefore proximally 4 weeks, however, had complications including Guerrero slipping out as well as leakage around the Guerrero. Guerrero was ultimately removed 4 weeks ago. Since that point, patient has been experiencing discomfort with urination, lower abdominal discomfort chills and subjective fevers. Patient has reported that he has been on 3-4 different types of antibiotics over last 4 weeks prescribed by urology. Despite this he has continued to experience his symptoms. Patient ultimately had a urine culture collected at urgent care on 11/03/2018 that resulted in Pseudomonas. Patient was admitted to hospitalist service for further evaluation and treatment Patient was seen and examined at the bedside. Patient reported that he's feeling slightly better. He still reports urinary discomfort. Denies any chest pain, starla rtness of breath, palpitations. Denies diarrhea. Objective: Vitals (See below) General: Lying in bed, no acute distress, comfortable, AAOx3 HEENT: NC, AT CVS: RRR, +S1S2 Lungs: Fair air entry b/l, no appreciable wheezing, rhonchi or rales Abdomen: Soft, ND, NT Extremities: - Edema, - Calf tenderness, left upper extremity with contractures Assessment and plan: Positive urine culture from UTI - 2/2 Pseudomonas - Patient presented to the emergency room after having a positive urine culture from 11/03/2018 - Hx of recurrent UTI (Follows with Dr. Mccormick of Urology) - Currently patient still reports dysuria and difficulty with urination - ho wever has been voiding - s/p Leukocytosis, no lactic acidosis - Blood cultures 11/09: Pending; Urine culture 11/09: Pending - Urine culture as an outpatient from 11/03/2018 were positive for Pseudomonas aeruginosa - c/w meropenem (Day #2) Multiple sclerosis - Patient has a history of severe muscle spasms - c/w Pregabalin and Modafinil Possible seizure disorder - Patient has denied any prior history of seizures, however, has indicated that he experiences severe muscle spasms from his MS - c/w Keppra IDDM2 - c/w ISS and adjusted dose of long acting insulin AYLA on BIPAP - May allow home BIPAP use while inpatient Depression / Anxiety - c/w Alprazolam, Duloxetine Hx of Hyponatremia - Currently sodium 135 - Will continue to monitor DVT prophylaxis - c/w Heparin Disposition: - Awaiting patient's family services support on Sunday for outpatient home inf usion of Carbapenem antibiotics VS,Fishbone, I+O VS, Fishbone, I+O Laboratory Tests 11/09/18 12:02 Red Blood Count 4.83, Mean Corpuscular Volume 87.0, Mean Corpuscular Hemoglobin 27.1, Mean Corpuscular Hemoglobin Concent 31.2 L, Red Cell Distribution Width 13.4, Neutrophils (%) (Auto) 79.2 H, Lymphocytes (%) (Auto) 10.6 L, Monocytes (%) (Auto) 8.4 H, Eosinophils (%) (Auto) 0.8, Basophils (%) (Auto) 0.5, Neutrophils # (Auto) 8.4, Lymphocytes # (Auto) 1.1 L, Monocytes # (Auto) 0.9 H, Eosinophils # (Auto) 0.1, Basophils # (Auto) 0.1 11/10/18 05:15 Red Blood Count 4.36, Mean Corpuscular Volume 86.5, Mean Corpuscular Hemoglobin 27.8, Mean Corpuscular Hemoglobin Concent 32.1, Red Cell Distribution Width 13.3, Neutrophils (%) (Auto) 73.5 H, Lymphocytes (%) (Auto) 13.8 L, Monocytes (%) (Auto) 10.1 H, Eosinophils (%) (Auto) 1.4, Basophils (%) (Auto) 0.7, Neutrophils # (Auto) 6.0, Lymphocytes # (Auto) 1.1 L, Monocytes # (Auto) 0.8, Eosinophils # (Auto) 0.1, Basophils # (Auto) 0.1, Calcium Level 8.8 Vital Signs Date Time Temp Pulse Resp B/P (MAP) Pulse Ox O2 Delivery O2 Flow Rate FiO2 11/10/18 08:29 98.3 98 20 135/86 (102) 95 11/09/18 14:55 Room Air I&O- Last 24 Hours up to 6 AM 11/10/18 06:00 Intake Total 1020 ml Output Total 1845 ml Balance -825 ml GIANNI WELCH MD Nov 10, 2018 10:46
[2018-11-10 12:00] VITALS: BP 140/79
[2018-11-10 20:00] VITALS: BP 133/79
[2018-11-10] MEDS: DULoxetine 30 MG CAP (CYMBALTA) PO SCH (21:22)
[2018-11-10] MEDS: ALPRAZolam 0.5 MG TAB PO PRN (21:28)
[2018-11-11] VITALS (8 sets, daily range): BP systolic 139–190; BP diastolic 72–110
[2018-11-11] MEDS: HEPARIN SOD (PORCINE) 5000 UNITS/ML VIAL SQ SCH ×3 (05:30→21:10)
[2018-11-11] MEDS: MEROPENEM INJ 1 GM in IV 1 EA IV SCH ×3 (05:30→21:10)
[2018-11-11 05:48] LABS: BASO # 0.1 10^3/uL (0.0-0.2); BASO % 0.8 % (0.0-1.0); EOS # 0.2 10^3/uL (0.0-0.5); EOS % 2.8 % (0.0-3.0); HEMOGLOBIN 12.3 g/dl (13.5-17.5); LYMPH # 1.3 10^3/uL (1.5-5.0); LYMPH % 20.2 % (24.0-44.0); MEAN CORPUSCULAR HEMOGLOBIN 27.2 pg (27.0-33.0); MEAN CORPUSCULAR HGB CONC 30.8 g/dl (32.0-36.5); MEAN CORPUSCULAR VOLUME 88.5 fl (80.0-96.0); MONO # 0.6 10^3/uL (0.0-0.8); MONO % 9.3 % (0.0-5.0); NEUTROPHILS # 4.3 10^3/uL (1.5-8.5); PLATELET COUNT, AUTOMATED 250 10^3/uL (150-450); RED BLOOD COUNT 4.52 10^6/uL (4.30-6.10); WHITE BLOOD COUNT 6.5 10^3/uL (4.0-10.0)
[2018-11-11 06:09] LABS: BLOOD UREA NITROGEN 22 MG/DL (7-18); CALCIUM LEVEL 8.4 MG/DL (8.8-10.2); CARBON DIOXIDE LEVEL 30 MEQ/L (21-32); CHLORIDE LEVEL 111 MEQ/L (98-107); CREATININE FOR GFR 1.02 MG/DL (0.70-1.30); GLOMERULAR FILTRATION RATE > 60.0 (>49); GLUCOSE, FASTING 105 MG/DL (70-100); MAGNESIUM LEVEL 2.3 MG/DL (1.8-2.4); POTASSIUM SERUM 3.7 MEQ/L (3.5-5.1); SODIUM LEVEL 146 MEQ/L (136-145)
[2018-11-11] MEDS: METAMUCIL (PSYLLIUM) PACKET PO SCH ×2 (08:07→20:32)
[2018-11-11] MEDS: LEVEMIR (INSULIN DETEMIR) 1 UNITS/0.01ML SC SCH (08:07)
[2018-11-11] MEDS: PREGABALIN 100 MG CAP (LYRICA) PO SCH ×3 (08:08→20:30)
[2018-11-11] MEDS: levETIRAcetam 250MG TABLET (KEPPRA) PO SCH ×2 (08:08→20:31)
[2018-11-11] MEDS: HumaLOG INSULIN (NovoLOG) PER UNIT SC SCH ×4 (08:08→20:33)
[2018-11-11] MEDS: MODAFINIL 100 MG TABLET PO SCH (08:08)
--- NOTE | 2018-11-11 14:32 | IPNPDOC ---
Text Note Date of Service The patient was seen on 11/11/18. NOTE Subjective: Patient is a 63-year-old male with a PMHx of Multiple sclerosis (w/ severe muscle spasms), IDDM2, AYLA on BIPAP, Depression, Hx of Hyponatremia, Hx of recurrent UTI (Follows with Dr. Mccormick of Urology) who presented to the ER after he was advised he had a positive urine culture for Pseudomonas on . Patient reports that over last 4 weeks he can feeling tired and weak. About 8-10 weeks ago. Patient has been following with urology, Dr. Mccormick for recurrent urinary tract infections. Patient had a Guerrero catheter placed approximately 8 weeks ago that required several adjustments. Patient maintained full. Therefore proximally 4 weeks, however, had complications including Guerrero slipping out as well as leakage around the Guerrero. Guerrero was ultimately removed 4 weeks ago. Since that point, patient has been experiencing discomfort with urination, lower abdominal discomfort chills and subjective fevers. Patient has reported that he has been on 3-4 different types of antibiotics over last 4 weeks prescribed by urology. Despite this he has continued to experience his symptoms. Patient ultimately had a urine culture collected at urgent care on 11/03/2018 that resulted in Pseudomonas. Patient was admitted to hospitalist service for further evaluation and treatment Patient was seen and examined at the bedside. Patient reports that he has had an uneventful evening. He denies chest pain, shortness breath, palpitations, has no t expense any abdominal pain. Does report some difficulty with urination. Objective: Vitals (See below) General: Lying in bed, no acute distress, comfortable, AAOx3 HEENT: NC, AT CVS: RRR, +S1S2 Lungs: Fair air entry b/l, no appreciable wheezing, rhonchi or rales Abdomen: Soft, ND, NT Extremities: - Edema, - Calf tenderness, left upper extremity with contractures Assessment and plan: Positive urine culture from UTI - 2/2 Pseudomonas - Patient presented to the emergency room after having a positive urine culture from 11/03/2018 - Hx of recurrent UTI (Follows with Dr. Mccormick of Urology) - Patient did have a few episodes of urinary retention, however, was able to void overnight - s/p Leukocytosis, no lactic acidosis - Blood cultures 11/09: Pending; Urine culture 11/09: Pending - Urine culture as an outpatient from 11/03/2018 were positive for Pseudomonas aeruginosa - c/w meropenem (Day #3); Patient will get PICC line placed today for outpatient antibiotic coverage with ertapenem (dosed q24 hours) Multiple sclerosis - Patient has a history of severe muscle spasms - c/w Pregabalin and Modafinil Possible seizure disorder - Patient has denied any prior history of seizures, however, has indicated that he experiences severe muscle spasms from his MS - c/w Keppra IDDM2 - c/w ISS and adjusted dose of long acting insulin AYLA on BIPAP - May allow home BIPAP use while inpatient Depression / Anxiety - c/w Alprazolam, Duloxetine Hx of Hyponatremia - Currently sodium 135 - Will continue to monitor DVT prophylaxis - c/w Heparin Disposition: - PICC line placement today - Outpatient infusion of antibiotics at home VS,Fishbone, I+O VS, Fishbone, I+O Laboratory Tests 11/11/18 05:24 Red Blood Count 4.52, Mean Corpuscular Volume 88.5, Mean Corpuscular Hemoglobin 27.2, Mean Corpuscular Hemoglobin Concent 30.8 L, Red Cell Distribution Width 13.5, Neutrophils (%) (Auto) 66.0, Lymphocytes (%) (Auto) 20.2 L, Monocytes (%) (Auto) 9.3 H, Eosinophils (%) (Auto) 2.8, Basophils (%) (Auto) 0.8, Neutrophils # (Auto) 4.3, Lymphocytes # (Auto) 1.3 L, Monocytes # (Auto) 0.6, Eosinophils # (Auto) 0.2, Basophils # (Auto) 0.1, Calcium Level 8.4 L Vital Signs Date Time Temp Pulse Resp B/P (MAP) Pulse Ox O2 Delivery O2 Flow Rate FiO2 11/11/18 12:30 158/72 (100) 11/11/18 12:00 97.8 90 18 96 11/09/18 14:55 Room Air I&O- Last 24 Hours up to 6 AM 11/11/18 06:00 Intake Total 4790 ml Output Total 1250 ml Balance 3540 ml GIANNI WELCH MD Nov 11, 2018 14:32
[2018-11-11] MEDS ORDERED: LIDOCAINE 1% MDV 20ML VIAL As Ordered ONE (15:33)
--- NOTE | 2018-11-11 17:13 | REP ---
Procedure: PICC line insertion with Ruthy The procedure was performed under the direct supervision of Dr. Escamilla. The risks and benefits of the procedure were explained to the patient and informed consent was obtained. The left cephalic vein was localized using ultrasound guidance. The skin was prepped and draped in a sterile fashion. 1% lidocaine was used as a local anesthetic. Using ultrasound guidance multiple attempts were made to cannulate the cephalic vein, however, these were unsuccessful. The right brachial vein was then localized using ultrasound guidance. The skin was prepped and draped in a sterile fashion. 1% lidocaine was used as a local anesthetic. Using ultrasound guidance the brachial vein was cannulated and a 0.018 guidewire was inserted and advanced to the SVC using fluoroscopic guidance. The needle was removed and a 4.5 [place] dilator and peel-away sheath was inserted over the guide wire. A 4.5 [place] single lumen catheter was cut to length of 38 cm. The dilator was removed and the catheter was inserted over the guide wire with the tip ending in the SVC. The peel-away sheath was removed and the catheter was flushed with heparinized saline as per Hospital protocol. The catheter was affixed to the skin and a sterile dressing was applied. The patient tolerated the procedure well and there were no immediate complications. 0.5 minutes of fluoro time was utilized for this procedure. Electronically Signed by NATASHA Plascencia 11/11/2018 04:54 P Electronically Signed by Jason Escamilla MD 11/11/2018 05:04 P
[2018-11-11] MEDS: ALPRAZolam 0.5 MG TAB PO PRN (17:31)
[2018-11-11] MEDS ORDERED: SODIUM CHLORIDE 0.9% INJ 10 ML SYR IV PRN (18:15)
[2018-11-11] MEDS ORDERED: amLODIPine 5 MG TAB PO ONE (19:00)
[2018-11-11] MEDS: DULoxetine 30 MG CAP (CYMBALTA) PO SCH (20:31)
[2018-11-12] MEDS: NS 1,000 ML IV SCH (00:36)
[2018-11-12] MEDS ORDERED: SODIUM CHLORIDE 0.9% INJ 10 ML SYR IV SCH (06:00)
[2018-11-12] MEDS: HEPARIN SOD (PORCINE) 5000 UNITS/ML VIAL SQ SCH (06:02)
[2018-11-12] MEDS: MEROPENEM INJ 1 GM in IV 1 EA IV SCH (06:03)
[2018-11-12 06:12] LABS: BASO % 0.4 % (0.0-1.0); EOS # 0.2 10^3/uL (0.0-0.5); EOS % 2.8 % (0.0-3.0); HEMATOCRIT 39.9 % (42.0-52.0); HEMOGLOBIN 12.4 g/dl (13.5-17.5); LYMPH # 1.4 10^3/uL (1.5-5.0); LYMPH % 20.1 % (24.0-44.0); MEAN CORPUSCULAR HGB CONC 31.1 g/dl (32.0-36.5); MEAN CORPUSCULAR VOLUME 90.1 fl (80.0-96.0); MONO # 0.5 10^3/uL (0.0-0.8); MONO % 7.7 % (0.0-5.0); NEUTROPHILS # 4.6 10^3/uL (1.5-8.5); NEUTROPHILS % 68.3 % (36.0-66.0); PLATELET COUNT, AUTOMATED 258 10^3/uL (150-450); RED BLOOD COUNT 4.43 10^6/uL (4.30-6.10); WHITE BLOOD COUNT 6.8 10^3/uL (4.0-10.0)
[2018-11-12 06:37] LABS: BLOOD UREA NITROGEN 17 MG/DL (7-18); CALCIUM LEVEL 8.3 MG/DL (8.8-10.2); CARBON DIOXIDE LEVEL 32 MEQ/L (21-32); CHLORIDE LEVEL 110 MEQ/L (98-107); CREATININE FOR GFR 0.92 MG/DL (0.70-1.30); GLOMERULAR FILTRATION RATE > 60.0 (>49); GLUCOSE, FASTING 99 MG/DL (70-100); MAGNESIUM LEVEL 2.1 MG/DL (1.8-2.4); POTASSIUM SERUM 3.6 MEQ/L (3.5-5.1); SODIUM LEVEL 148 MEQ/L (136-145)
[2018-11-12] MEDS ORDERED: amLODIPine 5 MG TAB PO ONE (06:45)
[2018-11-12 06:56] VITALS: BP 169/96
[2018-11-12] MEDS: HumaLOG INSULIN (NovoLOG) PER UNIT SC SCH (07:30)
[2018-11-12 08:00] VITALS: BP 172/91
[2018-11-12] MEDS: PREGABALIN 100 MG CAP (LYRICA) PO SCH (08:28)
[2018-11-12] MEDS: MODAFINIL 100 MG TABLET PO SCH (08:29)
[2018-11-12] MEDS: levETIRAcetam 250MG TABLET (KEPPRA) PO SCH (08:29)
[2018-11-12] MEDS: METAMUCIL (PSYLLIUM) PACKET PO SCH (08:29)
[2018-11-12] MEDS: LEVEMIR (INSULIN DETEMIR) 1 UNITS/0.01ML SC SCH (08:30)
[2018-11-12] MEDS ORDERED: AMLO5TAB6 PO (09:46)
[2018-11-12] MEDS ORDERED: ERTA1INJ3 IV (11:05)
--- NOTE | 2018-11-12 11:11 | DS.PDOC ---
Discharge Summary General Date of Admission Nov 09, 2018 at 14:11 Date of Discharge 11/12/2018 Discharge Summary PROCEDURES PERFORMED DURING STAY: [None] ADMITTING DIAGNOSES / DISCHARGE DIAGNOSES: Positive urine culture from UTI - 2/2 Pseudomonas Multiple sclerosis Possible seizure disorder IDDM2 AYLA on BIPAP Depression / Anxiety Hx of Hyponatremia DVT prophylaxis COMPLICATIONS/CHIEF COMPLAINT: Positive urine culture for Pseudomonas HISTORY OF PRESENT ILLNESS: Patient is a 63-year-old male with a PMHx of Multiple sclerosis (w/ severe muscle spasms), IDDM2, AYLA on BIPAP, Depression, Hx of Hyponatremia, Hx of recurrent UTI (Follows with Dr. Mccormick of Urology) who presented to the ER after he was advised he had a positive urine culture for Pseudomonas on . Patient reports that over last 4 weeks he can feeling tired and weak. About 8-10 weeks ago. Patient has been following with urology, Dr. Mccormick for recurrent urinary tract infections. Patient had a Guerrero catheter placed approximately 8 weeks ago that required several adjustments. Patient maintained full. Therefore proximally 4 weeks, however, had complications including Guerrero slipping out as well as leakage around the Guerrero. Guerrero was ultimately removed 4 weeks ago. Since that point, patient has been experiencing discomfort with urination, lower abdominal discomfort chills and subjective fevers. Patient has reported that he has been on 3-4 different types of antibiotics over last 4 weeks prescribed by urology. Despite this he has continued to experience his symptoms. Patient ultimately had a urine culture collected at urgent care on 11/03/2018 that resulted in Pseudomonas. Patient was admitted to hospitalist service for further evaluation and treatment. HOSPITAL COURSE: Positive urine culture from UTI - 2/2 Pseudomonas - Patient presented to the emergency room after having a positive urine culture from 11/03/2018 - Hx of recurrent UTI (Follows with Dr. Mccormick of Urology) - Continues to have good urine output - s/p Leukocytosis, no lactic acidosis - Blood cultures 11/09: Pending; Urine culture 11/09: Pseudomonas - Urine culture as an outpatient from 11/03/2018 were positive for Pseudomonas aeruginosa - Will give single dose of Ertapenem while inpatient and continue outpatient home infusion thereafter (Day #4); s/p PICC line (11/11) - Advised to f/u with Dr. Lorne Noriega and Dr. Mccormick within 7 days Multiple sclerosis - Patient has a history of severe muscle spasms - c/w Pregabalin and Modafinil Possible seizure disorder - Patient has denied any prior history of seizures, however, has indicated that he experiences severe muscle spasms from his MS - c/w Keppra IDDM2 - c/w ISS and adjusted dose of long acting insulin AYLA on BIPAP - May allow home BIPAP use while inpatient Depression / Anxiety - c/w Alprazolam, Duloxetine Hx of Hyponatremia DVT prophylaxis - c/w Heparin DISCHARGE MEDICATIONS: Please see below. ALLERGIES: Please see below. PHYSICAL EXAMINATION ON DISCHARGE: Vitals (See below) General: Lying in bed, no acute distress, comfortable, AAOx3 HEENT: NC, AT CVS: +S1S2 Lungs: Fair air entry b/l, auscultation is without rales / rhonchi or wheezing Abdomen: Soft, non-distended / non-tender Extremities: No signs of edema, - Calf tenderness, left upper extremity with contractures LABORATORY DATA: Please see below. ACTIVITY: [As tolerated]. DISCHARGE PLAN: Follow up with Dr. Lorne Noriega and Dr. Mccormick within 7 days Remain compliant with treatment plan and medications Return to the ER if you experience any problems DISPOSITION: Home with services / Outpatient - Home infusion DISCHARGE CONDITION: [Stable]. TIME SPENT ON DISCHARGE: 39 minutes Vital Signs/I&Os Vital Signs Date Time Temp Pulse Resp B/P (MAP) Pulse Ox O2 Delivery O2 Flow Rate FiO2 11/12/18 08:00 97.4 93 18 172/91 (118) 93 11/09/18 14:55 Room Air I&O- Last 24 Hours up to 6 AM 11/12/18 06:00 Intake Total 3820 ml Output Total 3825 ml Balance -5 ml Laboratory Data Labs 24H Laboratory Tests 2 11/11/18 11:44: Bedside Glucose (Misc Panel) 213H 11/11/18 17:28: Bedside Glucose (Misc Panel) 94 11/11/18 20:33: Bedside Glucose (Misc Panel) 198H 11/12/18 05:54: Immature Granulocyte % (Auto) 0.7, White Blood Count 6.8, Red Blood Count 4.43, Hemoglobin 12.4L, Hematocrit 39.9L, Mean Corpuscular Volume 90.1, Mean Corpuscular Hemoglobin 28.0, Mean Corpuscular Hemoglobin Concent 31.1L, Red Cell Distribution Width 13.3, Platelet Count 258, Neutrophils (%) (Auto) 68.3H, Lymphocytes (%) (Auto) 20.1L, Monocytes (%) (Auto) 7.7H, Eosinophils (%) (Auto) 2.8, Basophils (%) (Auto) 0.4, Neutrophils # (Auto) 4.6, Lymphocytes # (Auto) 1.4L, Monocytes # (Auto) 0.5, Eosinophils # (Auto) 0.2, Basophils # (Auto) 0.0, Nucleated Red Blood Cells % (auto) 0.0, Anion Gap 6L, Glomerular Filtration Rate > 60.0, Blood Urea Nitrogen 17, Creatinine 0.92, Sodium Level 148H, Potassium Level 3.6, Chloride Level 110H, Carbon Dioxide Level 32, Calcium Level 8.3L, Magnesium Level 2.1 CBC/BMP Laboratory Tests 11/12/18 05:54 Red Blood Count 4.43, Mean Corpuscular Volume 90.1, Mean Corpuscular Hemoglobin 28.0, Mean Corpuscular Hemoglobin Concent 31.1 L, Red Cell Distribution Width 13.3, Neutrophils (%) (Auto) 68.3 H, Lymphocytes (%) (Auto) 20.1 L, Monocytes (%) (Auto) 7.7 H, Eosinophils (%) (Auto) 2.8, Basophils (%) (Auto) 0.4, Neutrophils # (Auto) 4.6, Lymphocytes # (Auto) 1.4 L, Monocytes # (Auto) 0.5, Eosinophils # (Auto) 0.2, Basophils # (Auto) 0.0, Calcium Level 8.3 L FSBS Laboratory Tests Test 11/11/18 11:44 11/11/18 17:28 11/11/18 20:33 Range/Units Bedside Glucose (Misc Panel) 213 94 198 80-115 MG/DL Microbiology Microbiology 11/09/18 Urine Culture - Final, Complete Pseudomonas Aeruginosa 11/09/18 Blood Culture - Preliminary, Resulted No Growth after 48 hours. All Specime... 11/09/18 Blood Culture - Preliminary, Resulted No Growth after 48 hours. All Specime... Discharge Medications Scheduled Amlodipine Besylate (Amlodipine Besylate) 5 Mg Tablet, 5 MG PO DAILY Dulaglutide (Trulicity) 1.5 Mg/0.5 Ml Pen.injctr, 1.5 MG SC 1XWK, (Reported) SUNDAY NIGHTS Duloxetine Hcl (Cymbalta) 60 Mg Capsule.dr, 60 MG PO QHS, (Reported) Honey (Medihoney) 15 Ml Gel..ml., 1 GEL TOP DAILY, (Reported) APPLY TO SORES Insulin Glargine,Hum.rec.anlog (Lantus Solostar) 100 Unit/1 Ml Insuln.pen, 60 UNITS SC QAM, (Reported) Insulin Lispro (Humalog Kwikpen U-100) 100 Unit/1 Ml Insuln.pen, 14 UNITS SC BID, (Reported) BREAKFAST,LUNCH Insulin Lispro (Humalog Kwikpen U-100) 100 Unit/1 Ml Insuln.pen, 16 UNITS SC QPM, (Reported) DINNER Modafinil (Modafinil) 200 Mg Tablet, 400 MG PO QAM, (Reported) Oxybutynin Chloride (Oxybutynin Chloride ER) 10 Mg Tab.er.24, 10 MG PO DAILY, (Reported) Pregabalin (Pregabalin) 100 Mg Capsule, 100 MG PO TID, (Reported) Psyllium Husk (Reguloid) 0.4 Gm Capsule, 2 CAP PO TID, (Reported) TAKE WITH 8OZ OF LIQUID Testosterone (Testosterone) 5 Gm Gel..gram., 1 DOSE TD DAILY, (Reported) APPLY TO CHEST AND SHOULDERS levETIRAcetam (levETIRAcetam) 500 Mg Tablet, 500 MG PO BID, (Reported) Scheduled PRN Alprazolam (Alprazolam) 0.5 Mg Tablet, 0.5 MG PO QID PRN for MUSCLE SPASMS, (Reported) Docusate Sodium (Colace) 100 Mg Capsule, 100 MG PO BID PRN for CONSTIPATION, (Reported) Allergies Coded Allergies: Penicillins (Verified Allergy, Unknown, 11/07/18) alendronate sodium (Verified Allergy, Unknown, 11/07/18) ibandronate sodium (Verified Allergy, Unknown, unknown, 11/07/18) methadone (Verified Allergy, Unknown, NAUSEA AND VOMITING, 11/07/18) rofecoxib (Verified Allergy, Unknown, 11/07/18) morphine (Verified Adverse Reaction, Unknown, nausea,vomiting, 11/07/18) GIANNI WELCH MD Nov 12, 2018 11:11
[2018-11-12] MEDS ORDERED: ERTAPENEM SODIUM 1 GM in NS MINI-BAG PLUS 50 ML IV ONE (12:00)
[2018-11-13] MEDS ORDERED: amLODIPine 5 MG TAB PO SCH (09:00)
== END 2018-11-12 13:05 | disposition home health service (06) | DRG 690 ==
LOC: M ED 10:50 → M ED INP 14:11 → M PCU 15:04
PROVIDERS: ADMIT Internal Medicine; ATTEND Internal Medicine
PROC: 02HV33Z Insertion of Infusion Device into Superior Vena Cava, Percutaneous Approach (ICD-10-PCS; principal; 2018-11-11 14:00)
DX: N39.0 Urinary tract infection, site not specified (principal); E87.1 Hypo-osmolality and hyponatremia; B96.5 Pseudomonas (aeruginosa) (mallei) (pseudomallei) as the cause of diseases classified elsewhere; G35 Multiple sclerosis; E11.9 Type 2 diabetes mellitus without complications; G40.909 Epilepsy, unspecified, not intractable, without status epilepticus; F41.9 Anxiety disorder, unspecified; F32.9 Major depressive disorder, single episode, unspecified; G47.33 Obstructive sleep apnea (adult) (pediatric); Z79.899 Other long term (current) drug therapy; Z79.4 Long term (current) use of insulin; Z88.0 Allergy status to penicillin; Z88.8 Allergy status to other drugs, medicaments and biological substances

== ENCOUNTER → 2018-11-18 | Outpatient (REF) | payer MEDICARE, MEDICAID ==
[~2018-11-18] MED LIST changes: +ALPR0.5T3 PO; +AMLO5TAB6 PO; +CEFD1CAP8 PO; +CEFE1INJ2 IV; +COLA100C5 PO; +CYMB60CA3 PO; +ERTA1INJ3 IV; +MEDI1GEL5 TOP; +OXYB10TA2 PO; +OXYB5TAB10 PO; +TEST1GEL6 TD
[2018-11-18 14:23] LABS: HEMATOCRIT 45.1 % (42.0-52.0); HEMOGLOBIN 13.8 g/dl (13.5-17.5); MEAN CORPUSCULAR HEMOGLOBIN 27.5 pg (27.0-33.0); MEAN CORPUSCULAR HGB CONC 30.6 g/dl (32.0-36.5); PLATELET COUNT, AUTOMATED 242 10^3/uL (150-450); RED BLOOD COUNT 5.01 10^6/uL (4.30-6.10); WHITE BLOOD COUNT 8.5 10^3/uL (4.0-10.0)
== END ==
LOC: M LAB REF 13:37
PROVIDERS: ATTEND Internal Medicine
DX: N39.0 Urinary tract infection, site not specified (principal); B96.5 Pseudomonas (aeruginosa) (mallei) (pseudomallei) as the cause of diseases classified elsewhere
CPT/HCPCS: 85027; G0463

== ENCOUNTER 2018-11-19 12:09 | Outpatient (CLI) | payer MEDICARE, MEDICAID ==
[~2018-11-19] VITALS: Ht 188 cm; Wt 85.0 kg
[~2018-11-19 12:09] MED LIST changes: -CEFE1INJ2 IV
[2018-11-19] MEDS ORDERED: CEFE1INJ2 IV (12:51)
[2018-11-19] MEDS ORDERED: CEFEPIME HCL 1 GM in D5W MINI-BAG PLUS 50 ML IV ONE (13:00)
[2018-11-19] MEDS ORDERED: SODIUM CHLORIDE 0.9% INJ 10 ML SYR IV PRN (13:30)
[2018-11-19 14:10] VITALS: BP 184/97
[2018-11-19] MEDS ORDERED: SODIUM CHLORIDE 0.9% INJ 10 ML SYR IV SCH (18:00)
== END 2018-11-19 14:10 | disposition home or self-care (01) ==
LOC: M INFU 12:09
PROVIDERS: ATTEND Family Medicine
DX: N39.0 Urinary tract infection, site not specified (principal)
CPT/HCPCS: 96365; J0692

== ENCOUNTER → 2018-11-26 | Outpatient (REF) | payer MEDICARE, MEDICAID ==
[~2018-11-26] MED LIST changes: +ASPI81TA26 PO; +CEFE1INJ2 IV; +ZYVO1TAB PO
[2018-11-26 13:40] LABS: APPEARANCE, URINE CLEAR (CLEAR); BACTERIA, URINE AUTO NEGATIVE (NEGATIVE); BILIRUBIN, URINE AUTO NEGATIVE (NEGATIVE); BLOOD, URINE BLOOD NEGATIVE (NEGATIVE); COLOR, URINE STRAW (YELLOW); GLUCOSE, URINE (UA) AUTO 3+ mg/dL (NEGATIVE); KETONE, URINE AUTO NEGATIVE (NEGATIVE); LEUKOCYTE ESTERASE, URINE AUTO TRACE (NEGATIVE); NITRITE, URINE AUTO NEGATIVE (NEGATIVE); PROTEIN, URINE AUTO NEGATIVE (NEGATIVE); RBC, URINE AUTO 0 /HPF (0-3); SPECIFIC GRAVITY URINE AUTO 1.003 (1.002-1.035); SQUAMOUS EPITHELIAL CELL UR AU 1 /HPF (0-6); UROBILINOGEN, URINE AUTO 0.2 mg/dL (0.0-2.0); WBC, URINE AUTO 4 /HPF (0-3)
== END ==
LOC: M SFHCPLAZ 13:14
PROVIDERS: ATTEND Family Medicine
DX: N39.0 Urinary tract infection, site not specified (principal)
CPT/HCPCS: 81001; 87086; G0463

== ENCOUNTER → 2018-12-04 | Outpatient (REF) | payer MEDICARE, MEDICAID ==
[2018-12-04 16:08] LABS: BASO # 0.1 10^3/uL (0.0-0.2); BASO % 0.8 % (0.0-1.0); EOS # 0.3 10^3/uL (0.0-0.5); EOS % 2.9 % (0.0-3.0); HEMATOCRIT 45.2 % (42.0-52.0); HEMOGLOBIN 14.1 g/dl (13.5-17.5); LYMPH # 1.9 10^3/uL (1.5-5.0); LYMPH % 21.4 % (24.0-44.0); MEAN CORPUSCULAR HEMOGLOBIN 27.9 pg (27.0-33.0); MEAN CORPUSCULAR HGB CONC 31.2 g/dl (32.0-36.5); MEAN CORPUSCULAR VOLUME 89.3 fl (80.0-96.0); MONO # 0.8 10^3/uL (0.0-0.8); NEUTROPHILS # 5.9 10^3/uL (1.5-8.5); NEUTROPHILS % 65.5 % (36.0-66.0); PLATELET COUNT, AUTOMATED 180 10^3/uL (150-450); RED BLOOD COUNT 5.06 10^6/uL (4.30-6.10); WHITE BLOOD COUNT 8.9 10^3/uL (4.0-10.0)
[2018-12-04 16:38] LABS: ERYTHROCYTE SEDIMENTATION RATE 22 mm/hr (0-20)
== END ==
LOC: M SFHCPLAZ 12:24
PROVIDERS: ATTEND Family Medicine
DX: R10.9 Unspecified abdominal pain (principal); R30.0 Dysuria
CPT/HCPCS: 36415; 80048; 81001; 85025; 85652; 86140; 87088; 87186; 90682; G0008; G0463

== ENCOUNTER → 2018-12-04 | Outpatient (REF) | payer MEDICARE, MEDICAID ==
[~2018-12-04] MED LIST changes: -ASPI81TA26 PO; -ZYVO1TAB PO
[2018-12-04 16:04] LABS: BLOOD UREA NITROGEN 16 MG/DL (7-18); CALCIUM LEVEL 9.3 MG/DL (8.8-10.2); CARBON DIOXIDE LEVEL 35 MEQ/L (21-32); CHLORIDE LEVEL 99 MEQ/L (98-107); CREATININE FOR GFR 0.83 MG/DL (0.70-1.30); GLOMERULAR FILTRATION RATE > 60.0 (>49); GLUCOSE, FASTING 234 MG/DL (70-100); POTASSIUM SERUM 3.7 MEQ/L (3.5-5.1); SODIUM LEVEL 138 MEQ/L (136-145)
== END ==
LOC: M LABDRAWP 13:07
PROVIDERS: ATTEND Psychiatry & Neurology Neurology
DX: I63.9 Cerebral infarction, unspecified (principal)

== ENCOUNTER → 2018-12-04 | Outpatient (REF) | payer MEDICARE, MEDICAID ==
[~2018-12-04] MED LIST changes: +ASPI81TA26 PO
[2018-12-04 18:25] LABS: APPEARANCE, URINE CLOUDY (CLEAR); BACTERIA, URINE AUTO 2+ (NEGATIVE); BILIRUBIN, URINE AUTO NEGATIVE (NEGATIVE); BLOOD, URINE BLOOD 2+ (NEGATIVE); COLOR, URINE YELLOW (YELLOW); GLUCOSE, URINE (UA) AUTO 3+ mg/dL (NEGATIVE); KETONE, URINE AUTO NEGATIVE (NEGATIVE); LEUKOCYTE ESTERASE, URINE AUTO 3+ (NEGATIVE); MUCUS, URINE SMALL (NEGATIVE); NITRITE, URINE AUTO NEGATIVE (NEGATIVE); PROTEIN, URINE AUTO 1+ mg/dL (NEGATIVE); RBC, URINE AUTO 15 /HPF (0-3); SPECIFIC GRAVITY URINE AUTO 1.003 (1.002-1.035); SQUAMOUS EPITHELIAL CELL UR AU 3 /HPF (0-6); UROBILINOGEN, URINE AUTO 0.2 mg/dL (0.0-2.0); WBC, URINE AUTO TNTC /HPF (0-3)
== END ==
LOC: M SFHCPLAZ 16:58
PROVIDERS: ATTEND Family Medicine
DX: R30.0 Dysuria (principal)

== ENCOUNTER 2018-12-09 11:17 | Inpatient (IN) | payer MEDICARE, MEDICAID ==
[~2018-12-09] VITALS: Ht 188 cm; Wt 86.4 kg
[~2018-12-09 11:17] MED LIST changes: -ASPI81TA26 PO
[2018-12-09 13:49] LABS: BASO # 0.1 10^3/uL (0.0-0.2); EOS # 0.3 10^3/uL (0.0-0.5); HEMATOCRIT 47.3 % (42.0-52.0); HEMOGLOBIN 15.2 g/dl (13.5-17.5); LYMPH # 1.8 10^3/uL (1.5-5.0); LYMPH % 18.4 % (24.0-44.0); MEAN CORPUSCULAR HEMOGLOBIN 28.3 pg (27.0-33.0); MEAN CORPUSCULAR HGB CONC 32.1 g/dl (32.0-36.5); MEAN CORPUSCULAR VOLUME 88.1 fl (80.0-96.0); MONO # 0.8 10^3/uL (0.0-0.8); MONO % 8.2 % (0.0-5.0); NEUTROPHILS # 6.9 10^3/uL (1.5-8.5); PLATELET COUNT, AUTOMATED 237 10^3/uL (150-450); RED BLOOD COUNT 5.37 10^6/uL (4.30-6.10)
[2018-12-09] MEDS ORDERED: GENTAMICIN 120 MG in D5W 50 ML IV ONE (14:00)
[2018-12-09 14:12] LABS: ALBUMIN 3.1 GM/DL (3.2-5.2); ALT/SGPT 97 U/L (12-78); BILIRUBIN,DIRECT < 0.1 MG/DL (0.0-0.2); BILIRUBIN,TOTAL 0.4 MG/DL (0.2-1.0); BLOOD UREA NITROGEN 18 MG/DL (7-18); CALCIUM LEVEL 9.6 MG/DL (8.8-10.2); CARBON DIOXIDE LEVEL 33 MEQ/L (21-32); CHLORIDE LEVEL 98 MEQ/L (98-107); CREATININE FOR GFR 1.01 MG/DL (0.70-1.30); GLOMERULAR FILTRATION RATE > 60.0 (>49); GLUCOSE, FASTING 290 MG/DL (70-100); POTASSIUM SERUM 3.8 MEQ/L (3.5-5.1); SODIUM LEVEL 136 MEQ/L (136-145); TOTAL PROTEIN 8.7 GM/DL (6.4-8.2)
[2018-12-09] MEDS ORDERED: ALPR0.5T3 PO (15:34)
[2018-12-09] MEDS ORDERED: ASPI81TA26 PO (15:34)
[2018-12-09] MEDS ORDERED: AMLO5TAB6 PO (15:34)
[2018-12-09] MEDS ORDERED: KEPP1TAB PO (15:34)
--- NOTE | 2018-12-09 16:02 | REP ---
Clinical: Urinary retention. Technique: Real time willingham scale ultrasound examination using curved array transducer. Findings: Right kidney measures 12.2 x 6.0 x 8.0 cm and exhibits moderate to significant hydroureteronephrosis with renal pelvis measuring 3.3 cm. Left kidney measures 11.8 x 5.0 x 6.9 cm and exhibits moderate to significant hydroureteronephrosis with renal pelvis measuring 3.3 cm diameter. Impression: Moderate to severe bilateral hydroureteronephrosis. Electronically Signed by Gerson Rowan MD 12/09/2018 03:54 P
--- NOTE | 2018-12-09 16:04 | REP ---
Clinical: Urinary retention. Technique: Real time willingham scale and color evaluation using curved array transducer. Findings: No significant bladder wall thickening or mass lesion appreciated. Bilateral ureteral jets are identified. Prevoid bladder measures 11.4 x 7.5 x 7.2 cm (402 ml). Impression: Urinary retention. Electronically Signed by Gerson Rowan MD 12/09/2018 03:55 P
--- NOTE | 2018-12-09 18:21 | HPEPDOC ---
General Date of Admission 12/09/18 Date of Service: Dec 09, 2018 Chief Complaint The patient is a 63-year-old male admitted with a reason for visit of MRSA. Source: Patient, RN/, Old records History of Present Illness 63 year old male with advance MS with paraplegia as well as paralysis of left upper extremity, bed bound, with chronic urinary retention , with hydronephrosis which is progressing, chronic overflow incontinence, absolutely refuses a Myers placement and absolutely refuses to see our urologists, has set up an appointment with a urologist in [place] for end of next month, recurrent UTIS/ chronic Urinary colonization was last treated for pseudomonas UTI in beginning of November with meropenem was seen by PMD on 12/04 when again Urine culture was sent on patient request as the urine was cloudy and culture came back positive for Pseudomonas and MRSA so was instructed by PMD to come to the ED. Patient did not have any fever , though he says he was weak and tired but that is not any different from usual. He does not have any sensation below waist so does not have any burning or dysuria. He always leaks urine. Today urine was again sent from the ED. As per ED nurse patient was able to urinate in the cup. His perineum is always moist. He was admitted for obstructive uropathy with possible urinary tract infection. Home Medications Scheduled Alprazolam (Alprazolam) 0.5 Mg Tablet, 0.25 MG PO BID, (Reported) TAKES AT NOON AND 1600 Alprazolam (Alprazolam) 0.5 Mg Tablet, 0.5 MG PO QHS, (Reported) Amlodipine Besylate (Amlodipine Besylate) 5 Mg Tablet, 5 MG PO QHS, (Reported) Aspirin (Aspirin EC) 81 Mg Tablet.dr, 81 MG PO DAILY, (Reported) Docusate Sodium (Colace) 100 Mg Capsule, 100 MG PO DAILY, (Reported) Dulaglutide (Trulicity) 1.5 Mg/0.5 Ml Pen.injctr, 1.5 MG SC 1XWK, (Reported) SUNDAY EVENINGS Duloxetine Hcl (Cymbalta) 60 Mg Capsule.dr, 60 MG PO QHS, (Reported) Insulin Glargine,Hum.rec.anlog (Lantus Solostar) 100 Unit/1 Ml Insuln.pen, 68 UNITS SC DAILY, (Reported) Insulin Lispro (Humalog Kwikpen U-100) 100 Unit/1 Ml Insuln.pen, 14 UNITS SC BID, (Reported) BREAKFAST,LUNCH Insulin Lispro (Humalog Kwikpen U-100) 100 Unit/1 Ml Insuln.pen, 16 UNITS SC QPM, (Reported) DINNER Levetiracetam (Keppra) 500 Mg Tablet, 500 MG PO QHS, (Reported) Modafinil (Modafinil) 200 Mg Tablet, 300 MG PO DAILY, (Reported) Pregabalin (Pregabalin) 100 Mg Capsule, 100 MG PO TID, (Reported) Psyllium Husk (Reguloid) 0.4 Gm Capsule, 2 CAP PO DAILY, (Reported) Testosterone (Testosterone) 5 Gm Gel..gram., 1 DOSE TD QHS, (Reported) APPLY TO CHEST AND SHOULDERS levETIRAcetam (levETIRAcetam) 500 Mg Tablet, 250 MG PO BID, (Reported) TAKES AT 1200 AND 1600 Allergies Coded Allergies: Penicillins (Verified Allergy, Unknown, 11/07/18) alendronate sodium (Verified Allergy, Unknown, 11/07/18) ibandronate sodium (Verified Allergy, Unknown, unknown, 11/07/18) methadone (Verified Allergy, Unknown, NAUSEA AND VOMITING, 11/07/18) rofecoxib (Verified Allergy, Unknown, 11/07/18) morphine (Verified Adverse Reaction, Unknown, nausea,vomiting, 11/07/18) Past Medical History Medical History Multiple sclerosis (w/ severe muscle spasms), PARAPLEGIA, Left upper extremity paresis, IDDM2, AYLA on BIPAP, Depression, Hx of Hyponatremia, Hx of recurrent UTI (Followed with Dr. Mccormick of Urology but stopped going 1.5 months ago) , Chronic urinary retention with hydronephrosis on the right , URINARY INCONTINENCE, diabetes, obesity, DORSAL COLUMN STIMULATOR, DEPRESSION, ANDROGEN DEFICIENCY, VITAMIN D DEFICIENCY, HYPERTENSION, OSTEOPOROSIS , LEFT ANKLE FX, BAKERS CYST, TYPE 2 DIABETES, CERVICAL SPONDYLOSIS, CHRONIC CONSTIPATION Surgical History APPENDECTOMY BACLOFEN PUMP PUMP CATHETAR REMOVED BY DR. ALEJANDRO 05/01/16 DUE TO INFECTION AND ABSCESS ALONG THE CATH TRACT EXTENDING TO ABDOMINAL WALL CYSTOSCOPY Family History FATHER: MELANOMA MOTHER: , LUNG CA SIBLINGS: BROTHER--STROKE, PRIMARY HYPERPARATHYROIDISM SISTER--THYROID DISEASE 2 BROTHER(S) , 1 SISTER(S) . 1 BROTHER WITH CVA AND LUNG CANCER. SISTER HAS THYROID ISSUES. Social History * Smoker: Denies Alcohol: Denies Drugs: denies A-FIB/CHADSVASC A-FIB History Current/History of A-Fib/PAF?: No Review of Systems Constitutional: Reports: Weakness, Fatigue; Denies: Chills, Fever, Night Sweats Eyes: Reports: Pain ENT: Denies: Head Aches, Ear Pain, Dysphagia Skin: Denies: Rash, Lesions, Breakdown Pulmonary: Denies: Dyspnea, Cough Cardiovascular: Denies: Chest Pain, Palpitations, Orthopnea, Paroxysmal Noc. Dyspnea, Lt Headedness Gastrointestinal: Reports: Constipation; Denies: Nausea, Vomiting, Abdominal Pain, Diarrhea Genitourinary: Reports: Incontinence, Retention; Denies: Dysuria, Frequency Hematologic: Denies: Bruising, Bleeding Excessively Musculoskeletal: Reports: Neck Pain, Back Pain, Spasms Neurological: Reports: Weakness, Other Symptoms (paraplegia, left upper extremity paralysis with contracture) Psych: Reports: Anger Physical Examination General Exam: Positive: Alert, Cooperative, No Acute Distress Eye Exam: Positive: Conjunctiva & lids normal ENT Exam: Positive: Atraumatic, Mucous membr. moist/pink, Pharynx Normal Neck Exam: Positive: Supple; Negative: JVD, thyromegaly Chest Exam: Positive: Clear to auscultation, Normal air movement, Diminished (at the bases) Heart Exam: Positive: Rate Normal, Regular Rhythm, Normal S1, Normal S2; Negative: Murmurs, Rubs Abdomen Exam: Positive: Normal bowel sounds, Soft, Other (distended); Negative: Tenderness, Hepatospenomegaly Extremity Exam: Negative: Clubbing, Cyanosis, Edema Skin Exam: Positive: Rash (in the groin and the scrotum) Neuro Exam: Positive: Normal Speech, Other (paraplegia) Psych Exam: Positive: Memory Intact, Oriented x 3 Vital Signs Vital Signs Date Time Temp Pulse Resp B/P (MAP) Pulse Ox O2 Delivery O2 Flow Rate FiO2 12/09/18 12:01 12/09/18 11:17 97.3 110 18 97 Room Air Laboratory Data Labs 24H Laboratory Tests 2 12/09/18 13:09: Urine Color YELLOW, Urine Appearance CLOUDYH, Urine pH 7.0, Urine Specific [place] 1.001L, Urine Protein NEGATIVE, Urine Glucose (UA) 3+H, Urine Ketones NEGATIVE, Urine Blood 1+H, Urine Nitrite NEGATIVE, Urine Bilirubin NEGATIVE, Urine Urobilinogen 0.2, Urine Leukocyte Esterase 3+H, Urine WBC (Auto) TNTCH, Urine RBC (Auto) 25H, Urine Hyaline Casts (Auto) 0, Urine Bacteria (Auto) 2+H, Urine Squamous Epithelial Cells 0, Urine Mucus (Auto) SMALL, Urine Sperm (Auto) 12/09/18 13:33: Immature Granulocyte % (Auto) 0.4, Neutrophils (%) (Auto) 69.0H, Lymphocytes (%) (Auto) 18.4L, Monocytes (%) (Auto) 8.2H, Eosinophils (%) (Auto) 3.0, Basophils (%) (Auto) 1.0, Neutrophils # (Auto) 6.9, Lymphocytes # (Auto) 1.8, Monocytes # (Auto) 0.8, Eosinophils # (Auto) 0.3, Basophils # (Auto) 0.1, Nucleated Red Blood Cells % (auto) 0.0, Anion Gap 5L, Glomerular Filtration Rate > 60.0, Lactic Acid Level 1.9, Calcium Level 9.6, Total Bilirubin 0.4, Direct Bilirubin < 0.1, Aspartate Amino Transf (AST/SGOT) 41H, Alanine Aminotransferase (ALT/SGPT) 97H, Alkaline Phosphatase 181H, Total Protein 8.7H, Albumin 3.1L, Albumin/Globulin Ratio 0.55L CBC/BMP Laboratory Tests 12/09/18 13:33 Microbiology Microbiology 12/09/18 Blood Culture, Received Pending 12/09/18 Blood Culture, Received Pending 12/09/18 Urine Culture, Received Pending Assessment/Plan 63 year old male with advance MS with paraplegia as well as paralysis of left upper extremity, bed bound, with chronic urinary retention , with hydronephrosis which is progressing, chronic overflow incontinence, absolutely refuses a Myers placement and absolutely refuses to see our urologists, has set up an appointment with a urologist in [place] for end of next month, recurrent UTIS/ chronic Urinary colonization was last treated for pseudomonas UTI in beginning of November with meropenem was seen by PMD on 12/04 when again Urine culture was sent on patient request as the urine was cloudy and culture came back positive for Pseudomonas and MRSA so was instructed by PMD to come to the ED. Patient did not have any fever , though he says he was weak and tired but that is not any different from usual. He does not have any sensation below waist so does not have any burning or dysuria. He always leaks urine. Today urine was again sent from the ED. As per ED nurse patient was able to urinate in the cup. His perineum is always moist. He was admitted for obstructive uropathy with possible urinary tract infection. Urinary infection Vs Chronic colonization with Pseudomonas and MRSA new urine cultures and blood cultures sent. CRP and ESR added consulted ID will follow recommendations Cefepime and vancomycin Obstructive uropathy progressive worsened since June 2018 with bilateral hydroureteronephrosis Our urology recommended indwelling myers to relief his obstruction and treatment of his infected urine . Definitite treament will be suprapubic once urine is clear patient absolutely refused Myers, refused to see our urologists here. I explained that if we do not relief the obstruction and get the dirty urine out he may become septic and go into shock and also develop kidney failure from the back pressure. He understood and said "if its my time to go then i will go" but still he refused the Myers. He has set up an appointment with a urologist in [place] will try to get in touch with him tomorrow to see if they will be able to see him earlier or will take him as a transfer. Intertriginous candidiasis will give nystatin powder will put [place] cath to keep perineum dry to protect the skin. Chronic constipation continue home meds, he refused enema MS with paraplegia and left upper extremity paralysis with contracture continue home meds. lyrica, modafinil, cymbalta, keppra, alprazolam AYLA may use own BIPAP Diabetes continue levemir and lispro Hypertension amlodipine Plan / VTE VTE Prophylaxis Ordered?: Yes MALAIKA GOLDMAN MD Dec 09, 2018 15:49
[2018-12-09] MEDS ORDERED: GLUCOSE 4 GM CHEW TABLET PO PRN (18:30)
[2018-12-09] MEDS ORDERED: DEXTROSE 50% 50 ML SYRINGE IV PRN (18:30)
[2018-12-09] MEDS ORDERED: GLUCAGON FOR INJ 1 MG VIAL (J1610) SC PRN (18:30)
--- NOTE | 2018-12-09 19:10 | CR ---
DATE OF CONSULTATION: 12/09/2018 REASON FOR CONSULTATION: Methicillin-resistant Staphylococcus aureus (MRSA) urinary tract infection. CONSULTING PHYSICIAN: Dr. Anai Noriega ATTENDING PHYSICIAN: Dr. Letty Moy HISTORY OF PRESENT ILLNESS: Mr. Vanessa is a 63-year-old male with a history of multiple sclerosis and chronic muscle spasticity leading to chronic urinary retention. He has a history of recurrent urinary tract infections with recent hospitalization on 11/04/2018, which he was diagnosed with Pseudomonas aeruginosa urinary tract infection and discharged home with a peripherally inserted central catheter (PICC) line for antibiotic therapy. The patient has been following with Dr. Mccormick of urology, outpatient. However, he has been noncompliant. There has been difficulty with the patient's Guerrero catheter as it frequently falls out. The patient has a history of hydronephrosis as well as urinary retention secondary to his multiple sclerosis. He had completed antibiotic therapy for his previous urinary tract infection and was following up with his primary care physician, Dr. Noriega, and had requested a urine culture on 12/04/2018. The patient's urinary culture came back positive for Methicillin-resistant Staphylococcus aureus as well as Pseudomonas aeruginosa. The patient's urinalysis came back positive for urine bacteria as well as pyuria. The patient states that he was at his house when Dr. Noriega's office had contacted him and instructed him to go to the emergency department. In the emergency department, the patient was afebrile. He was slightly tachycardic with a pulse of 110. He had received a dose of 120 mg of gentamicin. The patient states that he has not had any fevers or chills. He states that he does have some burning with urination at times. However, he also states that he has difficulty feeling anything below his waist. The patient denies any other symptoms and states that he has come here mostly because he was instructed to by his primary care physician. REVIEW OF SYSTEMS: CONSTITUTIONAL: The patient denies any fevers, chills. He denies any unintentional weight loss or weight gain. He denies any night sweats. HEENT: The patient denies any difficulty swallowing. He denies any pain on swelling. He denies any changes in his vision or his hearing. CARDIOVASCULAR: The patient denies any chest pain, palpitations, or feelings of heart racing. RESPIRATIONS: Patient denies any shortness of breath. He denies any coughing, wheezing. GASTROINTESTINAL: Patient denies any diarrhea, constipation, nausea, vomiting, or abdominal pain. GENITOURINARY: Patient admits to chronic urinary retention, as well as chronic urinary tract infections. He admits to burning on urination. He denies any suprapubic tenderness or pain. SKIN: Patient admits to chronic sacral ulcers, as well as skin excoriations on the groin. MUSCULOSKELETAL: Patient admits to being bedridden secondary to his multiple sclerosis. NEUROLOGICAL: Patient denies any change in speech. He admits to chronic muscle spasticity due to his multiple sclerosis. PSYCHIATRIC: Patient denies any current symptoms of anxiety or depression. ENDOCRINE: Patient admits to a history of diabetes. He denies any heat intolerance or cold intolerance. HEMATOLOGIC/LYMPH: Patient denies any history of easy bruising or bleeding. He denies any history of deep vein thrombosis or pulmonary embolisms. PAST MEDICAL HISTORY: 1. Multiple sclerosis diagnosed in 1997. 2. Chronic muscle spasticity secondary to multiple sclerosis. 3. Insulin-dependent diabetes mellitus type 2. 4. Obstructive sleep apnea - on bilevel positive airway pressure (BiPAP). 5. Recurrent urinary tract infections secondary to chronic urinary retention. 6. Sacral decubitus ulcers. PAST SURGICAL HISTORY: 1. Intrathecal pump placement for baclofen; in 2017, it was removed. 2. Appendectomy in childhood. 3. PICC line insertion on 11/11/2018. FAMILY HISTORY: Patient's mother is currently from lung cancer. His father suffered a stroke and is currently from old age. His brother, Rudy, is currently diagnosed with lung cancer. He has one sister who he is not sure about her health, but she is currently alive. SOCIAL HISTORY: The patient currently lives alone. He states he is bedridden; however, has home health aides who come and help him. He denies any history of smoking ever. He denies any history of intravenous (IV) or illicit drug use. He denies any history of alcohol use. PHYSICAL EXAM: VITAL SIGNS: Temperature 97.9, pulse 110, respiratory rate 18, blood pressure 138/82, pulse oximetry 97% on room air. GENERAL: Patient is awake, alert and oriented. He is lying in bed. He does not appear to be in any acute distress. HEENT: Atraumatic, normocephalic. Eyes are not icteric. Dentition is poor. NECK: Neck is flaherty. There is no jugular venous distention (JVD). His trachea is midline. CARDIOVASCULAR: Normal S1, S2. There is a regular rate and rhythm. There are no clicks, rubs or murmurs auscultated. RESPIRATORY: There are clear vesicular breath sounds bilaterally. There is good respiratory effort. There are no wheezes, rhonchi, or rales. ABDOMEN: Patient's abdomen is soft. It is nondistended. It is nontender to palpation in all four quadrants without rebound, tenderness or guarding. There are normoactive bowel sounds throughout. GENITOURINARY: Patient has erythema of his testicles with what appears to be likely fungal infections. His backside is without sacral ulcers; however, there is a stage I ulcer which is present on his lumbar region. MUSCULOSKELETAL: Patient has chronic spasticity of the left upper extremity. He has Charcot foot bilaterally. NEUROLOGIC: As stated previously, patient has multiple sclerosis resulting in muscle spasticity. EXTREMITIES: Patient has full and equal pulses bilateral upper and lower extremities. There is no edema bilaterally. There are no ulcers on the feet or legs. LABORATORY DATA: Hematology: White blood cells 10.0, hemoglobin 15.2, hematocrit 47.3, platelet count 237. Chemistries: Sodium 136, potassium 3.8, chloride 98, CO2 33, BUN 18, creatinine 1.01, fasting glucose 290. Lactic acid is 1.9. Microbiology: Urine culture pending. Blood - venous culture pending. IMAGING: Renal ultrasound demonstrating moderate to severe bilateral hydroureteronephrosis. Bladder ultrasound demonstrating urinary retention with a prevoid bladder measuring 402 mL. ASSESSMENT AND PLAN: 1. Urinary tract infection with MRSA positive culture. Patient has chronic urinary tract infections with a recent urinary culture positive for MRSA. It appears that the patient's urine culture was completed at an outpatient setting at the patient's request. He currently states that he does not have any symptoms, although he did indicate at one point that he has some burning with urination. His urinalysis demonstrates some pyuria and, therefore, the patient will be treated for possible suspected MRSA urinary tract infection. Will repeat urinary cultures as well as obtain blood cultures. Patient received gentamicin in the emergency room. Will continue the patient on vancomycin and cefepime. 2. Chronic urinary retention. The patient has a history of chronic urinary retention, likely secondary to his multiple sclerosis. It appears he has had Foleys placed for some time, however, there is difficulty with them staying in. He follows with Dr. Mccormick's office outpatient, and it appears that he has been somewhat noncompliant with attending appointments and has requested to see another physician. At this point, the patient would likely benefit from a suprapubic catheter as he is chronically retaining, which is likely predisposing him to further urinary tract infections. Patient will need to be treated for his current urinary tract infection at which point he should be able to receive a suprapubic catheter. COMPA
[2018-12-09 19:25] VITALS: BP 142/79
[2018-12-09 20:18] LABS: ERYTHROCYTE SEDIMENTATION RATE 14 mm/hr (0-20)
[2018-12-09] MEDS: HumaLOG INSULIN (NovoLOG) PER UNIT SC SCH (21:00)
[2018-12-09] MEDS: DULoxetine 30 MG CAP (CYMBALTA) PO SCH (21:48)
[2018-12-09] MEDS: levETIRAcetam 250MG TABLET (KEPPRA) PO SCH (21:48)
[2018-12-09] MEDS: ALPRAZolam 0.5 MG TAB PO SCH (21:48)
[2018-12-09] MEDS: PREGABALIN 100 MG CAP (LYRICA) PO SCH (21:48)
[2018-12-09] MEDS: HEPARIN SOD (PORCINE) 5000 UNITS/ML VIAL SC SCH (21:49)
[2018-12-09] MEDS: amLODIPine 5 MG TAB PO SCH (21:49)
[2018-12-09] MEDS: NYSTATIN 100,000 UNITS/GM TOPICAL PWD 15 GM TOP SCH (21:49)
[2018-12-09] MEDS: CEFEPIME HCL 1 GM in D5W MINI-BAG PLUS 50 ML IV SCH (21:50)
[2018-12-09] MEDS ORDERED: VANCOMYCIN HCL 1,000 MG, VIAL MATE ADAPTER 1 EACH in D5W 250 ML IV ONE (22:00)
[2018-12-09] MEDS ORDERED: VANCOMYCIN HCL 750 MG, VIAL MATE ADAPTER 1 EACH in D5W 250 ML IV ONE (23:00)
--- NOTE | 2018-12-09 23:35 | PHACANCOPD ---
PHARMACY VANCOMYCIN DOSING Pt Demographics Demographics Patient Age:63 , Weight:86.360 , Gender: male Adjusted Body Weight Events Past 24 Hours Events Past 24 Hours: NO: Dialysis, Diuretic Therapy, Change in CrCl, Fever, Elevation in WBC, Pending Diagnostics, Pending Procedures, Other Vancomycin Vancomycin indication: MRSA UTI Vancomycin Target Ranges: 15-20 mcg/ml Vancomycin Load Y/N: No Load Dose Date Time Vancomycin Dose Date: 12/09/18. Current Vancomycin Dose: [1GM IV x1 @22:30 FOLLOWED BY 1GM IV Q12H STARTING @06:00] Intermittent Dosing?: No Labs Labs Laboratory Tests 12/09/18 13:33 Micro Microbiology 12/09/18 Blood Culture, Received Pending 12/09/18 Blood Culture, Received Pending 12/09/18 Urine Culture, Received Pending Creatinine Clearance Date:12/09/18. Creatinine Clearance: [>60 ml/min]. Assessment and Plan Maintaining Current Dose?: Yes Reason for dose change: No Dose Change Pharmacist Note Pharmacist Note Date: 12/09/18. PharmD note: 63YO MALE w/ NOTED MS, URINARY RETENTION, CHRONIC INDWELLING URINARY CATHATER w/ NON-COMPLIANCE & BILATERAL HYDRONEPHROSIS PRESENTING WITH MRSA UTI. HE WAS GIVEN 1GM VANCO AT 22:30. THE REMAINING 750MG OF THE INTENDED LOADING DOSE (1750mg) WAS CANCELLED IN LIGHT OF HIS BILATERAL HYDRONEPHROSIS. WE WILL CONTINUE WITH VANCO 1GM IV Q12H STARTING AT 6AM 12/10 AND WE WILL OBTAIN AN EARLY VANCO TROUGH PRIOR TO STEADY STATE TO BETTER FINE TUNE HIS DOSING [facility] Dec 09, 2018 23:35
[2018-12-10] MEDS: VANCOMYCIN HCL 1,000 MG, VIAL MATE ADAPTER 1 EACH in D5W 250 ML IV SCH ×2 (05:29→17:54)
[2018-12-10 06:00] VITALS: BP 147/83
[2018-12-10 06:06] LABS: BASO # 0.1 10^3/uL (0.0-0.2); BASO % 0.9 % (0.0-1.0); EOS # 0.3 10^3/uL (0.0-0.5); EOS % 3.2 % (0.0-3.0); HEMATOCRIT 41.1 % (42.0-52.0); HEMOGLOBIN 13.4 g/dl (13.5-17.5); LYMPH # 1.7 10^3/uL (1.5-5.0); MEAN CORPUSCULAR HEMOGLOBIN 28.3 pg (27.0-33.0); MEAN CORPUSCULAR HGB CONC 32.6 g/dl (32.0-36.5); MEAN CORPUSCULAR VOLUME 86.9 fl (80.0-96.0); MONO # 0.8 10^3/uL (0.0-0.8); MONO % 9.2 % (0.0-5.0); NEUTROPHILS # 5.8 10^3/uL (1.5-8.5); NEUTROPHILS % 67.1 % (36.0-66.0); PLATELET COUNT, AUTOMATED 210 10^3/uL (150-450); RED BLOOD COUNT 4.73 10^6/uL (4.30-6.10); WHITE BLOOD COUNT 8.7 10^3/uL (4.0-10.0)
[2018-12-10 06:17] LABS: BLOOD UREA NITROGEN 17 MG/DL (7-18); CALCIUM LEVEL 9.2 MG/DL (8.8-10.2); CARBON DIOXIDE LEVEL 31 MEQ/L (21-32); CHLORIDE LEVEL 104 MEQ/L (98-107); CREATININE FOR GFR 0.98 MG/DL (0.70-1.30); GLOMERULAR FILTRATION RATE > 60.0 (>49); GLUCOSE, FASTING 188 MG/DL (70-100); POTASSIUM SERUM 3.4 MEQ/L (3.5-5.1); SODIUM LEVEL 140 MEQ/L (136-145)
[2018-12-10] MEDS: LEVEMIR (INSULIN DETEMIR) 1 UNITS/0.01ML SC SCH (09:32)
[2018-12-10] MEDS: FIBER-CON 625 MG TAB PO SCH (09:33)
[2018-12-10] MEDS: HumaLOG INSULIN (NovoLOG) PER UNIT SC SCH ×4 (09:33→23:03)
[2018-12-10] MEDS: MODAFINIL 100 MG TABLET PO SCH (09:34)
[2018-12-10] MEDS: POTASSIUM CHLORIDE 10 MEQ SR TABLET PO SCH (09:34)
[2018-12-10] MEDS: DOCUSATE SODIUM 100 MG CAP PO SCH (09:35)
[2018-12-10] MEDS: PREGABALIN 100 MG CAP (LYRICA) PO SCH ×3 (09:36→20:58)
[2018-12-10] MEDS: ASPIRIN 81 MG ENTERIC TAB PO SCH (09:36)
[2018-12-10] MEDS: HEPARIN SOD (PORCINE) 5000 UNITS/ML VIAL SC SCH ×2 (09:36→20:59)
[2018-12-10] MEDS: NYSTATIN 100,000 UNITS/GM TOPICAL PWD 15 GM TOP SCH ×3 (09:37→21:00)
[2018-12-10] MEDS: CEFEPIME HCL 1 GM in D5W MINI-BAG PLUS 50 ML IV SCH ×2 (09:37→20:59)
[2018-12-10] MEDS: ALPRAZolam 0.5 MG TAB PO SCH ×3 (12:51→20:58)
[2018-12-10] MEDS: levETIRAcetam 250MG TABLET (KEPPRA) PO SCH ×3 (12:51→20:59)
--- NOTE | 2018-12-10 13:11 | IPNPDOC ---
Subjective Date Seen The patient was seen on 12/10/18. Subjective Chief Complaint/HPI Patient is refusing to see urologist available here. Also refusing option for suprapubic catheter as well as Myers catheter.Pt wants to go home with IV antibiotics but he is again is refusing PICC line placement. General: Denies: ROS Unobtainable, Chills, Night Sweats, Fatigue, Malaise, Normal Appetite, Other Symptoms Constitutional: Denies: Chills, Fever, Malaise, Night Sweats, Weakness, Fatigue, Weight Loss, Lethargy, Other Eyes: Denies: Pain, Vision change, Conjunctivae inflammation, Eyelid inflammation, Redness, Other Pulmonary: Denies: Dyspnea, Cough, Pleuritic Chest Pain, Other Symptoms Cardiovascular: Denies: Chest Pain, Palpitations, Orthopnea, Paroxysmal Noc. Dyspnea, Edema, Lt Headedness, Other Symptoms Gastrointestinal: Denies: Nausea, Vomiting, Abdominal Pain, Diarrhea, Constipation, Melena, Hematochezia, Other Symptoms Genitourinary: Denies: Dysuria, Frequency, Incontinence, Hematuria, Retention, Other Symptoms Hematologic: Denies: Bruising, Bleeding Excessively, Petecchia, Purpura, Enlarged Lymph Nodes, Other Hematologic Endocrine: Denies: Polydipsia, Polyphagia, Polyuria, Heat Intolerance, Cold Intolerance, Other Endocrine Sx Musculoskeletal: Denies: Neck Pain, Back Pain, Shoulder Pain, Arm Pain, Hand Pain, Leg Pain, Foot Pain, Joint Pain, Muscle Pain, Spasms, Other Symptoms Neurological: Denies: Weakness, Numbness, Incoordination, Change in speech, Confusion, Seizures, Other Symptoms Objective Physical Examination General Exam: Positive: Alert, Cooperative, No Acute Distress Eye Exam: Positive: Conjunctiva & lids normal ENT Exam: Positive: Atraumatic, Mucous membr. moist/pink, Pharynx Normal Neck Exam: Positive: Supple Chest Exam: Positive: Clear to auscultation, Normal air movement, Diminished (at the bases) Heart Exam: Positive: Rate Normal, Regular Rhythm, Normal S1, Normal S2; Negative: Murmurs, Rubs Abdomen Exam: Positive: Normal bowel sounds, Soft, Other (distended) Skin Exam: Positive: Rash (in the groin and the scrotum) Neuro Exam: Positive: Normal Speech, Other (paraplegia) Psych Exam: Positive: Memory Intact, Oriented x 3 Assessment /Plan Problems (1) UTI (urinary tract infection) Status: Acute Problem Text: 63 year old male with advance MS with paraplegia as well as paralysis of left upper extremity, bed bound, with chronic urinary retention , with hydronephrosis which is progressing, chronic overflow incontinence, absolutely refuses a Myers placement and absolutely refuses to see our urologist s, has set up an appointment with a urologist in [place] for end of next month, recurrent UTIS/ chronic Urinary colonization was last treated for pseudomonas UTI in beginning of November with meropenem was seen by PMD on 12/04 when again Urine culture was sent on patient request as the urine was cloudy and culture came back positive for Pseudomonas and MRSA so was instructed by PMD to come to the ED. Patient did not have any fever , though he says he was weak and tired but that is not any different from usual. He does not have any sensation below waist so does not have any burning or dysuria. He always leaks urine. Today urine was again sent from the ED. As per ED nurse patient was able to urinate in the cup. His perineum is always moist. He was admitted for obstructive uropathy with possible urinary tract infection. Urinary infection Vs Chronic colonization with Pseudomonas and MRSA new urine cultures and blood cultures sent. CRP and ESR added ID consultation appreciated Continue cefepime and vancomycin Patient requesting ID follow-up today (2) Obstructive uropathy Status: Chronic Problem Text: Obstructive uropathy progressive worsened since June 2018 with bilateral hydroureteronephrosis Our urology recommended indwelling myers to relief his obstruction and treatment of his infected urine . Patient has refused Myers catheter, suprapubic catheter placement. He was to follow-up with urologist at [place],once he is discharged Patient is also refusing to see urologist in this hospital All risks of not following up with urology. Recommendations were explained. he and his understand very well (3) Diabetes mellitus Status: Chronic Problem Text: Fingerstick blood sugar every before meals and at bedtime with coverage The home meds (4) AYLA (obstructive sleep apnea) Status: Chronic Problem Text: Patient was to use his own BiPAP Continue home meds (5) Multiple sclerosis Status: Chronic Problem Text: Continue home meds Follow with his neurologist as outpatient (6) Hypertension Status: Chronic Problem Text: Stable and under control Continue amlodipine (7) Seizure disorder Status: Chronic Problem Text: Continue home meds (8) Depression Status: Chronic Problem Text: Continue home meds Plan/VTE VTE Prophylaxis Ordered?: Yes VS, I&O, 24H, Fishbone Vital Signs/I&O Vital Signs Date Time Temp Pulse Resp B/P (MAP) Pulse Ox O2 Delivery O2 Flow Rate FiO2 12/10/18 06:00 97.8 93 20 147/83 (104) 93 NIPPV (BIPAP/CPAP) I&O- Last 24 Hours up to 6 AM 12/10/18 05:59 Intake Total 873 ml Output Total 775 ml Balance 98 ml Laboratory Data 24H LABS Laboratory Tests 2 12/09/18 13:09: Urine Color YELLOW, Urine Appearance CLOUDYH, Urine pH 7.0, Urine Specific [place] 1.001L, Urine Protein NEGATIVE, Urine Glucose (UA) 3+H, Urine Ketones NEGATIVE, Urine Blood 1+H, Urine Nitrite NEGATIVE, Urine Bilirubin NEGATIVE, Urine Urobilinogen 0.2, Urine Leukocyte Esterase 3+H, Urine WBC (Auto) TNTCH, Ur ine RBC (Auto) 25H, Urine Hyaline Casts (Auto) 0, Urine Bacteria (Auto) 2+H, Urine Squamous Epithelial Cells 0, Urine Mucus (Auto) SMALL, Urine Sperm (Auto) 12/09/18 13:33: Immature Granulocyte % (Auto) 0.4, Neutrophils (%) (Auto) 69.0H, Lymphocytes (%) (Auto) 18.4L, Monocytes (%) (Auto) 8.2H, Eosinophils (%) (Auto) 3.0, Basophils (%) (Auto) 1.0, Neutrophils # (Auto) 6.9, Lymphocytes # (Auto) 1.8, Monocytes # (Auto) 0.8, Eosinophils # (Auto) 0.3, Basophils # (Auto) 0.1, Nucleated Red Blood Cells % (auto) 0.0, Erythrocyte Sedimentation Rate 14, Anion Gap 5L, Glomerular Filtration Rate > 60.0, Lactic Acid Level 1.9, Calcium Level 9.6, Total Bilirubin 0.4, Direct Bilirubin < 0.1, Aspartate Amino Transf (AST/SGOT) 41H, Alanine Aminotransferase (ALT/SGPT) 97H, Alkaline Phosphatase 181H, C- Reactive Protein, Quantitative 13.20H, Total Protein 8.7H, Albumin 3.1L, Albumin/Globulin Ratio 0.55L 12/09/18 21:43: Bedside Glucose (Misc Panel) 181H 12/10/18 05:39: Immature Granulocyte % (Auto) 0.6, Neutrophils (%) (Auto) 67.1H, Lymphocytes (%) (Auto) 19.0L, Monocytes (%) (Auto) 9.2H, Eosinophils (%) (Auto) 3.2H, Basophils (%) (Auto) 0.9, Neutrophils # (Auto) 5.8, Lymphocytes # (Auto) 1.7, Monocytes # (Auto) 0.8, Eosinophils # (Auto) 0.3, Basophils # (Auto) 0.1, Nucleated Red Blood Cells % (auto) 0.0, Anion Gap 5L, Glomerular Filtration Rate > 60.0, Calcium Level 9.2 12/10/18 11:44: Bedside Glucose (Misc Panel) 243H CBC/BMP Laboratory Tests 12/09/18 13:33 12/10/18 05:39 Microbiology Microbiology 12/09/18 Blood Culture, Received Pending 12/09/18 Blood Culture, Received Pending 12/09/18 Urine Culture, Received Pending MAGDIEL DUVALL MD Dec 10, 2018 13:11
[2018-12-10 14:00] VITALS: BP 130/65
--- NOTE | 2018-12-10 17:44 | IPN ---
DATE: 12/10/2018 Mr. Vanessa does not have any new complaints today. He just has a general feeling of not being well. No fever or chills. No nausea, vomiting, or diarrhea. He is taking a nap, resting with his continuous positive airway pressure (CPAP) mask. LABORATORY DATA: White count is 8.7, hemoglobin 13.4, hematocrit 41.1, platelets 210, 67% neutrophils, 19% lymphocytes, 9% monocytes. Sodium 140, potassium 3.4, chloride 104, bicarbonate 31, BUN 17, creatinine 0.98, glucose 188, calcium 9.2. AST 41, ALT 97, alkaline phosphatase 181, CRP 13.2. Urinalysis had many white cells, 25 red cells. Blood cultures, two sets, are negative. Urine culture is pending. Renal ultrasound shows moderate to severe bilateral hydroureteronephrosis with renal pelvis measuring 3.3 cm. Bladder ultrasound shows evidence of urinary retention. Bladder scan today done at the bedside after the patient tried to urinate. He has a condom catheter that had 350 mL of urine. PHYSICAL EXAMINATION: Temperature is 97.5, pulse 95, respirations 16, blood pressure 130/65, oxygen saturation 99% on room air. Heart: Normal S1, S2. No murmurs. Abdomen soft with suprapubic fullness. Normal sensation around the abdominal area. Lungs anteriorly clear. No wheezes, rales, or rhonchi. Extremities: Trace edema. The patient has weakness of upper and lower extremities from multiple sclerosis. IMPRESSION: 1. Urinary retention with moderate to severe bilateral hydronephrosis. The patient has agreed on having a Coude catheter placed by an experienced nurse. I did discuss the case with Shikha, who is the charge nurse, who has agreed to put a 18-Pashto Coude catheter after discussion with Dr. Mccormick. 2. Urinary tract infection with cultures positive for methicillin-resistant Staphylococcus aureus (MRSA). The only thing that was leading toward an infection is the fact that he had an elevated C-reactive protein (CRP). Urine cultures on December 04 had MRSA on one specimen had MRSA and pseudomonas on another specimen. I did discuss with the patient the fact that if he does not have his urine drained, that he will always have pyuria and bacteruria, and these are not indications for treatment unless the patient is symptomatic. I also did discuss the fact that as long as his urine is carrying bacteria and he does not have a appropriate drainage with a catheter, he is at risk of having pyelonephritis and kidney infection and sepsis. PLAN: A Pashto Coude catheter will be attempted today to relieve hydronephrosis. Continue with intravenous (IV) vancomycin and cefepime until results of cultures are available.
[2018-12-10] MEDS ORDERED: zolPIDEM TARTRATE 5 MG TAB PO PRN (18:45)
[2018-12-10] MEDS ORDERED: ACETAMINOPHEN 500 MG TAB PO PRN (19:00)
[2018-12-10] MEDS: oxyBUTYnin 5 MG TAB PO SCH (20:57)
[2018-12-10] MEDS: DULoxetine 30 MG CAP (CYMBALTA) PO SCH (20:58)
[2018-12-10] MEDS: amLODIPine 5 MG TAB PO SCH (20:58)
[2018-12-10 22:00] VITALS: BP 126/84
[2018-12-10] MEDS ORDERED: ACETAMINOPHEN TAB 650MG DOSE (2X325MG) PO PRN (23:45)
[2018-12-11] MEDS ORDERED: KETOROLAC 30 MG/ML VIAL (J1885) IV ONE (01:00)
[2018-12-11] MEDS: VANCOMYCIN HCL 1,000 MG, VIAL MATE ADAPTER 1 EACH in D5W 250 ML IV SCH ×2 (05:37→17:37)
[2018-12-11 06:00] VITALS: BP 146/80
[2018-12-11 06:15] LABS: BASO # 0.1 10^3/uL (0.0-0.2); BASO % 1.1 % (0.0-1.0); EOS # 0.3 10^3/uL (0.0-0.5); EOS % 4.5 % (0.0-3.0); HEMATOCRIT 39.2 % (42.0-52.0); HEMOGLOBIN 12.7 g/dl (13.5-17.5); LYMPH % 27.1 % (24.0-44.0); MEAN CORPUSCULAR HGB CONC 32.4 g/dl (32.0-36.5); MEAN CORPUSCULAR VOLUME 86.5 fl (80.0-96.0); MONO # 0.6 10^3/uL (0.0-0.8); MONO % 7.8 % (0.0-5.0); NEUTROPHILS # 4.2 10^3/uL (1.5-8.5); NEUTROPHILS % 58.8 % (36.0-66.0); PLATELET COUNT, AUTOMATED 183 10^3/uL (150-450); RED BLOOD COUNT 4.53 10^6/uL (4.30-6.10); WHITE BLOOD COUNT 7.2 10^3/uL (4.0-10.0)
[2018-12-11 06:30] LABS: BLOOD UREA NITROGEN 24 MG/DL (7-18); CALCIUM LEVEL 8.6 MG/DL (8.8-10.2); CARBON DIOXIDE LEVEL 31 MEQ/L (21-32); CHLORIDE LEVEL 104 MEQ/L (98-107); CREATININE FOR GFR 0.88 MG/DL (0.70-1.30); GLOMERULAR FILTRATION RATE > 60.0 (>49); GLUCOSE, FASTING 128 MG/DL (70-100); POTASSIUM SERUM 3.4 MEQ/L (3.5-5.1); SODIUM LEVEL 141 MEQ/L (136-145)
[2018-12-11] MEDS: DOCUSATE SODIUM 100 MG CAP PO SCH (09:16)
[2018-12-11] MEDS: HumaLOG INSULIN (NovoLOG) PER UNIT SC SCH ×4 (09:16→20:55)
[2018-12-11] MEDS: CEFEPIME HCL 1 GM in D5W MINI-BAG PLUS 50 ML IV SCH ×2 (09:16→20:52)
[2018-12-11] MEDS: POTASSIUM CHLORIDE 10 MEQ SR TABLET PO SCH (09:16)
[2018-12-11] MEDS: MODAFINIL 100 MG TABLET PO SCH (09:17)
[2018-12-11] MEDS: oxyBUTYnin 5 MG TAB PO SCH ×2 (09:17→20:53)
[2018-12-11] MEDS: LEVEMIR (INSULIN DETEMIR) 1 UNITS/0.01ML SC SCH (09:17)
[2018-12-11] MEDS: HEPARIN SOD (PORCINE) 5000 UNITS/ML VIAL SC SCH ×2 (09:17→20:52)
[2018-12-11] MEDS: ASPIRIN 81 MG ENTERIC TAB PO SCH (09:17)
[2018-12-11] MEDS: FIBER-CON 625 MG TAB PO SCH (09:17)
[2018-12-11] MEDS: PREGABALIN 100 MG CAP (LYRICA) PO SCH ×3 (09:17→20:52)
[2018-12-11] MEDS: NYSTATIN 100,000 UNITS/GM TOPICAL PWD 15 GM TOP SCH ×3 (09:18→20:51)
[2018-12-11] MEDS ORDERED: ZYVO1TAB PO (12:08)
--- NOTE | 2018-12-11 12:11 | IPNPDOC ---
Subjective Date Seen The patient was seen on 12/11/18. Subjective Chief Complaint/HPI Patient complaining of spasm pains in his bladder. Improved with medications General: Denies: ROS Unobtainable, Chills, Night Sweats, Fatigue, Malaise, Normal Appetite, Other Symptoms Constitutional: Denies: Chills, Fever, Malaise, Night Sweats, Weakness, Fatigue, Weight Loss, Lethargy, Other Eyes: Denies: Pain, Vision change, Conjunctivae inflammation, Eyelid inflammation, Redness, Other ENT: Denies: Head Aches, Ear Pain, Dysphagia, Sinus Congestion, Post Nasal Drip, Sore Throat, Epistaxis, Other Symptoms Skin: Denies: Rash, Lesions, Jaundice, Bruising, Itching, Dry, Breakdown, Nail Changes, Other Pulmonary: Denies: Dyspnea, Cough, Pleuritic Chest Pain, Other Symptoms Cardiovascular: Denies: Chest Pain, Palpitations, Orthopnea, Paroxysmal Noc. Dyspnea, Edema, Lt Headedness, Other Symptoms Gastrointestinal: Denies: Nausea, Vomiting, Abdominal Pain, Diarrhea, Constipation, Melena, Hematochezia, Other Symptoms Musculoskeletal: Denies: Neck Pain, Back Pain, Shoulder Pain, Arm Pain, Hand Pain, Leg Pain, Foot Pain, Joint Pain, Muscle Pain, Spasms, Other Symptoms Neurological: Denies: Weakness, Numbness, Incoordination, Change in speech, Confusion, Seizures, Other Symptoms Psych: Denies: Mood Normal, Anxiety, Depression, Memory Issues, Thoughts of Self Harm, Anger, Thoughts of Harming Other, Other Psych Objective Physical Examination General Exam: Positive: Alert, Cooperative, No Acute Distress Eye Exam: Positive: Conjunctiva & lids normal ENT Exam: Positive: Atraumatic, Mucous membr. moist/pink, Pharynx Normal Neck Exam: Positive: Supple Chest Exam: Positive: Clear to auscultation, Normal air movement, Diminished (at the bases) Heart Exam: Positive: Rate Normal, Regular Rhythm, Normal S1, Normal S2; Negative: Murmurs, Rubs Abdomen Exam: Positive: Normal bowel sounds, Soft, Other (distended) Skin Exam: Positive: Rash (in the groin and the scrotum) Neuro Exam: Positive: Normal Speech, Other (paraplegia) Psych Exam: Positive: Memory Intact, Oriented x 3 Assessment /Plan Problems (1) UTI (urinary tract infection) Status: Acute Problem Text: 63 year old male with advance MS with paraplegia as well as paralysis of left upper extremity, bed bound, with chronic urinary retention , with hydronephrosis which is progressing, chronic overflow incontinence, absolutely refuses a Myers placement and absolutely refuses to see our urologists, has set up an appointment with a urologist in [place] for end of next month, recurrent UTIS/ chronic Urinary colonization was last treated for pseudomonas UTI in beginning of November with meropenem was seen by PMD on 12/04 when again Urine culture was sent on patient request as the urine was cloudy and culture came back positive for Pseudomonas and MRSA so was instructed by PMD to come to the ED. Patient did not have any fever , though he says he was weak and tired but that is not any different from usual. He does not have any sensation below waist so does not have any burning or dysuria. He always leaks urine. Today urine was again sent from the ED. As per ED nurse patient was able to urinate in the cup. His perineum is always moist. He was admitted for obstructive uropathy with possible urinary tract infection. Urinary infection Vs Chronic colonization with Pseudomonas and MRSA Continue cefepime and vancomycin New urine cultures are consistent with Pseudomonas and MRSA sensitive to Zyvox Will check with the pharmacy if his eye was discovered as an outpatient and patient will be discharged home on by mouth Zyvox and follow with Dr. Moy as an outpatient (2) Obstructive uropathy Status: Chronic Problem Text: Obstructive uropathy progressive worsened since June 2018 with bilateral hydroureteronephrosis Our urology recommended indwelling myers to relief his obstruction and treatment of his infected urine . Patient has refused Myers catheter, suprapubic catheter placement. He was to follow-up with urologist at [place],once he is discharged Patient is also refusing to see urologist in this hospital All risks of not following up with urology. Recommendations were explained. he and his understand very well (3) Diabetes mellitus Status: Chronic Problem Text: Fingerstick blood sugar every before meals and at bedtime with coverage The home meds (4) AYLA (obstructive sleep apnea) Status: Chronic Problem Text: Patient was to use his own BiPAP Continue home meds (5) Multiple sclerosis Status: Chronic Problem Text: Continue home meds Follow with his neurologist as outpatient (6) Hypertension Status: Chronic Problem Text: Stable and under control Continue amlodipine (7) Seizure disorder Status: Chronic Problem Text: Continue home meds (8) Depression Status: Chronic Problem Text: Continue home meds Plan/VTE VTE Prophylaxis Ordered?: Yes VS, I&O, 24H, Fishbone Vital Signs/I&O Vital Signs Date Time Temp Pulse Resp B/P (MAP) Pulse Ox O2 Delivery O2 Flow Rate FiO2 12/11/18 06:00 96.8 80 16 146/80 (102) 96 Room Air I&O- Last 24 Hours up to 6 AM 12/11/18 06:00 Intake Total 2730 ml Output Total 4750 ml Balance -2020 ml Laboratory Data 24H LABS Laboratory Tests 2 12/10/18 16:53: Vancomycin Level Trough 13.1 12/10/18 17:04: Bedside Glucose (Misc Panel) 209H 12/10/18 18:37: Urine Color YELLOW, Urine Appearance TURBIDH, Urine pH 6.0, Urine Specific [place] 1.004, Urine Protein 1+H, Urine Glucose (UA) 1+H, Urine Ketones NEGATIVE, Urine Blood 2+H, Urine Nitrite NEGATIVE, Urine Bilirubin NEGATIVE, Urine Urobilinogen 0.2, Urine Leukocyte Esterase 3+H, Urine WBC (Auto) TNTCH, Urine RBC (Auto) TNTCH, Urine Hyaline Casts (Auto) 0, Urine Bacteria (Auto) 2+H, Urine Squamous Epithelial Cells 0, Urine Sperm (Auto) 12/10/18 20:39: Bedside Glucose (Misc Panel) 256H 12/11/18 05:36: Immature Granulocyte % (Auto) 0.7, Neutrophils (%) (Auto) 58.8, Lymphocytes (%) (Auto) 27.1, Monocytes (%) (Auto) 7.8H, Eosinophils (%) (Auto) 4.5H, Basophils (%) (Auto) 1.1H, Neutrophils # (Auto) 4.2, Lymphocytes # (Auto) 2.0, Monocytes # (Auto) 0.6, Eosinophils # (Auto) 0.3, Basophils # (Auto) 0.1, Nucleated Red Blood Cells % (auto) 0.0, Anion Gap 6L, Glomerular Filtration Rate > 60.0, Calcium Level 8.6L CBC/BMP Laboratory Tests 12/11/18 05:36 Microbiology Microbiology 12/10/18 Urine Culture, Received Pending 12/09/18 Blood Culture - Preliminary, Resulted No growth after 24 hours . All specim... 12/09/18 Blood Culture - Preliminary, Resulted No growth after 24 hours . All specim... 12/09/18 Urine Culture - Preliminary, Resulted Pseudomonas Aeruginosa Staph.aureus Methicillin Resis MAGDIEL DUVALL MD Dec 11, 2018 12:11
[2018-12-11] MEDS: ALPRAZolam 0.25 MG TAB PO SCH ×2 (13:05→17:38)
[2018-12-11] MEDS: levETIRAcetam 250MG TABLET (KEPPRA) PO SCH ×3 (13:06→20:52)
[2018-12-11 14:00] VITALS: BP 148/89
[2018-12-11] MEDS: DULoxetine 30 MG CAP (CYMBALTA) PO SCH (20:52)
[2018-12-11] MEDS: ALPRAZolam 0.5 MG TAB PO SCH (20:53)
[2018-12-11 20:55] VITALS: BP 148/88
[2018-12-11] MEDS: amLODIPine 5 MG TAB PO SCH (20:55)
[2018-12-11] MEDS ORDERED: MOM 30ML SUSPENSION UDC PO ONE (21:00)
[2018-12-11 22:00] VITALS: BP 149/89
[2018-12-12 05:37] LABS: BASO # 0.1 10^3/uL (0.0-0.2); BASO % 0.8 % (0.0-1.0); EOS # 0.3 10^3/uL (0.0-0.5); EOS % 4.3 % (0.0-3.0); HEMATOCRIT 40.1 % (42.0-52.0); HEMOGLOBIN 12.8 g/dl (13.5-17.5); LYMPH # 1.4 10^3/uL (1.5-5.0); LYMPH % 18.4 % (24.0-44.0); MEAN CORPUSCULAR HEMOGLOBIN 27.7 pg (27.0-33.0); MEAN CORPUSCULAR HGB CONC 31.9 g/dl (32.0-36.5); MEAN CORPUSCULAR VOLUME 86.8 fl (80.0-96.0); MONO # 0.5 10^3/uL (0.0-0.8); MONO % 6.2 % (0.0-5.0); NEUTROPHILS # 5.3 10^3/uL (1.5-8.5); NEUTROPHILS % 69.6 % (36.0-66.0); PLATELET COUNT, AUTOMATED 182 10^3/uL (150-450); RED BLOOD COUNT 4.62 10^6/uL (4.30-6.10); WHITE BLOOD COUNT 7.6 10^3/uL (4.0-10.0)
[2018-12-12 06:00] VITALS: BP 132/76
[2018-12-12 06:06] LABS: BLOOD UREA NITROGEN 22 MG/DL (7-18); CALCIUM LEVEL 8.4 MG/DL (8.8-10.2); CARBON DIOXIDE LEVEL 29 MEQ/L (21-32); CHLORIDE LEVEL 104 MEQ/L (98-107); CREATININE FOR GFR 0.86 MG/DL (0.70-1.30); GLOMERULAR FILTRATION RATE > 60.0 (>49); GLUCOSE, FASTING 291 MG/DL (70-100); POTASSIUM SERUM 3.9 MEQ/L (3.5-5.1); SODIUM LEVEL 139 MEQ/L (136-145)
[2018-12-12] MEDS: VANCOMYCIN HCL 1,000 MG, VIAL MATE ADAPTER 1 EACH in D5W 250 ML IV SCH (06:18)
--- NOTE | 2018-12-12 06:49 | PHACANCOPD ---
PHARMACY VANCOMYCIN DOSING Pt Demographics Demographics Patient Age:63 , Weight:86.360 , Gender: male Adjusted Body Weight Vancomycin Vancomycin indication: MRSA UTI Vancomycin Target Ranges: 15-20 mcg/ml Vancomycin Load Y/N: No Load Dose Date Time Vancomycin Dose Date: 12/09/18. Current Vancomycin Dose: [1GM IV x1 @22:30 FOLLOWED BY 1GM IV Q12H STARTING 10 @06:00] Intermittent Dosing?: No Labs Micro Microbiology 12/10/18 Urine Culture, Received Pending 12/09/18 Blood Culture - Preliminary, Resulted No Growth after 48 hours. All Specime... 12/09/18 Blood Culture - Preliminary, Resulted No Growth after 48 hours. All Specime... 12/09/18 Urine Culture - Preliminary, Resulted Pseudomonas Aeruginosa Staph.aureus Methicillin Resis Creatinine Clearance Date:12/09/18. Creatinine Clearance: [>60 ml/min]. Assessment and Plan Maintaining Current Dose?: Yes Reason for dose change: No Dose Change Pharmacist Note Pharmacist Note Date: 12/12/18. Pharmacist note:Vancomycin trough drawn thia morning @5:28 reported as 17.0( Goal=15-20),SCR=0.86,Calculated CRCL>100. Will maintain current Vancomycin reginen( 1 gram IV U48qeadn) Will continue to follow labs. Date: 12/09/18. PharmD note: 63YO MALE w/ NOTED MS, URINARY RETENTION, CHRONIC INDWELLING URINARY CATHATER w/ NON-COMPLIANCE & BILATERAL HYDRONEPHROSIS PRESENTING WITH MRSA UTI. HE WAS GIVEN 1GM VANCO AT 22:30. THE REMAINING 750MG OF THE INTENDED LOADING DOSE (1750mg) WAS CANCELLED IN LIGHT OF HIS BILATERAL HYDRONEPHROSIS. WE WILL CONTINUE WITH VANCO 1GM IV Q12H STARTING AT 6AM 12/10 AND WE WILL OBTAIN AN EARLY VANCO TROUGH PRIOR TO STEADY STATE TO BETTER FINE TUNE HIS DOSING [facility] Dec 12, 2018 06:49
[2018-12-12] MEDS: HumaLOG INSULIN (NovoLOG) PER UNIT SC SCH ×2 (07:30→08:54)
[2018-12-12] MEDS: PREGABALIN 100 MG CAP (LYRICA) PO SCH (08:54)
[2018-12-12] MEDS: POTASSIUM CHLORIDE 10 MEQ SR TABLET PO SCH (08:54)
[2018-12-12] MEDS: ASPIRIN 81 MG ENTERIC TAB PO SCH (08:54)
[2018-12-12] MEDS: FIBER-CON 625 MG TAB PO SCH (08:54)
[2018-12-12] MEDS: oxyBUTYnin 5 MG TAB PO SCH ×2 (08:54→09:00)
[2018-12-12] MEDS: HEPARIN SOD (PORCINE) 5000 UNITS/ML VIAL SC SCH (08:55)
[2018-12-12] MEDS: DOCUSATE SODIUM 100 MG CAP PO SCH ×2 (08:55→09:00)
[2018-12-12] MEDS: CEFEPIME HCL 1 GM in D5W MINI-BAG PLUS 50 ML IV SCH (08:57)
[2018-12-12] MEDS: NYSTATIN 100,000 UNITS/GM TOPICAL PWD 15 GM TOP SCH (08:57)
[2018-12-12] MEDS: LEVEMIR (INSULIN DETEMIR) 1 UNITS/0.01ML SC SCH (08:57)
[2018-12-12] MEDS: MODAFINIL 100 MG TABLET PO SCH (09:00)
--- NOTE | 2018-12-12 11:09 | DS.PDOC ---
Discharge Summary General Date of Admission Dec 09, 2018 at 16:31 Date of Discharge 12/12/18 Discharge Summary PROCEDURES PERFORMED DURING STAY: None. ADMITTING DIAGNOSES: 1. UTI, obstructive uropathy, diabetes mellitus, multiple sclerosis, AYLA, hypertension, seizure disorder, depression. DISCHARGE DIAGNOSES: 1. UTI, obstructive uropathy, diabetes mellitus, multiple sclerosis, AYLA, hypertension, seizure disorder, depression. COMPLICATIONS/CHIEF COMPLAINT: Urinary Retention Uti. HISTORY OF PRESENT ILLNESS: 63 year old male with advance MS with paraplegia as well as paralysis of left upper extremity, bed bound, with chronic urinary retention , with hydronephrosis which is progressing, chronic overflow incontinence, absolutely refuses a Guerrero placement and absolutely refuses to see our urologists, has set up an appointment with a urologist in [place] for end of next month, recurrent UTIS/ chronic Urinary colonization was last treated for pseudomonas UTI in beginning november with meropenem was seen by PMD on 12/04 when again Urine culture was sent on patient request as the urine was cloudy and culture came back positive for Pseudomonas and MRSA so was instructed by PMD to come to the ED. Patient did not have any fever , though he says he was weak and tired but that is not any different from usual. He does not have any sensation below waist so does not have any burning or dysuria. He always leaks urine. Today urine was again sent from the ED. As per ED nurse patient was able to urinate in the cup. His perineum is always moist. He was admitted for obstructive uropathy with possible urinary tract infection.. HOSPITAL COURSE: 63 year old male with advance MS with paraplegia as well as paralysis of left upper extremity, bed bound, with chronic urinary retention , with hydronephrosis which is progressing, chronic overflow incontinence, absolutely refuses a Guerrero placement and absolutely refuses to see our urologists, has set up an appo intment with a urologist in [place] for end of next month, recurrent UTIS/ chronic Urinary colonization was last treated for pseudomonas UTI in beginning of November with meropenem was seen by PMD on 12/04 when again Urine culture was sent on patient request as the urine was cloudy and culture came back positive for Pseudomonas and MRSA so was instructed by PMD to come to the ED. Patient did not have any fever , though he says he was weak and tired but that is not any different from usual. He does not have any sensation below waist so does not have any burning or dysuria. He always leaks urine. Today urine was again sent from the ED. As per ED nurse patient was able to urinate in the cup. His perineum is always moist. He was admitted for obstructive uropathy with possible urinary tract infection. Diagnosis was established as urinary infection versus chronic colonization with Pseudomonas and MRSA. Patient initially was started on cefepime and vancomycin. Patient was seen by Dr. montague from infectious disease as well and agreed with the plan. Repeat urine cultures are consistent with Pseudomonas and MRSA sensitive to Zyvox and patient is asymptomatic at the present time and possibly can be discharged home on by mouth Zyvox and follow up with infectious disease as outpatient Obstructive uropathy progressive with bilateral hydroureteronephrosis worsened since June 2018 pt had a Guerrero catheter placed and while he was inpatient and if he agrees, then we will leave the Guerrero catheter. He is seen by his urologist at [place] Patient will be discharged home on all his current home medications along with Zyvox for UTI . DISCHARGE MEDICATIONS: Please see below. ALLERGIES: Please see below. PHYSICAL EXAMINATION ON DISCHARGE: VITAL SIGNS: Please see below. GENERAL: Within normal limits HEENT: PERRLA. Extraocular muscles intact NECK: Supple CARDIOVASCULAR EXAMINATION: S1, S2, regular RESPIRATORY EXAMINATION: Clear to A&P ABDOMINAL EXAMINATION: , Soft, nontender, bowel sounds present. No organomegaly EXTREMITIES: No clubbing, cyanosis, edema SKIN: Normal NEUROLOGICAL EXAMINATION: . No focal motor sensory deficit PSYCHIATRIC EXAMINATION: Normal LABORATORY DATA: Please see below. IMAGING: Bladder sonogram:Impression: Urinary retention. PROGNOSIS: Fair ACTIVITY: As tolerated. DIET: As tolerated DISCHARGE PLAN: Follow with urology at [place] in one week DISPOSITION: . Home DISCHARGE INSTRUCTIONS: 1. Per discharge instructions. ITEMS TO FOLLOWUP ON ON OUTPATIENT: 1. With urology in one week. DISCHARGE CONDITION: Stable. TIME SPENT ON DISCHARGE: 45 minutes. Vital Signs/I&Os Vital Signs Date Time Temp Pulse Resp B/P (MAP) Pulse Ox O2 Delivery O2 Flow Rate FiO2 12/12/18 06:00 97.6 98 18 132/76 (94) 98 Room Air I&O- Last 24 Hours up to 6 AM 12/12/18 06:00 Intake Total 1960 ml Output Total 2000 ml Balance -40 ml Laboratory Data Labs 24H Laboratory Tests 2 12/11/18 12:07: Bedside Glucose (Misc Panel) 254H 12/11/18 17:03: Bedside Glucose (Misc Panel) 167H 12/11/18 20:52: Bedside Glucose (Misc Panel) 248H 12/12/18 05:28: Immature Granulocyte % (Auto) 0.7, Neutrophils (%) (Auto) 69.6H, Lymphocytes (%) (Auto) 18.4L, Monocytes (%) (Auto) 6.2H, Eosinophils (%) (Auto) 4.3H, Basophils (%) (Auto) 0.8, Neutrophils # (Auto) 5.3, Lymphocytes # (Auto) 1.4L, Monocytes # (Auto) 0.5, Eosinophils # (Auto) 0.3, Basophils # (Auto) 0.1, Nucleated Red Blood Cells % (auto) 0.0, Anion Gap 6L, Glomerular Filtration Rate > 60.0, Calcium Level 8.4L, Vancomycin Level Trough 17.0 CBC/BMP Laboratory Tests 12/12/18 05:28 FSBS Laboratory Tests Test 12/11/18 12:07 12/11/18 17:03 12/11/18 20:52 Range/Units Bedside Glucose (Misc Panel) 254 167 248 80-115 MG/DL Microbiology Microbiology 12/10/18 Urine Culture, Received Pending 12/09/18 Blood Culture - Preliminary, Resulted No Growth after 48 hours. All Specime... 12/09/18 Blood Culture - Preliminary, Resulted No Growth after 48 hours. All Specime... 12/09/18 Urine Culture - Final, Complete Pseudomonas Aeruginosa Staph.aureus Methicillin Resis Streptococcus Oralis Discharge Medications Scheduled Alprazolam (Alprazolam) 0.5 Mg Tablet, 0.25 MG PO BID, (Reported) TAKES AT NOON AND 1600 Alprazolam (Alprazolam) 0.5 Mg Tablet, 0.5 MG PO QHS, (Reported) Amlodipine Besylate (Amlodipine Besylate) 5 Mg Tablet, 5 MG PO QHS, (Reported) Aspirin (Aspirin EC) 81 Mg Tablet.dr, 81 MG PO DAILY, (Reported) Docusate Sodium (Colace) 100 Mg Capsule, 100 MG PO DAILY, (Reported) Dulaglutide (Trulicity) 1.5 Mg/0.5 Ml Pen.injctr, 1.5 MG SC 1XWK, (Reported) SUNDAY EVENINGS Duloxetine Hcl (Cymbalta) 60 Mg Capsule.dr, 60 MG PO QHS, (Reported) Insulin Glargine,Hum.rec.anlog (Lantus Solostar) 100 Unit/1 Ml Insuln.pen, 68 UNITS SC DAILY, (Reported) Insulin Lispro (Humalog Kwikpen U-100) 100 Unit/1 Ml Insuln.pen, 14 UNITS SC BID, (Reported) BREAKFAST,LUNCH Insulin Lispro (Humalog Kwikpen U-100) 100 Unit/1 Ml Insuln.pen, 16 UNITS SC QPM, (Reported) DINNER Levetiracetam (Keppra) 500 Mg Tablet, 500 MG PO QHS, (Reported) Linezolid (Zyvox) 600 Mg Tablet, 600 MG PO BID with food Modafinil (Modafinil) 200 Mg Tablet, 300 MG PO DAILY, (Reported) Pregabalin (Pregabalin) 100 Mg Capsule, 100 MG PO TID, (Reported) Psyllium Husk (Reguloid) 0.4 Gm Capsule, 2 CAP PO DAILY, (Reported) Testosterone (Testosterone) 5 Gm Gel..gram., 1 DOSE TD QHS, (Reported) APPLY TO CHEST AND SHOULDERS levETIRAcetam (levETIRAcetam) 500 Mg Tablet, 250 MG PO BID, (Reported) TAKES AT 1200 AND 1600 Allergies Coded Allergies: Penicillins (Verified Allergy, Unknown, childhood allergy, 12/09/18) alendronate sodium (Verified Allergy, Unknown, 11/07/18) ibandronate sodium (Verified Allergy, Unknown, unknown, 11/07/18) rofecoxib (Verified Allergy, Unknown, 11/07/18) methadone (Verified Adverse Reaction, Mild, NAUSEA AND VOMITING, 12/09/18) morphine (Verified Adverse Reaction, Mild, nausea,vomiting, 12/09/18) MAGDIEL DUVALL MD Dec 12, 2018 11:09
== END 2018-12-12 11:39 | disposition home or self-care (01) | DRG 690 ==
LOC: M ED 11:17 → M ED INP 16:31 → M MSPAV 19:22
PROVIDERS: ADMIT Internal Medicine Nephrology; ATTEND Internal Medicine
DX: N39.0 Urinary tract infection, site not specified (principal); G82.20 Paraplegia, unspecified; N13.39 Other hydronephrosis; G35 Multiple sclerosis; E11.9 Type 2 diabetes mellitus without complications; G40.909 Epilepsy, unspecified, not intractable, without status epilepticus; F32.9 Major depressive disorder, single episode, unspecified; G47.33 Obstructive sleep apnea (adult) (pediatric); I10 Essential (primary) hypertension; Z79.82 Long term (current) use of aspirin; Z79.899 Other long term (current) drug therapy; Z79.4 Long term (current) use of insulin; Z88.0 Allergy status to penicillin; Z88.8 Allergy status to other drugs, medicaments and biological substances; Z88.5 Allergy status to narcotic agent; K59.00 Constipation, unspecified; B37.2 Candidiasis of skin and nail; B95.62 Methicillin resistant Staphylococcus aureus infection as the cause of diseases classified elsewhere

== ENCOUNTER → 2019-01-16 | Outpatient (REF) | payer MEDICARE, MEDICAID ==
[~2019-01-16] MED LIST changes: +ASPI81TA26 PO; +ZYVO1TAB PO
[2019-01-16 17:31] LABS: BASO # 0.1 10^3/uL (0.0-0.2); BASO % 0.6 % (0.0-1.0); EOS # 0.1 10^3/uL (0.0-0.5); EOS % 1.4 % (0.0-3.0); HEMATOCRIT 41.1 % (42.0-52.0); HEMOGLOBIN 12.5 g/dl (13.5-17.5); LYMPH # 1.6 10^3/uL (1.5-5.0); LYMPH % 15.9 % (24.0-44.0); MEAN CORPUSCULAR HEMOGLOBIN 27.1 pg (27.0-33.0); MEAN CORPUSCULAR HGB CONC 30.4 g/dl (32.0-36.5); MONO # 0.8 10^3/uL (0.0-0.8); MONO % 7.3 % (0.0-5.0); NEUTROPHILS # 7.6 10^3/uL (1.5-8.5); NEUTROPHILS % 73.9 % (36.0-66.0); PLATELET COUNT, AUTOMATED 291 10^3/uL (150-450); RED BLOOD COUNT 4.62 10^6/uL (4.30-6.10); WHITE BLOOD COUNT 10.3 10^3/uL (4.0-10.0)
[2019-01-16 17:53] LABS: ALBUMIN 2.7 GM/DL (3.2-5.2); ALT/SGPT 41 U/L (12-78); BILIRUBIN,TOTAL 0.3 MG/DL (0.2-1.0); BLOOD UREA NITROGEN 14 MG/DL (7-18); CALCIUM LEVEL 8.3 MG/DL (8.8-10.2); CARBON DIOXIDE LEVEL 33 MEQ/L (21-32); CHLORIDE LEVEL 97 MEQ/L (98-107); CREATININE FOR GFR 0.96 MG/DL (0.70-1.30); GLOMERULAR FILTRATION RATE > 60.0 (>49); GLUCOSE, FASTING 311 MG/DL (70-100); POTASSIUM SERUM 3.9 MEQ/L (3.5-5.1); SODIUM LEVEL 137 MEQ/L (136-145); TOTAL PROTEIN 7.9 GM/DL (6.4-8.2); URIC ACID 3.8 MG/DL (3.5-7.2)
[2019-01-16 18:59] LABS: ERYTHROCYTE SEDIMENTATION RATE 128 mm/hr (0-20)
== END ==
LOC: M SFHCPLAZ 14:20
PROVIDERS: ATTEND Internal Medicine Infectious Disease
DX: L03.115 Cellulitis of right lower limb (principal)

== ENCOUNTER → 2019-02-21 | Outpatient (CLI) | payer MEDICARE, MEDICAID ==
[~2019-02-21] MED LIST changes: -OXYB10TA2 PO; +OXYB10TA23 PO
[2019-02-21 15:23] LABS: AMORPHOUS SEDIMENT SMALL (NEGATIVE); BACTERIA, URINE AUTO 1+ (NEGATIVE); MUCUS, URINE SMALL (NEGATIVE); SQUAMOUS EPITHELIAL CELL UR AU 0 /HPF (0-6)
[2019-02-21 15:33] LABS: APPEARANCE, URINE CLOUDY (CLEAR); BILIRUBIN, URINE AUTO NEGATIVE (NEGATIVE); BLOOD, URINE BLOOD 1+ (NEGATIVE); COLOR, URINE YELLOW (YELLOW); GLUCOSE, URINE (UA) AUTO 3+ mg/dL (NEGATIVE); KETONE, URINE AUTO NEGATIVE (NEGATIVE); LEUKOCYTE ESTERASE, URINE AUTO 3+ (NEGATIVE); NITRITE, URINE AUTO NEGATIVE (NEGATIVE); PROTEIN, URINE AUTO 2+ mg/dL (NEGATIVE); SPECIFIC GRAVITY URINE AUTO 1.003 (1.002-1.035); UROBILINOGEN, URINE AUTO 0.2 mg/dL (0.0-2.0)
[2019-02-21 15:34] LABS: RBC, URINE AUTO 28 /HPF (0-3); WBC, URINE AUTO 176 /HPF (0-3)
--- NOTE | 2019-02-21 17:25 | REP ---
CHEST, AP AND LATERAL: AP and lateral views of the chest are performed. Comparison 03/12/2016 as well as other prior exams. Once again there is poor ventilation. Linear atelectatic changes are seen bilaterally. No consolidating infiltrate is seen. The cardiac silhouette is mildly prominent and is either somewhat magnified or mildly enlarged. IMPRESSION: Mild bibasilar atelectatic changes without consolidating infiltrate. Electronically Signed by Jason Escamilla MD 02/22/2019 03:25 P
== END ==
LOC: M WUC 14:02
PROVIDERS: ATTEND Physician Assistant
DX: N39.42 Incontinence without sensory awareness (principal); R06.02 Shortness of breath

== ENCOUNTER → 2019-03-17 | Outpatient (REF) | payer MEDICARE, MEDICAID ==
[2019-03-17 18:02] LABS: HEMOGLOBIN A1c 9.8 %
[2019-03-17 18:10] LABS: CALCIUM LEVEL 8.5 MG/DL (8.8-10.2); CREATININE FOR GFR 1.46 MG/DL (0.70-1.30); GLOMERULAR FILTRATION RATE 52.1 (>49); POTASSIUM SERUM 3.6 MEQ/L (3.5-5.1)
== END ==
LOC: M SFHCPLAZ 14:38
PROVIDERS: ATTEND Physician Assistant
DX: E11.65 Type 2 diabetes mellitus with hyperglycemia (principal)
CPT/HCPCS: 36415; 80048; 83036; G0463

== ENCOUNTER → 2019-06-19 | Outpatient (REF) | payer MEDICARE, MEDICAID ==
[2019-06-19 16:12] LABS: HEMOGLOBIN A1c 6.9 %
[2019-06-19 16:15] LABS: ALBUMIN 2.6 GM/DL (3.2-5.2); BILIRUBIN,TOTAL 0.2 MG/DL (0.2-1.0); CALCIUM LEVEL 9.2 MG/DL (8.8-10.2); CHOLESTEROL RISK RATIO 5.382 (<5); CREATININE FOR GFR 1.65 MG/DL (0.70-1.30); GLOMERULAR FILTRATION RATE 45.1 (>49); POTASSIUM SERUM 4.3 MEQ/L (3.5-5.1); TOTAL PROTEIN 9.1 GM/DL (6.4-8.2)
[2019-06-25 00:07] LABS: TESTOSTERONE FREE (DIRECT) 5.9 pg/mL (6.6-18.1)
== END ==
LOC: M SFHCPLAZ 14:00
PROVIDERS: ATTEND Physician Assistant
DX: I10 Essential (primary) hypertension (principal); E11.65 Type 2 diabetes mellitus with hyperglycemia; E29.1 Testicular hypofunction
CPT/HCPCS: 36415; 80053; 80061; 83036; 84402; 84403; G0463

== ENCOUNTER → 2019-07-30 | Outpatient (REF) | payer MEDICARE, MEDICAID ==
[~2019-07-30] MED LIST changes: +AMLO1TAB24 PO; -AMLO5TAB6 PO; +DOXY100C37 PO; +LEVO250T12 PO; +PSYL0.4C4 PO; -ZOLP12.515 PO; +ZOLP12.518 PO; -[UNRECOGNIZED DRUG - CODE] PO
[2019-07-30 14:16] LABS: AMORPHOUS SEDIMENT SMALL (NEGATIVE); APPEARANCE, URINE TURBID (CLEAR); BACTERIA, URINE AUTO 3+ (NEGATIVE); BILIRUBIN, URINE AUTO NEGATIVE (NEGATIVE); BLOOD, URINE BLOOD 1+ (NEGATIVE); COLOR, URINE AMBER (YELLOW); GLUCOSE, URINE (UA) AUTO NEGATIVE (NEGATIVE); KETONE, URINE AUTO NEGATIVE (NEGATIVE); LEUKOCYTE ESTERASE, URINE AUTO 3+ (NEGATIVE); MUCUS, URINE SMALL (NEGATIVE); NITRITE, URINE AUTO POSITIVE (NEGATIVE); PROTEIN, URINE AUTO 2+ mg/dL (NEGATIVE); RBC, URINE AUTO 95 /HPF (0-3); RENAL EPITHELIAL CELLS 3 /HPF; SPECIFIC GRAVITY URINE AUTO 1.008 (1.002-1.035); SQUAMOUS EPITHELIAL CELL UR AU 0 /HPF (0-6); UROBILINOGEN, URINE AUTO 0.2 mg/dL (0.0-2.0); WBC, URINE AUTO TNTC /HPF (0-3)
== END ==
LOC: M SFHCPLAZ 12:01
PROVIDERS: ATTEND Physician Assistant
DX: R30.0 Dysuria (principal)

== ENCOUNTER 2019-08-13 19:55 | Emergency (ER) | payer MEDICARE, MEDICAID ==
[~2019-08-13] VITALS: Ht 182.9 cm; Wt 90.9 kg
[~2019-08-13 19:55] MED LIST changes: -AMLO1TAB24 PO; +AMLO5TAB6 PO; -DOXY100C37 PO; -LEVO250T12 PO
[2019-08-13] MEDS ORDERED: LANTINJ4 SC (21:09)
[2019-08-13 21:58] VITALS: BP 134/74
== END 2019-08-13 21:59 | disposition home or self-care (01) ==
LOC: M ED 19:55
DX: R31.9 Hematuria, unspecified (principal); E11.9 Type 2 diabetes mellitus without complications; I10 Essential (primary) hypertension; G35 Multiple sclerosis; Z79.4 Long term (current) use of insulin; Z79.82 Long term (current) use of aspirin; Z79.890 Hormone replacement therapy; Z79.899 Other long term (current) drug therapy; Z88.0 Allergy status to penicillin; Z88.8 Allergy status to other drugs, medicaments and biological substances

== ENCOUNTER → 2019-08-25 | Outpatient (CLI) | payer MEDICARE, OTHER ==
[~2019-08-25] MED LIST changes: +AMLO1TAB24 PO; -AMLO5TAB6 PO; +LEVO250T12 PO
[2019-08-25 13:34] LABS: ABG BASE EXCESS -0.4 (-2.0-2.0); ABG HCO3 25.2 MEQ/L (22.0-26.0); ABG O2 SATURATION 97.4 % (95.0-99.0); ABG PARTIAL PRESSURE CO2 45.2 mmHg (35.0-45.0); ABG PARTIAL PRESSURE O2 98.4 mmHg (75.0-100.0); ABG STANDARD HCO3 24.1 MEQ/L (22.0-26.0); ABG TOTAL CO2 26.6 MEQ/L (23.0-31.0); ABG pH (ARTERIAL) 7.364 UNITS (7.350-7.450)
--- NOTE | 2019-08-25 13:51 | PFTRPT ---
Height: 74.00 Inches Weight: 200.00 Lbs BSA: 2.17 Diagnosis: G47.31 DATE OF PROCEDURE: 08/25/2019 ORDERED BY: Dr. Frias Spirometry: Reportedly excellent technical quality. Suboptimal effort in performance of required maneuver is suspected. Forced vital capacity severely reduced. FEV1 in proportion. Obstructive index is, therefore, normal. Flow Volume Loop: Expiratory limb of the flow volume loop suggests profoundly limited lung function in the form of restriction versus suboptimal effort. Maximal inspiratory and expiratory pressures are both significantly reduced. IMPRESSION: Severe restrictive ventilatory impairment with decreased inspiratory and expiratory pressures versus inability to perform maneuvers. Please correlate clinically. MTDD
== END ==
LOC: M CARPUL 13:03
PROVIDERS: ATTEND Internal Medicine Pulmonary Disease
DX: G47.31 Primary central sleep apnea (principal)

== ENCOUNTER → 2019-09-11 | Outpatient (REF) | payer MEDICARE, MEDICAID | LOC: M LAB REF 12:17 | PROVIDERS: ATTEND Physician Assistant | DX: Z01.818 Encounter for other preprocedural examination (principal); Z11.59 Encounter for screening for other viral diseases ==

== ENCOUNTER 2019-11-01 13:26 | Emergency (ER) | payer MEDICARE, MEDICAID ==
[~2019-11-01] VITALS: Ht 185.4 cm; Wt 90.9 kg
[~2019-11-01 13:26] MED LIST changes: -LEVO250T12 PO
--- NOTE | 2019-11-01 15:34 | REPVR ---
PROCEDURE INFORMATION: Exam: US Pelvis Limited, Male Exam date and time: 11/01/2019 2:48 PM Age: 64 years old Clinical indication: Device placement; Other: Suprapubic cather placement; Prior surgery; Surgery date: 1-6 months; Surgery type: Suprapubic cath placement; Additional info: ? Suprapubic cath in bladder, old catheter fell out in shower, new placed today in er, eval catheter placement TECHNIQUE: Imaging protocol: Real-time pelvic ultrasound with image documentation. COMPARISON: BLADDER (LIMITED PELVIC) US 12/09/2018 3:46 PM FINDINGS: Bladder: The new suprapubic catheter is in the bladder. Bladder is incompletely distended, only 96 mL, which limits evaluation of bladder. No bladder wall thickening or mass. IMPRESSION: 1. The new suprapubic catheter is in the bladder. 2. Bladder is incompletely distended, only 96 mL, which limits evaluation of bladder. Electronically signed by: Oleg Prado On 11/01/2019 15:34:54 PM
[2019-11-01 17:17] VITALS: BP 166/86
== END 2019-11-01 19:02 | disposition home or self-care (01) ==
LOC: M ED 13:26
DX: T83.198A Other mechanical complication of other urinary devices and implants, initial encounter (principal); E11.9 Type 2 diabetes mellitus without complications; Z20.828 Contact with and (suspected) exposure to other viral communicable diseases; I10 Essential (primary) hypertension; G35 Multiple sclerosis; Z88.0 Allergy status to penicillin; Z88.8 Allergy status to other drugs, medicaments and biological substances; Z79.4 Long term (current) use of insulin; Z79.899 Other long term (current) drug therapy
CPT/HCPCS: 76857; 99284; U0002

== ENCOUNTER → 2019-11-18 | Outpatient (REF) | payer MEDICARE, MEDICAID ==
[~2019-11-18] MED LIST changes: +LEVO250T12 PO
[2019-11-18 17:47] LABS: CALCIUM LEVEL 9.2 MG/DL (8.8-10.2); CREATININE FOR GFR 2.06 MG/DL (0.70-1.30); GLOMERULAR FILTRATION RATE 34.9 (>49); POTASSIUM SERUM 4.4 MEQ/L (3.5-5.1)
[2019-11-18 17:51] LABS: HEMOGLOBIN A1c 7.6 %
== END ==
LOC: M SFHCPLAZ 14:53
PROVIDERS: ATTEND Physician Assistant
DX: E11.65 Type 2 diabetes mellitus with hyperglycemia (principal); Z23 Encounter for immunization
CPT/HCPCS: 36415; 51798; 80048; 83036; 90682; G0008; G0463

== ENCOUNTER 2019-11-25 22:19 | Emergency (ER) | payer MEDICARE, MEDICAID ==
[~2019-11-25] VITALS: Ht 182.9 cm; Wt 90.9 kg
[~2019-11-25 22:19] MED LIST changes: -LEVO250T12 PO
[2019-11-26 02:43] LABS: BASO # 0.1 10^3/uL (0.0-0.2); BASO % 0.5 % (0.0-1.0); EOS # 0.3 10^3/uL (0.0-0.5); EOS % 2.1 % (0.0-3.0); HEMATOCRIT 42.6 % (42.0-52.0); LYMPH # 2.3 10^3/uL (1.5-5.0); LYMPH % 15.3 % (24.0-44.0); MEAN CORPUSCULAR HEMOGLOBIN 26.7 pg (27.0-33.0); MEAN CORPUSCULAR HGB CONC 30.5 g/dl (32.0-36.5); MEAN CORPUSCULAR VOLUME 87.7 fl (80.0-96.0); MONO # 0.8 10^3/uL (0.0-0.8); MONO % 5.5 % (0.0-5.0); NEUTROPHILS # 11.4 10^3/uL (1.5-8.5); NEUTROPHILS % 75.6 % (36.0-66.0); PLATELET COUNT, AUTOMATED 300 10^3/uL (150-450); RED BLOOD COUNT 4.86 10^6/uL (4.30-6.10)
[2019-11-26 03:26] LABS: C REACTIVE PROTEIN QUANTITATIV 19.7 MG/DL (0.00-0.30); CALCIUM LEVEL 8.8 MG/DL (8.8-10.2); CREATININE FOR GFR 2.01 MG/DL (0.70-1.30); GLOMERULAR FILTRATION RATE 35.9 (>49)
--- NOTE | 2019-11-26 04:33 | REPVR ---
PROCEDURE INFORMATION: Exam: CT Abdomen And Pelvis Without Contrast Exam date and time: 11/26/2019 3:27 AM Age: 64 years old Clinical indication: Abdominal tenderness; Abdominal pain; Generalized; Patient HX: Former suprapubic cath site problem; Additional info: Pus from former suprapubic cath site, abd pain TECHNIQUE: Imaging protocol: Computed tomography of the abdomen and pelvis without contrast. Radiation optimization: All CT scans at this facility use at least one of these dose optimization techniques: automated exposure control; mA and/or kV adjustment per patient size (includes targeted exams where dose is matched to clinical indication); or iterative reconstruction. COMPARISON: CT ABD PELVIS W/O CONTRAST 03/07/2016 4:51 PM FINDINGS: Lungs: Minimal bibasilar fibro-atelectatic change, primarily in the lower lobes. Liver: Normal. No mass. Gallbladder and bile ducts: Normal. No calcified stones. No ductal dilation. Pancreas: Normal. No ductal dilation. Spleen: Normal. No splenomegaly. Adrenals: Normal. No mass. Kidneys and ureters: Moderate bilateral hydronephrosis and hydroureters which extend to the UVJs bilaterally. Stomach and bowel: Mildly elongated or redundant sigmoid colon. Appendix: There are no changes of appendicitis. A normal appendix is not seen. Intraperitoneal space: Multiple calcific densities are noted in the mesentery of the lower abdomen. Vasculature: Unremarkable. No abdominal aortic aneurysm. Lymph nodes: Unremarkable. No enlarged lymph nodes. Urinary bladder: The urinary bladder demonstrates intraluminal gas with mild wall thickening and slight surrounding induration. There is an indurated tract extending from the bladder through the abdominal wall to the skin surface consistent with residual tract of a suprapubic catheter. The tract measures approximately 7 mm in the subcutaneous tissues. No significant or definite fluid collection is evident to specifically suggest abscess. Reproductive: Unremarkable as visualized. Bones/joints: Unremarkable. No acute fracture. Soft tissues: See "Urinary bladder" finding. IMPRESSION: 1. Indurated and slightly thickened tract extending from the urinary bladder to the skin surface consistent with previous suprapubic catheter tract. The induration suggests infection although no associated abscess is seen. 2. The urinary bladder demonstrates wall thickening with slight surrounding induration which may reflect cystitis. Gas is noted in the urinary bladder which may reflect infection or recent catheterization. 3. Moderate bilateral hydronephrosis and hydroureters to the UVJs which may be related to bladder wall thickening or possibly vesicoureteral reflux. Electronically signed by: Kirk Rubalcava On 11/26/2019 04:32:42 AM
[2019-11-26] MEDS ORDERED: LevoFLOXacin 500 MG TABLET PO ONE (05:45)
[2019-11-26] MEDS ORDERED: LEVO250T12 PO (05:52)
[2019-11-26 06:05] VITALS: BP 138/72
== END 2019-11-26 06:07 | disposition home or self-care (01) ==
LOC: M ED 22:19
DX: T83.518A Infection and inflammatory reaction due to other urinary catheter, initial encounter (principal); N13.30 Unspecified hydronephrosis; E11.9 Type 2 diabetes mellitus without complications; I10 Essential (primary) hypertension; G35 Multiple sclerosis; Z88.0 Allergy status to penicillin; Z88.6 Allergy status to analgesic agent; Z88.8 Allergy status to other drugs, medicaments and biological substances; Z79.4 Long term (current) use of insulin; Z79.899 Other long term (current) drug therapy

== ENCOUNTER → 2019-12-16 | Outpatient (REF) | payer MEDICARE, MEDICAID ==
[~2019-12-16] MED LIST changes: +LEVO250T12 PO
[2019-12-16 18:13] LABS: BASO # 0.1 10^3/uL (0.0-0.2); BASO % 0.8 % (0.0-1.0); EOS # 0.3 10^3/uL (0.0-0.5); EOS % 2.3 % (0.0-3.0); HEMOGLOBIN 12.6 g/dl (13.5-17.5); LYMPH # 2.2 10^3/uL (1.5-5.0); MEAN CORPUSCULAR HEMOGLOBIN 26.8 pg (27.0-33.0); MEAN CORPUSCULAR VOLUME 89.4 fl (80.0-96.0); MONO # 0.8 10^3/uL (0.0-0.8); MONO % 7.4 % (0.0-5.0); NEUTROPHILS # 7.4 10^3/uL (1.5-8.5); NEUTROPHILS % 68.5 % (36.0-66.0); PLATELET COUNT, AUTOMATED 532 10^3/uL (150-450); WHITE BLOOD COUNT 10.9 10^3/uL (4.0-10.0)
[2019-12-16 19:02] LABS: C REACTIVE PROTEIN QUANTITATIV 12.4 MG/DL (0.00-0.30); CALCIUM LEVEL 9.7 MG/DL (8.8-10.2); CREATININE FOR GFR 1.86 MG/DL (0.70-1.30); ERYTHROCYTE SEDIMENTATION RATE 86 mm/hr (0-20); GLOMERULAR FILTRATION RATE 39.3 (>49); POTASSIUM SERUM 4.6 MEQ/L (3.5-5.1)
== END ==
LOC: M PLALAB 17:15
PROVIDERS: ATTEND Internal Medicine Infectious Disease
DX: L02.219 Cutaneous abscess of trunk, unspecified (principal)
CPT/HCPCS: 36415; 80048; 85025; 85652; 86140; 87070; 87077; 87186; 87205; G0463

== ENCOUNTER → 2020-01-15 | Outpatient (CLI) | payer MEDICARE, MEDICAID ==
[2020-01-15 17:11] LABS: BASO # 0.1 10^3/uL (0.0-0.2); EOS # 0.3 10^3/uL (0.0-0.5); EOS % 3.2 % (0.0-3.0); HEMATOCRIT 40.5 % (42.0-52.0); LYMPH % 23.4 % (24.0-44.0); MEAN CORPUSCULAR HEMOGLOBIN 26.3 pg (27.0-33.0); MEAN CORPUSCULAR HGB CONC 29.6 g/dl (32.0-36.5); MEAN CORPUSCULAR VOLUME 88.8 fl (80.0-96.0); MONO # 0.7 10^3/uL (0.0-0.8); MONO % 8.2 % (0.0-5.0); NEUTROPHILS # 5.3 10^3/uL (1.5-8.5); NEUTROPHILS % 63.4 % (36.0-66.0); PLATELET COUNT, AUTOMATED 291 10^3/uL (150-450); RED BLOOD COUNT 4.56 10^6/uL (4.30-6.10); WHITE BLOOD COUNT 8.4 10^3/uL (4.0-10.0)
[2020-01-15 18:27] LABS: ALBUMIN 3.2 GM/DL (3.2-5.2); BILIRUBIN,TOTAL 0.3 MG/DL (0.2-1.0); CALCIUM LEVEL 8.9 MG/DL (8.8-10.2); CREATININE FOR GFR 1.92 MG/DL (0.70-1.30); GLOMERULAR FILTRATION RATE 37.8 (>49); POTASSIUM SERUM 4.7 MEQ/L (3.5-5.1); TOTAL PROTEIN 8.2 GM/DL (6.4-8.2)
== END ==
LOC: M WUC 14:45
PROVIDERS: ATTEND Psychiatry & Neurology Neurology
DX: G35 Multiple sclerosis (principal)

== ENCOUNTER 2020-02-13 14:51 | Emergency (ER) | payer MEDICARE, MEDICAID ==
[~2020-02-13] VITALS: Ht 188 cm; Wt 90.9 kg
[2020-02-13 17:17] LABS: BASO # 0.1 10^3/uL (0.0-0.2); BASO % 0.7 % (0.0-1.0); EOS # 0.3 10^3/uL (0.0-0.5); EOS % 2.5 % (0.0-3.0); HEMATOCRIT 42.3 % (42.0-52.0); HEMOGLOBIN 12.5 g/dl (13.5-17.5); LYMPH # 1.9 10^3/uL (1.5-5.0); LYMPH % 18.8 % (24.0-44.0); MEAN CORPUSCULAR HEMOGLOBIN 26.2 pg (27.0-33.0); MEAN CORPUSCULAR HGB CONC 29.6 g/dl (32.0-36.5); MEAN CORPUSCULAR VOLUME 88.7 fl (80.0-96.0); MONO # 0.7 10^3/uL (0.0-0.8); MONO % 7.1 % (0.0-5.0); NEUTROPHILS % 69.7 % (36.0-66.0); PLATELET COUNT, AUTOMATED 393 10^3/uL (150-450); RED BLOOD COUNT 4.77 10^6/uL (4.30-6.10)
[2020-02-13 17:40] LABS: ALBUMIN 2.9 GM/DL (3.2-5.2); BILIRUBIN,DIRECT 0.1 MG/DL (0.0-0.2); BILIRUBIN,TOTAL 0.3 MG/DL (0.2-1.0); CALCIUM LEVEL 8.6 MG/DL (8.8-10.2); CREATININE FOR GFR 1.88 MG/DL (0.70-1.30); GLOMERULAR FILTRATION RATE 38.8 (>49); POTASSIUM SERUM 3.8 MEQ/L (3.5-5.1); TOTAL PROTEIN 8.9 GM/DL (6.4-8.2)
--- NOTE | 2020-02-13 18:05 | REPVR ---
PROCEDURE INFORMATION: Exam: US Pelvis Limited, Male Exam date and time: 02/13/2020 5:41 PM Age: 64 years old Clinical indication: Other: S/P suprapubic cath asite is swelling; Prior surgery; Surgery date: 3-7 days post-operative; Additional info: Assess for fluid collection; S/P suprapubic catheter site TECHNIQUE: Imaging protocol: Real-time pelvic ultrasound with image documentation. COMPARISON: BLADDER (LIMITED PELVIC) US 11/01/2019 2:30 PM FINDINGS: The area of suprapubic catheter was scanned. There is a fluid tract within the anterior abdominal soft tissues which terminates in an approximate 1.3 cm diameter fluid collection. The relationship of this fluid tract and collection to the urinary bladder cannot be accurately determined on this examination. A partially filled urinary bladder is visualized. IMPRESSION: Irregular fluid track terminating in an approximate 1.3 cm fluid collection. The relationship of this tract and collection to the urinary bladder cannot be accurately assessed on this exam. Consider CT scan assessment as clinically warranted. Electronically signed by: Moncho Barrow On 02/13/2020 18:05:33 PM
[2020-02-13] MEDS ORDERED: DOXY100C37 PO (18:37)
[2020-02-13 18:43] VITALS: BP 153/79
[2020-02-13] MEDS ORDERED: DOXYCYCLINE HYCLATE 100MG TABLET PO ONE (18:45)
== END 2020-02-13 18:54 | disposition home or self-care (01) ==
LOC: M ED 14:51
DX: K65.1 Peritoneal abscess (principal); G35 Multiple sclerosis; E78.5 Hyperlipidemia, unspecified; F41.9 Anxiety disorder, unspecified; F33.9 Major depressive disorder, recurrent, unspecified; Z88.0 Allergy status to penicillin; Z88.6 Allergy status to analgesic agent; Z88.8 Allergy status to other drugs, medicaments and biological substances

== ENCOUNTER → 2020-03-16 | Outpatient (CLI) | payer MEDICARE, MEDICAID ==
[~2020-03-16] MED LIST changes: +DOXY100C37 PO
[2020-03-16 17:22] LABS: ALBUMIN 3.4 GM/DL (3.2-5.2); BILIRUBIN,TOTAL 0.2 MG/DL (0.2-1.0); CALCIUM LEVEL 9.5 MG/DL (8.8-10.2); CREATININE FOR GFR 1.79 MG/DL (0.70-1.30); POTASSIUM SERUM 4.8 MEQ/L (3.5-5.1); TOTAL PROTEIN 7.8 GM/DL (6.4-8.2)
== END ==
LOC: M WUC 13:48
PROVIDERS: ATTEND Physician Assistant
DX: N13.9 Obstructive and reflux uropathy, unspecified (principal)

== ENCOUNTER → 2020-03-29 | Outpatient (CLI) | payer MEDICARE, MEDICAID ==
--- NOTE | 2020-03-29 16:04 | REPPI ---
INDICATION: R06.02 SHORTNESS OF BREATH. COMPARISON: Comparison chest x-ray 21 February 2019. TECHNIQUE: Two views.. FINDINGS: The patient was unable to the move 1 of his arms from the scan field of view on the lateral radiograph. The lungs are again exposed at a relatively low level of inspiration and left hemidiaphragm remains somewhat elevated as before. Mild cardiomegaly is observed. Pulmonary vasculature is not increased. The pleural angles are sharp. No infiltrate is seen. There are degenerative changes in the thoracic spine. IMPRESSION: Borderline heart size. Relatively low level of inspiration. Otherwise no acute disease.. <Electronically signed by Nick Berkowitz > 03/29/20 1600
== END ==
LOC: M PLAIMG 15:23
PROVIDERS: ATTEND Physician Assistant
DX: I51.7 Cardiomegaly (principal); M51.34 Other intervertebral disc degeneration, thoracic region; R06.02 Shortness of breath

== ENCOUNTER 2020-04-18 14:27 | Emergency (ER) | payer MEDICARE, MEDICAID ==
[~2020-04-18] VITALS: Ht 188 cm; Wt 90.9 kg
--- NOTE | 2020-04-18 15:24 | REP ---
INDICATION: DYSPNEA/COUGH COMPARISON: 03/29/2020 TECHNIQUE: Portable AP view of the chest FINDINGS: Examination is significantly limited by underpenetration and poor inspiratory effort. Left perihilar and basilar opacities as well as possible small left pleural effusion cannot be excluded. IMPRESSION: Limited examination. Cannot exclude left perihilar and bibasilar opacities as well as possible small pleural effusion. <Electronically signed by Gerson Rowan > 04/18/20 [id number]
[2020-04-18] MEDS ORDERED: methylPREDNISolone 125MG 2ML VIAL IV ONE (15:30)
[2020-04-18] MEDS ORDERED: DOK1CAP7 PO (16:30)
[2020-04-18] MEDS ORDERED: LEVE750T5 PO (16:30)
[2020-04-18] MEDS ORDERED: TEST1.622 TOP (16:30)
[2020-04-18] MEDS ORDERED: OMEP-218 PO (16:30)
[2020-04-18] MEDS ORDERED: DULO1CAP6 PO (16:30)
[2020-04-18] MEDS: COMBIVENT RESPIMAT 100-20MCG INHALER 4GM INH SCH ×2 (16:58→16:59)
[2020-04-18 17:41] LABS: BASO # 0.1 10^3/uL (0.0-0.2); BASO % 0.5 % (0.0-1.0); EOS # 0.1 10^3/uL (0.0-0.5); EOS % 0.8 % (0.0-3.0); HEMATOCRIT 40.8 % (42.0-52.0); LYMPH % 11.3 % (24.0-44.0); MEAN CORPUSCULAR HEMOGLOBIN 26.5 pg (27.0-33.0); MEAN CORPUSCULAR HGB CONC 29.4 g/dl (32.0-36.5); MEAN CORPUSCULAR VOLUME 90.1 fl (80.0-96.0); MONO # 0.8 10^3/uL (0.0-0.8); MONO % 8.1 % (2.0-8.0); NEUTROPHILS # 7.3 10^3/uL (1.5-8.5); NEUTROPHILS % 78.6 % (36.0-66.0); PLATELET COUNT, AUTOMATED 363 10^3/uL (150-450); RED BLOOD COUNT 4.53 10^6/uL (4.30-6.10); WHITE BLOOD COUNT 9.2 10^3/uL (4.0-10.0)
[2020-04-18] MEDS ORDERED: LevoFLOXacin IV 750 MG in IV 1 EA IV ONE (17:45)
[2020-04-18 17:55] LABS: ALBUMIN 2.2 GM/DL (3.2-5.2); BILIRUBIN,DIRECT 0.1 MG/DL (0.0-0.2); BILIRUBIN,TOTAL 0.2 MG/DL (0.2-1.0); CALCIUM LEVEL 8.5 MG/DL (8.8-10.2); CK-MB VALUE MASS 8.3 NG/ML (<3.6); CREATININE FOR GFR 1.93 MG/DL (0.70-1.30); GLOMERULAR FILTRATION RATE 37.5 (>49); MB/CK RELATIVE INDEX 7.16 (< OR =4); POTASSIUM SERUM 4.7 MEQ/L (3.5-5.1); TOTAL PROTEIN 7.3 GM/DL (6.4-8.2); TROPONIN I 3.63 NG/ML (< 0.10)
[2020-04-18] MEDS ORDERED: CETI-24 PO (18:00)
[2020-04-18] MEDS ORDERED: ASPI81TA26 PO (18:00)
[2020-04-18] MEDS ORDERED: ALBU83IN NEB (18:00)
[2020-04-18] MEDS ORDERED: VITA200016 PO (18:00)
[2020-04-18] MEDS ORDERED: COMMENTS (18:03)
[2020-04-18] MEDS ORDERED: ASPIRIN 81 MG CHEW TABLET PO ONE (18:10)
[2020-04-18] MEDS ORDERED: NITROGLYCERIN 2% OINT 1 GM *U/D* PKT TOP ONE (18:15)
[2020-04-18] MEDS ORDERED: FUROSEMIDE 20MG/2ML VIAL (J1940) IV ONE (18:15)
[2020-04-18] MEDS ORDERED: ONDANSETRON 4MG/2ML VIAL IV PRN (18:40)
[2020-04-18] MEDS ORDERED: BISACODYL 10 MG SUPP PR PRN (18:40)
[2020-04-18] MEDS ORDERED: ATROPINE SULFATE 1% OP SOLN 2 ML BTL SL PRN (18:40)
[2020-04-18] MEDS ORDERED: FLEET ENEMA PR PRN (18:40)
[2020-04-18] MEDS ORDERED: ACETAMINOPHEN TAB 650MG DOSE (2X325MG) PO PRN (18:40)
[2020-04-18] MEDS ORDERED: LORazepam 2 MG/ML VIAL IV PRN (18:40)
[2020-04-18] MEDS ORDERED: HYOSCYAMINE SULFATE 0.125 MG SUBL TABLET PO PRN (18:40)
[2020-04-18] MEDS ORDERED: SCOPOLAMINE 1MG TRANSDERMAL PATCH TOP PRN (18:40)
[2020-04-18] MEDS ORDERED: MORPHINE 2 MG/ML 1ML VIAL (J2270) IV PRN ×2 (18:45→21:20)
--- NOTE | 2020-04-18 18:52 | HPEPDOC ---
General Date of Admission 04/18/20 Date of Service: Apr 18, 2020 Chief Complaint The patient is a 65-year-old male admitted with a reason for visit of Chest Pain. History of Present Illness Patient is 65 years old male with past medical history of multiple sclerosis, hld, androgen deficiency, functional quadriplegia, type 2 diabetes presented to the hospital with increased shortness of breath. Patient stated that he has been short of breath for a few days. Patient uses his own BiPAP at home. In ER patient was found to have hemoglobin 12, no leukocytosis, troponin 3.63, BNP 57854, creatinine 1.9. When I saw patient, he decided to be comfort measures only. The form was updated. PEDIATRIC DENTAL ASSISTANT protocol initiated Home Medications Scheduled Alprazolam (Alprazolam) 0.5 Mg Tablet, 0.25 MG PO BID, (Reported) TAKES AT NOON AND 1600 Alprazolam (Alprazolam) 0.5 Mg Tablet, 0.5 MG PO QHS, (Reported) Amlodipine Besylate (Amlodipine Besylate) 5 Mg Tablet, 5 MG PO QHS, (Reported) Aspirin (Aspirin EC) 81 Mg Tablet.dr, 81 MG PO DAILY, (Reported) Cetirizine HCl (Cetirizine HCl) 10 Mg Tablet, 10 MG PO DAILY, (Reported) Cholecalciferol (Vitamin D3) (Vitamin D3) 50 Mcg Capsule, 50 MCG PO DAILY, (Reported) Docusate Sodium (Dok) 100 Mg Capsule, 100 MG PO DAILY, (Reported) Duloxetine Hcl (Duloxetine HCl) 60 Mg Capsule.dr, 60 MG PO DAILY, (Reported) Insulin Glargine,Hum.rec.anlog (Lantus Solostar) 100 Unit/1 Ml Insuln.pen, 60 UNITS SC QAM, (Reported) Insulin Lispro (Humalog Kwikpen U-100) 100 Unit/1 Ml Insuln.pen, 14 UNITS SC BID, (Reported) BREAKFAST,LUNCH Insulin Lispro (Humalog Kwikpen U-100) 100 Unit/1 Ml Insuln.pen, 16 UNITS SC QPM, (Reported) DINNER Levetiracetam (Levetiracetam) 750 Mg Tablet, 750 MG PO BID, (Reported) Modafinil (Modafinil) 200 Mg Tablet, 200 MG PO BID, (Reported) Omeprazole (Omeprazole) 20 Mg Capsule.dr, 2 MG PO DAILY, (Reported) Pregabalin (Pregabalin) 100 Mg Capsule, 100 MG PO TID, (Reported) Psyllium Husk (Reguloid) 0.4 Gm Capsule, 2 CAP PO DAILY, (Reported) Testosterone (Testosterone) 75 Gm Gel.information management manager, 1 APPLIC TOP DAILY, (Reported) APPLY 1 PUMP EVERY MORNING TO SHOULDER UPPER ARM OR ABDOMEN ONCE A DAY Scheduled PRN Albuterol Sulf (Albuterol Sulfate) 2.5 Mg/3 Ml Vial.neb, 1 VIAL NEB QID PRN for SOB/WHEEZING, (Reported) Miscellaneous Medications [Comments] , (Reported) MED LIST MADE WITH EXTERNAL MED HISTORY. 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 ALEJANDRO 05/01/16 CYSTOSCOPY 07/2018 SUPRAPUBIC DUC 07/2019 Family History FATHER: ALIVE, MELANOMA MOTHER: , LUNG CA SIBLINGS: ALIVE, BROTHER--STROKE, PRIMARY HYPERPARATHYROIDISM SISTER--THYROID DISEASE, DIAGNOSED WITH UNSPECIFIED CEREBRAL ARTERY OCCLUSION WITH CEREBRAL INFARCTION, OTHER MALIGNANT NEOPLASM OF UNSPECIFIED SITE 2 BROTHER(S) , 1 SISTER(S) . Social History * Smoker: Denies Alcohol: Denies Drugs: denies A-FIB/CHADSVASC A-FIB History Current/History of A-Fib/PAF?: No Current PO Anticoag Therapy: No Review of Systems Constitutional: Denies: Chills, Fever Eyes: Denies: Pain ENT: Denies: Head Aches Skin: Denies: Rash Pulmonary: Reports: Dyspnea Cardiovascular: Reports: Orthopnea, Edema Gastrointestinal: Denies: Nausea, Vomiting Genitourinary: Reports: Dysuria Hematologic: Denies: Bruising Endocrine: Denies: Polydipsia Musculoskeletal: Denies: Neck Pain Neurological: Denies: Weakness, Numbness Psych: Reports: Anxiety Physical Examination General Exam: Positive: Alert, Cooperative Eye Exam: Positive: PERRLA ENT Exam: Positive: Atraumatic Neck Exam: Positive: Supple; Negative: JVD Chest Exam: Positive: Rales, Rhonchi Heart Exam: Positive: Regular Rhythm Telemetry: Negative: No significant arrhythmia Abdomen Exam: Positive: Normal bowel sounds Extremity Exam: Negative: Clubbing Skin Exam: Positive: Nl turgor and temperature Neuro Exam: Positive: Cranial Nerves 3-12 NL Psych Exam: Positive: Mental status NL Vital Signs Vital Signs Date Time Temp Pulse Resp B/P (MAP) Pulse Ox O2 Delivery O2 Flow Rate FiO2 04/18/20 17:18 97.5 102 24 154/74 (100) 100 20.0 40 04/18/20 16:54 HVNI-Vapotherm Laboratory Data Labs 24H Laboratory Tests 2 04/18/20 16:11: Immature Granulocyte % (Auto) 0.7, Neutrophils (%) (Auto) 78.6H, Lymphocytes (%) (Auto) 11.3L, Monocytes (%) (Auto) 8.1H, Eosinophils (%) (Auto) 0.8, Basophils (%) (Auto) 0.5, Neutrophils # (Auto) 7.3, Lymphocytes # (Auto) 1.0L, Monocytes # (Auto) 0.8, Eosinophils # (Auto) 0.1, Basophils # (Auto) 0.1, Nucleated Red Blood Cells % (auto) 0.0, Anion Gap 5L, Glomerular Filtration Rate 37.5L, Lactic Acid Level 1.0, Calcium Level 8.5L, Total Bilirubin 0.2, Direct Bilirubin 0.1, Aspartate Amino Transf (AST/SGOT) 27, Alanine Aminotransferase (ALT/SGPT) 36, Alkaline Phosphatase 184H, Total Creatine Kinase 116, Creatine Kinase MB 8.3H, Creatine Kinase MB Relative Index 7.16H, Troponin I 3.63*H, EI-Uou-E-Type Natriuretic Peptide 44646E, Total Protein 7.3, Albumin 2.2L, Albumin/Globulin Ratio 0.4, Lipase 136 04/18/20 16:30: POC pH (Misc Panel) 7.298L, POC Base Excess (Misc Panel) 6.0H, POC Saturated Percent O2 (Misc) 95, POC pO2 (Misc Panel) 86.0, POC pCO2 (Misc Panel) 66.2*H, P OC HCO3 (Misc Panel) 32.4H, POC Total CO2 (Misc Panel) 34.0H 04/18/20 17:50: POC pH (Misc Panel) 7.328L, POC Base Excess (Misc Panel) 6.0H, POC Saturated Percent O2 (Misc) 97, POC pO2 (Misc Panel) 101.0, POC pCO2 (Misc Panel) 60.2*H, POC HCO3 (Misc Panel) 31.6H, POC Total CO2 (Misc Panel) 33.0H CBC/BMP Laboratory Tests 04/18/20 16:11 Microbiology Microbiology 04/18/20 Respiratory Virus Panel (PCR) ([facility]) - Final, Complete 04/18/20 Blood Culture, Received Pending 04/18/20 Blood Culture, Received Pending Assessment/Plan Patient is 65 years old male with past medical history of multiple sclerosis, hld, androgen deficiency, functional quadriplegia, type 2 diabetes presented to the hospital with increased shortness of breath. Patient stated that he has been short of breath for a few days. Patient uses his own BiPAP at home. In ER patient was found to have hemoglobin 12, no leukocytosis, troponin 3.63, BNP 00110, creatinine 1.9. When I saw patient, he decided to be comfort measures only. The form was updated. PEDIATRIC DENTAL ASSISTANT protocol initiated. Problems (1) Acute diastolic CHF (congestive heart failure) Status: Acute Problem Text: Most likely patient developed acute CHF secondary to non-STEMI. We will provide supportive treatment according to patient's wishes. PEDIATRIC DENTAL ASSISTANT protocol initiated (2) NSTEMI (non-ST elevated myocardial infarction) Status: Acute (3) Diabetes mellitus Status: Chronic (4) Multiple sclerosis Status: Chronic (5) Depression Status: Chronic (6) Obstructive uropathy Status: Chronic Plan / VTE VTE Prophylaxis Ordered?: CORINA Kearney DO Apr 18, 2020 18:52
--- NOTE | 2020-04-18 19:44 | ECGEPIP ---
[facility] - ED Test Date: 2020-04-18 Pat Name: MARZENA WAYNE Department: Room: - Gender: Male Public Policy Mediator: Joel BAUMANN : 1955 Requested By: Sarah Alves Order Number: [id number] Reading MD: Sarah Alves Measurements Intervals [place] Rate: 105 P: 34 HI: 118 QRS: 1 QRSD: 76 T: 63 QT: 336 QTc: 444 Interpretive Statements Sinus tachycardia with occasional premature ventricular complexes Inferior infarct , age undetermined diffuse st elevation, noted in inferior and lateral leads/no reciprocal changes - rule out acute coronary syndrome vs pericarditis 11/09/[address] elevation noted above is new CLINICAL CORRELATION ADVISED rule out acute coronary syndrome vs pericarditis 11/09/[address] elevation noted above is new CLINICAL CORRELATION ADVISED Electronically Signed on 04-18-2020 19:45:16 EST by Sarah Alves
[2020-04-18] MEDS ORDERED: CLOPIDOGREL 300 MG TAB (PLAVIX) PO STA (20:47)
[2020-04-18] MEDS ORDERED: HumaLOG INSULIN (NovoLOG) PER UNIT SC SCH (21:00)
[2020-04-18] MEDS ORDERED: levETIRAcetam 250MG TABLET (KEPPRA) PO SCH (21:00)
[2020-04-18] MEDS ORDERED: PREGABALIN 100 MG CAP (LYRICA) PO SCH (21:00)
[2020-04-18] MEDS ORDERED: ALPRAZolam 0.5 MG TAB PO SCH (21:00)
[2020-04-18] MEDS ORDERED: LEVEMIR (INSULIN DETEMIR) 1 UNITS/0.01ML SC SCH (21:00)
[2020-04-18] MEDS ORDERED: ENOXAPARIN 100MG/1ML SYRINGE (J1650 PER 10MG) SC SCH (21:00)
[2020-04-18] MEDS ORDERED: GLUCAGON INJ 1MG VIAL SC PRN (21:25)
[2020-04-18] MEDS ORDERED: DEXTROSE 50% 50 ML SYRINGE IV PRN (21:25)
[2020-04-18] MEDS ORDERED: GLUCOSE 4GM CHEW TABLET PO PRN (21:25)
--- NOTE | 2020-04-18 21:41 | DS.PDOC ---
Discharge Summary General Date of Admission Apr 18, 2020 at 14:28 Date of Discharge 04/18/20 Discharge Summary PROCEDURES PERFORMED DURING STAY: [None]. ADMITTING DIAGNOSES: Acute diastolic CHF (congestive heart failure) STEMI Multiple sclerosis Depression Obstructive uropathy Dyspnea HYPERCHOLESTEROLEMIA MULTIPLE SCLEROSIS Functional quadriplegia Type 2 diabetes DISCHARGE DIAGNOSES: Acute diastolic CHF (congestive heart failure) STEMI Multiple sclerosis Depression Obstructive uropathy Dyspnea HYPERCHOLESTEROLEMIA MULTIPLE SCLEROSIS Functional quadriplegia Type 2 diabetes COMPLICATIONS/CHIEF COMPLAINT: Chf (Ntha Class Iv, Acc/Aha Stage D). HISTORY OF PRESENT ILLNESS: Patient is 65 years old male with past medical history of multiple sclerosis, hld, androgen deficiency, functional quadriplegia, type 2 diabetes presented to the hospital with increased shortness of breath. Patient stated that he has been short of breath for a few days. Also patient stated that he had been having intermittent chest pain with radiation to the left arm, 5/6 out of 10 Patient uses his own BiPAP at home. In ER patient was found to have hemoglobin 1 2, no leukocytosis, troponin 3.63, BNP 32955, creatinine 1.9. When I saw patient, he decided to be comfort measures only. The form was updated. DIRECTOR PUBLIC protocol initiated. At 8:20 PM I was notified that patient wants to revoke DIRECTOR PUBLIC status and he wanted to be transferred to [facility]. I talked to the patient and his and they wanted transfer to this hospital. I talked to budget assistant. Kalia Ngo, he thinks the differential diagnosis between acute coronary syndrome with ST elevation and pericarditis. He thinks patient unlikely candidate for cardiac catheterization due to recent DIRECTOR PUBLIC status. However, patient and his wanted transfer to [facility]. I talked to medical service in this hospital and they will take him. I discussed the case with windows systems architect Dr. Ventura, he recommended to start anticoagulation with Lovenox, add Plavix, echo stat and transfer patient to [facility] DISCHARGE MEDICATIONS: Please see below. ALLERGIES: Please see below. PHYSICAL EXAMINATION ON DISCHARGE: VITAL SIGNS: Please see below. General Exam: Positive: Alert, Cooperative Eye Exam: Positive: PERRLA ENT Exam: Positive: Atraumatic Neck Exam: Positive: Supple; positive JVd Chest Exam: Positive: Rales, Rhonchi Heart Exam: Positive: Regular Rhythm Telemetry: Negative: No significant arrhythmia Abdomen Exam: Positive: Normal bowel sounds Extremity Exam: Negative: Clubbing Skin Exam: Positive: Nl turgor and temperature Neuro Exam: Positive: Cranial Nerves 3-12 NL Psych Exam: Positive: Mental status NL LABORATORY DATA: Please see below. IMAGING: Limited examination. Cannot exclude left perihilar and bibasilar opacities as well as possible small pleural effusion. PROGNOSIS: Guarded ACTIVITY: [As tolerated]. DIET: Cardiac DISPOSITION: Transferred to [facility] ITEMS TO FOLLOWUP ON ON OUTPATIENT: Follow-up with windows systems architect and PCP DISCHARGE CONDITION: [Stable]. TIME SPENT ON DISCHARGE: Greater than 40 minutes. Vital Signs/I&Os Vital Signs Date Time Temp Pulse Resp B/P (MAP) Pulse Ox O2 Delivery O2 Flow Rate FiO2 04/18/20 17:18 97.5 102 24 154/74 (100) 100 20.0 40 04/18/20 16:54 HVNI-Vapotherm Laboratory Data Labs 24H Laboratory Tests 2 04/18/20 16:11: Immature Granulocyte % (Auto) 0.7, Neutrophils (%) (Auto) 78.6H, Lymphocytes (%) (Auto) 11.3L, Monocytes (%) (Auto) 8.1H, Eosinophils (%) (Auto) 0.8, Basophils (%) (Auto) 0.5, Neutrophils # (Auto) 7.3, Lymphocytes # (Auto) 1.0L, Monocytes # (Auto) 0.8, Eosinophils # (Auto) 0.1, Basophils # (Auto) 0.1, Nucleated Red Blood Cells % (auto) 0.0, Anion Gap 5L, Glomerular Filtration Rate 37.5L, Lactic Acid Level 1.0, Calcium Level 8.5L, Total Bilirubin 0.2, Direct Bilirubin 0.1, Aspartate Amino Transf (AST/SGOT) 27, Alanine Aminotransferase (ALT/SGPT) 36, Alkaline Phosphatase 184H, Total Creatine Kinase 116, Creatine Kinase MB 8.3H, Creatine Kinase MB Relative Index 7.16H, Troponin I 3.63*H, JE-Qwg-B-Type Natriuretic Peptide 33411H, Total Protein 7.3, Albumin 2.2L, Albumin/Globulin Ratio 0.4, Lipase 136 04/18/20 16:30: POC pH (Misc Panel) 7.298L, POC Base Excess (Misc Panel) 6.0H, POC Saturated Percent O2 (Misc) 95, POC pO2 (Misc Panel) 86.0, POC pCO2 (Misc Panel) 66.2*H, POC HCO3 (Misc Panel) 32.4H, POC Total CO2 (Misc Panel) 34.0H 04/18/20 17:50: POC pH (Misc Panel) 7.328L, POC Base Excess (Misc Panel) 6.0H, POC Saturated Percent O2 (Misc) 97, POC pO2 (Misc Panel) 101.0, POC pCO2 (Misc Panel) 60.2*H, POC HCO3 (Misc Panel) 31.6H, POC Total CO2 (Misc Panel) 33.0H CBC/BMP Laboratory Tests 04/18/20 16:11 Microbiology Microbiology 04/18/20 Respiratory Virus Panel (PCR) ([facility]) - Final, Complete 04/18/20 Blood Culture, Received Pending 04/18/20 Blood Culture, Received Pending Discharge Medications Scheduled Alprazolam (Alprazolam) 0.5 Mg Tablet, 0.25 MG PO BID, (Reported) TAKES AT NOON AND 1600 Alprazolam (Alprazolam) 0.5 Mg Tablet, 0.5 MG PO QHS, (Reported) Amlodipine Besylate (Amlodipine Besylate) 5 Mg Tablet, 5 MG PO QHS, (Reported) Aspirin (Aspirin EC) 81 Mg Tablet.dr, 81 MG PO DAILY, (Reported) Cetirizine HCl (Cetirizine HCl) 10 Mg Tablet, 10 MG PO DAILY, (Reported) Cholecalciferol (Vitamin D3) (Vitamin D3) 50 Mcg Capsule, 50 MCG PO DAILY, (Reported) Docusate Sodium (Dok) 100 Mg Capsule, 100 MG PO DAILY, (Reported) Duloxetine Hcl (Duloxetine HCl) 60 Mg Capsule.dr, 60 MG PO DAILY, (Reported) Insulin Glargine,Hum.rec.anlog (Lantus Solostar) 100 Unit/1 Ml Insuln.pen, 60 UNITS SC QAM, (Reported) Insulin Lispro (Humalog Kwikpen U-100) 100 Unit/1 Ml Insuln.pen, 14 UNITS SC BID, (Reported) BREAKFAST,LUNCH Insulin Lispro (Humalog Kwikpen U-100) 100 Unit/1 Ml Insuln.pen, 16 UNITS SC QPM, (Reported) DINNER Levetiracetam (Levetiracetam) 750 Mg Tablet, 750 MG PO BID, (Reported) Modafinil (Modafinil) 200 Mg Tablet, 200 MG PO BID, (Reported) Omeprazole (Omeprazole) 20 Mg Capsule.dr, 2 MG PO DAILY, (Reported) Pregabalin (Pregabalin) 100 Mg Capsule, 100 MG PO TID, (Reported) Psyllium Husk (Reguloid) 0.4 Gm Capsule, 2 CAP PO DAILY, (Reported) Testosterone (Testosterone) 75 Gm Gel.project landscape architect, 1 APPLIC TOP DAILY, (Reported) APPLY 1 PUMP EVERY MORNING TO SHOULDER UPPER ARM OR ABDOMEN ONCE A DAY Scheduled PRN Albuterol Sulf (Albuterol Sulfate) 2.5 Mg/3 Ml Vial.neb, 1 VIAL NEB QID PRN for SOB/WHEEZING, (Reported) Miscellaneous Medications [Comments] , (Reported) MED LIST MADE WITH EXTERNAL MED HISTORY. Allergies Coded Allergies: Penicillins (Verified Allergy, Unknown, childhood allergy, 12/09/18) alendronate sodium (Verified Allergy, Unknown, 11/07/18) ibandronate sodium (Verified Allergy, Unknown, unknown, 11/07/18) rofecoxib (Verified Allergy, Unknown, 11/07/18) methadone (Verified Adverse Reaction, Mild, NAUSEA AND VOMITING, 12/09/18) morphine (Verified Adverse Reaction, Mild, nausea,vomiting, 12/09/18) CORINA GREER DO Apr 18, 2020 21:41
[2020-04-18 23:20] VITALS: BP 147/88
[2020-04-19] MEDS ORDERED: FUROSEMIDE 40MG/4ML VIAL (J1940) IV SCH
[2020-04-19] MEDS ORDERED: HumaLOG INSULIN (NovoLOG) PER UNIT SC SCH (07:30)
[2020-04-19] MEDS ORDERED: DOCUSATE SODIUM 100MG CAPSULE PO SCH (09:00)
[2020-04-19] MEDS ORDERED: OMEPRAZOLE 20 MG CAP PO SCH (09:00)
[2020-04-19] MEDS ORDERED: DULoxetine 30 MG CAP (CYMBALTA) PO SCH (09:00)
[2020-04-19] MEDS ORDERED: ASPIRIN 81MG ENTERIC TABLET PO SCH (09:00)
[2020-04-19] MEDS ORDERED: CETIRIZINE (ZyrTEC) 10 MG TAB PO SCH (09:00)
== END 2020-04-18 23:22 | disposition other institution (70) ==
LOC: M ED 14:27 → UNDOADMOB 14:28 → M ED INP 14:28 → ENRESERV 21:04
DX: I21.4 Non-ST elevation (NSTEMI) myocardial infarction (principal); I50.30 Unspecified diastolic (congestive) heart failure; J96.91 Respiratory failure, unspecified with hypoxia; G35 Multiple sclerosis; F33.9 Major depressive disorder, recurrent, unspecified; E78.5 Hyperlipidemia, unspecified; E11.9 Type 2 diabetes mellitus without complications; Z88.0 Allergy status to penicillin; Z88.6 Allergy status to analgesic agent; Z88.8 Allergy status to other drugs, medicaments and biological substances; Z79.899 Other long term (current) drug therapy
CPT/HCPCS: 71045; 80048; 80076; 80180; 82550; 82553; 82803; 83605; 83690; 83880; 84484; 85025; 87040; 87798; 93005; 93041; 94640; 94660; 94760; 96374; 96375; 99285; J1650; J1940; J2930

== ENCOUNTER → 2020-05-03 | Outpatient (REF) | payer MEDICARE, MEDICAID ==
[~2020-05-03] MED LIST changes: +ALBU83IN NEB; +CETI-24 PO; +COMMENTS; +DOK1CAP7 PO; +DULO1CAP6 PO; +LEVE750T5 PO; +OMEP-218 PO; +TEST1.622 TOP; +VITA200016 PO
== END ==
LOC: M SFHCPLAZ 16:44
PROVIDERS: ATTEND Internal Medicine Infectious Disease
DX: L02.219 Cutaneous abscess of trunk, unspecified (principal)
CPT/HCPCS: 87070; 87077; 87186; 87205; G0463

== ENCOUNTER → 2020-05-04 | Outpatient (CLI) | payer MEDICARE, MEDICAID ==
--- NOTE | 2020-05-04 15:42 | REP ---
INDICATION: ABCESS SUPRAPUBIC AREA / HYDRONEPHROSIS. COMPARISON: 02/13/2020. TECHNIQUE: Real-time sonographic evaluation of the suprapubic catheter tract is again performed. FINDINGS: At the deep end of the tract there is rounded hypoechoic area measuring 1.1 x 1.4 x 1.3 cm unchanged since the prior exam. Again this could represent a small amount of complex fluid at that location. IMPRESSION: Stable exam. <Electronically signed by Jason Escamilla > 05/04/20 [id number]
--- NOTE | 2020-05-04 16:46 | REP ---
INDICATION: ABCESS SUPRAPUBIC AREA / HYDRONEPHROSIS. COMPARISON: Renal ultrasound dated 12/09/2018. TECHNIQUE: Multiple sonographic images of the kidneys bilaterally. FINDINGS: The right kidney measures 10.5 x 4.2 x 5.9 cm. Left kidney measures 11.2 x 4.4 x 6.3 cm. There is marked hydronephrosis bilaterally. This is unchanged from the prior study. No renal calculi are identified. No renal solid or cystic masses are identified. The Doppler resistive index in the parenchymal arteries of the right kidney is 0.69. We are unable to obtain the resistive index of the left kidney. Bladder: The bladder is incompletely distended but otherwise unremarkable. IMPRESSION: Is marked bilateral hydronephrosis, not significantly changed from the prior study. <Electronically signed by Jason Arroyo > 05/04/20 [id number]
== END ==
LOC: EEVIPCON 12:54 → M RAD 12:54
PROVIDERS: ATTEND Internal Medicine Infectious Disease
DX: N13.30 Unspecified hydronephrosis (principal); L02.219 Cutaneous abscess of trunk, unspecified
CPT/HCPCS: 76775; 76857; G0463

== ENCOUNTER 2020-07-24 20:30 | Inpatient (IN) | payer MEDICARE, MEDICAID ==
[~2020-07-24] VITALS: Ht 188 cm; Wt 90.9 kg
[2020-07-24] MEDS ORDERED: NYST1POW TOP (20:50)
--- NOTE | 2020-07-24 22:06 | REPVR ---
PROCEDURE INFORMATION: Exam: XR Chest Exam date and time: 07/24/2020 9:57 PM Age: 65 years old Clinical indication: Cough; Additional info: Dyspnea/cough TECHNIQUE: Imaging protocol: XR of the chest. Views: 1 view. COMPARISON: CR PORTABLE CHEST X-RAY 04/18/2020 3:06 PM FINDINGS: Lungs: Suboptimal inspiratory effort. Increased parenchymal markings in the right lung may represent an infiltrate. Pleural spaces: Unremarkable. No pleural effusion. No pneumothorax. Heart/Mediastinum: Unremarkable. No cardiomegaly. Bones/joints: Unremarkable. IMPRESSION: Suboptimal inspiratory effort. Increased parenchymal markings in the right lung may represent an infiltrate. Electronically signed by: Stephen Fortune On 07/24/2020 22:05:45 PM
[2020-07-24 23:12] LABS: BASO # 0.1 10^3/uL (0.0-0.2); BASO % 0.9 % (0.0-1.0); EOS # 0.2 10^3/uL (0.0-0.5); EOS % 2.1 % (0.0-3.0); HEMATOCRIT 48.9 % (42.0-52.0); HEMOGLOBIN 14.1 g/dl (13.5-17.5); LYMPH # 1.5 10^3/uL (1.5-5.0); LYMPH % 19.1 % (24.0-44.0); MEAN CORPUSCULAR HEMOGLOBIN 25.9 pg (27.0-33.0); MEAN CORPUSCULAR HGB CONC 28.8 g/dl (32.0-36.5); MEAN CORPUSCULAR VOLUME 89.7 fl (80.0-96.0); MONO # 0.6 10^3/uL (0.0-0.8); NEUTROPHILS # 5.5 10^3/uL (1.5-8.5); NEUTROPHILS % 69.3 % (36.0-66.0); PLATELET COUNT, AUTOMATED 297 10^3/uL (150-450); RED BLOOD COUNT 5.45 10^6/uL (4.30-6.10)
[2020-07-24 23:43] LABS: ALBUMIN 2.9 GM/DL (3.2-5.2); BILIRUBIN,DIRECT 0.1 MG/DL (0.0-0.2); BILIRUBIN,TOTAL 0.3 MG/DL (0.2-1.0); CALCIUM LEVEL 9.1 MG/DL (8.8-10.2); CK-MB VALUE MASS 4.1 NG/ML (<3.6); CREATININE FOR GFR 1.73 MG/DL (0.70-1.30); GLOMERULAR FILTRATION RATE 42.5 (>49); MB/CK RELATIVE INDEX 6.95 (< OR =4); POTASSIUM SERUM 4.3 MEQ/L (3.5-5.1); TOTAL PROTEIN 8.2 GM/DL (6.4-8.2); TROPONIN I 0.66 NG/ML (< 0.10)
[2020-07-25] VITALS (18 sets, daily range): BP systolic 132–145; BP diastolic 79–88; O2SAT 88–98
[2020-07-25] MEDS ORDERED: ALPRAZolam 0.5 MG TAB PO ONE (01:15)
[2020-07-25 02:28] LABS: CK-MB VALUE MASS 3.5 NG/ML (<3.6); MB/CK RELATIVE INDEX 5.56 (< OR =4); TROPONIN I 0.84 NG/ML (< 0.10)
--- NOTE | 2020-07-25 04:18 | REPVR ---
PROCEDURE INFORMATION: Exam: CT Chest Without Contrast; Diagnostic Exam date and time: 07/25/2020 2:41 AM Age: 65 years old Clinical indication: Chest wall pain; Additional info: Chest pain, ? pna on cxr, hypoxia TECHNIQUE: Imaging protocol: Diagnostic computed tomography of the chest without contrast. 3D rendering (Not supervised by radiologist): MIP and/or 3D reconstructed images were created by the technologist. Radiation optimization: All CT scans at this facility use at least one of these dose optimization techniques: automated exposure control; mA and/or kV adjustment per patient size (includes targeted exams where dose is matched to clinical indication); or iterative reconstruction. COMPARISON: CR PORTABLE CHEST X-RAY 07/24/2020 9:45 PM FINDINGS: Lungs: Moderate atelectasis of the lower lobes bilaterally, left greater than right with question of minimal infiltrate in the remaining left lower lobe. Pleural spaces: Mild right and minimal left pleural effusions. Heart: Trace pericardial fluid. Pulmonary arteries: The main pulmonary artery measures 28 mm. Aorta: The ascending thoracic aorta measures 30 mm. Lymph nodes: Unremarkable. No enlarged lymph nodes. Bones/joints: Unremarkable. No acute fracture. Soft tissues: Unremarkable. IMPRESSION: 1. Mild right and minimal left pleural effusions with moderate bilateral lower lobe atelectasis, left greater than right with question of minimal infiltrate in the remaining aerated left lower lobe. 2. Trace pericardial fluid. 3. Otherwise negative CT chest. Electronically signed by: Kirk Rubalcava On 07/25/2020 04:18:12 AM
[2020-07-25] MEDS ORDERED: FUROSEMIDE 40MG/4ML VIAL (J1940) IV ONE (05:20)
[2020-07-25] MEDS ORDERED: NITR0.4S14 SL (05:52)
[2020-07-25] MEDS ORDERED: COLC0.6T47 PO (05:52)
[2020-07-25] MEDS ORDERED: MAALOX 30 ML SUSP *UDC PO PRN (06:05)
[2020-07-25] MEDS ORDERED: ACETAMINOPHEN TAB 650MG DOSE (2X325MG) PO PRN (06:05)
[2020-07-25] MEDS ORDERED: ASPIRIN 81 MG CHEW TABLET PO ONE (06:05)
[2020-07-25] MEDS ORDERED: MOM 30ML SUSPENSION UDC PO PRN (06:05)
[2020-07-25] MEDS ORDERED: CLOPIDOGREL 300 MG TAB (PLAVIX) PO STA (06:31)
[2020-07-25] MEDS ORDERED: HEPARIN DRIP 25,000 UNITS in IV 1 EA IV SCH (06:35)
[2020-07-25] MEDS ORDERED: ALPRAZolam 0.5 MG TAB PO PRN (06:35)
[2020-07-25] MEDS ORDERED: NITROGLYCERIN 0.4 MG SUBL TABLET SL SCH (06:35)
[2020-07-25] MEDS ORDERED: HEPARIN SOD (PORCINE) 5000UNITS/ML 1ML VIAL/SYRINGE IV PRN (06:35)
--- NOTE | 2020-07-25 07:01 | HPEPDOC ---
[facility] Medical History & Physical Date of Admission Jul 25, 2020 Date of Service: Jul 25, 2020 Other Provider Tyler CUELLO Attending Physician: TONY VICKERS MD History and Physical TIME OF SERVICE: 450am CHIEF COMPLAINT: dyspnea HISTORY OF PRESENT ILLNESS: has been feeling short of breath for a few days and came to the hospital because his aides made him come. Per the patient endorsed chest pain, but when asked the patient about the chest pain he said "I have end stage MS...I have pain all over my body all the time." He also c/o back pain due to lying in his wheel chair all night. Of note he was last admitted here in April for STEMI vs Pericarditis and was subsequently transferred to [facility]; he was unable to provide details about his hospital course. had called [facility] to attempt to transfer the patient but they didn't have beds available. REVIEW OF SYSTEMS: 12-point review of systems negative except as listed in HPI PAST MEDICAL/ SURGICAL HISTORY: advanced MS (quadraplegic w chronic supra-pubic myers and placement of dorsal cord stimulator), DLP, CKD3, Depression, HTN Vitamin D Def, IDDM, Osteoporosis, AYLA, seizure disorder Appendectomy SH: - T/-A/-D / FAMILY HISTORY: melanoma, CVA, lung CA, hyperparathyroidism, ALLERGIES: Please see below. HOME MEDICATIONS: Please see below. PHYSICAL EXAMINATION: Vital Signs Date Time Temp Pulse Resp B/P (MAP) Pulse Ox O2 Delivery O2 Flow Rate FiO2 07/24/20 20:31 97.8 112 28 158/90 (112) 77 Room Air 07/25/20 04:45 2.0 GENERAL APPEARANCE: well nourished and developed/ irritable HEENT: unable to assess because the pt refused to let me turn on more lights beyond the night lights that were on in the room CARDIOVASCULAR: RRR/ NMRG LUNGS: CTAB on RA ABDOMEN: contour obese MUSCULOSKELETAL: has contractures INTEGUMENT: unable to assess pt refused to let me turn on more lights NEUROLOGICAL: unable to fully assess pt refused to let me turn on more lights / speech not dysarthric PSYCHIATRIC: A&O / able to understand and follow all commands LABORATORY DATA: Immature Granulocyte % (Auto) 0.6, Neutrophils (%) (Auto) 69.3H, Lymphocytes (%) (Auto) 19.1L, Monocytes (%) (Auto) 8.0, Eosinophils (%) (Auto) 2.1, Basophils (%) (Auto) 0.9, Neutrophils # (Auto) 5.5, Lymphocytes # (Auto) 1.5, Monocytes # (Auto) 0.6, Eosinophils # (Auto) 0.2, Basophils # (Auto) 0.1, Nucleated Red Blood Cells % (auto) 0.0, Anion Gap 4L, Glomerular Filtration Rate 42.5L, Lactic Acid Level 1.2, Calcium Level 9.1, Total Bilirubin 0.3, Direct Bilirubin 0.1, Aspartate Amino Transf (AST/SGOT) 25, Alanine Aminotransferase (ALT/SGPT) 50, Alkaline Phosphatase 153H, Total Creatine Kinase 59, Creatine Kinase MB 4.1H, Creatine Kinase MB Relative Index 6.95H, Troponin I 0.66H, RS-Guk-L-Type Natriuretic Peptide 17932D, Total Protein 8.2, Albumin 2.9L, Albumin/Globulin Ratio 0.5 Total Creatine Kinase 63, Creatine Kinase MB 3.5, Creatine Kinase MB Relative Index 5.56H, Troponin I 0.84#H IMAGING: Chest xray "IMPRESSION: Suboptimal inspiratory effort. Increased parenchymal m arkings in the right lung may represent an infiltrate." CT chest "IMPRESSION: 1. Mild right and minimal left pleural effusions with moderate bilateral lower lobe atelectasis, left greater than right with question of minimal infiltrate in the remaining aerated left lower lobe. 2. Trace pericardial fluid. 3. Otherwise negative CT chest." MICROBIOLOGY: respiratory panel neg ASSESSMENT: is a 65 yr old M with advanced MS (quadraplegic w chronic supra-pubic myers and placement of dorsal cord stimulator), DLP, Depression, seizure disorder, CKD 3, HTN Vitamin D Def, IDDM, Osteoporosis, & AYLA admitted for possible NSTEMI. PLAN: 1 Possible NSTEMI vs Myopericarditis The patient has been short of breath (this may be an ACS equivalent?) but provided a tangential answer when asked about chest pain. EKG sent to who agreed with the finding of prior inferior infarct, he also added that the patient might also have an NSTEMI His NILA Score for NSTEMI = 3 points = medium risk Plan: admit to medical floor / ASA with Plavix, atorvastatin, low dose Coreg, heparin drip, telemetry /f/u serial trops, EKGs, lipid panel, A1C, Echo / c/w Colchicine for pericarditis ? pending records from [place] / the day time team may officially consult 2 Possible acute CHF ? There are no mentions of pulmonary edema or cardiomegaly on chest xray The patient didn't have crackles on auscultation and I was unable to assess for JVP bc the patient refused to allow me to turn on the lights gave the patient one dose of lasix for presumed acute CHF Plan: f/u Is and Os daily weights and Echo prior to giving more lasix 3 CKD 3 Cr at baseline Plan: f/u BMP 4 Advanced MS (quadraplegic w chronic supra-pubic myers and placement of dorsal cord stimulator) Plan: fall precautions / c/w myers / modafinil 5 Essential HTN Plan: amlodipine / adding low dose Coreg 6 IDDM Plan: consistent carbohydrate diet/ FSBS/ SSI/ c/w 25 units of long acting insulin BID / f/u A1C 7 Seizure disorder Plan: Keppra 8 DLP Plan:statin 8 Osteoporosis Plan: vitamin D 9 Depression / Anxiety ? Plan: alprazolam, duloxetine 10 AYLA Plan: own CPAP DVT px n/a on Heparin drip Dispo: home after at least 2 midnights stay Home Medications Scheduled Amlodipine Besylate (Amlodipine Besylate) 5 Mg Tablet, 5 MG PO QHS Cetirizine HCl (Cetirizine HCl) 10 Mg Tablet, 10 MG PO DAILY Cholecalciferol (Vitamin D3) (Vitamin D3) 50 Mcg Capsule, 50 MCG PO DAILY Colchicine (Colchicine) 0.6 Mg Tablet, 0.6 MG PO DAILY Docusate Sodium (Dok) 100 Mg Capsule, 100 MG PO BID Duloxetine Hcl (Duloxetine HCl) 60 Mg Capsule.dr, 60 MG PO DAILY Insulin Glargine,Hum.rec.anlog (Lantus Solostar) 100 Unit/1 Ml Insuln.pen, 25 UNITS SC BID after meals Insulin Lispro (Humalog Kwikpen U-100) 100 Unit/1 Ml Insuln.pen, 1 DOSE SC WM per sliding scale Levetiracetam (Levetiracetam) 750 Mg Tablet, 750 MG PO BID Modafinil (Modafinil) 200 Mg Tablet, 200 MG PO BID Nitroglycerin (Nitroglycerin) 0.4 Mg Tab.subl, 0.4 MG SL NITRO Omeprazole (Omeprazole) 20 Mg Capsule.dr, 20 MG PO DAILY Pregabalin (Pregabalin) 100 Mg Capsule, 100 MG PO TID Scheduled PRN Alprazolam (Alprazolam) 0.5 Mg Tablet, 0.5 MG PO QHS PRN for ANXIETY Nystatin (Nystatin) 1 Each Powder.ea., 1 APPLIC TOP BID PRN for ITCHING groin and toes Miscellaneous Medications [Comments] MED LIST MADE WITH list from home Allergies Coded Allergies: Penicillins (Verified Allergy, Unknown, childhood allergy, 12/09/18) alendronate sodium (Verified Allergy, Unknown, 11/07/18) ibandronate sodium (Verified Allergy, Unknown, unknown, 11/07/18) rofecoxib (Verified Allergy, Unknown, 11/07/18) methadone (Verified Adverse Reaction, Mild, NAUSEA AND VOMITING, 12/09/18) morphine (Verified Adverse Reaction, Mild, nausea,vomiting, 12/09/18) A-FIB/CHADSVASC A-FIB History Current/History of A-Fib/PAF?: No Current PO Anticoag Therapy: TONY Junior MD Jul 25, 2020 07:01
[2020-07-25 08:11] LABS: CHOLESTEROL RISK RATIO 6.777 (<5)
[2020-07-25] MEDS: PREGABALIN 100 MG CAP (LYRICA) PO SCH ×3 (08:15→21:23)
[2020-07-25] MEDS: DOCUSATE SODIUM 100MG CAPSULE PO SCH ×2 (09:00→21:23)
[2020-07-25] MEDS: MODAFINIL 100 MG TABLET PO SCH ×2 (09:00→21:23)
[2020-07-25] MEDS ORDERED: COLCHICINE 0.6 MG TABLET PO SCH (09:00)
[2020-07-25] MEDS: CETIRIZINE (ZyrTEC) 10 MG TAB PO SCH (09:00)
[2020-07-25] MEDS: levETIRAcetam 250MG TABLET (KEPPRA) PO SCH ×2 (09:41→21:23)
[2020-07-25] MEDS: DULoxetine 30 MG CAP (CYMBALTA) PO SCH (09:41)
[2020-07-25] MEDS: CARVedilol 3.125 MG TAB PO SCH (09:43)
[2020-07-25] MEDS: OMEPRAZOLE 20 MG CAP PO SCH (09:43)
[2020-07-25] MEDS: LEVEMIR (INSULIN DETEMIR) 1 UNITS/0.01ML SC SCH ×2 (09:43→21:24)
[2020-07-25] MEDS: ATORVASTATIN 20 MG TAB PO SCH (09:43)
[2020-07-25] MEDS ORDERED: GLUCOSE 4GM CHEW TABLET PO PRN (10:10)
[2020-07-25] MEDS ORDERED: DEXTROSE 50% 50 ML SYRINGE IV PRN (10:10)
[2020-07-25] MEDS ORDERED: GLUCAGON INJ 1MG VIAL SC PRN (10:10)
[2020-07-25 10:28] LABS: HEMOGLOBIN A1c 6.8 %
[2020-07-25 11:32] LABS: CK-MB VALUE MASS 3.1 NG/ML (<3.6); MB/CK RELATIVE INDEX 4.25 (< OR =4); TROPONIN I 0.87 NG/ML (< 0.10)
[2020-07-25] MEDS ORDERED: SLF 3 ML SYR IV PRN (11:45)
[2020-07-25] MEDS ORDERED: FUROSEMIDE 40MG/4ML VIAL (J1940) IV SCH (12:00)
[2020-07-25] MEDS: SLF 3 ML SYR IV SCH ×2 (12:03→22:54)
[2020-07-25] MEDS: HumaLOG INSULIN (NovoLOG) PER UNIT SC SCH ×2 (12:03→17:08)
--- NOTE | 2020-07-25 12:58 | IPNPDOC ---
Text Note Date of Service The patient was seen on 07/25/20. NOTE Subjective: -Has diffuse chronic pain -No alicia chest pressure, substernal chest pain or tightness -On 1L NC, putting on his home PAP machine while I was in the room Objective GENERAL APPEARANCE: NAD, obese HEENT:NCAT, flushed face, EOMI, MMM CARDIOVASCULAR: RRR, no m/r/g LUNGS: crackles at the bases, poor effort ABDOMEN: Obese, soft, protuberant, normoactive sounds, NTND MUSCULOSKELETAL: has contractures NEUROLOGICAL: CN3-12 intact, had contractures, sensation intact EXT: WWP, with leg warmers in place, has 2+ lower extremity edema PSYCHIATRIC: AOx3 LABORATORY DATA: WBC 8 Hgb 14.1 platelets 297 na 138 k 4.3 BUN 36 Cr 1.73 glucose 233 hgb a1c 6.8 Troponin: 0.66--> 0.84 --> 0.87 CK MB 6.95-->5.56-->4.25 IMAGING: Chest xray "IMPRESSION: Suboptimal inspiratory effort. Increased parenchymal markings in the right lung may represent an infiltrate." CT chest "IMPRESSION: 1. Mild right and minimal left pleural effusions with moderate bilateral lower lobe atelectasis, left greater than right with question of minimal infiltrate in the remaining aerated left lower lobe. 2. Trace pericardial fluid. 3. Otherwise negative CT chest." MICROBIOLOGY: respiratory panel neg ASSESSMENT: 65 yr old M with advanced MS (quadraplegic w chronic myers and placement of dorsal cord stimulator), DLP, Depression, seizure disorder, CKD 3, HTN Vitamin D Def, IDDM, Osteoporosis, & AYLA admitted for possible NSTEMI and found to be more likely HFpEF exacerbation and AYLA on CKD. PLAN: Initial suspicion for NSTEMI vs a carditis: Low suspicion and discussed with Dr. Elena who agreed with the plan below -Was SOB without alicia chest pain -EKG was without acute ST changes -continue ASA with Plavix, atorvastatin, low dose Coreg -DC heparin gtt low suspicion for NSTEMI given diffuse chronic pain and stable EKG, possible -carditis given recent history of pericarditis so will order stat TTE -hold off colchicine until TTE -lipid panel complete, already on lipitor 80mg -A1C was 6.8 which is actually quite well controlled -Telemetry Acute HFpEF exacerbation -Last TTE was 07/05 during which he had no pericardial effusion and colchicine was stopped by Dr. Rodriguez, EF was wnl chronic diastolic HF was acknowledged. -strict I/Os -daily weights -lasix 40 IV BID -stat TTE -Telemetry AYLA on CKD 3: possibly congestive i/s/o acute HF -diuresis as above, and thus far having a robust UOP Advanced MS (quadraplegic w chronic supra-pubic myers and placement of dorsal cord stimulator) fall precautions -c/w myers -modafinil 5 HTN -amlodipine -Coreg 6 IDDM -consistent carbohydrate diet -FSBS AC/HS -SSI -c/w 25 units of long acting insulin BID -A1c 6.8 7 Seizure disorder -Keppra 8 DLP -lipitor 80mg daily 8 Osteoporosis -vitamin D 9 Depression / Anxiety -alprazolam, duloxetine 10 AYLA -has own PAP DVT pxL subcutaneous ppx dosing heparin Dispo: home after at least 2 midnights stay VS,Fabrice, I+O VS, Fabrice I+O Laboratory Tests 07/24/20 22:55 Vital Signs Date Time Temp Pulse Resp B/P (MAP) Pulse Ox O2 Delivery O2 Flow Rate FiO2 07/25/20 11:13 97.5 113 20 135/83 (100) 90 NIPPV (BIPAP/CPAP) 07/25/20 09:45 2.0 I&O- Last 24 Hours up to 6 AM 07/25/20 06:00 Output Total 925 ml Balance -925 ml TINY KAMARA MD Jul 25, 2020 12:58
[2020-07-25 14:49] LABS: CK-MB VALUE MASS 2.5 NG/ML (<3.6); MB/CK RELATIVE INDEX 3.33 (< OR =4); TROPONIN I 0.81 NG/ML (< 0.10)
--- NOTE | 2020-07-25 16:34 | ECGEPIP ---
[facility] Test Date: 2020-07-25 Pat Name: MARZENA WAYNE Department: Room: [place] [address] Gender: Male Field Assembly Supervisor: nisreen : [id number] Requested By: TONY VICKERS Order Number: [id number] Reading MD: Jose Miguel Elena Measurements Intervals [place] Rate: 111 P: 35 [place]: 128 QRS: -2 QRSD: 90 T: 134 QT: 354 QTc: 481 Interpretive Statements Sinus tachycardia Inferior infarct , age undetermined ST & T wave abnormality, consider lateral ischemia LEFT VENTRICULAR HYPERTROPHY Compared to prior tracings in the system No remarkable changes Electronically Signed on 07-25-2020 16:34:17 EDT by Jose Miguel Elena
--- NOTE | 2020-07-25 16:36 | ECGEPIP ---
[facility] Test Date: 2020-07-25 Pat Name: MARZENA WAYNE Department: Room: [place] [address] Gender: Male Field Party Manager: nisreen : 1955 Requested By: TONY VICKERS Order Number: [id number] Reading MD: Jose Miguel Elena Measurements Intervals [place] Rate: 109 P: 34 [place]: 128 QRS: -4 QRSD: 126 T: 127 QT: 352 QTc: 474 Interpretive Statements Poor data quality, interpretation may be adversely affected Sinus tachycardia Left ventricular hypertrophy with QRS widening and repolarization abnormality ( [place] product ) Inferior infarct , age undetermined Compared to prior tracings in the system No remarkable changes Electronically Signed on 07-25-2020 16:36:36 EDT by Jose Miguel Elena
[2020-07-25] MEDS: ALPRAZolam 0.5 MG TAB PO PRN ×2 (17:34→21:27)
[2020-07-25 19:11] LABS: CK-MB VALUE MASS 1.4 NG/ML (<3.6); MB/CK RELATIVE INDEX 2.22 (< OR =4); TROPONIN I 0.71 NG/ML (< 0.10)
[2020-07-25] MEDS ORDERED: HumaLOG INSULIN (NovoLOG) PER UNIT SC SCH (21:00)
[2020-07-25] MEDS ORDERED: amLODIPine 5 MG TAB PO SCH (21:00)
[2020-07-25] MEDS: HEPARIN SOD (PORCINE) 5000UNITS/ML 1ML VIAL/SYRINGE SQ SCH (22:54)
[2020-07-26] VITALS (9 sets, daily range): BP systolic 124–133; BP diastolic 68–78; O2SAT 92–93
[2020-07-26] MEDS ORDERED: PERCOCET 5MG/325MG TAB PO PRN (00:20)
[2020-07-26 06:16] LABS: HEMATOCRIT 47.1 % (42.0-52.0); MEAN CORPUSCULAR HEMOGLOBIN 25.9 pg (27.0-33.0); MEAN CORPUSCULAR HGB CONC 29.7 g/dl (32.0-36.5); MEAN CORPUSCULAR VOLUME 87.2 fl (80.0-96.0); PLATELET COUNT, AUTOMATED 325 10^3/uL (150-450); WHITE BLOOD COUNT 7.9 10^3/uL (4.0-10.0)
[2020-07-26] MEDS: HEPARIN SOD (PORCINE) 5000UNITS/ML 1ML VIAL/SYRINGE SQ SCH (06:41)
[2020-07-26] MEDS: SLF 3 ML SYR IV SCH (06:41)
[2020-07-26 07:02] LABS: CALCIUM LEVEL 8.4 MG/DL (8.8-10.2); CREATININE FOR GFR 1.76 MG/DL (0.70-1.30); GLOMERULAR FILTRATION RATE 41.7 (>49); TROPONIN I 0.55 NG/ML (< 0.10)
[2020-07-26] MEDS: HumaLOG INSULIN (NovoLOG) PER UNIT SC SCH (08:43)
[2020-07-26] MEDS: CARVedilol 3.125 MG TAB PO SCH (08:57)
[2020-07-26] MEDS: levETIRAcetam 250MG TABLET (KEPPRA) PO SCH (08:57)
[2020-07-26] MEDS: PREGABALIN 100 MG CAP (LYRICA) PO SCH (08:58)
[2020-07-26] MEDS: DOCUSATE SODIUM 100MG CAPSULE PO SCH (08:58)
[2020-07-26] MEDS: ATORVASTATIN 20 MG TAB PO SCH (08:58)
[2020-07-26] MEDS: DULoxetine 30 MG CAP (CYMBALTA) PO SCH (08:58)
[2020-07-26] MEDS: OMEPRAZOLE 20 MG CAP PO SCH (08:58)
[2020-07-26] MEDS: CETIRIZINE (ZyrTEC) 10 MG TAB PO SCH (08:58)
[2020-07-26] MEDS: MODAFINIL 100 MG TABLET PO SCH (08:58)
[2020-07-26] MEDS: LEVEMIR (INSULIN DETEMIR) 1 UNITS/0.01ML SC SCH (08:59)
[2020-07-26] MEDS ORDERED: FUROSEMIDE 40MG/4ML VIAL (J1940) IV SCH (09:00)
[2020-07-26] MEDS ORDERED: CLOPIDOGREL 75 MG TAB PO SCH (09:00)
[2020-07-26] MEDS ORDERED: ATOR40TA75 PO (11:03)
[2020-07-26] MEDS ORDERED: CARV3.12 PO (11:03)
[2020-07-26] MEDS ORDERED: FURO20TA2 PO (11:03)
--- NOTE | 2020-07-26 11:10 | IPNPDOC ---
Text Note Date of Service The patient was seen on 07/26/20. NOTE Subjective: -No alicia chest pressure, substernal chest pain or tightness -On room air this morning, asking to be discharged home Objective GENERAL APPEARANCE: NAD, obese HEENT:NCAT, flushed face, EOMI, MMM CARDIOVASCULAR: RRR, no m/r/g LUNGS: Trace crackles at the bases,much improved effort from yesterday ABDOMEN: Obese, soft, protuberant, normoactive sounds, NTND MUSCULOSKELETAL: has contractures NEUROLOGICAL: CN3-12 intact, had contractures, sensation intact EXT: WWP, with leg warmers in place, has trace lower extremity edema now PSYCHIATRIC: AOx3 LABORATORY DATA: WBC 7.9 Hgb 14 platelets 325 na 137 k 4 BUN 36 Cr 1.76 IMAGING: Chest xray "IMPRESSION: Suboptimal inspiratory effort. Increased parenchymal markings in the right lung may represent an infiltrate." CT chest "IMPRESSION: 1. Mild right and minimal left pleural effusions with moderate bilateral lower lobe atelectasis, left greater than right with question of minimal infiltrate in the remaining aerated left lower lobe. 2. Trace pericardial fluid. 3. Otherwise negative CT chest." MICROBIOLOGY: respiratory panel neg ASSESSMENT: 65 yr old M with advanced MS (quadraplegic w chronic myers and placement of dorsal cord stimulator), DLP, Depression, seizure disorder, CKD 3, HTN Vitamin D Def, IDDM, Osteoporosis, & AYLA admitted for possible NSTEMI and found to be more likely HFpEF exacerbation and AYLA on CKD. PLAN: Initial suspicion for NSTEMI vs a carditis: Unlikely, discussed with Dr. Elena who agreed with the plan below -Was SOB without alicia chest pain -EKG was without acute ST changes -continue ASA, dc plavix, contiune atorvastatin and low dose Coreg -DC'd heparin gtt w/ low suspicion for NSTEMI given diffuse chronic pain and stable EKG, possible -carditis given recent history of pericarditis pending TTE read -dc'd colchicine until TTE that on speaking with Dr. Elena had depressed EF to 35% but no effusions or c/f for -carditis -lipid panel complete, already on lipitor 80mg -A1C was 6.8 which is actually quite well controlled -Telemetry Acute HFpEF exacerbation: improving, edema much improved and mild hypoxemia resolved -Last TTE was 07/05 during which he had no pericardial effusion and colchicine was stopped by Dr. Rodriguez, EF was wnl chronic diastolic HF was acknowledged. No w EF was 35% as reported by Dr. Elena on our conversation, pending official read. -strict I/Os -daily weights -DC lasix 40 IV Daily, to start lasix 20mg daily, had robust response to diuretic and is diuretic naive -stat TTE, showed newly depressed EF and HF -Telemetry CKD3: stable Advanced MS (quadraplegic w chronic supra-pubic myers and placement of dorsal cord stimulator) fall precautions -c/w chronic myers -modafinil 5 HTN -amlodipine -Coreg 6 IDDM -consistent carbohydrate diet -FSBS AC/HS -SSI -c/w 25 units of long acting insulin BID -A1c 6.8 7 Seizure disorder -Keppra 8 DLP -lipitor 40mg daily 8 Osteoporosis -vitamin D 9 Depression / Anxiety -alprazolam, duloxetine 10 AYLA -has own PAP DVT pxL subcutaneous ppx dosing heparin Dispo: home after at least 2 midnights stay VS,Fabrice, I+O VS, Fabrice, I+O Laboratory Tests 07/26/20 05:53 Vital Signs Date Time Temp Pulse Resp B/P (MAP) Pulse Ox O2 Delivery O2 Flow Rate FiO2 07/26/20 04:00 98.0 90 18 133/68 (89) 93 Room Air 07/25/20 21:00 2.0 I&O- Last 24 Hours up to 6 AM 07/26/20 05:59 Intake Total 964 ml Output Total 4400 ml Balance -3436 ml TINY KAMARA MD Jul 26, 2020 07:56
--- NOTE | 2020-07-26 11:27 | DS.PDOC ---
Discharge Summary General Date of Admission Jul 25, 2020 at 06:01 Date of Discharge 07/26/2020 Attending Physician: TINY KAMARA MD Discharge Summary PROCEDURES PERFORMED DURING STAY: None ADMITTING DIAGNOSES: Dyspnea DISCHARGE DIAGNOSES: CHF exacerbation with newly noted reduced ejection fraction on chronic diastolic HF Advanced MS (quadraplegic w chronic supra-pubic myers and placement of dorsal cord stimulator) DLP CKD3 Depression HTN Vitamin D Def IDDM Osteoporosis AYLA seizure disorder COMPLICATIONS/CHIEF COMPLAINT: Dyspnea. HISTORY OF PRESENT ILLNESS: had been feeling short of breath for a few days and came to the hospital because his cxaregivers made him come. Per ED the patient endorsed chest pain, but when asked the patient was asked about the chest pain he said "I have end stage MS...I have pain all over my body all the time." He also c/o back pain due to lying in his wheel chair all night. Of note he was last admitted here in April for and transferred to [place] where he was diagnosed with pericarditis and was recently seen by Dr. Rodriguez in the outpatient setting who stopped his colchine and did not note any effusions and EF was reportedly wnl. HOSPITAL COURSE: On presentation he was SOB and had crackles and [place] [id number] and had a troponin leak that was uptrending. The ED tried to transfer him to [place] but they did not have beds so he was admitted to medicine for CHF w/ c/f NSTEMI vs. percarditis. He was given lasix in the ED and on admission by Dr. Aguirre was started on a heparin gtt colchicine and plavix. On my evaluation, he had no chest pain, EKG remained stable and I suspected the troponinemia to have been secondary to the heart failure and unlikely NSTEMI or pericardits and I concerntrated on diuresis and discontinued colchine, heparin gtt and plavix while awaiting the TTE. I had a discussion with Dr. Elena who agreed with the plan and on reviewing his TTE he noted a depressed EF and CHF without a significant pericardial effusion.Mr. Vanessa who is loop diuretic naive had a robust response to the lasix and his exam improved with resolution of a mild hypoxemia, troponins downtrended and by day 2 AM he was asking if he could be discharged home. I am now discharging him home with low dose diuretic, also having started him on coreg 3.125 BID and lipitor 40. I have deferred an ACEi to cardiology given his CKD. DISCHARGE MEDICATIONS: Please see below. ALLERGIES: Please see below. PHYSICAL EXAMINATION ON DISCHARGE: Objective GENERAL APPEARANCE: NAD, obese HEENT:NCAT, flushed face, EOMI, MMM CARDIOVASCULAR: RRR, no m/r/g LUNGS: crackles at the bases, poor effort ABDOMEN: Obese, soft, protuberant, normoactive sounds, NTND MUSCULOSKELETAL: has contractures NEUROLOGICAL: CN3-12 intact, had contractures, sensation intact EXT: WWP, with leg warmers in place, has 2+ lower extremity edema PSYCHIATRIC: AOx3 LABORATORY DATA: Please see below. IMAGING: Chest xray "IMPRESSION: Suboptimal inspiratory effort. Increased parenchymal markings in the right lung may represent an infiltrate." CT chest "IMPRESSION: 1. Mild right and minimal left pleural effusions with moderate bilateral lower lobe atelectasis, left greater than right with question of minimal infiltrate in the remaining aerated left lower lobe. 2. Trace pericardial fluid. 3. Otherwise negative CT chest." LABORATORY DATA: Please see below. PROGNOSIS: Good ACTIVITY: As tolerated DIET: consistent carb, 2g sodium DISCHARGE PLAN: Home with lasix 20mg QD, coreg 3.125 BID and lipitor 40mg QD with close PCP and cardiology follow up. DISPOSITION: Home with 24 hour care DISCHARGE INSTRUCTIONS: Home with lasix 20mg QD, coreg 3.125 BID and lipitor 40mg QD with close PCP and cardiology follow up. ITEMS TO FOLLOWUP ON ON OUTPATIENT: Newly noted depressed EF, now with mixed systolic and diastolic CHF DISCHARGE CONDITION: Stable TIME SPENT ON DISCHARGE: 65 minutes. Vital Signs/I&Os Vital Signs Date Time Temp Pulse Resp B/P (MAP) Pulse Ox O2 Delivery O2 Flow Rate FiO2 07/26/20 09:00 93 Room Air 07/26/20 08:57 105 131/78 07/26/20 08:00 97.4 17 07/25/20 21:00 2.0 I&O- Last 24 Hours up to 6 AM 07/26/20 06:00 Intake Total 964 ml Output Total 4400 ml Balance -3436 ml Laboratory Data Labs 24H Laboratory Tests 2 07/25/20 11:45: Bedside Glucose (Misc Panel) 185H 07/25/20 14:06: Total Creatine Kinase 75, Creatine Kinase MB 2.5, Creatine Kinase MB Relative Index 3.33, Troponin I 0.81H 07/25/20 16:36: Bedside Glucose (Misc Panel) 173H 07/25/20 18:26: Total Creatine Kinase 63, Creatine Kinase MB 1.4, Creatine Kinase MB Relative Index 2.22, Troponin I 0.71H 07/25/20 21:13: Bedside Glucose (Misc Panel) 135H 07/26/20 05:53: Nucleated Red Blood Cells % (auto) 0.0, Anion Gap 4L, Glomerular Filtration Rate 41.7L, Calcium Level 8.4L, Troponin I 0.55#H CBC/BMP Laboratory Tests 07/26/20 05:53 FSBS Laboratory Tests Test 07/25/20 11:45 07/25/20 16:36 07/25/20 21:13 Range/Units Bedside Glucose (Misc Panel) 185 173 135 80-115 MG/DL Microbiology Microbiology 07/24/20 Blood Culture - Preliminary, Resulted No growth after 24 hours . All specim... 07/24/20 Blood Culture - Preliminary, Resulted No growth after 24 hours . All specim... 07/24/20 Respiratory Virus Panel (PCR) ([facility]) - Final, Complete Discharge Medications Scheduled Amlodipine Besylate (Amlodipine Besylate) 5 Mg Tablet, 5 MG PO QHS, (Reported) Atorvastatin Calcium (Atorvastatin Calcium) 40 Mg Tablet, 1 TAB PO DAILY Carvedilol (Carvedilol) 3.125 Mg Tablet, 3.125 MG PO BID Cetirizine HCl (Cetirizine HCl) 10 Mg Tablet, 10 MG PO DAILY, (Reported) Cholecalciferol (Vitamin D3) (Vitamin D3) 50 Mcg Capsule, 50 MCG PO DAILY, (Reported) Docusate Sodium (Dok) 100 Mg Capsule, 100 MG PO BID, (Reported) Duloxetine Hcl (Duloxetine HCl) 60 Mg Capsule.dr, 60 MG PO DAILY, (Reported) Furosemide (Furosemide) 20 Mg Tablet, 1 TAB PO DAILY Insulin Glargine,Hum.rec.anlog (Lantus Solostar) 100 Unit/1 Ml Insuln.pen, 25 UNITS SC BID, (Reported) after meals Insulin Lispro (Humalog Kwikpen U-100) 100 Unit/1 Ml Insuln.pen, 1 DOSE SC WM, (Reported) per sliding scale Levetiracetam (Levetiracetam) 750 Mg Tablet, 750 MG PO BID, (Reported) Modafinil (Modafinil) 200 Mg Tablet, 200 MG PO BID, (Reported) Nitroglycerin (Nitroglycerin) 0.4 Mg Tab.subl, 0.4 MG SL NITRO, (Reported) Omeprazole (Omeprazole) 20 Mg Capsule.dr, 20 MG PO DAILY, (Reported) Pregabalin (Pregabalin) 100 Mg Capsule, 100 MG PO TID, (Reported) Scheduled PRN Alprazolam (Alprazolam) 0.5 Mg Tablet, 0.5 MG PO QHS PRN for ANXIETY, (Reported) Nystatin (Nystatin) 1 Each Powder.ea., 1 APPLIC TOP BID PRN for ITCHING, (Reported) groin and toes Miscellaneous Medications [Comments] , (Reported) MED LIST MADE WITH list from home Allergies Coded Allergies: Penicillins (Verified Allergy, Unknown, childhood allergy, 12/09/18) alendronate sodium (Verified Allergy, Unknown, 11/07/18) ibandronate sodium (Verified Allergy, Unknown, unknown, 11/07/18) rofecoxib (Verified Allergy, Unknown, 11/07/18) methadone (Verified Adverse Reaction, Mild, NAUSEA AND VOMITING, 12/09/18) morphine (Verified Adverse Reaction, Mild, nausea,vomiting, 12/09/18) TINY KAMARA MD Jul 26, 2020 11:26
--- NOTE | 2020-07-26 13:02 | ECHO ---
ECHOCARDIOGRAM DATE OF PROCEDURE: 07/25/2020 Age: 65 Gender: Height: Weight: REFERRING PROVIDER: Dr. Tomlinson. REASON FOR THE TESTING: Abnormal serum troponin. 2D MEASUREMENTS: Ascending aorta 2.9 cm DOPPLER MEASUREMENT Peak velocity across the LVOT 0.5 m/s 2D COMMENTS: 1. Technically very limited study due to poor acoustic window. The endocardium was not well visualized. 2. The left ventricular size appeared to be mildly enlarged with a depressed global left ventricular systolic function. The estimated left ventricular systolic ejection fraction is 30 to 35%. 3. The left atrium appeared to be mildly enlarged. The right atrium and right ventricle were not well visualized. 4. The aortic root appeared to be normal in size. 5. No pericardial effusion seen. 6. The aortic valve appeared to be normal, as well as the mitral valve leaflets. The pulmonic valve and proximal pulmonary artery branches were not well visualized. 7. The inferior vena cava was not visualized. DOPPLER: No significant valvular abnormalities detected. Abnormal relaxation pattern was noted across the mitral valve leaflets as well as the mitral valve annulus consistent with features of grade 1 left ventricular diastolic dysfunction. IMPRESSION: 1. Technically very limited study due to poor acoustic window. 2. Moderately severe global left ventricular systolic function. There were some features of grade 1 left ventricular diastolic dysfunction manifested by abnormal relaxation. 3. No significant valvular heart disease.
--- NOTE | 2020-07-26 16:44 | ECGEPIP ---
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
--- NOTE | 2020-07-26 16:48 | ECGEPIP ---
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
== END 2020-07-26 13:52 | disposition home or self-care (01) | DRG 291 ==
LOC: M ED 20:30 → M ED INP 07-25 06:01 → ENRESERV 07-25 07:54 → M PCU 07-25 09:18
PROVIDERS: ADMIT Internal Medicine; ATTEND Internal Medicine
DX: I13.0 Hypertensive heart and chronic kidney disease with heart failure and stage 1 through stage 4 chronic kidney disease, or unspecified chronic kidney disease (principal); I50.33 Acute on chronic diastolic (congestive) heart failure; G82.50 Quadriplegia, unspecified; G35 Multiple sclerosis; E11.9 Type 2 diabetes mellitus without complications; G40.909 Epilepsy, unspecified, not intractable, without status epilepticus; E55.9 Vitamin D deficiency, unspecified; N18.30 Chronic kidney disease, stage 3 unspecified; F32.9 Major depressive disorder, single episode, unspecified; G47.33 Obstructive sleep apnea (adult) (pediatric); Z79.899 Other long term (current) drug therapy; Z79.4 Long term (current) use of insulin; Z88.0 Allergy status to penicillin; Z88.5 Allergy status to narcotic agent; Z88.8 Allergy status to other drugs, medicaments and biological substances; F41.9 Anxiety disorder, unspecified

== ENCOUNTER → 2020-10-14 | Outpatient (CLI) | payer MEDICARE, MEDICAID ==
[~2020-10-14] MED LIST changes: +ATOR40TA75 PO; +CARV3.12 PO; +COLC0.6T47 PO; +DOK1CAP4 PO; -DOK1CAP7 PO; -DOXY100C37 PO; +DOXY1CAP62 PO; +FURO20TA2 PO; +NITR0.4S14 SL; +NYST1POW TOP
--- NOTE | 2020-10-14 14:36 | REP ---
INDICATION: VIRA HYDRONEPHROSIS KIDNEY. COMPARISON: 05/04/2020. TECHNIQUE: Real-time sonographic evaluation of the kidneys is performed. FINDINGS: Renal cortical echogenicity pattern is normal bilaterally and contours are smooth. There is again moderate bilateral hydronephrosis which appears similar to the prior exam. Renal parenchyma is not optimally seen due to patient body habitus. No gross mass is seen. The right kidney measures 11.4 x 5.7 x 6.0 cm. Left renal dimensions are 11.0 x 5.8 x 5.5 cm. Guerrero catheter is seen within the urinary bladder. With duplex Doppler evaluation resistive index right kidney 0.66, left unobtainable. IMPRESSION: Moderate bilateral hydronephrosis similar to the prior exam. <Electronically signed by Jason Escamilla > 10/14/20 [id number]
== END ==
LOC: M RAD 13:37
PROVIDERS: ATTEND Physician Assistant
DX: R33.9 Retention of urine, unspecified (principal); N13.30 Unspecified hydronephrosis

== ENCOUNTER → 2021-04-11 | Outpatient (CLI) | payer MEDICARE, MEDICAID ==
[~2021-04-11] MED LIST changes: -CEFD1CAP8 PO; +CEFD300C41 PO; -CYMB60CA3 PO; +CYMB60CA4 PO; +DOXY-443 PO; -DOXY1CAP62 PO; -LEVO250T12 PO; +LEVO250T3 PO; +OMEP-173 PO; -OMEP-218 PO; -TEST1.622 TOP; +TEST75GE TOP
[2021-04-11 17:39] LABS: BLOOD UREA NITROGEN 45 MG/DL (7-18); CALCIUM LEVEL 8.6 MG/DL (8.8-10.2); CARBON DIOXIDE LEVEL 29 MEQ/L (21-32); CHLORIDE LEVEL 103 MEQ/L (98-107); CHOLESTEROL LEVEL 223 MG/DL (<200); CHOLESTEROL RISK RATIO 7.433 (<5); CREATININE FOR GFR 2.08 MG/DL (0.70-1.30); GLOMERULAR FILTRATION RATE 34.3 (>49); GLUCOSE, FASTING 250 MG/DL (70-100); HDL CHOLESTEROL 30 MG/DL (>40); NON-HDL-C 193 MG/DL; POTASSIUM SERUM 4.8 MEQ/L (3.5-5.1); SODIUM LEVEL 137 MEQ/L (136-145); TRIGLYCERIDES LEVEL 482 MG/DL (<150)
[2021-04-11 17:50] LABS: CREATININE, URINE 32.4 MG/DL; MAU/CREAT RATIO 512.3 MCG/MG (0.0-30.0)
[2021-04-11 19:30] LABS: HEMOGLOBIN A1c 8.5 %
== END ==
LOC: M PLALAB 14:15
PROVIDERS: ATTEND Physician Assistant
DX: E11.649 Type 2 diabetes mellitus with hypoglycemia without coma (principal); Z79.4 Long term (current) use of insulin

== ENCOUNTER → 2021-04-11 | Outpatient (CLI) | payer MEDICARE, MEDICAID ==
[2021-04-11 17:09] LABS: BASO # 0.1 10^3/uL (0.0-0.2); BASO % 1.1 % (0.0-1.0); EOS # 0.2 10^3/uL (0.0-0.5); HEMATOCRIT 46.5 % (42.0-52.0); HEMOGLOBIN 14.5 g/dl (13.5-17.5); LYMPH # 1.8 10^3/uL (1.5-5.0); LYMPH % 21.8 % (24.0-44.0); MEAN CORPUSCULAR HEMOGLOBIN 26.9 pg (27.0-33.0); MEAN CORPUSCULAR HGB CONC 31.2 g/dl (32.0-36.5); MEAN CORPUSCULAR VOLUME 86.1 fl (80.0-96.0); MONO # 0.6 10^3/uL (0.0-0.8); MONO % 7.9 % (2.0-8.0); NEUTROPHILS # 5.3 10^3/uL (1.5-8.5); NEUTROPHILS % 65.6 % (36.0-66.0); WHITE BLOOD COUNT 8.1 10^3/uL (4.0-10.0)
[2021-04-11 17:50] LABS: ALBUMIN 3.4 GM/DL (3.2-5.2); ALT/SGPT 30 U/L (12-78); BILIRUBIN,TOTAL 0.2 MG/DL (0.2-1.0); BLOOD UREA NITROGEN 49 MG/DL (7-18); CALCIUM LEVEL 8.5 MG/DL (8.8-10.2); CARBON DIOXIDE LEVEL 28 MEQ/L (21-32); CHLORIDE LEVEL 104 MEQ/L (98-107); CHOLESTEROL LEVEL 215 MG/DL (<200); CHOLESTEROL RISK RATIO 7.413 (<5); CREATININE FOR GFR 2.06 MG/DL (0.70-1.30); CREATININE, URINE 29.7 MG/DL; FREE T4 0.81 NG/DL (0.76-1.46); GLOMERULAR FILTRATION RATE 34.7 (>49); GLUCOSE, FASTING 255 MG/DL (70-100); HDL CHOLESTEROL 29 MG/DL (>40); MAU/CREAT RATIO 531.9 MCG/MG (0.0-30.0); NON-HDL-C 186 MG/DL; SODIUM LEVEL 138 MEQ/L (136-145); TOTAL PROTEIN 8.1 GM/DL (6.4-8.2); TRIGLYCERIDES LEVEL 465 MG/DL (<150)
[2021-04-11 17:56] LABS: TOTAL 25(OH) VITAMIN D 34.8 NG/ML (30.0-100.0)
[2021-04-11 19:36] LABS: HEMOGLOBIN A1c 8.6 %
[2021-04-15 23:07] LABS: PSA TOTAL 2.1 ng/mL (0.0-4.0); TESTOSTERONE FREE (DIRECT) 13.6 pg/mL (6.6-18.1)
== END ==
LOC: M PLALAB 14:11
PROVIDERS: ATTEND Nurse Practitioner Family
DX: E29.1 Testicular hypofunction (principal); I10 Essential (primary) hypertension; E55.9 Vitamin D deficiency, unspecified; E11.65 Type 2 diabetes mellitus with hyperglycemia; E78.5 Hyperlipidemia, unspecified; Z79.899 Other long term (current) drug therapy

== ENCOUNTER → 2021-04-22 | Outpatient (CLI) | payer MEDICAID, MEDICARE, OTHER | LOC: M RAD 13:28 | PROVIDERS: ATTEND Physician Assistant | DX: N13.30 Unspecified hydronephrosis (principal) ==

== ENCOUNTER → 2021-08-10 | Outpatient (CLI) | payer MEDICARE, MEDICAID ==
[~2021-08-10] MED LIST changes: +ALBU2.5V10 NEB; -ALBU83IN NEB
[2021-08-10 15:31] LABS: BASO # 0.1 10^3/uL (0.0-0.2); BASO % 0.9 % (0.0-1.0); EOS # 0.2 10^3/uL (0.0-0.5); EOS % 2.2 % (0.0-3.0); HEMATOCRIT 39.7 % (42.0-52.0); HEMOGLOBIN 12.3 g/dl (13.5-17.5); LYMPH # 1.8 10^3/uL (1.5-5.0); LYMPH % 22.5 % (24.0-44.0); MEAN CORPUSCULAR HEMOGLOBIN 26.2 pg (27.0-33.0); MEAN CORPUSCULAR VOLUME 84.5 fl (80.0-96.0); MONO # 0.7 10^3/uL (0.0-0.8); MONO % 8.7 % (2.0-8.0); NEUTROPHILS # 5.1 10^3/uL (1.5-8.5); NEUTROPHILS % 64.9 % (36.0-66.0); PLATELET COUNT, AUTOMATED 223 10^3/uL (150-450); WHITE BLOOD COUNT 7.9 10^3/uL (4.0-10.0)
[2021-08-10 15:58] LABS: BILIRUBIN,TOTAL 0.2 MG/DL (0.2-1.0); CALCIUM LEVEL 7.7 MG/DL (8.8-10.2); CHOLESTEROL RISK RATIO 6.285 (<5); CREATININE FOR GFR 2.75 MG/DL (0.70-1.30); GLOMERULAR FILTRATION RATE 24.8 (>49); POTASSIUM SERUM 5.2 MEQ/L (3.5-5.1); TOTAL PROTEIN 8.3 GM/DL (6.4-8.2)
[2021-08-10 16:16] LABS: TOTAL 25(OH) VITAMIN D 44.7 NG/ML (30.0-100.0)
[2021-08-12 20:07] LABS: TESTOSTERONE FREE (DIRECT) 27.6 pg/mL (6.6-18.1)
== END ==
LOC: M PLALAB 13:51
PROVIDERS: ATTEND Nurse Practitioner Family
DX: E11.65 Type 2 diabetes mellitus with hyperglycemia (principal); E78.5 Hyperlipidemia, unspecified; I10 Essential (primary) hypertension; E29.1 Testicular hypofunction; E55.9 Vitamin D deficiency, unspecified; Z12.5 Encounter for screening for malignant neoplasm of prostate; Z79.899 Other long term (current) drug therapy

== ENCOUNTER → 2021-08-18 | Outpatient (CLI) | payer MEDICARE, MEDICAID ==
[2021-08-18 16:11] LABS: CALCIUM LEVEL 8.9 MG/DL (8.8-10.2); CREATININE FOR GFR 3.05 MG/DL (0.70-1.30); PHOSPHORUS LEVEL 3.9 MG/DL (2.5-4.9); POTASSIUM SERUM 5.1 MEQ/L (3.5-5.1)
== END ==
LOC: M WUC 13:39
PROVIDERS: ATTEND Internal Medicine Nephrology
DX: N18.32 Chronic kidney disease, stage 3b (principal)

== ENCOUNTER → 2021-08-22 | Outpatient (CLI) | payer MEDICAID, MEDICARE | LOC: M WHC 12:42 | PROVIDERS: ATTEND Internal Medicine Nephrology | DX: N13.9 Obstructive and reflux uropathy, unspecified (principal); N13.39 Other hydronephrosis; N17.9 Acute kidney failure, unspecified ==

== ENCOUNTER → 2021-09-07 | Outpatient (CLI) | payer MEDICARE ==
[2021-09-07 16:47] LABS: CREATININE FOR GFR 2.44 MG/DL (0.70-1.30); GLOMERULAR FILTRATION RATE 28.5 (>49); POTASSIUM SERUM 4.8 MEQ/L (3.5-5.1)
== END ==
LOC: M WUC 13:43
PROVIDERS: ATTEND Specialist
DX: R33.9 Retention of urine, unspecified (principal)

== ENCOUNTER → 2021-12-08 | Outpatient (CLI) | payer MEDICARE, MEDICAID ==
[~2021-12-08] MED LIST changes: +LEVO1TAB38 PO; -LEVO250T3 PO
== END ==
LOC: M RAD 12:47
PROVIDERS: ATTEND Physician Assistant
DX: N13.30 Unspecified hydronephrosis (principal)